=== PATIENT | male | born 1945 | race Caucasian/White ===

== ENCOUNTER → 2016-11-13 | Outpatient (REF) | payer MEDICARE ==
[2016-11-13 19:34] LABS: MEAN CORPUSCULAR HGB CONC 33.3 g/dl (32.0-36.5); MEAN CORPUSCULAR VOLUME 89.9 fl (80.0-96.0); RED CELL DISTRIBUTION WIDTH 12.7 % (11.5-14.5); WHITE BLOOD COUNT 5.5 K/mm3 (4.0-10.0)
[2016-11-13 20:13] LABS: ANION GAP 8 MEQ/L (8-16); BLOOD UREA NITROGEN 20 MG/DL (7-18); CARBON DIOXIDE LEVEL 27 MEQ/L (21-32); CHLORIDE LEVEL 108 MEQ/L (98-107); CREATININE FOR GFR 0.93 MG/DL (0.70-1.30); GLOMERULAR FILTRATION RATE > 60.0 (>49); GLUCOSE, FASTING 68 MG/DL (80-110); SODIUM LEVEL 143 MEQ/L (136-145)
== END ==
LOC: M LAB REF 16:09
PROVIDERS: ATTEND Surgery
DX: E11.621 Type 2 diabetes mellitus with foot ulcer (principal)
CPT/HCPCS: 11042; 36415; 80048; 83036; 85027; 85652; 86140; 87070; 87077; 87186; G0463

== ENCOUNTER → 2016-11-21 | Outpatient (CLI) | payer MEDICARE ==
--- NOTE | 2016-11-21 15:27 | REP ---
MRI RIGHT FOOT WITHOUT AND WITH CONTRAST: 11/21/2016. Comparison: Right foot x-ray 06/25/2014, MRI without and with contrast 02/02/2014. Clinical history: Ulceration about the plantar aspect of the distal 3rd metatarsal. Evaluate for metatarsal head osteomyelitis third digit. History of type 2 diabetes. Technique: Axial T1, fat suppressed T1 and T2 STIR, sagittal T2 STIR with coronal T1, fat suppressed T1 and STIR images. After infusion of 14 mL of ProHance, T1 fat suppressed sagittal, axial and coronal images obtained. Findings: There is some hyperintense T2 stir signal in the plantar aspect of the foot and between the proximal phalanges of the third and fourth toes. There is some fluid along the dorsal aspect of the proximal phalanges and MTP joints of the third and fourth digits. However, I see no marrow signal abnormality on STIR images. Some enhancement of these soft tissues is seen on the gadolinium images, but I do not see marrow enhancement of the phalanges or metatarsal heads. The metatarsal shafts, visible hindfoot and tarsal bones also show no evidence of abnormal enhancement. Flexor and extensor tendons grossly intact. No fluid collection to definitely suggest abscess. Intrinsic muscles of the foot show no signal abnormality. There are old eroded changes of the distal head of the fifth metatarsal. The posterior calcaneus is excluded on most views as this study was to evaluate the MTP joints. Impression: 1. Evidence of cellulitis and some enhancement of the soft tissues about the plantar aspect of the distal foot adjacent to the third and fourth metatarsal heads as well. Some signal in the soft tissues between the third and fourth digits proximal phalanges and dorsally at the MTP joints, but no definite joint effusion, marrow signal abnormalities to suggest osteomyelitis in the toes, metatarsals, tarsal bones or visualized portion of hindfoot. Signed by Greg Thornton MD 11/21/2016 08:21 P
== END ==
LOC: M RAD 10:58
PROVIDERS: ATTEND Surgery
DX: E11.621 Type 2 diabetes mellitus with foot ulcer (principal)
CPT/HCPCS: 73720; A9576

== ENCOUNTER → 2017-06-24 | Outpatient (REF) | payer MEDICARE ==
[2017-06-25 09:00] LABS: TOTAL PROTEIN 7.1 GM/DL (6.4-8.2)
[2017-06-25 12:45] LABS: ALBUMIN 4.05 GM/DL (3.29-5.55); GAMMA GLOBULIN % 15.7 % (11.1-18.8)
== END ==
LOC: M LAB REF 12:43
PROVIDERS: ATTEND Family Medicine
DX: E11.9 Type 2 diabetes mellitus without complications (principal); Z11.59 Encounter for screening for other viral diseases; Z79.4 Long term (current) use of insulin

== ENCOUNTER → 2017-07-16 | Outpatient (REF) | payer MEDICARE | LOC: M LAB REF 13:19 | PROVIDERS: ATTEND Surgery | DX: E11.621 Type 2 diabetes mellitus with foot ulcer (principal); D16.31 Benign neoplasm of short bones of right lower limb ==

== ENCOUNTER → 2017-07-16 | Outpatient (REF) | payer MEDICARE | LOC: M SFHCPLAZ 12:02 | PROVIDERS: ATTEND Surgery | DX: E11.621 Type 2 diabetes mellitus with foot ulcer (principal) ==

== ENCOUNTER → 2017-08-06 | Outpatient (REF) | payer MEDICARE ==
[2017-08-06 19:26] LABS: BASO # 0.1 10^3/uL (0.0-0.2); BASO % 0.9 % (0.0-1.0); EOS # 0.1 10^3/uL (0.0-0.50); EOS % 1.8 % (0.0-3.0); IMMATURE GRANULOCYTE % 0.2 % (0-0); LYMPH # 1.5 10^3/uL (1.5-4.5); LYMPH % 23.1 % (24.0-44.0); MEAN CORPUSCULAR HEMOGLOBIN 29.6 pg (27.0-33.0); MEAN CORPUSCULAR HGB CONC 33.4 g/dl (32.0-36.5); MEAN CORPUSCULAR VOLUME 88.6 fl (80.0-96.0); MONO # 0.5 10^3/uL (0.0-0.8); MONO % 7.3 % (0.0-5.0); NEUTROPHILS # 4.4 10^3/uL (1.8-7.7); NEUTROPHILS % 66.7 % (36.0-66.0); PLATELET COUNT, AUTOMATED 258 10^3/uL (150-450); RED CELL DISTRIBUTION WIDTH 12.1 % (11.5-14.5); WHITE BLOOD COUNT 6.6 10^3/uL (4.0-10.0)
[2017-08-06 19:30] LABS: ALBUMIN/GLOBULIN RATIO 1.14 (1.00-1.93); ALKALINE PHOSPHATASE 87 U/L (45-117); ALT/SGPT 31 U/L (12-78); ANION GAP 3 MEQ/L (8-16); AST/SGOT 20 U/L (7-37); BILIRUBIN,TOTAL 0.4 MG/DL (0.2-1.0); BLOOD UREA NITROGEN 21 MG/DL (7-18); CALCIUM LEVEL 9.8 MG/DL (8.8-10.2); CARBON DIOXIDE LEVEL 32 MEQ/L (21-32); CHLORIDE LEVEL 106 MEQ/L (98-107); CREATININE FOR GFR 0.83 MG/DL (0.70-1.30); GLOMERULAR FILTRATION RATE > 60.0 (>42); GLUCOSE, FASTING 88 MG/DL (83-110); SODIUM LEVEL 141 MEQ/L (136-145); TOTAL PROTEIN 7.5 GM/DL (6.4-8.2)
[2017-08-06 20:23] LABS: ERYTHROCYTE SEDIMENTATION RATE 47 mm/hr (0-20)
== END ==
LOC: M LAB REF 17:26
PROVIDERS: ATTEND Surgery
DX: E11.621 Type 2 diabetes mellitus with foot ulcer (principal); L97.514 Non-pressure chronic ulcer of other part of right foot with necrosis of bone

== ENCOUNTER → 2017-09-10 | Outpatient (REF) | payer MEDICARE | LOC: M LAB REF 16:38 | PROVIDERS: ATTEND Surgery | DX: E11.621 Type 2 diabetes mellitus with foot ulcer (principal); L97.514 Non-pressure chronic ulcer of other part of right foot with necrosis of bone ==

== ENCOUNTER → 2017-09-13 | Outpatient (CLI) | payer MEDICARE ==
[~2017-09-13] MED LIST: HEPARIN 1,000 UNITS/ML 10ML VIAL (FOR RADIOLOGY& DIALYSIS ONLY) As Ordered ONE; ISOVUE-300 61% 50ML VIAL (Q9967) As Ordered ONE; MIDAZOLAM INJ 2 MG/2 ML VIAL (J2250) As Ordered ONE; PROTAMINE SULF INJ 50 MG/5 ML VIAL (J2720) As Ordered ONE; fentaNYL 100 MCG/2 ML INJECTION (J3010) As Ordered ONE
--- NOTE | 2017-09-13 13:28 | REP ---
BILATERAL LOWER EXTREMITY DUPLEX DOPPLER VENOUS ULTRASOUND WITH VEIN MAPPING: Real-time compression and duplex Doppler interrogation of the bilateral lower extremity deep vein systems is performed. Bilaterally, common femoral, superficial femoral, and popliteal veins are fully compressible with transducer pressure and demonstrate normal spontaneous and phasic flow without evidence of deep venous thrombosis. Evaluation of venous size of the right lower extremity is performed, central aspect of right greater saphenous vein measures 5 mm in AP dimension, mid aspect and distal aspect 2 mm, and below the knee 1 mm. In the mid calf, the greater saphenous vein measures 2 mm. Anterior accessory greater saphenous vein is seen and measures 1 mm in diameter. Lesser saphenous vein measures 1 mm in diameter diffusely. On the left, central greater saphenous vein measures 3 mm, mid aspect 2 mm, and distally 1 mm, also 1 mm below the knee. The lesser saphenous vein centrally measures 4 mm in diameter with the mid to distal aspect measuring 1 mm. Signed by Michael Siddiqui MD 09/13/2017 05:00 P
--- NOTE | 2017-09-20 11:31 | REPIR ---
DATE OF PROCEDURE: 09/13/2017 PREOPERATIVE DIAGNOSES: Nonhealing right diabetic foot ulcer, diabetes mellitus, hypertension, femoral popliteal atherosclerotic arterial occlusive disease, tibioperoneal arthrosclerotic arterial occlusive disease. POSTOPERATIVE DIAGNOSES: Nonhealing right diabetic foot ulcer, diabetes mellitus, hypertension, femoral popliteal atherosclerotic arterial occlusive disease, tibioperoneal arthrosclerotic arterial occlusive disease. PROCEDURE: Aortogram, iliofemoral angiogram, selective right common femoral artery catheter placement with right lower extremity angiogram, selective right superficial femoral artery catheter placement with right lower extremity angiogram, Mynx closure of the left common femoral arteriotomy. ATTENDING SURGEON: Dr. Jignesh Cruz ASSISTANTS: Miguel Biggs and Nery Whelan. ANESTHESIA: Local with 10 mL of 2% lidocaine. FLUOROSCOPIC TIME: 1.1 minutes. CONTRAST: 17 mL. HEPARIN: None. COMPLICATIONS: None. DRAINS: None. SPECIMENS: None. IMPLANTS: Mynx closure device used to close the arteriotomy in the left common femoral artery. INDICATION: Patient is a 72-year-old male with known arterial atherosclerotic disease in the left lower extremity who also has a history of diabetes and hypertension who has worsening of his wound in his right foot, which has been slow to heal. Patient also has some minor pain in the right foot. Patient will undergo an angiogram with possible angioplasty, stent, and/or arthrectomy. Risks, benefits, and alternative treatment options were discussed with the patient. Alternative treatment options included, but were not limited to, no intervention. Risks included, but were not limited to, infection, bleeding, renal failure requiring hemodialysis, possible need for open surgical intervention, cerebrovascular accident, myocardial infarction, retroperitoneal hematoma, pulmonary embolus, deep venous thrombosis (DVT), loss of limb, loss of life, and poor outcome. Patient's questions were answered. Patient voices understanding of these risks, benefits, and alternative treatment options and accepts these risks of the associated procedure and agrees to proceed. Benefits included, but were not limited to, revascularization with improved blood flow to his right foot and healing of his right diabetic foot ulcer. DESCRIPTION OF PROCEDURE: Patient was taken to the angiography suite, placed supine on the angiography room table, and then prepped and draped in a standard surgical fashion. The left common femoral artery was cannulated with a micropuncture needle after anesthetizing the overlying skin with 2% lidocaine. The micropuncture wire was advanced through the micropuncture needle, which was upsized to a micropuncture sheath. A [place] wire was advanced through the micropuncture sheath, which was upsized to a #5-Cam[place] sheath. An Omni Flush catheter was placed in the aorta, and an aortogram was performed. Catheter was pulled down to the level of the bifurcation of the iliac arteries, and an iliofemoral angiogram was performed. Catheter was then directed over the bifurcation of the iliac arteries, placed in the right common femoral artery, and a right lower extremity angiogram was performed. Catheter was then advanced into the right superficial femoral artery as far distal as possible, and the remainder of the right lower extremity angiogram was performed. Catheters and wires were removed, and a Mynx closure device was used to close the arteriotomy in the left common femoral artery with an additional 10 minutes of adjunctive pressure applied for hemostasis. Dressings were then applied. Patient tolerated the procedure well. All instrument, sponge, and needle counts were correct at the end of the case. There were no complications. Dr. Cruz was present for and directed the entire case. Patient was transferred to the holding area and subsequently discharged in stable condition. RADIOLOGIC SUPERVISION INTERPRETATION: The initial aortogram showed the aorta from the diaphragm to the renal arteries to be widely patent. The celiac artery, superior mesenteric and renal arteries were widely patent with no stenosis noted. The infrarenal aorta was patent with good filling of lumbar vessels. The right common iliac, external and internal iliac arteries (cut off) common femoral artery. The catheter was placed in the right common femoral artery, and a right lower extremity angiogram was performed. The left common iliac, external and internal iliac arteries were patent with a high-grade stenosis at the origin of the left internal iliac artery, which was approximately 80%. The left common femoral and proximal superficial femoral and profunda femoris arteries were patent. There was no visualization of the left lower extremity below the puncture site. The right lower extremity angiogram showed the profunda femoris and superficial femoral artery to be patent with calcification noted along the marinelli of the superficial femoral artery. Catheter was advanced as far into the superficial femoral artery as possible, and an angiogram performed, which shows again calcification of the superficial femoral and popliteal artery distally with a stenosis at the junction of the superficial femoral and popliteal artery, which was approximately 30-40%. The popliteal artery in the below-knee region occluded with reconstitution distally of the posterior tibial and anterior tibial arteries in the mid calf via collaterals off of the popliteal artery. A Mynx closure device was used to close the arteriotomy in the left common femoral artery.
== END | disposition home or self-care (01) ==
LOC: M IRPRO 07:09
PROVIDERS: ATTEND Surgery Vascular Surgery
DX: I70.235 Atherosclerosis of native arteries of right leg with ulceration of other part of foot (principal); E11.621 Type 2 diabetes mellitus with foot ulcer; L97.519 Non-pressure chronic ulcer of other part of right foot with unspecified severity; I10 Essential (primary) hypertension
CPT/HCPCS: 36247; 75625; 75716; 75774; 93970; C1760; C1769; C1887; C1894; G0269; J2250; J3010; Q9967

== ENCOUNTER → 2017-09-25 | Outpatient (REF) | payer MEDICARE | LOC: M LAB REF 16:26 | PROVIDERS: ATTEND Physician Assistant Surgical | DX: E11.621 Type 2 diabetes mellitus with foot ulcer (principal); L97.514 Non-pressure chronic ulcer of other part of right foot with necrosis of bone ==

== ENCOUNTER 2017-11-14 09:13 | Inpatient (IN) | payer MEDICARE ==
[~2017-11-14 09:13] MED LIST changes: -HEPARIN 1,000 UNITS/ML 10ML VIAL (FOR RADIOLOGY& DIALYSIS ONLY) As Ordered ONE; -ISOVUE-300 61% 50ML VIAL (Q9967) As Ordered ONE; -MIDAZOLAM INJ 2 MG/2 ML VIAL (J2250) As Ordered ONE; -PROTAMINE SULF INJ 50 MG/5 ML VIAL (J2720) As Ordered ONE; -fentaNYL 100 MCG/2 ML INJECTION (J3010) As Ordered ONE; +fentaNYL 250 MCG/5 ML INJECTION (J3010) As Ordered
[2017-11-14 10:33] LABS: BEDSIDE GLUCOSE 190 MG/DL (83-110)
[2017-11-14] MEDS: LR 1,000 ML IV ×3 (10:42→20:30)
[2017-11-14] MEDS: BUPIVACAINE HCL 0.5% 30 ML VIAL As Ordered (11:36)
[2017-11-14] MEDS: LIDOCAINE 1% SDV INJ 30 ML VIAL As Ordered (11:36)
[2017-11-14] MEDS: ceFAZolin 1GM INJ (J0690 PER 500MG) As Ordered (12:42)
[2017-11-14] MEDS: HEPARIN SOD (PORCINE) 5000 UNITS/ML VIAL As Ordered ×2 (13:32→15:12)
[2017-11-14] MEDS ORDERED: HEPARIN SOD (PORCINE) 5000 UNITS/ML VIAL As Ordered ×3 (13:36→16:41)
[2017-11-14] MEDS ORDERED: HYDROmorphone HCL 2 MG/ML 1ML VIAL (J1170) As Ordered (15:12)
[2017-11-14] MEDS ORDERED: METOCLOPRAMIDE INJ 10MG/2ML VIAL (J2765) As Ordered (15:13)
[2017-11-14] MEDS ORDERED: LIDOCAINE 2% INJ 100 MG/5 ML SDV (FOR ANES.) As Ordered (15:13)
[2017-11-14] MEDS ORDERED: ROCURONIUM BROMIDE 50 MG/5 ML VIAL As Ordered (15:13)
[2017-11-14] MEDS ORDERED: ONDANSETRON 4MG/2ML VIAL (J2405) As Ordered (15:13)
[2017-11-14] MEDS: THROMBIN SOLN 20,000 UNITS KIT As Ordered ×2 (15:13→17:16)
[2017-11-14] MEDS ORDERED: PROPOFOL 200 MG/20 ML VIAL As Ordered (15:13)
[2017-11-14] MEDS: ceFAZolin 2 GM/D5W 50 ML IV BAG (J0690 PER 500MG) As Ordered (16:35)
[2017-11-14] MEDS: CONRAY-60 60% 50ML VIAL (Q9961) As Ordered (16:35)
[2017-11-14] MEDS: ALTEPLASE 2 MG/2 ML VIAL (J2997 PER 1MG) XX (17:15)
[2017-11-14] MEDS ORDERED: PHENYLephrine HCL 500 MCG/5 ML (100MCG/ML) SYRINGE (J2370) As Ordered (17:25)
[2017-11-14] MEDS ORDERED: GLYCOPYRROLATE INJ 0.2 MG/ML 2 ML VIAL As Ordered ×2 (18:48)
[2017-11-14] MEDS ORDERED: NEOSTIGMINE 10 MG/10 ML VIAL (J2710) As Ordered (18:48)
[2017-11-14] MEDS ORDERED: fentaNYL 100 MCG/2 ML INJECTION (J3010) As Ordered (19:20)
[2017-11-14] MEDS: fentaNYL 100 MCG/2 ML INJECTION (J3010) IV ×4 (19:30→19:50)
[2017-11-14] MEDS ORDERED: predniSONE 5 MG TAB PO (19:30)
[2017-11-14] MEDS ORDERED: BISACODYL 10 MG SUPP PR (19:30)
[2017-11-14] MEDS ORDERED: HumaLOG INSULIN (NovoLOG) PER UNIT SC (19:30)
[2017-11-14] MEDS ORDERED: PERCOCET 5MG/325MG TAB As Ordered (19:42)
[2017-11-14] MEDS: PERCOCET 5MG/325MG TAB PO ×2 (19:53→20:29)
[2017-11-14] MEDS: HYDROmorphone HCL 1 MG/ML SYRINGE (J1170) IV (20:30)
[2017-11-14] MEDS: ONDANSETRON 4MG/2ML VIAL (J2405) IV ×2 (20:30→20:34)
[2017-11-14] MEDS: NS 1,000 ML IV (20:35)
[2017-11-14] MEDS: SENOKOT S TAB PO (20:36)
[2017-11-14] MEDS: DOCUSATE SODIUM 100 MG CAP PO (20:36)
[2017-11-14] MEDS ORDERED: DEXTROSE 50% 50 ML SYRINGE IV (21:15)
[2017-11-14] MEDS ORDERED: GLUCAGON FOR INJ 1 MG VIAL (J1610) SC (21:15)
[2017-11-14] MEDS ORDERED: GLUCOSE 4 GM CHEW TABLET PO (21:15)
[2017-11-14] MEDS: MORPHINE 4 MG/ML 1ML VIAL (J2270) IV ×2 (21:33→23:59)
[2017-11-14] MEDS: LEVEMIR (INSULIN DETEMIR) 1 UNITS/0.01ML SC (22:06)
[2017-11-14 22:07] LABS: BEDSIDE GLUCOSE 272 MG/DL (83-110)
[2017-11-14] MEDS: HumaLOG INSULIN (NovoLOG) PER UNIT SC (22:07)
[2017-11-15] MEDS: NS 1,000 ML IV ×3 (03:42→19:23)
[2017-11-15] MEDS: MORPHINE 4 MG/ML 1ML VIAL (J2270) IV ×4 (03:47→12:20)
[2017-11-15 04:56] LABS: BASO % 0.4 % (0.0-1.0); HEMATOCRIT 25.1 % (42.0-52.0); HEMOGLOBIN 8.4 g/dl (14.0-18.0); IMMATURE GRANULOCYTE % 0.3 % (0-3.0); LYMPH # 0.9 10^3/uL (1.5-4.5); LYMPH % 9.1 % (24.0-44.0); MEAN CORPUSCULAR HEMOGLOBIN 29.3 pg (27.0-33.0); MEAN CORPUSCULAR HGB CONC 33.5 g/dl (32.0-36.5); MEAN CORPUSCULAR VOLUME 87.5 fl (80.0-96.0); MONO # 1.1 10^3/uL (0.0-0.8); MONO % 11.3 % (0.0-5.0); NEUTROPHILS # 7.9 10^3/uL (1.8-7.7); NEUTROPHILS % 78.9 % (36.0-66.0); PLATELET COUNT, AUTOMATED 213 10^3/uL (150-450); RED BLOOD COUNT 2.87 10^6/uL (4.30-6.10); RED CELL DISTRIBUTION WIDTH 12.8 % (11.5-14.5); WHITE BLOOD COUNT 9.9 10^3/uL (4.0-10.0)
[2017-11-15 05:20] LABS: ANION GAP 3 MEQ/L (8-16); BLOOD UREA NITROGEN 22 MG/DL (7-18); CALCIUM LEVEL 7.7 MG/DL (8.8-10.2); CARBON DIOXIDE LEVEL 29 MEQ/L (21-32); CHLORIDE LEVEL 111 MEQ/L (98-107); CREATININE FOR GFR 0.95 MG/DL (0.70-1.30); GLOMERULAR FILTRATION RATE > 60.0 (>42); GLUCOSE, FASTING 180 MG/DL (70-100); SODIUM LEVEL 143 MEQ/L (136-145)
[2017-11-15 05:22] LABS: POTASSIUM SERUM 5.4 MEQ/L (3.5-5.1)
[2017-11-15] MEDS: LEVOTHYROXINE 75MCG TABLET (0.075MG) PO (05:55)
[2017-11-15] MEDS: metFORMIN (GLUCOPHAGE) 1000 MG TABLET PO ×2 (07:27→18:05)
[2017-11-15] MEDS: HumaLOG INSULIN (NovoLOG) PER UNIT SC ×4 (07:28→21:00)
[2017-11-15] MEDS: SENOKOT S TAB PO ×2 (08:34→22:31)
[2017-11-15] MEDS: DOCUSATE SODIUM 100 MG CAP PO ×3 (08:34→22:30)
[2017-11-15] MEDS: SIMVASTATIN 40 MG TAB PO (08:35)
[2017-11-15] MEDS: LISINOPRIL 10 MG TAB PO (08:36)
[2017-11-15] MEDS: amLODIPine 5 MG TAB PO (08:36)
[2017-11-15] MEDS ORDERED: FOLIC ACID 1 MG TAB PO (09:00)
[2017-11-15] MEDS: NORCO, ANEXSIA 5/325MG TABLET (HYDROcodone/ACETAMINOPHEN) PO ×2 (11:02→22:31)
[2017-11-15 11:06] LABS: POTASSIUM SERUM 4.6 MEQ/L (3.5-5.1)
[2017-11-15 12:11] LABS: BEDSIDE GLUCOSE 94 MG/DL (83-110)
[2017-11-15 17:26] LABS: BEDSIDE GLUCOSE 98 MG/DL (83-110)
[2017-11-15] MEDS: LEVEMIR (INSULIN DETEMIR) 1 UNITS/0.01ML SC (21:00)
[2017-11-15 21:06] LABS: BEDSIDE GLUCOSE 117 MG/DL (83-110)
[2017-11-16] MEDS: NS 1,000 ML IV ×3 (03:23→19:57)
[2017-11-16] MEDS: LEVOTHYROXINE 75MCG TABLET (0.075MG) PO (06:32)
[2017-11-16] MEDS: NORCO, ANEXSIA 5/325MG TABLET (HYDROcodone/ACETAMINOPHEN) PO (06:32)
[2017-11-16 07:38] LABS: BEDSIDE GLUCOSE 125 MG/DL (83-110)
[2017-11-16] MEDS: HumaLOG INSULIN (NovoLOG) PER UNIT SC ×4 (07:57→21:00)
[2017-11-16] MEDS: metFORMIN (GLUCOPHAGE) 1000 MG TABLET PO ×2 (07:57→17:45)
[2017-11-16] MEDS: DOCUSATE SODIUM 100 MG CAP PO ×2 (07:58→19:56)
[2017-11-16] MEDS: amLODIPine 5 MG TAB PO (07:58)
[2017-11-16] MEDS: SENOKOT S TAB PO ×2 (07:59→19:57)
[2017-11-16] MEDS: SIMVASTATIN 40 MG TAB PO (07:59)
[2017-11-16] MEDS: LISINOPRIL 10 MG TAB PO (08:00)
[2017-11-16] MEDS: METHOTREXATE 2.5 MG TAB (J8610 PER 2.5MG) PO (08:01)
[2017-11-16 11:54] LABS: BEDSIDE GLUCOSE 145 MG/DL (83-110)
[2017-11-16 12:19] LABS: HEMATOCRIT 21.7 % (42.0-52.0); HEMOGLOBIN 7.3 g/dl (14.0-18.0); MEAN CORPUSCULAR HGB CONC 33.6 g/dl (32.0-36.5); MEAN CORPUSCULAR VOLUME 89.3 fl (80.0-96.0); PLATELET COUNT, AUTOMATED 154 10^3/uL (150-450); RED BLOOD COUNT 2.43 10^6/uL (4.30-6.10); RED CELL DISTRIBUTION WIDTH 12.7 % (11.5-14.5); WHITE BLOOD COUNT 7.7 10^3/uL (4.0-10.0)
[2017-11-16 12:55] LABS: ANION GAP 8 MEQ/L (8-16); BLOOD UREA NITROGEN 13 MG/DL (7-18); CALCIUM LEVEL 7.5 MG/DL (8.8-10.2); CARBON DIOXIDE LEVEL 28 MEQ/L (21-32); CHLORIDE LEVEL 107 MEQ/L (98-107); CREATININE FOR GFR 0.65 MG/DL (0.70-1.30); GLOMERULAR FILTRATION RATE > 60.0 (>42); GLUCOSE, FASTING 136 MG/DL (70-100); POTASSIUM SERUM 4.2 MEQ/L (3.5-5.1); SODIUM LEVEL 143 MEQ/L (136-145)
[2017-11-16] MEDS: ONDANSETRON 4MG/2ML VIAL (J2405) IV (14:16)
[2017-11-16 17:38] LABS: BEDSIDE GLUCOSE 158 MG/DL (83-110)
[2017-11-16 19:51] LABS: BEDSIDE GLUCOSE 175 MG/DL (83-110)
[2017-11-16] MEDS: LEVEMIR (INSULIN DETEMIR) 1 UNITS/0.01ML SC (21:12)
[2017-11-17] MEDS: NS 1,000 ML IV ×3 (03:23→20:10)
[2017-11-17 04:43] LABS: BASO % 0.2 % (0.0-1.0); EOS % 0.3 % (0.0-3.0); HEMATOCRIT 18.6 % (42.0-52.0); IMMATURE GRANULOCYTE % 0.3 % (0-3.0); LYMPH # 0.8 10^3/uL (1.5-4.5); LYMPH % 12.5 % (24.0-44.0); MEAN CORPUSCULAR HEMOGLOBIN 29.7 pg (27.0-33.0); MEAN CORPUSCULAR HGB CONC 33.9 g/dl (32.0-36.5); MEAN CORPUSCULAR VOLUME 87.7 fl (80.0-96.0); MONO # 0.4 10^3/uL (0.0-0.8); MONO % 6.8 % (0.0-5.0); NEUTROPHILS # 4.8 10^3/uL (1.8-7.7); NEUTROPHILS % 79.9 % (36.0-66.0); PLATELET COUNT, AUTOMATED 137 10^3/uL (150-450); RED BLOOD COUNT 2.12 10^6/uL (4.30-6.10); RED CELL DISTRIBUTION WIDTH 12.4 % (11.5-14.5)
[2017-11-17 04:51] LABS: HEMOGLOBIN 6.3 g/dl (14.0-18.0)
[2017-11-17 05:08] LABS: ANION GAP 6 MEQ/L (8-16); BLOOD UREA NITROGEN 13 MG/DL (7-18); CALCIUM LEVEL 7.1 MG/DL (8.8-10.2); CARBON DIOXIDE LEVEL 27 MEQ/L (21-32); CHLORIDE LEVEL 108 MEQ/L (98-107); CREATININE FOR GFR 0.67 MG/DL (0.70-1.30); GLOMERULAR FILTRATION RATE > 60.0 (>42); GLUCOSE, FASTING 127 MG/DL (70-100); POTASSIUM SERUM 3.6 MEQ/L (3.5-5.1); SODIUM LEVEL 141 MEQ/L (136-145)
[2017-11-17] MEDS: LEVOTHYROXINE 75MCG TABLET (0.075MG) PO (05:26)
[2017-11-17 06:38] LABS: IMMEDIATE SPIN CROSSMATCH 1 2
[2017-11-17] MEDS: metFORMIN (GLUCOPHAGE) 1000 MG TABLET PO ×2 (07:36→17:32)
[2017-11-17] MEDS: HumaLOG INSULIN (NovoLOG) PER UNIT SC ×4 (07:36→20:29)
[2017-11-17] MEDS: NORCO, ANEXSIA 5/325MG TABLET (HYDROcodone/ACETAMINOPHEN) PO ×3 (07:58→23:48)
[2017-11-17] MEDS: DOCUSATE SODIUM 100 MG CAP PO ×2 (07:58→20:09)
[2017-11-17] MEDS: amLODIPine 5 MG TAB PO (07:59)
[2017-11-17] MEDS: LISINOPRIL 10 MG TAB PO (07:59)
[2017-11-17] MEDS: SIMVASTATIN 40 MG TAB PO (07:59)
[2017-11-17] MEDS: SENOKOT S TAB PO ×2 (07:59→20:09)
[2017-11-17 11:57] LABS: BEDSIDE GLUCOSE 103 MG/DL (83-110)
[2017-11-17] MEDS: ONDANSETRON 4MG/2ML VIAL (J2405) IV (12:33)
[2017-11-17 14:41] LABS: HEMATOCRIT 23.9 % (42.0-52.0); HEMOGLOBIN 8.2 g/dl (14.0-18.0); MEAN CORPUSCULAR HEMOGLOBIN 29.9 pg (27.0-33.0); MEAN CORPUSCULAR HGB CONC 34.3 g/dl (32.0-36.5); MEAN CORPUSCULAR VOLUME 87.2 fl (80.0-96.0); PLATELET COUNT, AUTOMATED 135 10^3/uL (150-450); RED BLOOD COUNT 2.74 10^6/uL (4.30-6.10); RED CELL DISTRIBUTION WIDTH 12.9 % (11.5-14.5); WHITE BLOOD COUNT 6.6 10^3/uL (4.0-10.0)
[2017-11-17 17:06] LABS: BEDSIDE GLUCOSE 63 MG/DL (83-110)
[2017-11-17 19:30] LABS: BEDSIDE GLUCOSE 131 MG/DL (83-110)
[2017-11-17] MEDS: LEVEMIR (INSULIN DETEMIR) 1 UNITS/0.01ML SC (20:30)
[2017-11-18] MEDS: NS 1,000 ML IV (03:23)
[2017-11-18 05:09] LABS: BASO % 0.6 % (0.0-1.0); EOS # 0.1 10^3/uL (0.0-0.50); EOS % 2.2 % (0.0-3.0); HEMATOCRIT 24.3 % (42.0-52.0); HEMOGLOBIN 8.4 g/dl (14.0-18.0); IMMATURE GRANULOCYTE % 0.2 % (0-3.0); LYMPH # 0.8 10^3/uL (1.5-4.5); LYMPH % 15.6 % (24.0-44.0); MEAN CORPUSCULAR HEMOGLOBIN 29.9 pg (27.0-33.0); MEAN CORPUSCULAR HGB CONC 34.6 g/dl (32.0-36.5); MEAN CORPUSCULAR VOLUME 86.5 fl (80.0-96.0); MONO # 0.1 10^3/uL (0.0-0.8); MONO % 2.8 % (0.0-5.0); NEUTROPHILS % 78.6 % (36.0-66.0); PLATELET COUNT, AUTOMATED 144 10^3/uL (150-450); RED BLOOD COUNT 2.81 10^6/uL (4.30-6.10); RED CELL DISTRIBUTION WIDTH 13.1 % (11.5-14.5); WHITE BLOOD COUNT 5.1 10^3/uL (4.0-10.0)
[2017-11-18 05:14] LABS: ANION GAP 7 MEQ/L (8-16); BLOOD UREA NITROGEN 10 MG/DL (7-18); CALCIUM LEVEL 7.3 MG/DL (8.8-10.2); CARBON DIOXIDE LEVEL 26 MEQ/L (21-32); CHLORIDE LEVEL 110 MEQ/L (98-107); CREATININE FOR GFR 0.62 MG/DL (0.70-1.30); GLOMERULAR FILTRATION RATE > 60.0 (>42); GLUCOSE, FASTING 88 MG/DL (70-100); POTASSIUM SERUM 3.8 MEQ/L (3.5-5.1); SODIUM LEVEL 143 MEQ/L (136-145)
[2017-11-18] MEDS: LEVOTHYROXINE 75MCG TABLET (0.075MG) PO (06:02)
[2017-11-18] MEDS: HumaLOG INSULIN (NovoLOG) PER UNIT SC ×4 (07:30→20:34)
[2017-11-18] MEDS: metFORMIN (GLUCOPHAGE) 1000 MG TABLET PO ×2 (07:41→18:01)
[2017-11-18] MEDS: NORCO, ANEXSIA 5/325MG TABLET (HYDROcodone/ACETAMINOPHEN) PO ×2 (07:41→16:40)
[2017-11-18] MEDS: ONDANSETRON 4MG/2ML VIAL (J2405) IV ×2 (07:41→16:39)
[2017-11-18] MEDS: DOCUSATE SODIUM 100 MG CAP PO ×2 (08:24→20:35)
[2017-11-18] MEDS: SIMVASTATIN 40 MG TAB PO (08:24)
[2017-11-18] MEDS: SENOKOT S TAB PO ×2 (08:25→20:35)
[2017-11-18] MEDS: LISINOPRIL 10 MG TAB PO (08:25)
[2017-11-18] MEDS: amLODIPine 5 MG TAB PO (08:25)
[2017-11-18 12:07] LABS: BEDSIDE GLUCOSE 144 MG/DL (83-110)
[2017-11-19] MEDS: ONDANSETRON 4MG/2ML VIAL (J2405) IV (06:07)
[2017-11-19] MEDS: LEVOTHYROXINE 75MCG TABLET (0.075MG) PO (06:07)
[2017-11-19] MEDS: NORCO, ANEXSIA 5/325MG TABLET (HYDROcodone/ACETAMINOPHEN) PO ×2 (06:07→17:56)
[2017-11-19] MEDS: amLODIPine 5 MG TAB PO (08:29)
[2017-11-19] MEDS: SENOKOT S TAB PO ×2 (08:29→20:05)
[2017-11-19] MEDS: DOCUSATE SODIUM 100 MG CAP PO ×2 (08:29→20:05)
[2017-11-19] MEDS: SIMVASTATIN 40 MG TAB PO (08:29)
[2017-11-19] MEDS: HumaLOG INSULIN (NovoLOG) PER UNIT SC ×4 (08:29→20:46)
[2017-11-19] MEDS: metFORMIN (GLUCOPHAGE) 1000 MG TABLET PO ×2 (08:29→17:56)
[2017-11-19] MEDS: LISINOPRIL 10 MG TAB PO (08:30)
[2017-11-19 08:59] LABS: BEDSIDE GLUCOSE 129 MG/DL (83-110)
[2017-11-19 09:02] LABS: BEDSIDE GLUCOSE 170 MG/DL (83-110)
[2017-11-19 09:06] LABS: BEDSIDE GLUCOSE 166 MG/DL (83-110)
[2017-11-19 12:40] LABS: BEDSIDE GLUCOSE 154 MG/DL (83-110)
[2017-11-19 18:01] LABS: BEDSIDE GLUCOSE 128 MG/DL (83-110)
[2017-11-19 21:12] LABS: BEDSIDE GLUCOSE 112 MG/DL (83-110)
[2017-11-20] MEDS: LEVOTHYROXINE 75MCG TABLET (0.075MG) PO (05:35)
[2017-11-20 07:05] LABS: BEDSIDE GLUCOSE 100 MG/DL (83-110)
[2017-11-20] MEDS: HumaLOG INSULIN (NovoLOG) PER UNIT SC ×4 (07:30→20:39)
[2017-11-20] MEDS: SIMVASTATIN 40 MG TAB PO (09:02)
[2017-11-20] MEDS: metFORMIN (GLUCOPHAGE) 1000 MG TABLET PO ×2 (09:02→17:35)
[2017-11-20] MEDS: DOCUSATE SODIUM 100 MG CAP PO ×2 (09:02→20:42)
[2017-11-20] MEDS: amLODIPine 5 MG TAB PO (09:04)
[2017-11-20] MEDS: LISINOPRIL 10 MG TAB PO (09:04)
[2017-11-20] MEDS: MOM 30ML SUSPENSION UDC PO (09:04)
[2017-11-20] MEDS: SENOKOT S TAB PO ×2 (09:04→20:42)
[2017-11-20] MEDS: ONDANSETRON 4MG/2ML VIAL (J2405) IV (12:00)
[2017-11-20 12:21] LABS: BEDSIDE GLUCOSE 134 MG/DL (83-110)
[2017-11-20 17:04] LABS: BEDSIDE GLUCOSE 191 MG/DL (83-110)
[2017-11-20] MEDS: NORCO, ANEXSIA 5/325MG TABLET (HYDROcodone/ACETAMINOPHEN) PO (20:43)
[2017-11-21 00:28] LABS: BEDSIDE GLUCOSE 100 MG/DL (83-110)
[2017-11-21] MEDS: LEVOTHYROXINE 75MCG TABLET (0.075MG) PO (05:32)
[2017-11-21 06:57] LABS: BEDSIDE GLUCOSE 116 MG/DL (83-110)
[2017-11-21] MEDS: HumaLOG INSULIN (NovoLOG) PER UNIT SC ×4 (08:12→20:26)
[2017-11-21] MEDS: metFORMIN (GLUCOPHAGE) 1000 MG TABLET PO ×2 (08:12→17:28)
[2017-11-21] MEDS: SIMVASTATIN 40 MG TAB PO (08:12)
[2017-11-21] MEDS: SENOKOT S TAB PO ×2 (08:14→20:28)
[2017-11-21] MEDS: amLODIPine 5 MG TAB PO (08:14)
[2017-11-21] MEDS: LISINOPRIL 10 MG TAB PO (08:14)
[2017-11-21] MEDS: DOCUSATE SODIUM 100 MG CAP PO ×2 (08:14→20:28)
[2017-11-21 12:07] LABS: BEDSIDE GLUCOSE 149 MG/DL (83-110)
[2017-11-21] MEDS: NORCO, ANEXSIA 5/325MG TABLET (HYDROcodone/ACETAMINOPHEN) PO (13:25)
[2017-11-21 14:37] LABS: HEMATOCRIT 27.5 % (42.0-52.0); HEMOGLOBIN 9.4 g/dl (14.0-18.0); MEAN CORPUSCULAR HEMOGLOBIN 29.7 pg (27.0-33.0); MEAN CORPUSCULAR HGB CONC 34.2 g/dl (32.0-36.5); MEAN CORPUSCULAR VOLUME 86.8 fl (80.0-96.0); PLATELET COUNT, AUTOMATED 232 10^3/uL (150-450); RED BLOOD COUNT 3.17 10^6/uL (4.30-6.10)
[2017-11-21 17:16] LABS: BEDSIDE GLUCOSE 143 MG/DL (83-110)
[2017-11-21 21:24] LABS: BEDSIDE GLUCOSE 126 MG/DL (83-110)
[2017-11-22] MEDS: NORCO, ANEXSIA 5/325MG TABLET (HYDROcodone/ACETAMINOPHEN) PO (00:19)
[2017-11-22] MEDS: LEVOTHYROXINE 75MCG TABLET (0.075MG) PO (05:50)
[2017-11-22 06:23] LABS: BEDSIDE GLUCOSE 157 MG/DL (83-110)
[2017-11-22] MEDS: metFORMIN (GLUCOPHAGE) 1000 MG TABLET PO (08:42)
[2017-11-22] MEDS: HumaLOG INSULIN (NovoLOG) PER UNIT SC ×2 (08:42→11:54)
[2017-11-22] MEDS: SIMVASTATIN 40 MG TAB PO (08:42)
[2017-11-22] MEDS: amLODIPine 5 MG TAB PO (08:43)
[2017-11-22] MEDS: DOCUSATE SODIUM 100 MG CAP PO (08:43)
[2017-11-22] MEDS: SENOKOT S TAB PO (08:43)
[2017-11-22] MEDS: LISINOPRIL 10 MG TAB PO (08:43)
[2017-11-22 11:38] LABS: BEDSIDE GLUCOSE 120 MG/DL (83-110)
== END 2017-11-22 15:56 | disposition home health service (06) | DRG 253 ==
LOC: M OR 09:13 → M ICU 20:14 → M MSPAV 11-18 23:46
PROVIDERS: Surgery Vascular Surgery
PROC: 041 Lower Arteries, Bypass (ICD-10-PCS; principal; 2017-11-14 11:15)
PROC: 04CK0ZZ Extirpation of Matter from Right Femoral Artery, Open Approach (ICD-10-PCS; 2017-11-14 11:15)
PROC: 04CM0ZZ Extirpation of Matter from Right Popliteal Artery, Open Approach (ICD-10-PCS; 2017-11-14 11:15)
PROC: 047K0ZZ Dilation of Right Femoral Artery, Open Approach (ICD-10-PCS; 2017-11-14 11:15)
PROC: 047 Lower Arteries, Dilation (ICD-10-PCS; 2017-11-14 11:15)
PROC: 30233N1 Transfusion of Nonautologous Red Blood Cells into Peripheral Vein, Percutaneous Approach (ICD-10-PCS; 2017-11-14 11:51)
DX: I70.238 Atherosclerosis of native arteries of right leg with ulceration of other part of lower leg (principal); D62 Acute posthemorrhagic anemia; L97.819 Non-pressure chronic ulcer of other part of right lower leg with unspecified severity; E11.621 Type 2 diabetes mellitus with foot ulcer; E11.51 Type 2 diabetes mellitus with diabetic peripheral angiopathy without gangrene; I10 Essential (primary) hypertension; E78.5 Hyperlipidemia, unspecified; E03.9 Hypothyroidism, unspecified; Z79.4 Long term (current) use of insulin; Z79.899 Other long term (current) drug therapy

== ENCOUNTER 2018-01-16 02:24 | Day surgery (SDC) | payer MEDICARE ==
[2018-01-16 02:59] LABS: BASO % 0.3 % (0.0-1.0); HEMATOCRIT 33.8 % (42.0-52.0); HEMOGLOBIN 11.1 g/dl (13.5-17.5); IMMATURE GRANULOCYTE % 0.2 % (0-3.0); LYMPH # 0.7 10^3/uL (1.5-4.5); LYMPH % 5.2 % (24.0-44.0); MEAN CORPUSCULAR HEMOGLOBIN 28.5 pg (27.0-33.0); MEAN CORPUSCULAR HGB CONC 32.8 g/dl (32.0-36.5); MEAN CORPUSCULAR VOLUME 86.7 fl (80.0-96.0); MONO # 0.5 10^3/uL (0.0-0.8); MONO % 4.1 % (0.0-5.0); NEUTROPHILS # 11.3 10^3/uL (1.8-7.7); NEUTROPHILS % 90.2 % (36.0-66.0); PLATELET COUNT, AUTOMATED 270 10^3/uL (150-450); RED CELL DISTRIBUTION WIDTH 13.2 % (11.5-14.5); WHITE BLOOD COUNT 12.5 10^3/uL (4.0-10.0)
[2018-01-16] MEDS: MORPHINE 4 MG/ML 1ML VIAL/SYRINGE (J2270) IV ×2 (03:27)
[2018-01-16] MEDS: NS 500 ML IV ×4 (03:27→04:09)
[2018-01-16 03:35] LABS: ALBUMIN 4.1 GM/DL (3.2-5.2); ALBUMIN/GLOBULIN RATIO 1.08 (1.00-1.93); ALKALINE PHOSPHATASE 91 U/L (45-117); ALT/SGPT 39 U/L (12-78); ANION GAP 7 MEQ/L (8-16); AST/SGOT 21 U/L (7-37); BILIRUBIN,DIRECT 0.1 MG/DL (0.0-0.2); BILIRUBIN,TOTAL 0.4 MG/DL (0.2-1.0); BLOOD UREA NITROGEN 24 MG/DL (7-18); CALCIUM LEVEL 9.1 MG/DL (8.8-10.2); CARBON DIOXIDE LEVEL 27 MEQ/L (21-32); CHLORIDE LEVEL 108 MEQ/L (98-107); CREATININE FOR GFR 1.09 MG/DL (0.70-1.30); GLOMERULAR FILTRATION RATE > 60.0 (>42); GLUCOSE, FASTING 282 MG/DL (70-100); LIPASE 235 U/L (73-393); POTASSIUM SERUM 4.6 MEQ/L (3.5-5.1); SODIUM LEVEL 142 MEQ/L (136-145); TOTAL PROTEIN 7.9 GM/DL (6.4-8.2)
[2018-01-16 03:41] LABS: LACTIC ACID SEPSIS PROTOCOL 2.1 MMOL/L (0.4-2.0)
[2018-01-16] MEDS: GASTROGRAFIN SOLUTION 30ML PO ×4 (03:58→04:28)
[2018-01-16] MEDS ORDERED: ISOVUE-370 76% 100ML VIAL (Q9967) As Ordered ×2 (04:35)
[2018-01-16 05:33] LABS: APPEARANCE, URINE CLEAR (CLEAR); BACTERIA, URINE AUTO NEGATIVE (NEGATIVE); BILIRUBIN, URINE AUTO NEGATIVE (NEGATIVE); BLOOD, URINE BLOOD NEGATIVE (NEGATIVE); COLOR, URINE YELLOW (YELLOW); GLUCOSE, URINE (UA) AUTO 3+ mg/dL (NEGATIVE); KETONE, URINE AUTO NEGATIVE (NEGATIVE); LEUKOCYTE ESTERASE, URINE AUTO NEGATIVE (NEGATIVE); NITRITE, URINE AUTO NEGATIVE (NEGATIVE); PROTEIN, URINE AUTO NEGATIVE (NEGATIVE); RBC, URINE AUTO 0 /HPF (0-3); SPECIFIC GRAVITY URINE AUTO 1.021 (1.002-1.035); SQUAMOUS EPITHELIAL CELL UR AU 0 /HPF (0-6); UROBILINOGEN, URINE AUTO 0.2 mg/dL (0.0-2.0); WBC, URINE AUTO 0 /HPF (0-3)
[2018-01-16] MEDS: HumaLOG INSULIN (NovoLOG) PER UNIT SC ×8 (06:00→20:54)
[2018-01-16] MEDS: NS 1,000 ML IV ×2 (06:26)
[2018-01-16] MEDS ORDERED: GLUCOSE 4 GM CHEW TABLET PO ×4 (07:45→16:30)
[2018-01-16] MEDS ORDERED: DEXTROSE 50% 50 ML SYRINGE IV ×4 (07:45→16:30)
[2018-01-16] MEDS ORDERED: GLUCAGON FOR INJ 1 MG VIAL (J1610) SC ×4 (07:45→16:30)
[2018-01-16] MEDS: metFORMIN (GLUCOPHAGE) 1000 MG TABLET PO ×2 (08:00)
[2018-01-16] MEDS ORDERED: MORPHINE 4 MG/ML 1ML VIAL/SYRINGE (J2270) IV ×2 (08:15)
[2018-01-16] MEDS ORDERED: ONDANSETRON 4MG/2ML VIAL (J2405) IV ×4 (08:15→14:45)
[2018-01-16] MEDS ORDERED: ACETAMINOPHEN TAB 650MG DOSE (2X325MG) PO ×2 (08:15)
[2018-01-16] MEDS ORDERED: KETOROLAC 30 MG/ML VIAL (J1885) As Ordered ×2 (08:26)
[2018-01-16] MEDS: KETOROLAC 30 MG/ML VIAL (J1885) IV ×2 (08:30)
[2018-01-16] MEDS: LISINOPRIL 5 MG TAB PO ×2 (09:00)
[2018-01-16] MEDS: amLODIPine 5 MG TAB PO ×2 (09:00)
[2018-01-16 09:32] LABS: LACTIC ACID SEPSIS PROTOCOL 1.9 MMOL/L (0.4-2.0)
[2018-01-16 09:33] LABS: CHOLESTEROL LEVEL 112 MG/DL (<200); CHOLESTEROL RISK RATIO 2.074 (<5); HDL CHOLESTEROL 54 MG/DL (>40); LDL CHOLESTEROL 48.4 MG/DL (<100); NON-HDL-C 58 MG/DL; THYROID STIMULATING HORMONE 0.392 uIU/ML (0.358-3.740); TRIGLYCERIDES LEVEL 48 MG/DL (<150)
[2018-01-16 09:48] LABS: BEDSIDE GLUCOSE 154 MG/DL (83-110)
[2018-01-16 10:40] LABS: ESTIMATED AVERAGE GLUCOSE 163 MG/DL (60-110); HEMOGLOBIN A1c 7.3 %
[2018-01-16] MEDS: PIPERACILLIN/TAZOBACTAM SOD 3.375 GM in APPROPRIATE DILUENT 1 EA IV ×3 (10:50→20:03)
[2018-01-16] MEDS ORDERED: LIDOCAINE W/EPINEPHRINE 1% 20ML VIAL As Ordered ×2 (12:27)
[2018-01-16] MEDS ORDERED: BUPIVACAINE HCL 0.25% 10 ML VIAL As Ordered ×2 (12:27)
[2018-01-16] MEDS ORDERED: fentaNYL 100 MCG/2 ML INJECTION (J3010) As Ordered ×2 (12:38)
[2018-01-16] MEDS ORDERED: MIDAZOLAM INJ 2 MG/2 ML VIAL (J2250) As Ordered ×2 (12:38)
[2018-01-16] MEDS ORDERED: PROPOFOL 200 MG/20 ML VIAL As Ordered ×4 (12:40→13:42)
[2018-01-16] MEDS ORDERED: GLYCOPYRROLATE INJ 0.2 MG/ML 2 ML VIAL As Ordered ×2 (13:21)
[2018-01-16] MEDS ORDERED: NEOSTIGMINE 10 MG/10 ML VIAL (J2710) As Ordered ×2 (13:21)
[2018-01-16] MEDS ORDERED: KETOROLAC 60 MG/2 ML VIAL (J1885) As Ordered ×2 (13:27)
[2018-01-16] MEDS ORDERED: ONDANSETRON 4MG/2ML VIAL (J2405) As Ordered ×2 (13:43)
[2018-01-16] MEDS ORDERED: ROCURONIUM BROMIDE 50 MG/5 ML VIAL As Ordered ×2 (13:43)
[2018-01-16] MEDS ORDERED: fentaNYL 100 MCG/2 ML INJECTION (J3010) IV ×2 (14:45)
[2018-01-16] MEDS ORDERED: PERCOCET 5MG/325MG TAB PO ×2 (14:45)
[2018-01-16] MEDS ORDERED: METOCLOPRAMIDE INJ 10MG/2ML VIAL (J2765) IV ×2 (14:45)
[2018-01-16] MEDS ORDERED: MEPERIDINE INJ 25 MG/ML VIAL (J2175) IV ×2 (14:45)
[2018-01-16 15:31] LABS: BEDSIDE GLUCOSE 132 MG/DL (83-110)
[2018-01-16] MEDS: HEPARIN SOD (PORCINE) 5000 UNITS/ML VIAL SC ×4 (15:53→20:03)
[2018-01-16] MEDS: LEVOTHYROXINE 75MCG TABLET (0.075MG) PO ×2 (15:53)
[2018-01-16] MEDS: LR 1,000 ML IV ×2 (15:54)
[2018-01-16] MEDS: FOLIC ACID 1 MG TAB PO ×2 (16:38)
[2018-01-16] MEDS: D5W/0.9% SODIUM CHLORIDE 1,000 ML IV ×4 (16:38→20:03)
[2018-01-16] MEDS: SENOKOT S TAB PO ×4 (16:38→20:03)
[2018-01-16 17:30] LABS: BEDSIDE GLUCOSE 124 MG/DL (83-110)
[2018-01-16] MEDS: HYDROXYCHLOROQUINE 200 MG TAB PO ×2 (18:51)
[2018-01-16] MEDS: LEVEMIR (INSULIN DETEMIR) 1 UNITS/0.01ML SC ×2 (20:03)
[2018-01-16] MEDS: NORCO, ANEXSIA 5/325MG TABLET (HYDROcodone/ACETAMINOPHEN) PO ×2 (20:04)
[2018-01-16 20:16] LABS: BEDSIDE GLUCOSE 200 MG/DL (83-110)
[2018-01-16] MEDS ORDERED: SIMVASTATIN 40 MG TAB PO ×2 (21:00)
[2018-01-17] MEDS: NORCO, ANEXSIA 5/325MG TABLET (HYDROcodone/ACETAMINOPHEN) PO ×2 (01:52)
[2018-01-17] MEDS: PIPERACILLIN/TAZOBACTAM SOD 3.375 GM in APPROPRIATE DILUENT 1 EA IV ×2 (02:28→09:09)
[2018-01-17] MEDS: KETOROLAC 30 MG/ML VIAL (J1885) IV ×2 (05:47)
[2018-01-17] MEDS: LEVOTHYROXINE 75MCG TABLET (0.075MG) PO ×2 (05:47)
[2018-01-17] MEDS: HEPARIN SOD (PORCINE) 5000 UNITS/ML VIAL SC ×2 (05:47)
[2018-01-17 07:08] LABS: BEDSIDE GLUCOSE 55 MG/DL (83-110)
[2018-01-17 07:08] LABS: BEDSIDE GLUCOSE 42 MG/DL (83-110)
[2018-01-17 07:12] LABS: BASO # 0.1 10^3/uL (0.0-0.2); BASO % 0.7 % (0.0-1.0); EOS # 0.1 10^3/uL (0.0-0.50); EOS % 1.6 % (0.0-3.0); HEMATOCRIT 29.2 % (42.0-52.0); HEMOGLOBIN 9.4 g/dl (13.5-17.5); IMMATURE GRANULOCYTE % 0.2 % (0-3.0); LYMPH # 2.1 10^3/uL (1.5-4.5); LYMPH % 26.7 % (24.0-44.0); MEAN CORPUSCULAR HEMOGLOBIN 28.6 pg (27.0-33.0); MEAN CORPUSCULAR HGB CONC 32.2 g/dl (32.0-36.5); MEAN CORPUSCULAR VOLUME 88.8 fl (80.0-96.0); MONO # 0.7 10^3/uL (0.0-0.8); MONO % 8.1 % (0.0-5.0); NEUTROPHILS % 62.7 % (36.0-66.0); PLATELET COUNT, AUTOMATED 219 10^3/uL (150-450); RED BLOOD COUNT 3.29 10^6/uL (4.30-6.10); RED CELL DISTRIBUTION WIDTH 13.4 % (11.5-14.5)
[2018-01-17] MEDS: HumaLOG INSULIN (NovoLOG) PER UNIT SC ×2 (07:13)
[2018-01-17 07:37] LABS: ALBUMIN 3.2 GM/DL (3.2-5.2); ALBUMIN/GLOBULIN RATIO 0.91 (1.00-1.93); ALKALINE PHOSPHATASE 67 U/L (45-117); ALT/SGPT 44 U/L (12-78); ANION GAP 7 MEQ/L (8-16); AST/SGOT 38 U/L (7-37); BILIRUBIN,TOTAL 0.6 MG/DL (0.2-1.0); BLOOD UREA NITROGEN 16 MG/DL (7-18); CALCIUM LEVEL 8.8 MG/DL (8.8-10.2); CARBON DIOXIDE LEVEL 28 MEQ/L (21-32); CHLORIDE LEVEL 109 MEQ/L (98-107); CREATININE FOR GFR 1.04 MG/DL (0.70-1.30); GLOMERULAR FILTRATION RATE > 60.0 (>42); GLUCOSE, FASTING 47 MG/DL (70-100); SODIUM LEVEL 144 MEQ/L (136-145); TOTAL PROTEIN 6.7 GM/DL (6.4-8.2)
[2018-01-17] MEDS: FOLIC ACID 1 MG TAB PO ×2 (09:09)
[2018-01-17] MEDS: SENOKOT S TAB PO ×2 (09:10)
[2018-01-17] MEDS: amLODIPine 5 MG TAB PO ×2 (09:10)
[2018-01-17] MEDS: LISINOPRIL 5 MG TAB PO ×2 (09:10)
[2018-01-17 09:22] LABS: BEDSIDE GLUCOSE 94 MG/DL (83-110)
== END 2018-01-17 11:50 | disposition home or self-care (01) ==
LOC: M OPP 01-17 11:50 → M ED 02:24 → M OPP 08:17 → M MS5PR 15:09
DX: K80.18 Calculus of gallbladder with other cholecystitis without obstruction (principal); I10 Essential (primary) hypertension; I73.9 Peripheral vascular disease, unspecified; E78.4 Other hyperlipidemia; E03.9 Hypothyroidism, unspecified; E11.59 Type 2 diabetes mellitus with other circulatory complications; Z79.4 Long term (current) use of insulin; Z79.899 Other long term (current) drug therapy
CPT/HCPCS: 47562

== ENCOUNTER → 2018-03-11 | Outpatient (CLI) | payer MEDICARE | LOC: M RAD 08:25 | DX: I70.291 Other atherosclerosis of native arteries of extremities, right leg (principal); L89.613 Pressure ulcer of right heel, stage 3; L97.514 Non-pressure chronic ulcer of other part of right foot with necrosis of bone; E11.621 Type 2 diabetes mellitus with foot ulcer; Z95.828 Presence of other vascular implants and grafts | CPT/HCPCS: 93923 ==

== ENCOUNTER 2018-03-26 09:11 | Inpatient (IN) | payer MEDICARE ==
[2018-03-26] MEDS ORDERED: MIDAZOLAM INJ 2 MG/2 ML VIAL (J2250) As Ordered (09:47)
[2018-03-26] MEDS ORDERED: fentaNYL 100 MCG/2 ML INJECTION (J3010) As Ordered (09:47)
[2018-03-26] MEDS ORDERED: ISOVUE-300 61% 50ML VIAL (Q9967) As Ordered (09:48)
[2018-03-26] MEDS ORDERED: HEPARIN 1,000 UNITS/ML 10ML VIAL (FOR RADIOLOGY& DIALYSIS ONLY) As Ordered (09:49)
[2018-03-26] MEDS ORDERED: ALTEPLASE 2 MG/2 ML VIAL (J2997 PER 1MG) As Ordered ×2 (09:55→09:58)
[2018-03-26] MEDS: ALTEPLASE RECOMBINANT 25 MG in NS 225 ML IV (10:00)
[2018-03-26] MEDS: HEPARIN DRIP 25,000 UNITS in APPROPRIATE DILUENT 1 EA IV ×2 (10:00→12:30)
[2018-03-26 13:37] LABS: HEMATOCRIT 28.7 % (42.0-52.0); HEMOGLOBIN 9.5 g/dl (13.5-17.5)
[2018-03-26 13:51] LABS: INR 1.08; PROTHROMBIN TIME 14.1 SECONDS (12.1-14.4)
[2018-03-26 13:52] LABS: FIBRINOGEN 447 MG/DL (221-452)
[2018-03-26 14:07] LABS: PARTIAL THROMBOPLASTIN TIME 124.1 SECONDS (25.4-37.6)
[2018-03-26 16:49] LABS: BEDSIDE GLUCOSE 164 MG/DL (83-110)
[2018-03-26] MEDS ORDERED: GLUCOSE 4 GM CHEW TABLET PO (17:15)
[2018-03-26] MEDS ORDERED: GLUCAGON FOR INJ 1 MG VIAL (J1610) SC (17:15)
[2018-03-26] MEDS ORDERED: DEXTROSE 50% 50 ML SYRINGE IV (17:15)
[2018-03-26] MEDS: HumaLOG INSULIN (NovoLOG) PER UNIT SC ×2 (17:58→20:28)
[2018-03-26 18:27] LABS: HEMATOCRIT 26.7 % (42.0-52.0); HEMOGLOBIN 8.8 g/dl (13.5-17.5)
[2018-03-26 18:55] LABS: FIBRINOGEN 428 MG/DL (221-452)
[2018-03-26 18:57] LABS: PARTIAL THROMBOPLASTIN TIME 91.4 SECONDS (25.4-37.6)
[2018-03-26 20:26] LABS: BEDSIDE GLUCOSE 109 MG/DL (83-110)
[2018-03-26] MEDS: NORCO, ANEXSIA 5/325MG TABLET (HYDROcodone/ACETAMINOPHEN) PO (22:51)
[2018-03-27 00:31] LABS: HEMATOCRIT 26.2 % (42.0-52.0); HEMOGLOBIN 8.6 g/dl (13.5-17.5)
[2018-03-27 00:36] LABS: FIBRINOGEN 404 MG/DL (221-452)
[2018-03-27 00:37] LABS: PARTIAL THROMBOPLASTIN TIME 80.7 SECONDS (25.4-37.6)
[2018-03-27 06:16] LABS: HEMATOCRIT 27.1 % (42.0-52.0); MEAN CORPUSCULAR HEMOGLOBIN 27.5 pg (27.0-33.0); MEAN CORPUSCULAR HGB CONC 33.2 g/dl (32.0-36.5); MEAN CORPUSCULAR VOLUME 82.9 fl (80.0-96.0); PLATELET COUNT, AUTOMATED 244 10^3/uL (150-450); RED BLOOD COUNT 3.27 10^6/uL (4.30-6.10); RED CELL DISTRIBUTION WIDTH 13.5 % (11.5-14.5)
[2018-03-27 06:41] LABS: FIBRINOGEN 424 MG/DL (221-452)
[2018-03-27 06:42] LABS: PARTIAL THROMBOPLASTIN TIME 70.6 SECONDS (25.4-37.6)
[2018-03-27 06:49] LABS: ALBUMIN 2.9 GM/DL (3.2-5.2); ALBUMIN/GLOBULIN RATIO 0.91 (1.00-1.93); ALKALINE PHOSPHATASE 86 U/L (45-117); ALT/SGPT 82 U/L (12-78); ANION GAP 7 MEQ/L (8-16); AST/SGOT 63 U/L (7-37); BILIRUBIN,TOTAL 0.2 MG/DL (0.2-1.0); BLOOD UREA NITROGEN 20 MG/DL (7-18); CALCIUM LEVEL 8.2 MG/DL (8.8-10.2); CARBON DIOXIDE LEVEL 28 MEQ/L (21-32); CHLORIDE LEVEL 109 MEQ/L (98-107); CREATININE FOR GFR 0.73 MG/DL (0.70-1.30); GLOMERULAR FILTRATION RATE > 60.0 (>42); GLUCOSE, FASTING 101 MG/DL (70-100); POTASSIUM SERUM 4.5 MEQ/L (3.5-5.1); SODIUM LEVEL 144 MEQ/L (136-145); TOTAL PROTEIN 6.1 GM/DL (6.4-8.2)
[2018-03-27] MEDS: HumaLOG INSULIN (NovoLOG) PER UNIT SC ×4 (07:30→21:00)
[2018-03-27] MEDS: NORCO, ANEXSIA 5/325MG TABLET (HYDROcodone/ACETAMINOPHEN) PO ×2 (07:49→13:56)
[2018-03-27] MEDS: ALTEPLASE RECOMBINANT 25 MG in NS 225 ML IV (09:29)
[2018-03-27] MEDS: HEPARIN DRIP 25,000 UNITS in APPROPRIATE DILUENT 1 EA IV (10:11)
[2018-03-27] MEDS: SANTYL OINT 30GM TOP (10:11)
[2018-03-27 12:00] LABS: BEDSIDE GLUCOSE 187 MG/DL (83-110)
[2018-03-27 13:48] LABS: HEMATOCRIT 30.1 % (42.0-52.0); HEMOGLOBIN 9.9 g/dl (13.5-17.5)
[2018-03-27 13:58] LABS: FIBRINOGEN 468 MG/DL (221-452)
[2018-03-27 13:59] LABS: PARTIAL THROMBOPLASTIN TIME 72.5 SECONDS (25.4-37.6)
[2018-03-27] MEDS ORDERED: NALBUPHINE HCL 10 MG/ML AMP (J2300) IV (15:30)
[2018-03-27] MEDS ORDERED: diphenhydrAMINE INJ 50MG/ML VIAL (J1200) IV (15:30)
[2018-03-27] MEDS ORDERED: EPIDURAL/PCA KEYS XX (15:30)
[2018-03-27] MEDS ORDERED: NALOXONE INJ 0.4 MG/1 ML VIAL (J2310) IV (15:30)
[2018-03-27] MEDS: NS 1,000 ML IV (17:15)
[2018-03-27] MEDS: MORPHINE 1MG/ML IN 0.9% NACL 100ML IV BAG IV (17:15)
[2018-03-27 17:40] LABS: BEDSIDE GLUCOSE 161 MG/DL (83-110)
[2018-03-27] MEDS: ONDANSETRON 4MG/2ML VIAL (J2405) IV (17:46)
[2018-03-27] MEDS ORDERED: CALCIUM CARBONATE 500 MG CHEW U/D PO (18:30)
[2018-03-27 19:59] LABS: HEMOGLOBIN 9.3 g/dl (13.5-17.5)
[2018-03-27] MEDS: PANTOPRAZOLE 40MG TAB (PROTONIX) PO (20:08)
[2018-03-27 20:18] LABS: FIBRINOGEN 414 MG/DL (221-452)
[2018-03-27 20:18] LABS: PARTIAL THROMBOPLASTIN TIME 72.2 SECONDS (25.4-37.6)
[2018-03-27 20:23] LABS: BEDSIDE GLUCOSE 139 MG/DL (83-110)
[2018-03-28 01:36] LABS: HEMATOCRIT 27.5 % (42.0-52.0); HEMOGLOBIN 9.1 g/dl (13.5-17.5)
[2018-03-28 01:47] LABS: FIBRINOGEN 439 MG/DL (221-452)
[2018-03-28 01:48] LABS: PARTIAL THROMBOPLASTIN TIME 71.5 SECONDS (25.4-37.6)
[2018-03-28 07:37] LABS: HEMOGLOBIN 9.6 g/dl (13.5-17.5); MEAN CORPUSCULAR HEMOGLOBIN 27.4 pg (27.0-33.0); MEAN CORPUSCULAR HGB CONC 33.1 g/dl (32.0-36.5); MEAN CORPUSCULAR VOLUME 82.6 fl (80.0-96.0); PLATELET COUNT, AUTOMATED 244 10^3/uL (150-450); RED BLOOD COUNT 3.51 10^6/uL (4.30-6.10); RED CELL DISTRIBUTION WIDTH 13.7 % (11.5-14.5)
[2018-03-28 07:55] LABS: FIBRINOGEN 463 MG/DL (221-452)
[2018-03-28 07:56] LABS: PARTIAL THROMBOPLASTIN TIME 78.9 SECONDS (25.4-37.6)
[2018-03-28 07:59] LABS: ALBUMIN/GLOBULIN RATIO 0.88 (1.00-1.93); ALKALINE PHOSPHATASE 232 U/L (45-117); ALT/SGPT 249 U/L (12-78); ANION GAP 6 MEQ/L (8-16); AST/SGOT 292 U/L (7-37); BILIRUBIN,TOTAL 0.4 MG/DL (0.2-1.0); BLOOD UREA NITROGEN 16 MG/DL (7-18); CALCIUM LEVEL 8.7 MG/DL (8.8-10.2); CARBON DIOXIDE LEVEL 30 MEQ/L (21-32); CHLORIDE LEVEL 105 MEQ/L (98-107); CREATININE FOR GFR 0.75 MG/DL (0.70-1.30); GLOMERULAR FILTRATION RATE > 60.0 (>42); GLUCOSE, FASTING 139 MG/DL (70-100); POTASSIUM SERUM 4.5 MEQ/L (3.5-5.1); SODIUM LEVEL 141 MEQ/L (136-145); TOTAL PROTEIN 6.4 GM/DL (6.4-8.2)
[2018-03-28 08:04] LABS: BEDSIDE GLUCOSE 136 MG/DL (83-110)
[2018-03-28] MEDS: ALTEPLASE RECOMBINANT 25 MG in NS 225 ML IV (08:20)
[2018-03-28] MEDS: PANTOPRAZOLE 40MG TAB (PROTONIX) PO ×2 (08:34→20:08)
[2018-03-28] MEDS: HumaLOG INSULIN (NovoLOG) PER UNIT SC ×4 (08:35→20:08)
[2018-03-28] MEDS: HEPARIN DRIP 25,000 UNITS in APPROPRIATE DILUENT 1 EA IV (08:36)
[2018-03-28 11:50] LABS: BEDSIDE GLUCOSE 171 MG/DL (83-110)
[2018-03-28] MEDS ORDERED: fentaNYL 100 MCG/2 ML INJECTION (J3010) As Ordered (13:20)
[2018-03-28] MEDS ORDERED: MIDAZOLAM INJ 2 MG/2 ML VIAL (J2250) As Ordered (13:20)
[2018-03-28] MEDS ORDERED: ISOVUE-300 61% 50ML VIAL (Q9967) As Ordered (13:21)
[2018-03-28] MEDS ORDERED: HEPARIN 1,000 UNITS/ML 10ML VIAL (FOR RADIOLOGY& DIALYSIS ONLY) As Ordered (13:44)
[2018-03-28 15:49] LABS: HEMATOCRIT 29.1 % (42.0-52.0); HEMOGLOBIN 9.8 g/dl (13.5-17.5)
[2018-03-28 16:02] LABS: FIBRINOGEN 424 MG/DL (221-452)
[2018-03-28 17:08] LABS: BEDSIDE GLUCOSE 130 MG/DL (83-110)
[2018-03-28] MEDS: NS 1,000 ML IV (19:08)
[2018-03-28] MEDS: MORPHINE 1MG/ML IN 0.9% NACL 100ML IV BAG IV (19:08)
[2018-03-28 20:08] LABS: BEDSIDE GLUCOSE 165 MG/DL (83-110)
[2018-03-28 21:16] LABS: HEMATOCRIT 27.4 % (42.0-52.0); HEMOGLOBIN 9.2 g/dl (13.5-17.5)
[2018-03-28 21:36] LABS: FIBRINOGEN 410 MG/DL (221-452)
[2018-03-28 21:37] LABS: PARTIAL THROMBOPLASTIN TIME 67.2 SECONDS (25.4-37.6)
[2018-03-29 03:46] LABS: HEMATOCRIT 27.7 % (42.0-52.0); HEMOGLOBIN 9.1 g/dl (13.5-17.5); MEAN CORPUSCULAR HEMOGLOBIN 27.3 pg (27.0-33.0); MEAN CORPUSCULAR HGB CONC 32.9 g/dl (32.0-36.5); MEAN CORPUSCULAR VOLUME 83.2 fl (80.0-96.0); PLATELET COUNT, AUTOMATED 215 10^3/uL (150-450); RED BLOOD COUNT 3.33 10^6/uL (4.30-6.10); RED CELL DISTRIBUTION WIDTH 13.7 % (11.5-14.5); WHITE BLOOD COUNT 4.8 10^3/uL (4.0-10.0)
[2018-03-29 04:19] LABS: FIBRINOGEN 428 MG/DL (221-452)
[2018-03-29 04:21] LABS: PARTIAL THROMBOPLASTIN TIME 85.2 SECONDS (25.4-37.6)
[2018-03-29 04:31] LABS: ALBUMIN 2.8 GM/DL (3.2-5.2); ALBUMIN/GLOBULIN RATIO 0.82 (1.00-1.93); ALKALINE PHOSPHATASE 193 U/L (45-117); ALT/SGPT 158 U/L (12-78); ANION GAP 9 MEQ/L (8-16); AST/SGOT 90 U/L (7-37); BILIRUBIN,TOTAL 0.3 MG/DL (0.2-1.0); BLOOD UREA NITROGEN 14 MG/DL (7-18); CARBON DIOXIDE LEVEL 28 MEQ/L (21-32); CHLORIDE LEVEL 105 MEQ/L (98-107); CREATININE FOR GFR 0.71 MG/DL (0.70-1.30); GLOMERULAR FILTRATION RATE > 60.0 (>42); GLUCOSE, FASTING 146 MG/DL (70-100); POTASSIUM SERUM 4.2 MEQ/L (3.5-5.1); SODIUM LEVEL 142 MEQ/L (136-145); TOTAL PROTEIN 6.2 GM/DL (6.4-8.2)
[2018-03-29 07:59] LABS: BEDSIDE GLUCOSE 171 MG/DL (83-110)
[2018-03-29] MEDS: HumaLOG INSULIN (NovoLOG) PER UNIT SC ×4 (08:16→21:00)
[2018-03-29] MEDS: PANTOPRAZOLE 40MG TAB (PROTONIX) PO ×2 (08:25→21:24)
[2018-03-29] MEDS: SANTYL OINT 30GM TOP (08:26)
[2018-03-29 09:19] LABS: HEMATOCRIT 29.1 % (42.0-52.0); HEMOGLOBIN 9.6 g/dl (13.5-17.5)
[2018-03-29 09:35] LABS: PARTIAL THROMBOPLASTIN TIME 73.3 SECONDS (25.4-37.6)
[2018-03-29 09:36] LABS: FIBRINOGEN 414 MG/DL (221-452)
[2018-03-29] MEDS: ALTEPLASE RECOMBINANT 25 MG in NS 225 ML IV (10:11)
[2018-03-29 11:39] LABS: BEDSIDE GLUCOSE 224 MG/DL (83-110)
[2018-03-29] MEDS: HEPARIN DRIP 25,000 UNITS in APPROPRIATE DILUENT 1 EA IV (12:39)
[2018-03-29 15:17] LABS: HEMATOCRIT 27.3 % (42.0-52.0); HEMOGLOBIN 9.1 g/dl (13.5-17.5)
[2018-03-29 15:31] LABS: FIBRINOGEN 421 MG/DL (221-452)
[2018-03-29 15:32] LABS: PARTIAL THROMBOPLASTIN TIME 65.7 SECONDS (25.4-37.6)
[2018-03-29 16:47] LABS: BEDSIDE GLUCOSE 143 MG/DL (83-110)
[2018-03-29] MEDS: NORCO, ANEXSIA 5/325MG TABLET (HYDROcodone/ACETAMINOPHEN) PO (18:34)
[2018-03-29 21:00] LABS: HEMATOCRIT 26.9 % (42.0-52.0)
[2018-03-29 21:18] LABS: BEDSIDE GLUCOSE 236 MG/DL (83-110)
[2018-03-29 21:19] LABS: FIBRINOGEN 428 MG/DL (221-452)
[2018-03-29 21:20] LABS: PARTIAL THROMBOPLASTIN TIME 73.4 SECONDS (25.4-37.6)
[2018-03-30] MEDS: NORCO, ANEXSIA 5/325MG TABLET (HYDROcodone/ACETAMINOPHEN) PO ×5 (00:29→22:36)
[2018-03-30 03:19] LABS: HEMATOCRIT 26.1 % (42.0-52.0); HEMOGLOBIN 8.6 g/dl (13.5-17.5); MEAN CORPUSCULAR HEMOGLOBIN 27.2 pg (27.0-33.0); MEAN CORPUSCULAR VOLUME 82.6 fl (80.0-96.0); PLATELET COUNT, AUTOMATED 202 10^3/uL (150-450); RED BLOOD COUNT 3.16 10^6/uL (4.30-6.10); RED CELL DISTRIBUTION WIDTH 13.8 % (11.5-14.5); WHITE BLOOD COUNT 5.4 10^3/uL (4.0-10.0)
[2018-03-30 03:49] LABS: ANION GAP 6 MEQ/L (8-16); BLOOD UREA NITROGEN 15 MG/DL (7-18); CALCIUM LEVEL 8.1 MG/DL (8.8-10.2); CARBON DIOXIDE LEVEL 31 MEQ/L (21-32); CHLORIDE LEVEL 105 MEQ/L (98-107); CREATININE FOR GFR 0.73 MG/DL (0.70-1.30); GLOMERULAR FILTRATION RATE > 60.0 (>42); GLUCOSE, FASTING 157 MG/DL (70-100); POTASSIUM SERUM 3.9 MEQ/L (3.5-5.1); SODIUM LEVEL 142 MEQ/L (136-145)
[2018-03-30 04:04] LABS: FIBRINOGEN 443 MG/DL (221-452)
[2018-03-30 04:06] LABS: PARTIAL THROMBOPLASTIN TIME 87.6 SECONDS (25.4-37.6)
[2018-03-30 08:07] LABS: BEDSIDE GLUCOSE 147 MG/DL (83-110)
[2018-03-30] MEDS: PANTOPRAZOLE 40MG TAB (PROTONIX) PO ×2 (08:16→20:55)
[2018-03-30] MEDS: HumaLOG INSULIN (NovoLOG) PER UNIT SC ×4 (08:17→20:55)
[2018-03-30 09:05] LABS: HEMOGLOBIN 9.3 g/dl (13.5-17.5)
[2018-03-30 09:33] LABS: FIBRINOGEN 468 MG/DL (221-452)
[2018-03-30 09:34] LABS: PARTIAL THROMBOPLASTIN TIME 84.3 SECONDS (25.4-37.6)
[2018-03-30 12:01] LABS: BEDSIDE GLUCOSE 236 MG/DL (83-110)
[2018-03-30] MEDS: ALTEPLASE RECOMBINANT 25 MG in NS 225 ML IV (12:44)
[2018-03-30] MEDS: HEPARIN DRIP 25,000 UNITS in APPROPRIATE DILUENT 1 EA IV (15:11)
[2018-03-30 15:17] LABS: HEMATOCRIT 26.3 % (42.0-52.0); HEMOGLOBIN 8.8 g/dl (13.5-17.5)
[2018-03-30 15:30] LABS: FIBRINOGEN 472 MG/DL (221-452)
[2018-03-30 17:17] LABS: BEDSIDE GLUCOSE 101 MG/DL (83-110)
[2018-03-30 20:54] LABS: BEDSIDE GLUCOSE 227 MG/DL (83-110)
[2018-03-30 21:01] LABS: HEMATOCRIT 27.2 % (42.0-52.0)
[2018-03-30 21:15] LABS: FIBRINOGEN 435 MG/DL (221-452)
[2018-03-30 21:15] LABS: PARTIAL THROMBOPLASTIN TIME 63.2 SECONDS (25.4-37.6)
[2018-03-31] MEDS: NORCO, ANEXSIA 5/325MG TABLET (HYDROcodone/ACETAMINOPHEN) PO ×3 (02:21→09:52)
[2018-03-31 03:01] LABS: HEMATOCRIT 26.9 % (42.0-52.0); HEMOGLOBIN 9.1 g/dl (13.5-17.5); MEAN CORPUSCULAR HEMOGLOBIN 27.9 pg (27.0-33.0); MEAN CORPUSCULAR HGB CONC 33.8 g/dl (32.0-36.5); MEAN CORPUSCULAR VOLUME 82.5 fl (80.0-96.0); PLATELET COUNT, AUTOMATED 201 10^3/uL (150-450); RED BLOOD COUNT 3.26 10^6/uL (4.30-6.10); RED CELL DISTRIBUTION WIDTH 13.9 % (11.5-14.5); WHITE BLOOD COUNT 6.3 10^3/uL (4.0-10.0)
[2018-03-31 03:10] LABS: FIBRINOGEN 491 MG/DL (221-452)
[2018-03-31 03:11] LABS: PARTIAL THROMBOPLASTIN TIME 79.2 SECONDS (25.4-37.6)
[2018-03-31 03:34] LABS: ANION GAP 8 MEQ/L (8-16); BLOOD UREA NITROGEN 14 MG/DL (7-18); CALCIUM LEVEL 8.5 MG/DL (8.8-10.2); CARBON DIOXIDE LEVEL 27 MEQ/L (21-32); CHLORIDE LEVEL 104 MEQ/L (98-107); CREATININE FOR GFR 0.85 MG/DL (0.70-1.30); GLOMERULAR FILTRATION RATE > 60.0 (>42); GLUCOSE, FASTING 195 MG/DL (70-100); POTASSIUM SERUM 4.2 MEQ/L (3.5-5.1); SODIUM LEVEL 139 MEQ/L (136-145)
[2018-03-31] MEDS: HumaLOG INSULIN (NovoLOG) PER UNIT SC ×4 (07:30→21:00)
[2018-03-31] MEDS: PANTOPRAZOLE 40MG TAB (PROTONIX) PO ×2 (09:50→21:05)
[2018-03-31 09:51] LABS: HEMATOCRIT 26.9 % (42.0-52.0); HEMOGLOBIN 9.1 g/dl (13.5-17.5)
[2018-03-31] MEDS: LISINOPRIL 5 MG TAB PO (09:51)
[2018-03-31] MEDS: amLODIPine 5 MG TAB PO (09:53)
[2018-03-31] MEDS: SANTYL OINT 30GM TOP (09:53)
[2018-03-31 10:19] LABS: FIBRINOGEN 491 MG/DL (221-452)
[2018-03-31 10:19] LABS: PARTIAL THROMBOPLASTIN TIME 68.3 SECONDS (25.4-37.6)
[2018-03-31] MEDS: MORPHINE 4 MG/ML 1ML VIAL/SYRINGE (J2270) IV ×3 (11:12→19:06)
[2018-03-31 11:53] LABS: BEDSIDE GLUCOSE 185 MG/DL (83-110)
[2018-03-31] MEDS: ALTEPLASE RECOMBINANT 25 MG in NS 225 ML IV (12:53)
[2018-03-31] MEDS: HEPARIN DRIP 25,000 UNITS in APPROPRIATE DILUENT 1 EA IV (12:54)
[2018-03-31] MEDS: cloNIDine 0.1 MG TAB PO (13:52)
[2018-03-31 15:08] LABS: HEMATOCRIT 26.6 % (42.0-52.0); HEMOGLOBIN 9.1 g/dl (13.5-17.5)
[2018-03-31 15:19] LABS: FIBRINOGEN 491 MG/DL (221-452)
[2018-03-31 17:48] LABS: BEDSIDE GLUCOSE 157 MG/DL (83-110)
[2018-03-31] MEDS ORDERED: NALOXONE INJ 0.4 MG/1 ML VIAL (J2310) IV (19:15)
[2018-03-31] MEDS ORDERED: ONDANSETRON 4MG/2ML VIAL (J2405) IV (19:15)
[2018-03-31] MEDS ORDERED: NALBUPHINE HCL 10 MG/ML AMP (J2300) IV (19:15)
[2018-03-31] MEDS ORDERED: diphenhydrAMINE INJ 50MG/ML VIAL (J1200) IV (19:15)
[2018-03-31] MEDS ORDERED: EPIDURAL/PCA KEYS XX (19:15)
[2018-03-31] MEDS ORDERED: MORPHINE 1MG/ML IN 0.9% NACL 100ML IV BAG IV (19:15)
[2018-03-31] MEDS: NS 1,000 ML IV (20:10)
[2018-03-31] MEDS: MORPHINE 1MG/ML IN 0.9% NACL 100ML IV BAG IV (20:18)
[2018-03-31 21:14] LABS: BEDSIDE GLUCOSE 135 MG/DL (83-110)
[2018-03-31 21:19] LABS: HEMATOCRIT 25.7 % (42.0-52.0); HEMOGLOBIN 8.7 g/dl (13.5-17.5)
[2018-03-31 21:31] LABS: FIBRINOGEN 468 MG/DL (221-452)
[2018-04-01 03:38] LABS: HEMATOCRIT 26.7 % (42.0-52.0); MEAN CORPUSCULAR HEMOGLOBIN 27.9 pg (27.0-33.0); MEAN CORPUSCULAR HGB CONC 33.7 g/dl (32.0-36.5); MEAN CORPUSCULAR VOLUME 82.7 fl (80.0-96.0); PLATELET COUNT, AUTOMATED 220 10^3/uL (150-450); RED BLOOD COUNT 3.23 10^6/uL (4.30-6.10); RED CELL DISTRIBUTION WIDTH 14.1 % (11.5-14.5); WHITE BLOOD COUNT 8.2 10^3/uL (4.0-10.0)
[2018-04-01 03:50] LABS: FIBRINOGEN 506 MG/DL (221-452)
[2018-04-01 03:51] LABS: PARTIAL THROMBOPLASTIN TIME 71.4 SECONDS (25.4-37.6)
[2018-04-01 04:24] LABS: ANION GAP 10 MEQ/L (8-16); BLOOD UREA NITROGEN 13 MG/DL (7-18); CALCIUM LEVEL 8.4 MG/DL (8.8-10.2); CARBON DIOXIDE LEVEL 27 MEQ/L (21-32); CHLORIDE LEVEL 102 MEQ/L (98-107); CREATININE FOR GFR 0.71 MG/DL (0.70-1.30); GLOMERULAR FILTRATION RATE > 60.0 (>42); GLUCOSE, FASTING 151 MG/DL (70-100); POTASSIUM SERUM 4.2 MEQ/L (3.5-5.1); SODIUM LEVEL 139 MEQ/L (136-145)
[2018-04-01] MEDS: cloNIDine 0.1 MG TAB PO (07:25)
[2018-04-01] MEDS: HumaLOG INSULIN (NovoLOG) PER UNIT SC ×4 (08:30→21:00)
[2018-04-01] MEDS: amLODIPine 5 MG TAB PO (08:51)
[2018-04-01] MEDS: LISINOPRIL 5 MG TAB PO (08:51)
[2018-04-01] MEDS: PANTOPRAZOLE 40MG TAB (PROTONIX) PO ×2 (08:52→21:32)
[2018-04-01] MEDS: MORPHINE 10 MG/ML 1ML VIAL (J2270) IV (08:52)
[2018-04-01 09:12] LABS: HEMATOCRIT 27.1 % (42.0-52.0); HEMOGLOBIN 9.1 g/dl (13.5-17.5)
[2018-04-01 10:06] LABS: FIBRINOGEN 544 MG/DL (221-452)
[2018-04-01 10:07] LABS: PARTIAL THROMBOPLASTIN TIME 66.9 SECONDS (25.4-37.6)
[2018-04-01] MEDS ORDERED: HEPARIN 1,000 UNITS/ML 10ML VIAL (FOR RADIOLOGY& DIALYSIS ONLY) As Ordered (10:40)
[2018-04-01] MEDS ORDERED: ISOVUE-300 61% 50ML VIAL (Q9967) As Ordered (10:41)
[2018-04-01] MEDS ORDERED: MIDAZOLAM INJ 2 MG/2 ML VIAL (J2250) As Ordered (10:47)
[2018-04-01] MEDS ORDERED: fentaNYL 100 MCG/2 ML INJECTION (J3010) As Ordered (10:47)
[2018-04-01 13:33] LABS: BEDSIDE GLUCOSE 192 MG/DL (83-110)
[2018-04-01] MEDS: HEPARIN DRIP 25,000 UNITS in APPROPRIATE DILUENT 1 EA IV (14:24)
[2018-04-01 17:32] LABS: BEDSIDE GLUCOSE 235 MG/DL (83-110)
[2018-04-01] MEDS: NS 1,000 ML IV (19:12)
[2018-04-01 21:09] LABS: PARTIAL THROMBOPLASTIN TIME 71.6 SECONDS (25.4-37.6)
[2018-04-01 21:36] LABS: BEDSIDE GLUCOSE 160 MG/DL (83-110)
[2018-04-02 03:01] LABS: PARTIAL THROMBOPLASTIN TIME 82.5 SECONDS (25.4-37.6)
[2018-04-02 04:26] LABS: HEMATOCRIT 23.5 % (42.0-52.0); HEMOGLOBIN 7.7 g/dl (13.5-17.5); MEAN CORPUSCULAR HEMOGLOBIN 27.2 pg (27.0-33.0); MEAN CORPUSCULAR HGB CONC 32.8 g/dl (32.0-36.5); PLATELET COUNT, AUTOMATED 189 10^3/uL (150-450); RED BLOOD COUNT 2.83 10^6/uL (4.30-6.10); RED CELL DISTRIBUTION WIDTH 14.2 % (11.5-14.5); WHITE BLOOD COUNT 7.8 10^3/uL (4.0-10.0)
[2018-04-02 04:43] LABS: ANION GAP 7 MEQ/L (8-16); BLOOD UREA NITROGEN 21 MG/DL (7-18); CALCIUM LEVEL 8.1 MG/DL (8.8-10.2); CARBON DIOXIDE LEVEL 27 MEQ/L (21-32); CHLORIDE LEVEL 102 MEQ/L (98-107); CREATININE FOR GFR 0.85 MG/DL (0.70-1.30); GLOMERULAR FILTRATION RATE > 60.0 (>42); GLUCOSE, FASTING 158 MG/DL (70-100); POTASSIUM SERUM 4.3 MEQ/L (3.5-5.1); SODIUM LEVEL 136 MEQ/L (136-145)
[2018-04-02] MEDS: MORPHINE 1MG/ML IN 0.9% NACL 100ML IV BAG IV (06:06)
[2018-04-02] MEDS: HumaLOG INSULIN (NovoLOG) PER UNIT SC ×4 (08:08→21:00)
[2018-04-02] MEDS: PANTOPRAZOLE 40MG TAB (PROTONIX) PO ×2 (08:09→21:06)
[2018-04-02] MEDS: amLODIPine 5 MG TAB PO (08:09)
[2018-04-02] MEDS: LISINOPRIL 5 MG TAB PO (08:09)
[2018-04-02] MEDS: SANTYL OINT 30GM TOP (08:09)
[2018-04-02 08:58] LABS: PARTIAL THROMBOPLASTIN TIME 78.8 SECONDS (25.4-37.6)
[2018-04-02] MEDS: HEPARIN DRIP 25,000 UNITS in APPROPRIATE DILUENT 1 EA IV (10:18)
[2018-04-02] MEDS: NS 1,000 ML IV (10:19)
[2018-04-02 10:41] LABS: HEMATOCRIT 22.2 % (42.0-52.0); HEMOGLOBIN 7.3 g/dl (13.5-17.5)
[2018-04-02 11:50] LABS: BEDSIDE GLUCOSE 188 MG/DL (83-110)
[2018-04-02 16:10] LABS: PARTIAL THROMBOPLASTIN TIME 57.5 SECONDS (25.4-37.6)
[2018-04-02 16:12] LABS: BEDSIDE GLUCOSE 205 MG/DL (83-110)
[2018-04-02 20:40] LABS: IMMEDIATE SPIN CROSSMATCH 1 2
[2018-04-02 20:41] LABS: PARTIAL THROMBOPLASTIN TIME 57.5 SECONDS (25.4-37.6)
[2018-04-02 21:07] LABS: BEDSIDE GLUCOSE 228 MG/DL (83-110)
[2018-04-03 02:34] LABS: HEMATOCRIT 25.2 % (42.0-52.0); HEMOGLOBIN 8.6 g/dl (13.5-17.5); MEAN CORPUSCULAR HEMOGLOBIN 27.9 pg (27.0-33.0); MEAN CORPUSCULAR HGB CONC 34.1 g/dl (32.0-36.5); MEAN CORPUSCULAR VOLUME 81.8 fl (80.0-96.0); PLATELET COUNT, AUTOMATED 169 10^3/uL (150-450); RED BLOOD COUNT 3.08 10^6/uL (4.30-6.10); RED CELL DISTRIBUTION WIDTH 14.5 % (11.5-14.5)
[2018-04-03 02:52] LABS: PARTIAL THROMBOPLASTIN TIME 59.1 SECONDS (25.4-37.6)
[2018-04-03 02:54] LABS: ANION GAP 10 MEQ/L (8-16); BLOOD UREA NITROGEN 18 MG/DL (7-18); CALCIUM LEVEL 8.4 MG/DL (8.8-10.2); CARBON DIOXIDE LEVEL 25 MEQ/L (21-32); CHLORIDE LEVEL 104 MEQ/L (98-107); CREATININE FOR GFR 0.86 MG/DL (0.70-1.30); GLOMERULAR FILTRATION RATE > 60.0 (>42); GLUCOSE, FASTING 208 MG/DL (70-100); POTASSIUM SERUM 4.2 MEQ/L (3.5-5.1); SODIUM LEVEL 139 MEQ/L (136-145)
[2018-04-03] MEDS: NS 1,000 ML IV (05:58)
[2018-04-03] MEDS: MORPHINE 1MG/ML IN 0.9% NACL 100ML IV BAG IV (05:58)
[2018-04-03 08:01] LABS: BEDSIDE GLUCOSE 221 MG/DL (83-110)
[2018-04-03] MEDS: HumaLOG INSULIN (NovoLOG) PER UNIT SC ×4 (08:09→20:21)
[2018-04-03] MEDS: amLODIPine 5 MG TAB PO (08:59)
[2018-04-03] MEDS: LISINOPRIL 5 MG TAB PO (08:59)
[2018-04-03] MEDS: PANTOPRAZOLE 40MG TAB (PROTONIX) PO ×2 (09:00→20:20)
[2018-04-03] MEDS: HEPARIN DRIP 25,000 UNITS in APPROPRIATE DILUENT 1 EA IV (10:13)
[2018-04-03 12:21] LABS: BEDSIDE GLUCOSE 212 MG/DL (83-110)
[2018-04-03 14:52] LABS: PARTIAL THROMBOPLASTIN TIME 47.6 SECONDS (25.4-37.6)
[2018-04-03 17:33] LABS: BEDSIDE GLUCOSE 281 MG/DL (83-110)
[2018-04-03 20:18] LABS: BEDSIDE GLUCOSE 258 MG/DL (83-110)
[2018-04-04 02:38] LABS: HEMATOCRIT 24.1 % (42.0-52.0); HEMOGLOBIN 8.3 g/dl (13.5-17.5); MEAN CORPUSCULAR HEMOGLOBIN 28.4 pg (27.0-33.0); MEAN CORPUSCULAR HGB CONC 34.4 g/dl (32.0-36.5); MEAN CORPUSCULAR VOLUME 82.5 fl (80.0-96.0); PLATELET COUNT, AUTOMATED 192 10^3/uL (150-450); RED BLOOD COUNT 2.92 10^6/uL (4.30-6.10); RED CELL DISTRIBUTION WIDTH 14.4 % (11.5-14.5); WHITE BLOOD COUNT 5.4 10^3/uL (4.0-10.0)
[2018-04-04 02:49] LABS: PARTIAL THROMBOPLASTIN TIME 56.9 SECONDS (25.4-37.6)
[2018-04-04 02:53] LABS: ANION GAP 10 MEQ/L (8-16); BLOOD UREA NITROGEN 14 MG/DL (7-18); CALCIUM LEVEL 8.4 MG/DL (8.8-10.2); CARBON DIOXIDE LEVEL 25 MEQ/L (21-32); CHLORIDE LEVEL 105 MEQ/L (98-107); CREATININE FOR GFR 0.72 MG/DL (0.70-1.30); GLOMERULAR FILTRATION RATE > 60.0 (>42); GLUCOSE, FASTING 166 MG/DL (70-100); MAGNESIUM LEVEL 1.6 MG/DL (1.8-2.4); POTASSIUM SERUM 3.9 MEQ/L (3.5-5.1); SODIUM LEVEL 140 MEQ/L (136-145)
[2018-04-04 07:43] LABS: BEDSIDE GLUCOSE 178 MG/DL (83-110)
[2018-04-04] MEDS: HumaLOG INSULIN (NovoLOG) PER UNIT SC ×4 (08:12→20:53)
[2018-04-04 08:31] LABS: PARTIAL THROMBOPLASTIN TIME 49.4 SECONDS (25.4-37.6)
[2018-04-04] MEDS: LISINOPRIL 5 MG TAB PO (09:16)
[2018-04-04] MEDS: amLODIPine 5 MG TAB PO (09:16)
[2018-04-04] MEDS: PANTOPRAZOLE 40MG TAB (PROTONIX) PO ×2 (09:17→20:53)
[2018-04-04] MEDS: HEPARIN DRIP 25,000 UNITS in APPROPRIATE DILUENT 1 EA IV (11:25)
[2018-04-04 11:45] LABS: BEDSIDE GLUCOSE 255 MG/DL (83-110)
[2018-04-04] MEDS: SANTYL OINT 30GM TOP (12:12)
[2018-04-04] MEDS: NORCO, ANEXSIA 5/325MG TABLET (HYDROcodone/ACETAMINOPHEN) PO ×3 (12:28→20:12)
[2018-04-04 16:55] LABS: BEDSIDE GLUCOSE 246 MG/DL (83-110)
[2018-04-04 19:39] LABS: BEDSIDE GLUCOSE 265 MG/DL (83-110)
[2018-04-04 21:10] LABS: PARTIAL THROMBOPLASTIN TIME 61.6 SECONDS (25.4-37.6)
[2018-04-05] MEDS: NORCO, ANEXSIA 5/325MG TABLET (HYDROcodone/ACETAMINOPHEN) PO ×5 (02:09→22:47)
[2018-04-05 03:24] LABS: PARTIAL THROMBOPLASTIN TIME 74.3 SECONDS (25.4-37.6)
[2018-04-05 06:36] LABS: BEDSIDE GLUCOSE 210 MG/DL (83-110)
[2018-04-05] MEDS: HEPARIN DRIP 25,000 UNITS in APPROPRIATE DILUENT 1 EA IV (07:42)
[2018-04-05] MEDS: HumaLOG INSULIN (NovoLOG) PER UNIT SC ×4 (08:32→20:33)
[2018-04-05] MEDS: amLODIPine 5 MG TAB PO (08:34)
[2018-04-05] MEDS: LISINOPRIL 5 MG TAB PO (08:35)
[2018-04-05] MEDS: PANTOPRAZOLE 40MG TAB (PROTONIX) PO ×2 (08:37→20:33)
[2018-04-05 09:01] LABS: PARTIAL THROMBOPLASTIN TIME 64.2 SECONDS (25.4-37.6)
[2018-04-05 12:30] LABS: BEDSIDE GLUCOSE 237 MG/DL (83-110)
[2018-04-05 15:12] LABS: PARTIAL THROMBOPLASTIN TIME 53.1 SECONDS (25.4-37.6)
[2018-04-05 17:07] LABS: BEDSIDE GLUCOSE 240 MG/DL (83-110)
[2018-04-05 19:49] LABS: BEDSIDE GLUCOSE 280 MG/DL (83-110)
[2018-04-05 20:39] LABS: INR 1.07
[2018-04-05 20:41] LABS: PARTIAL THROMBOPLASTIN TIME 51.3 SECONDS (25.4-37.6)
[2018-04-06] MEDS: HEPARIN DRIP 25,000 UNITS in APPROPRIATE DILUENT 1 EA IV (06:03)
[2018-04-06] MEDS: NORCO, ANEXSIA 5/325MG TABLET (HYDROcodone/ACETAMINOPHEN) PO ×4 (06:04→21:42)
[2018-04-06 06:33] LABS: BEDSIDE GLUCOSE 211 MG/DL (83-110)
[2018-04-06] MEDS: HumaLOG INSULIN (NovoLOG) PER UNIT SC ×4 (07:48→21:40)
[2018-04-06 08:56] LABS: PARTIAL THROMBOPLASTIN TIME 56.9 SECONDS (25.4-37.6)
[2018-04-06] MEDS: SANTYL OINT 30GM TOP (09:00)
[2018-04-06] MEDS: PANTOPRAZOLE 40MG TAB (PROTONIX) PO ×2 (09:04→21:41)
[2018-04-06] MEDS: amLODIPine 5 MG TAB PO (09:04)
[2018-04-06] MEDS: LISINOPRIL 5 MG TAB PO (09:04)
[2018-04-06 16:48] LABS: BEDSIDE GLUCOSE 163 MG/DL (83-110)
[2018-04-06 19:53] LABS: INR 1.06
[2018-04-06 19:54] LABS: PARTIAL THROMBOPLASTIN TIME 52.5 SECONDS (25.4-37.6)
[2018-04-06 20:04] LABS: BEDSIDE GLUCOSE 186 MG/DL (83-110)
[2018-04-06 20:11] LABS: BEDSIDE GLUCOSE 274 MG/DL (83-110)
[2018-04-07] MEDS: HEPARIN DRIP 25,000 UNITS in APPROPRIATE DILUENT 1 EA IV (01:54)
[2018-04-07 06:40] LABS: BEDSIDE GLUCOSE 184 MG/DL (83-110)
[2018-04-07 07:06] LABS: INR 1.08; PROTHROMBIN TIME 14.1 SECONDS (12.1-14.4)
[2018-04-07 07:07] LABS: PARTIAL THROMBOPLASTIN TIME 42.2 SECONDS (25.4-37.6)
[2018-04-07] MEDS: HumaLOG INSULIN (NovoLOG) PER UNIT SC ×3 (07:52→16:59)
[2018-04-07] MEDS: PANTOPRAZOLE 40MG TAB (PROTONIX) PO (08:56)
[2018-04-07] MEDS: LISINOPRIL 5 MG TAB PO (08:56)
[2018-04-07] MEDS: amLODIPine 5 MG TAB PO (08:57)
[2018-04-07] MEDS: NORCO, ANEXSIA 5/325MG TABLET (HYDROcodone/ACETAMINOPHEN) PO ×3 (09:05→17:13)
[2018-04-07 12:07] LABS: BEDSIDE GLUCOSE 269 MG/DL (83-110)
[2018-04-07 16:52] LABS: BEDSIDE GLUCOSE 226 MG/DL (83-110)
[2018-04-07] MEDS: RIVAROXABAN 15 MG TAB (XARELTO) PO (17:00)
== END 2018-04-07 17:33 | disposition home health service (06) | DRG 253 ==
LOC: M IRPRO 09:11 → M ICU 12:17 → M MSPAV 04-04 16:02
PROC: 047K3ZZ Dilation of Right Femoral Artery, Percutaneous Approach (ICD-10-PCS; 2018-03-26)
PROC: 047R3ZZ Dilation of Right Posterior Tibial Artery, Percutaneous Approach (ICD-10-PCS; 2018-03-26)
PROC: 3E05317 Introduction of Other Thrombolytic into Peripheral Artery, Percutaneous Approach (ICD-10-PCS; 2018-03-26)
PROC: B41FYZZ Fluoroscopy of Right Lower Extremity Arteries using Other Contrast (ICD-10-PCS; 2018-03-26)
PROC: 047M3ZZ Dilation of Right Popliteal Artery, Percutaneous Approach (ICD-10-PCS; principal; 2018-03-28)
PROC: 047K3ZZ Dilation of Right Femoral Artery, Percutaneous Approach (ICD-10-PCS; 2018-04-01)
PROC: 047M3ZZ Dilation of Right Popliteal Artery, Percutaneous Approach (ICD-10-PCS; 2018-04-01)
PROC: 047R3ZZ Dilation of Right Posterior Tibial Artery, Percutaneous Approach (ICD-10-PCS; 2018-04-01)
PROC: B41FYZZ Fluoroscopy of Right Lower Extremity Arteries using Other Contrast (ICD-10-PCS; 2018-04-01)
PROC: 30233N1 Transfusion of Nonautologous Red Blood Cells into Peripheral Vein, Percutaneous Approach (ICD-10-PCS; 2018-04-02)
DX: T82.868A Thrombosis due to vascular prosthetic devices, implants and grafts, initial encounter (principal); I70.92 Chronic total occlusion of artery of the extremities; E11.51 Type 2 diabetes mellitus with diabetic peripheral angiopathy without gangrene; I10 Essential (primary) hypertension; M06.9 Rheumatoid arthritis, unspecified; E03.9 Hypothyroidism, unspecified; Y83.2 Surgical operation with anastomosis, bypass or graft as the cause of abnormal reaction of the patient, or of later complication, without mention of misadventure at the time of the procedure; Z79.899 Other long term (current) drug therapy; Z79.4 Long term (current) use of insulin

== ENCOUNTER 2018-05-08 12:47 | Day surgery (SDC) | payer MEDICARE ==
[2018-05-08 13:31] LABS: HEMATOCRIT 31.8 % (42.0-52.0); MEAN CORPUSCULAR HEMOGLOBIN 27.9 pg (27.0-33.0); MEAN CORPUSCULAR HGB CONC 31.4 g/dl (32.0-36.5); MEAN CORPUSCULAR VOLUME 88.8 fl (80.0-96.0); PLATELET COUNT, AUTOMATED 239 10^3/uL (150-450); RED BLOOD COUNT 3.58 10^6/uL (4.30-6.10); RED CELL DISTRIBUTION WIDTH 15.4 % (11.5-14.5); WHITE BLOOD COUNT 6.2 10^3/uL (4.0-10.0)
[2018-05-08 13:35] LABS: BEDSIDE GLUCOSE 101 MG/DL (83-110)
[2018-05-08 13:46] LABS: ANION GAP 5 MEQ/L (8-16); BLOOD UREA NITROGEN 22 MG/DL (7-18); CALCIUM LEVEL 9.2 MG/DL (8.8-10.2); CARBON DIOXIDE LEVEL 30 MEQ/L (21-32); CHLORIDE LEVEL 107 MEQ/L (98-107); CREATININE FOR GFR 0.99 MG/DL (0.70-1.30); GLOMERULAR FILTRATION RATE > 60.0 (>42); GLUCOSE, FASTING 106 MG/DL (70-100); SODIUM LEVEL 142 MEQ/L (136-145)
[2018-05-08 13:50] LABS: POTASSIUM SERUM 5.3 MEQ/L (3.5-5.1)
[2018-05-08] MEDS ORDERED: PROPOFOL 200 MG/20 ML VIAL As Ordered ×4 (15:49→18:25)
[2018-05-08] MEDS ORDERED: MIDAZOLAM INJ 2 MG/2 ML VIAL (J2250) As Ordered (15:49)
[2018-05-08] MEDS ORDERED: LIDOCAINE 2% INJ 100 MG/5 ML SDV (FOR ANES.) As Ordered (15:49)
[2018-05-08] MEDS ORDERED: fentaNYL 100 MCG/2 ML INJECTION (J3010) As Ordered ×2 (15:49→18:12)
[2018-05-08] MEDS ORDERED: ONDANSETRON 4MG/2ML VIAL (J2405) As Ordered ×2 (16:50→18:25)
[2018-05-08] MEDS: BUPIVACAINE HCL 0.5% 10 ML VIAL As Ordered (17:11)
[2018-05-08] MEDS: LIDOCAINE 1% MDV 20ML VIAL As Ordered (17:11)
[2018-05-08] MEDS ORDERED: MIDAZOLAM INJ 5 MG/ML VIAL (J2250) As Ordered (17:59)
[2018-05-08] MEDS ORDERED: KETOROLAC 60 MG/2 ML VIAL (J1885) As Ordered (18:25)
[2018-05-08] MEDS ORDERED: dexameTHASONE 4 MG/ML 1ML VIAL (J1100) As Ordered ×2 (18:25)
[2018-05-08] MEDS ORDERED: MORPHINE 10 MG/ML 1ML VIAL (J2270) IV (19:15)
[2018-05-08] MEDS ORDERED: fentaNYL 100 MCG/2 ML INJECTION (J3010) IV (19:15)
[2018-05-08] MEDS ORDERED: ONDANSETRON 4MG/2ML VIAL (J2405) IV (19:15)
[2018-05-08] MEDS ORDERED: PERCOCET 5MG/325MG TAB PO (19:15)
[2018-05-08] MEDS ORDERED: LR 1,000 ML IV (19:15)
== END 2018-05-08 19:30 | disposition home or self-care (01) ==
LOC: M SDC 12:47
DX: E11.52 Type 2 diabetes mellitus with diabetic peripheral angiopathy with gangrene (principal); I96 Gangrene, not elsewhere classified; Z79.4 Long term (current) use of insulin; Z79.84 Long term (current) use of oral hypoglycemic drugs; I10 Essential (primary) hypertension; E78.4 Other hyperlipidemia; Z79.52 Long term (current) use of systemic steroids; Z79.899 Other long term (current) drug therapy
CPT/HCPCS: 28805

== ENCOUNTER → 2018-06-04 | Outpatient (REF) | payer MEDICARE ==
[2018-06-04 19:52] LABS: ESTIMATED AVERAGE GLUCOSE 137 MG/DL (60-110); HEMOGLOBIN A1c 6.4 %
[2018-06-04 20:00] LABS: HEMATOCRIT 27.8 % (42.0-52.0); HEMOGLOBIN 8.6 g/dl (13.5-17.5); MEAN CORPUSCULAR HEMOGLOBIN 27.9 pg (27.0-33.0); MEAN CORPUSCULAR HGB CONC 30.9 g/dl (32.0-36.5); MEAN CORPUSCULAR VOLUME 90.3 fl (80.0-96.0); PLATELET COUNT, AUTOMATED 383 10^3/uL (150-450); RED BLOOD COUNT 3.08 10^6/uL (4.30-6.10); RED CELL DISTRIBUTION WIDTH 14.6 % (11.5-14.5)
[2018-06-04 20:02] LABS: ALBUMIN/GLOBULIN RATIO 0.73 (1.00-1.93); ALKALINE PHOSPHATASE 110 U/L (45-117); ALT/SGPT 29 U/L (12-78); ANION GAP 12 MEQ/L (8-16); AST/SGOT 18 U/L (7-37); BILIRUBIN,TOTAL 0.2 MG/DL (0.2-1.0); BLOOD UREA NITROGEN 21 MG/DL (7-18); CALCIUM LEVEL 9.1 MG/DL (8.8-10.2); CARBON DIOXIDE LEVEL 23 MEQ/L (21-32); CHLORIDE LEVEL 107 MEQ/L (98-107); GLOMERULAR FILTRATION RATE > 60.0 (>42); GLUCOSE, FASTING 136 MG/DL (70-100); POTASSIUM SERUM 4.7 MEQ/L (3.5-5.1); SODIUM LEVEL 142 MEQ/L (136-145); TOTAL PROTEIN 7.1 GM/DL (6.4-8.2)
[2018-06-04 21:23] LABS: ERYTHROCYTE SEDIMENTATION RATE 126 mm/hr (0-20)
== END ==
LOC: M LAB REF 18:25
DX: L97.514 Non-pressure chronic ulcer of other part of right foot with necrosis of bone (principal); E11.621 Type 2 diabetes mellitus with foot ulcer
CPT/HCPCS: 80053

== ENCOUNTER 2018-09-01 10:18 | Inpatient (IN) | payer MEDICARE ==
[2018-09-01] MEDS: NS 1,000 ML IV ×2 (10:45→15:46)
[2018-09-01 11:05] LABS: BASO # 0.1 10^3/uL (0.0-0.2); BASO % 0.6 % (0.0-1.0); EOS % 0.4 % (0.0-3.0); HEMATOCRIT 29.9 % (42.0-52.0); HEMOGLOBIN 9.4 g/dl (13.5-17.5); IMMATURE GRANULOCYTE % 0.6 % (0-3.0); LYMPH # 0.9 10^3/uL (1.5-4.5); LYMPH % 8.2 % (24.0-44.0); MEAN CORPUSCULAR HEMOGLOBIN 26.9 pg (27.0-33.0); MEAN CORPUSCULAR HGB CONC 31.4 g/dl (32.0-36.5); MEAN CORPUSCULAR VOLUME 85.7 fl (80.0-96.0); MONO # 0.7 10^3/uL (0.0-0.8); NEUTROPHILS # 9.1 10^3/uL (1.8-7.7); NEUTROPHILS % 84.2 % (36.0-66.0); PLATELET COUNT, AUTOMATED 512 10^3/uL (150-450); RED BLOOD COUNT 3.49 10^6/uL (4.30-6.10); RED CELL DISTRIBUTION WIDTH 12.9 % (11.5-14.5); WHITE BLOOD COUNT 10.8 10^3/uL (4.0-10.0)
[2018-09-01] MEDS: CEFEPIME HCL 2 GM in D5W MINI-BAG PLUS 50 ML IV (11:13)
[2018-09-01] MEDS: NS 1,880 ML in APPROPRIATE DILUENT 1 EA IV (11:13)
[2018-09-01 11:14] LABS: PROTHROMBIN TIME 22.1 SECONDS (12.1-14.4)
[2018-09-01 11:35] LABS: ALT/SGPT 21 U/L (12-78); ANION GAP 9 MEQ/L (8-16); AST/SGOT 19 U/L (7-37); BLOOD UREA NITROGEN 21 MG/DL (7-18); CALCIUM LEVEL 8.9 MG/DL (8.8-10.2); CARBON DIOXIDE LEVEL 27 MEQ/L (21-32); CHLORIDE LEVEL 100 MEQ/L (98-107); GLOMERULAR FILTRATION RATE 49.1 (>42); GLUCOSE, FASTING 169 MG/DL (70-100); POTASSIUM SERUM 4.6 MEQ/L (3.5-5.1); SODIUM LEVEL 136 MEQ/L (136-145)
[2018-09-01 11:36] LABS: ALBUMIN 2.6 GM/DL (3.2-5.2); ALKALINE PHOSPHATASE 99 U/L (45-117); BILIRUBIN,DIRECT 0.1 MG/DL (0.0-0.2); BILIRUBIN,TOTAL 0.3 MG/DL (0.2-1.0); CK-MB VALUE MASS < 1.0 NG/ML (<3.6); CPK CREATINE PHOSPHOKINASE 56 U/L (39-308); LIPASE 106 U/L (73-393); MB/CK RELATIVE INDEX 1.79 (< OR =4); TOTAL PROTEIN 6.9 GM/DL (6.4-8.2); TROPONIN I < 0.02 NG/ML (< 0.10)
[2018-09-01 11:43] LABS: LACTIC ACID SEPSIS PROTOCOL 3.5 MMOL/L (0.4-2.0)
[2018-09-01 14:27] LABS: KETONE, URINE AUTO RFX NEGATIVE (NEGATIVE); LEUKOCYTE ESTERASE UR AUTO RFX NEGATIVE (NEGATIVE); MUCUS, URINE RFX SMALL (NEGATIVE); NITRITE, URINE AUTO RFX NEGATIVE (NEGATIVE); RBC, URINE AUTO RFX 1 /HPF (0-3); SPECIFIC GRAVITY UR AUTO RFX 1.012 (1.002-1.035); SQUAM EPITHELIAL CELL UR AURFX 0 /HPF (0-6); WBC, URINE AUTO RFX 0 /HPF (0-3)
[2018-09-01] MEDS: amLODIPine 5 MG TAB PO (15:47)
[2018-09-01 16:05] LABS: BEDSIDE GLUCOSE 129 MG/DL (83-110)
[2018-09-01] MEDS: PIPERACILLIN/TAZOBACTAM SOD 3.375 GM in D5W MINI-BAG PLUS 50 ML IV ×2 (16:15→21:13)
[2018-09-01] MEDS: RIVAROXABAN 15 MG TAB (XARELTO) PO (17:57)
[2018-09-01] MEDS: metFORMIN (GLUCOPHAGE) 1000 MG TABLET PO (17:57)
[2018-09-01] MEDS: LISINOPRIL 5 MG TAB PO (17:59)
[2018-09-01 20:00] LABS: BEDSIDE GLUCOSE 234 MG/DL (83-110)
[2018-09-01] MEDS: FAMOTIDINE 20 MG TAB PO (20:13)
[2018-09-01] MEDS: ULTRACET TAB PO (20:13)
[2018-09-01] MEDS: HYDROXYCHLOROQUINE 200 MG TAB PO (20:13)
[2018-09-01] MEDS: SIMVASTATIN 40 MG TAB PO (20:13)
[2018-09-01] MEDS: LEVEMIR (INSULIN DETEMIR) 1 UNITS/0.01ML SC (20:46)
[2018-09-02] MEDS: NS 1,000 ML IV ×3 (00:45→10:45)
[2018-09-02] MEDS: PIPERACILLIN/TAZOBACTAM SOD 3.375 GM in D5W MINI-BAG PLUS 50 ML IV ×4 (03:16→21:43)
[2018-09-02] MEDS: LEVOTHYROXINE 75MCG TABLET (0.075MG) PO (05:30)
[2018-09-02 06:53] LABS: BASO # 0.1 10^3/uL (0.0-0.2); BASO % 0.8 % (0.0-1.0); EOS # 0.2 10^3/uL (0.0-0.50); EOS % 1.9 % (0.0-3.0); HEMATOCRIT 23.4 % (42.0-52.0); IMMATURE GRANULOCYTE % 0.4 % (0-3.0); LYMPH # 1.6 10^3/uL (1.5-4.5); LYMPH % 20.4 % (24.0-44.0); MEAN CORPUSCULAR HEMOGLOBIN 27.2 pg (27.0-33.0); MEAN CORPUSCULAR HGB CONC 31.6 g/dl (32.0-36.5); MONO # 0.7 10^3/uL (0.0-0.8); MONO % 9.4 % (0.0-5.0); NEUTROPHILS # 5.2 10^3/uL (1.8-7.7); NEUTROPHILS % 67.1 % (36.0-66.0); RED BLOOD COUNT 2.72 10^6/uL (4.30-6.10); WHITE BLOOD COUNT 7.8 10^3/uL (4.0-10.0)
[2018-09-02 07:00] LABS: HEMOGLOBIN 7.4 g/dl (13.5-17.5); PLATELET COUNT, AUTOMATED 396 10^3/uL (150-450)
[2018-09-02 07:15] LABS: ANION GAP 7 MEQ/L (8-16); BLOOD UREA NITROGEN 12 MG/DL (7-18); CALCIUM LEVEL 8.5 MG/DL (8.8-10.2); CARBON DIOXIDE LEVEL 27 MEQ/L (21-32); CHLORIDE LEVEL 106 MEQ/L (98-107); CREATININE FOR GFR 0.84 MG/DL (0.70-1.30); GLOMERULAR FILTRATION RATE > 60.0 (>42); GLUCOSE, FASTING 50 MG/DL (70-100); POTASSIUM SERUM 4.3 MEQ/L (3.5-5.1); SODIUM LEVEL 140 MEQ/L (136-145)
[2018-09-02] MEDS: FAMOTIDINE 20 MG TAB PO ×2 (08:26→21:06)
[2018-09-02] MEDS: metFORMIN (GLUCOPHAGE) 1000 MG TABLET PO (08:26)
[2018-09-02] MEDS: amLODIPine 5 MG TAB PO (08:26)
[2018-09-02] MEDS: LISINOPRIL 5 MG TAB PO (08:27)
[2018-09-02] MEDS: RIVAROXABAN 15 MG TAB (XARELTO) PO ×2 (11:22→18:16)
[2018-09-02] MEDS: HYDROXYCHLOROQUINE 200 MG TAB PO ×2 (11:22→21:06)
[2018-09-02 11:23] LABS: BEDSIDE GLUCOSE 123 MG/DL (83-110)
[2018-09-02] MEDS: ULTRACET TAB PO ×2 (11:23→21:12)
[2018-09-02 14:20] LABS: IMMEDIATE SPIN CROSSMATCH 1 1
[2018-09-02 14:44] LABS: FERRITIN 240 NG/ML (26-388); IRON (FE) 14 UG/DL (65-175); LDH LACTATE DEHYDROGENASE 156 U/L (87-241); TOTAL IRON BINDING CAPACITY 175 UG/DL (250-450)
[2018-09-02 16:56] LABS: BEDSIDE GLUCOSE 125 MG/DL (83-110)
[2018-09-02 18:56] LABS: HEMATOCRIT 28.8 % (42.0-52.0); HEMOGLOBIN 8.9 g/dl (13.5-17.5)
[2018-09-02 19:11] LABS: VITAMIN B12 LEVEL 1061 PG/ML (247-911)
[2018-09-02 19:11] LABS: FOLATE > 24.0 NG/ML (>5.4)
[2018-09-02] MEDS: LEVEMIR (INSULIN DETEMIR) 1 UNITS/0.01ML SC (21:00)
[2018-09-02] MEDS: SIMVASTATIN 40 MG TAB PO (21:06)
[2018-09-02 22:28] LABS: BEDSIDE GLUCOSE 77 MG/DL (83-110)
[2018-09-03 00:29] LABS: HEMATOCRIT 24.4 % (42.0-52.0)
[2018-09-03] MEDS: PIPERACILLIN/TAZOBACTAM SOD 3.375 GM in D5W MINI-BAG PLUS 50 ML IV ×4 (04:14→21:02)
[2018-09-03] MEDS: LEVOTHYROXINE 75MCG TABLET (0.075MG) PO (05:48)
[2018-09-03 06:06] LABS: BEDSIDE GLUCOSE 71 MG/DL (83-110)
[2018-09-03] MEDS: HumaLOG INSULIN (NovoLOG) PER UNIT SC ×4 (07:30→20:54)
[2018-09-03] MEDS ORDERED: GLUCOSE 4 GM CHEW TABLET PO (08:30)
[2018-09-03] MEDS ORDERED: DEXTROSE 50% 50 ML SYRINGE IV (08:30)
[2018-09-03] MEDS ORDERED: GLUCAGON FOR INJ 1 MG VIAL (J1610) SC (08:30)
[2018-09-03 08:49] LABS: BASO # 0.1 10^3/uL (0.0-0.2); BASO % 0.8 % (0.0-1.0); EOS # 0.1 10^3/uL (0.0-0.50); EOS % 1.5 % (0.0-3.0); HEMATOCRIT 28.2 % (42.0-52.0); HEMOGLOBIN 9.1 g/dl (13.5-17.5); IMMATURE GRANULOCYTE % 0.3 % (0-3.0); LYMPH # 0.9 10^3/uL (1.5-4.5); LYMPH % 12.7 % (24.0-44.0); MEAN CORPUSCULAR HGB CONC 32.3 g/dl (32.0-36.5); MEAN CORPUSCULAR VOLUME 83.7 fl (80.0-96.0); MONO # 0.5 10^3/uL (0.0-0.8); MONO % 7.3 % (0.0-5.0); NEUTROPHILS # 5.6 10^3/uL (1.8-7.7); NEUTROPHILS % 77.4 % (36.0-66.0); PLATELET COUNT, AUTOMATED 404 10^3/uL (150-450); RED BLOOD COUNT 3.37 10^6/uL (4.30-6.10); RED CELL DISTRIBUTION WIDTH 12.9 % (11.5-14.5); WHITE BLOOD COUNT 7.3 10^3/uL (4.0-10.0)
[2018-09-03 09:05] LABS: ESTIMATED AVERAGE GLUCOSE 163 MG/DL (60-110); HEMOGLOBIN A1c 7.3 %
[2018-09-03 09:12] LABS: ANION GAP 6 MEQ/L (8-16); BLOOD UREA NITROGEN 8 MG/DL (7-18); CARBON DIOXIDE LEVEL 28 MEQ/L (21-32); CHLORIDE LEVEL 104 MEQ/L (98-107); CREATININE FOR GFR 0.84 MG/DL (0.70-1.30); ERYTHROCYTE SEDIMENTATION RATE 128 mm/hr (0-20); GLOMERULAR FILTRATION RATE > 60.0 (>42); GLUCOSE, FASTING 116 MG/DL (70-100); POTASSIUM SERUM 4.6 MEQ/L (3.5-5.1); SODIUM LEVEL 138 MEQ/L (136-145)
[2018-09-03] MEDS: ULTRACET TAB PO ×2 (10:14→21:03)
[2018-09-03] MEDS: amLODIPine 5 MG TAB PO (10:17)
[2018-09-03] MEDS: FAMOTIDINE 20 MG TAB PO ×2 (10:17→21:01)
[2018-09-03] MEDS: RIVAROXABAN 15 MG TAB (XARELTO) PO ×2 (10:18→17:58)
[2018-09-03] MEDS: HYDROXYCHLOROQUINE 200 MG TAB PO ×2 (10:18→21:01)
[2018-09-03] MEDS: LISINOPRIL 5 MG TAB PO (10:19)
[2018-09-03 17:22] LABS: BEDSIDE GLUCOSE 164 MG/DL (83-110)
[2018-09-03] MEDS: SIMVASTATIN 40 MG TAB PO (21:01)
[2018-09-04 03:15] LABS: BEDSIDE GLUCOSE 160 MG/DL (83-110)
[2018-09-04 03:15] LABS: BEDSIDE GLUCOSE 120 MG/DL (83-110)
[2018-09-04] MEDS: PIPERACILLIN/TAZOBACTAM SOD 3.375 GM in D5W MINI-BAG PLUS 50 ML IV ×4 (03:59→21:28)
[2018-09-04] MEDS: LEVOTHYROXINE 75MCG TABLET (0.075MG) PO (05:29)
[2018-09-04 06:55] LABS: HEMATOCRIT 29.3 % (42.0-52.0); HEMOGLOBIN 9.4 g/dl (13.5-17.5); MEAN CORPUSCULAR HEMOGLOBIN 27.2 pg (27.0-33.0); MEAN CORPUSCULAR HGB CONC 32.1 g/dl (32.0-36.5); MEAN CORPUSCULAR VOLUME 84.9 fl (80.0-96.0); PLATELET COUNT, AUTOMATED 419 10^3/uL (150-450); RED BLOOD COUNT 3.45 10^6/uL (4.30-6.10)
[2018-09-04 07:19] LABS: ANION GAP 6 MEQ/L (8-16); BLOOD UREA NITROGEN 9 MG/DL (7-18); CALCIUM LEVEL 8.9 MG/DL (8.8-10.2); CARBON DIOXIDE LEVEL 30 MEQ/L (21-32); CHLORIDE LEVEL 104 MEQ/L (98-107); CREATININE FOR GFR 0.92 MG/DL (0.70-1.30); GLOMERULAR FILTRATION RATE > 60.0 (>42); GLUCOSE, FASTING 126 MG/DL (70-100); MAGNESIUM LEVEL 1.7 MG/DL (1.8-2.4); POTASSIUM SERUM 4.6 MEQ/L (3.5-5.1); SODIUM LEVEL 140 MEQ/L (136-145)
[2018-09-04] MEDS: RIVAROXABAN 15 MG TAB (XARELTO) PO ×2 (09:21→18:37)
[2018-09-04] MEDS: LISINOPRIL 5 MG TAB PO (09:23)
[2018-09-04] MEDS: FAMOTIDINE 20 MG TAB PO ×2 (09:24→21:27)
[2018-09-04] MEDS: HYDROXYCHLOROQUINE 200 MG TAB PO ×2 (09:24→21:27)
[2018-09-04] MEDS: MAGNESIUM OXIDE 400 MG TAB (MAG-OX) PO (09:24)
[2018-09-04] MEDS: amLODIPine 5 MG TAB PO (09:24)
[2018-09-04] MEDS: ULTRACET TAB PO ×2 (09:24→16:51)
[2018-09-04] MEDS: HumaLOG INSULIN (NovoLOG) PER UNIT SC ×4 (09:25→21:00)
[2018-09-04] MEDS: SANTYL OINT 30GM TOP (12:38)
[2018-09-04] MEDS: SIMVASTATIN 40 MG TAB PO (21:27)
[2018-09-05] MEDS: PIPERACILLIN/TAZOBACTAM SOD 3.375 GM in D5W MINI-BAG PLUS 50 ML IV ×2 (04:00→09:07)
[2018-09-05] MEDS: LEVOTHYROXINE 75MCG TABLET (0.075MG) PO (05:22)
[2018-09-05 06:48] LABS: HEMATOCRIT 29.3 % (42.0-52.0); HEMOGLOBIN 9.3 g/dl (13.5-17.5); MEAN CORPUSCULAR HEMOGLOBIN 26.8 pg (27.0-33.0); MEAN CORPUSCULAR HGB CONC 31.7 g/dl (32.0-36.5); MEAN CORPUSCULAR VOLUME 84.4 fl (80.0-96.0); PLATELET COUNT, AUTOMATED 459 10^3/uL (150-450); RED BLOOD COUNT 3.47 10^6/uL (4.30-6.10); RED CELL DISTRIBUTION WIDTH 12.8 % (11.5-14.5); WHITE BLOOD COUNT 7.3 10^3/uL (4.0-10.0)
[2018-09-05 07:13] LABS: ANION GAP 7 MEQ/L (8-16); BLOOD UREA NITROGEN 8 MG/DL (7-18); CARBON DIOXIDE LEVEL 29 MEQ/L (21-32); CHLORIDE LEVEL 100 MEQ/L (98-107); CREATININE FOR GFR 0.82 MG/DL (0.70-1.30); GLOMERULAR FILTRATION RATE > 60.0 (>42); GLUCOSE, FASTING 123 MG/DL (70-100); MAGNESIUM LEVEL 1.6 MG/DL (1.8-2.4); POTASSIUM SERUM 4.7 MEQ/L (3.5-5.1); SODIUM LEVEL 136 MEQ/L (136-145)
[2018-09-05] MEDS: HumaLOG INSULIN (NovoLOG) PER UNIT SC ×2 (09:00→12:18)
[2018-09-05] MEDS: RIVAROXABAN 15 MG TAB (XARELTO) PO (09:01)
[2018-09-05] MEDS: MAGNESIUM OXIDE 400 MG TAB (MAG-OX) PO (09:02)
[2018-09-05] MEDS: ULTRACET TAB PO (09:03)
[2018-09-05] MEDS: LISINOPRIL 5 MG TAB PO (09:05)
[2018-09-05] MEDS: FOLIC ACID 1 MG TAB PO (09:06)
[2018-09-05] MEDS: FAMOTIDINE 20 MG TAB PO (09:06)
[2018-09-05] MEDS: HYDROXYCHLOROQUINE 200 MG TAB PO (09:06)
[2018-09-05] MEDS: amLODIPine 5 MG TAB PO (09:07)
[2018-09-05] MEDS: SANTYL OINT 30GM TOP (09:07)
[2018-09-05] MEDS: predniSONE 5 MG TAB PO (09:08)
[2018-09-05] MEDS: FLUBLOK(EGG FREE)(QUAD)INFLUENZA VACC 0.5ML SYRINGE (90682)18YRS&OLDER IM (14:29)
[2018-09-06 23:28] LABS: BEDSIDE GLUCOSE 155 MG/DL (83-110)
[2018-09-06 23:28] LABS: BEDSIDE GLUCOSE 175 MG/DL (83-110)
[2018-09-06 23:28] LABS: BEDSIDE GLUCOSE 200 MG/DL (83-110)
[2018-09-06 23:28] LABS: BEDSIDE GLUCOSE 95 MG/DL (83-110)
== END 2018-09-05 15:00 | disposition home or self-care (01) | DRG 863 ==
LOC: M ED 10:18 → M ED INP 14:13 → M MSPAV 16:48
PROC: 30233N1 Transfusion of Nonautologous Red Blood Cells into Peripheral Vein, Percutaneous Approach (ICD-10-PCS; principal; 2018-09-02)
DX: T81.41XA Infection following a procedure, superficial incisional surgical site, initial encounter (principal); N17.9 Acute kidney failure, unspecified; I95.9 Hypotension, unspecified; E03.9 Hypothyroidism, unspecified; E11.9 Type 2 diabetes mellitus without complications; I10 Essential (primary) hypertension; M06.9 Rheumatoid arthritis, unspecified; D64.9 Anemia, unspecified; Z79.899 Other long term (current) drug therapy; Z79.4 Long term (current) use of insulin; E78.5 Hyperlipidemia, unspecified; I99.8 Other disorder of circulatory system; Y83.8 Other surgical procedures as the cause of abnormal reaction of the patient, or of later complication, without mention of misadventure at the time of the procedure

== ENCOUNTER 2018-10-10 14:54 | Inpatient (IN) | payer MEDICARE ==
[2018-10-09 20:26] VITALS: BP 105/55
[~2018-10-10] VITALS: Ht 172.7 cm; Wt 48.8 kg
[~2018-10-10 14:54] MED LIST changes: +AMLO5TAB6 PO; +AZEL0.055; +DOXY-350 PO; +FERR325T3 PO; +FOLI1TAB11 PO; +HYDR200T3 PO; +INSUH10VL SC; +INSULANT SC; +LEVO75TA4 PO; +LISI10TA4 PO; +MAGN400C PO; +METF10004 PO; +METH2.5T48 PO; +NORC1TAB4 PO; +NORCOTAB PO; +OSEL75CA2 PO; +PRED5TA PO; +RANI1TAB38 PO; +SENN1TAB2 PO; +SIMV40TA2 PO; +TRAMADOL; +ULTR37.54 PO; +XARE15TA PO; -fentaNYL 250 MCG/5 ML INJECTION (J3010) As Ordered
[2018-10-10] MEDS ORDERED: NS 500 ML IV ONE (15:30)
[2018-10-10] MEDS ORDERED: ACETAMINOPHEN TAB 650MG DOSE (2X325MG) PO ONE (15:30)
[2018-10-10] MEDS ORDERED: ONDANSETRON 4MG/2ML VIAL (J2405) IV ONE (15:45)
[2018-10-10 15:47] LABS: BASO # 0.1 10^3/uL (0.0-0.2); BASO % 0.3 % (0.0-1.0); HEMATOCRIT 29.1 % (42.0-52.0); HEMOGLOBIN 9.1 g/dl (13.5-17.5); LYMPH # 0.3 10^3/uL (1.5-4.5); LYMPH % 1.8 % (24.0-44.0); MEAN CORPUSCULAR HEMOGLOBIN 26.6 pg (27.0-33.0); MEAN CORPUSCULAR HGB CONC 31.3 g/dl (32.0-36.5); MEAN CORPUSCULAR VOLUME 85.1 fl (80.0-96.0); MONO # 0.5 10^3/uL (0.0-0.8); NEUTROPHILS # 15.5 10^3/uL (1.8-7.7); NEUTROPHILS % 94.5 % (36.0-66.0); PLATELET COUNT, AUTOMATED 393 10^3/uL (150-450); RED BLOOD COUNT 3.42 10^6/uL (4.30-6.10); WHITE BLOOD COUNT 16.4 10^3/uL (4.0-10.0)
[2018-10-10 16:11] LABS: ERYTHROCYTE SEDIMENTATION RATE 126 mm/hr (0-20)
[2018-10-10] MEDS ORDERED: METF10004 PO (16:20)
[2018-10-10] MEDS ORDERED: TRAM50TA2 PO (16:20)
[2018-10-10] MEDS ORDERED: SENN8.6T7 PO (16:20)
[2018-10-10] MEDS ORDERED: LANTINJ4 SC (16:20)
[2018-10-10 16:34] LABS: ALBUMIN 2.5 GM/DL (3.2-5.2); ALT/SGPT 54 U/L (12-78); BILIRUBIN,DIRECT 0.2 MG/DL (0.0-0.2); BILIRUBIN,TOTAL 0.3 MG/DL (0.2-1.0); BLOOD UREA NITROGEN 28 MG/DL (7-18); CALCIUM LEVEL 8.6 MG/DL (8.8-10.2); CARBON DIOXIDE LEVEL 27 MEQ/L (21-32); CHLORIDE LEVEL 100 MEQ/L (98-107); CPK CREATINE PHOSPHOKINASE 1047 U/L (39-308); CREATININE FOR GFR 0.97 MG/DL (0.70-1.30); GLOMERULAR FILTRATION RATE > 60.0 (>42); GLUCOSE, FASTING 58 MG/DL (70-100); MB/CK RELATIVE INDEX 0.22 (< OR =4); NT-PRO BNP 1867 PG/ML (<125); POTASSIUM SERUM 4.4 MEQ/L (3.5-5.1); SODIUM LEVEL 135 MEQ/L (136-145); TOTAL PROTEIN 6.7 GM/DL (6.4-8.2); TROPONIN I < 0.02 NG/ML (< 0.10)
[2018-10-10] MEDS ORDERED: VANCOMYCIN HCL 1,000 MG, VIAL MATE ADAPTER 1 EACH in D5W 250 ML IV ONE (17:00)
[2018-10-10] MEDS ORDERED: IBUPROFEN 600 MG TAB PO ONE (17:00)
[2018-10-10] MEDS ORDERED: cefTRIAXone SOD 2 GM in D5W MINI-BAG PLUS 50 ML IV ONE (17:00)
[2018-10-10] MEDS ORDERED: FERR325T3 PO (17:53)
[2018-10-10] MEDS ORDERED: ACET-683 PO (17:53)
[2018-10-10] MEDS: NS 1,000 ML IV SCH (19:30)
[2018-10-10] MEDS ORDERED: traMADol 50 MG TAB PO PRN (19:30)
[2018-10-10] MEDS ORDERED: FOLIC ACID 1 MG TAB PO PRN (19:30)
--- NOTE | 2018-10-10 19:45 | REP ---
Right foot: Four views. History: Fever, wound. Comparison: Right foot radiographs are from June 25, 2014. Findings: Transmetatarsal osteotomies have been performed in the interval since the 2014 prior studies of all five digits. There is no discernible soft tissue coverage of the distal stumps of the remaining first metatarsal and the limited soft tissue is seen over the remainder of the amputated metatarsals. Soft tissue deficit and irregularity is seen. Vascular calcifications noted. There is irregular erosive change in the remaining distal first through fourth metatarsals. There is focal radiolucency in the proximal end of the first metatarsal. Findings are consistent with osteomyelitis. No definite soft tissue gas is seen. Impression: Vascular calcification. Transmetatarsal osteotomies. Erosive changes and absence of uncovering soft tissue consistent with osteomyelitis at least involving first through fourth metatarsals. Electronically Signed by Link Pineda MD 10/10/2018 07:49 P
--- NOTE | 2018-10-10 19:46 | REP ---
AP LATERAL CHEST: 10/10/2018. Comparison: 01/16/2018. Clinical history: Fever and dyspnea. Findings: Some eventration and slight elevation of the right diaphragm compared to the previous study. Some minor basilar atelectatic change adjacent to it in the right mid lower lung zone. No dense consolidation or definite effusion. No visible parenchymal mass. Heart is not enlarged. Aorta is mildly tortuous. Airway is intact. Degenerative changes in the spine from its mid through lower most levels with anterior osteophytes. No visible fracture or gross compression deformities. No free air. Impression: 1. Slight volume loss in the right hemithorax and elevation of the right diaphragm compared to previous study and some adjacent subsegmental atelectasis. No dense consolidation or effusion. 2. No gross cardiomegaly, effusion, lavinia edema or other acute finding. The aorta is mildly tortuous but normal for age. Degenerative changes throughout the spine. Electronically Signed by Greg Thornton MD 10/12/2018 11:46 A
[2018-10-10 20:18] LABS: BLOOD UREA NITROGEN 29 MG/DL (7-18); CALCIUM LEVEL 7.7 MG/DL (8.8-10.2); CARBON DIOXIDE LEVEL 27 MEQ/L (21-32); CHLORIDE LEVEL 101 MEQ/L (98-107); CPK CREATINE PHOSPHOKINASE 733 U/L (39-308); CREATININE FOR GFR 0.88 MG/DL (0.70-1.30); GLOMERULAR FILTRATION RATE > 60.0 (>42); GLUCOSE, FASTING 97 MG/DL (70-100); POTASSIUM SERUM 4.7 MEQ/L (3.5-5.1); SODIUM LEVEL 135 MEQ/L (136-145)
[2018-10-10] MEDS ORDERED: DEXTROSE 50% 50 ML SYRINGE IV PRN (20:45)
[2018-10-10] MEDS ORDERED: GLUCAGON FOR INJ 1 MG VIAL (J1610) SC PRN (20:45)
[2018-10-10] MEDS ORDERED: GLUCOSE 4 GM CHEW TABLET PO PRN (20:45)
[2018-10-10] MEDS: DOCUSATE SODIUM 100 MG CAP PO SCH (21:38)
[2018-10-10] MEDS: HYDROXYCHLOROQUINE 200 MG TAB PO SCH (21:38)
[2018-10-10] MEDS: LEVEMIR (INSULIN DETEMIR) 1 UNITS/0.01ML SC SCH (21:38)
[2018-10-10] MEDS: SIMVASTATIN 40 MG TAB PO SCH (21:38)
[2018-10-10] MEDS: FERROUS SULFATE 325MG TAB PO SCH (21:38)
[2018-10-10 22:00] VITALS: BP 104/53
[2018-10-11] VITALS (8 sets, daily range): BP systolic 130–147; BP diastolic 65–72
[2018-10-11] MEDS: NS 1,000 ML IV SCH ×3 (03:46→15:30)
[2018-10-11] MEDS: VANCOMYCIN HCL 750 MG, VIAL MATE ADAPTER 1 EACH in D5W 250 ML IV SCH ×2 (04:10→17:33)
[2018-10-11] MEDS: LEVOTHYROXINE 75MCG TABLET (0.075MG) PO SCH (05:27)
[2018-10-11 06:06] LABS: BASO % 0.2 % (0.0-1.0); EOS % 0.1 % (0.0-3.0); HEMATOCRIT 23.6 % (42.0-52.0); HEMOGLOBIN 7.4 g/dl (13.5-17.5); LYMPH # 0.7 10^3/uL (1.5-4.5); LYMPH % 5.5 % (24.0-44.0); MEAN CORPUSCULAR HEMOGLOBIN 26.2 pg (27.0-33.0); MEAN CORPUSCULAR HGB CONC 31.4 g/dl (32.0-36.5); MEAN CORPUSCULAR VOLUME 83.7 fl (80.0-96.0); MONO # 0.8 10^3/uL (0.0-0.8); MONO % 6.5 % (0.0-5.0); NEUTROPHILS # 10.8 10^3/uL (1.8-7.7); NEUTROPHILS % 87.2 % (36.0-66.0); PLATELET COUNT, AUTOMATED 300 10^3/uL (150-450); RED BLOOD COUNT 2.82 10^6/uL (4.30-6.10); WHITE BLOOD COUNT 12.3 10^3/uL (4.0-10.0)
[2018-10-11 06:43] LABS: ALBUMIN 1.9 GM/DL (3.2-5.2); ALT/SGPT 51 U/L (12-78); BILIRUBIN,TOTAL 0.3 MG/DL (0.2-1.0); BLOOD UREA NITROGEN 25 MG/DL (7-18); CALCIUM LEVEL 7.9 MG/DL (8.8-10.2); CARBON DIOXIDE LEVEL 24 MEQ/L (21-32); CHLORIDE LEVEL 104 MEQ/L (98-107); CPK CREATINE PHOSPHOKINASE 506 U/L (39-308); GLOMERULAR FILTRATION RATE > 60.0 (>42); GLUCOSE, FASTING 136 MG/DL (70-100); POTASSIUM SERUM 4.7 MEQ/L (3.5-5.1); SODIUM LEVEL 139 MEQ/L (136-145); TOTAL PROTEIN 5.6 GM/DL (6.4-8.2)
[2018-10-11 06:46] LABS: ERYTHROCYTE SEDIMENTATION RATE 125 mm/hr (0-20)
--- NOTE | 2018-10-11 07:57 | ECGEPIP ---
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
[2018-10-11] MEDS ORDERED: RIVAROXABAN 15 MG TAB (XARELTO) PO SCH (08:00)
[2018-10-11] MEDS: DOCUSATE SODIUM 100 MG CAP PO SCH ×2 (08:39→20:15)
[2018-10-11] MEDS: PANTOPRAZOLE 40MG TAB (PROTONIX) PO SCH (08:39)
[2018-10-11] MEDS: LISINOPRIL 5 MG TAB PO SCH (08:39)
[2018-10-11] MEDS: LACTOBACILLUS ACIDOPHILUS CAP (BACID) PO SCH ×2 (08:39→17:33)
[2018-10-11] MEDS: FERROUS SULFATE 325MG TAB PO SCH ×2 (08:39→20:15)
[2018-10-11] MEDS: amLODIPine 5 MG TAB PO SCH (08:39)
[2018-10-11] MEDS: HumaLOG INSULIN (NovoLOG) PER UNIT SC SCH ×3 (08:40→17:30)
[2018-10-11] MEDS: HYDROXYCHLOROQUINE 200 MG TAB PO SCH (09:52)
[2018-10-11] MEDS ORDERED: PERCOCET 5MG/325MG TAB PO PRN (13:00)
--- NOTE | 2018-10-11 13:00 | IPNPDOC ---
Subjective Date Seen The patient was seen on 10/11/18. Subjective Chief Complaint/HPI Patient seen and examined at the bedside. The patient was noted to have gram- positive cocci in chains and clusters in his blood cultures 2 bottles. Vascular surgery was consulted for further evaluation of right lower extremity wound, and to assess for the need for further debridement versus amputation. Patient states that his pain is relatively well controlled at this time. Objective Physical Examination General Exam: Positive: Alert, Cooperative, No Acute Distress ENT Exam: Positive: Atraumatic, Mucous membr. moist/pink Neck Exam: Negative: JVD Chest Exam: Positive: Clear to auscultation, Normal air movement Heart Exam: Positive: Rate Normal, Normal S1, Normal S2 Abdomen Exam: Positive: Soft; Negative: Tenderness Extremity Exam: Positive: Other (right foot noted to be wrapped in surgical dressing. 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 Kasper in the outpatient setting. XR of the Right Foot notable erosive changes and absence of uncovering soft tissue consistent with osteomyelitis involving first through fourth metatarsals Blood culture 2 notable for gram-positive cocci in clusters and chains Wound culture pending Continue IV Vancomycin Case discussed with Dr. Cruz, he will see the patient in consultation Gram-positive Bacteremia/Septicemia 2/2 Above Continue management as delineated above Lactic acidosis 2/2 Above, resolved s/p IVF Hydration Normocytic Anemia Patient with no overt bleeding at this time Likely dilutional component also contributing to anemia Continue iron supplementation We will transfuse the patient 1 unit of packed red blood cells Hypertension Cont on Lisinopril, Norvasc GERD Protonix Hypothyroidism Continue levothyroxine Rheumatoid arthritis Follow up as outpatient Dyslipidemia Continue statin Deep vein thrombosis (DVT) prophylaxis On Xarelto. VS, I&O, 24H, Fishbone Vital Signs/I&O Vital Signs Date Time Temp Pulse Resp B/P (MAP) Pulse Ox O2 Delivery O2 Flow Rate FiO2 10/11/18 10:00 98.6 83 17 139/66 (90) 98 Room Air I&O- Last 24 Hours up to 6 AM 10/11/18 06:00 Intake Total 1775 ml Output Total 650 ml Balance 1125 ml Laboratory Data 24H LABS Laboratory Tests 2 10/10/18 15:40: Immature Granulocyte % (Auto) 0.4, White Blood Count 16.4H, Red Blood Count 3.42L, Hemoglobin 9.1L, Hematocrit 29.1L, Mean Corpuscular Volume 85.1, Mean Corpuscular Hemoglobin 26.6L, Mean Corpuscular Hemoglobin Concent 31.3L, Red Cell Distribution Width 14.2, Platelet Count 393, Neutrophils (%) (Auto) 94.5H, Lymphocytes (%) (Auto) 1.8L, Monocytes (%) (Auto) 3.0, Eosinophils (%) (Auto) 0.0, Basophils (%) (Auto) 0.3, Neutrophils # (Auto) 15.5H, Lymphocytes # (Auto) 0.3L, Monocytes # (Auto) 0.5, Eosinophils # (Auto) 0.0, Basophils # (Auto) 0.1, Nucleated Red Blood Cells % (auto) 0.0, Erythrocyte Sedimentation Rate 126H, Anion Gap 8, Glomerular Filtration Rate > 60.0, Lactic Acid Level 2.6*H, Calcium Level 8.6L, Aspartate Amino Transf (AST/SGOT) 83H, Alanine Aminotransferase (ALT/SGPT) 54, Alkaline Phosphatase 146H, Total Bilirubin 0.3, Direct Bilirubin 0.2, Total Creatine Kinase 1047H, Creatine Kinase MB 2.0, Creatine Kinase MB Relative Index 0.22, Troponin I < 0.02, C-Reactive Protein, Quantitative 37.00H, [id number]-Type Natriuretic Peptide 1867H, Total Protein 6.7, Albumin 2.5L, Albumin/Globulin Ratio 0.60L, Thyroid Stimulating Hormone (TSH) 1.740 10/10/18 17:09: Urine Color YELLOW, Urine Appearance HAZY, Urine pH 5.0, Urine Specific [place] 1.021, Urine Protein 1+H, Urine Glucose (UA) NEGATIVE, Urine Ketones NEGATIVE, Urine Blood NEGATIVE, Urine Nitrite NEGATIVE, Urine Bilirubin NEGATIVE, Urine Urobilinogen 0.2, Urine Leukocyte Esterase NEGATIVE, Urine WBC (Auto) 1, Urine RBC (Auto) 7H, Urine Hyaline Casts (Auto) 0, Urine Bacteria (Auto) NEGATIVE, Urine Squamous Epithelial Cells 0, Urine Mucus (Auto) SMALL, Urine Sperm (Auto) 10/10/18 19:32: Bedside Glucose (Misc Panel) 102 10/10/18 19:45: Anion Gap 7L, Glomerular Filtration Rate > 60.0, Lactic Acid Level 1.0, Calcium Level 7.7L, Total Creatine Kinase 733H, Blood Urea Nitrogen 29H, Creatinine 0.88, Sodium Level 135L, Potassium Level 4.7, Chloride Level 101, Carbon Dioxide Level 27 10/10/18 20:55: Bedside Glucose (Misc Panel) 103 10/11/18 05:50: Immature Granulocyte % (Auto) 0.5, White Blood Count 12.3H, Red Blood Count 2.82L, Hemoglobin 7.4L, Hematocrit 23.6L, Mean Corpuscular Volume 83.7, Mean Corpuscular Hemoglobin 26.2L, Mean Corpuscular Hemoglobin Concent 31.4L, Red Cell Distribution Width 14.4, Platelet Count 300, Neutrophils (%) (Auto) 87.2H, Lymphocytes (%) (Auto) 5.5L, Monocytes (%) (Auto) 6.5H, Eosinophils (%) (Auto) 0.1, Basophils (%) (Auto) 0.2, Neutrophils # (Auto) 10.8H, Lymphocytes # (Auto) 0.7L, Monocytes # (Auto) 0.8, Eosinophils # (Auto) 0.0, Basophils # (Auto) 0.0, Nucleated Red Blood Cells % (auto) 0.0, Erythrocyte Sedimentation Rate 125H, Anion Gap 11, Glomerular Filtration Rate > 60.0, Blood Urea Nitrogen 25H, Creatinine 0.70, Sodium Level 139, Potassium Level 4.7, Chloride Level 104, Carbon Dioxide Level 24, Calcium Level 7.9L, Aspartate Amino Transf (AST/SGOT) 77H, Alanine Aminotransferase (ALT/SGPT) 51, Total Creatine Kinase 506H, Alkaline Phosphatase 125H, Total Bilirubin 0.3, Total Protein 5.6L, Albumin 1.9#L, C-Reactive Protein, Quantitative 33.60H, Albumin/Globulin Ratio 0.51L 10/11/18 11:29: Bedside Glucose (Misc Panel) 138H CBC/BMP Laboratory Tests 10/10/18 15:40 Red Blood Count 3.42 L, Mean Corpuscular Volume 85.1, Mean Corpuscular Hemo globin 26.6 L, Mean Corpuscular Hemoglobin Concent 31.3 L, Red Cell Distribution Width 14.2, Neutrophils (%) (Auto) 94.5 H, Lymphocytes (%) (Auto) 1.8 L, Monocytes (%) (Auto) 3.0, Eosinophils (%) (Auto) 0.0, Basophils (%) (Auto) 0.3, Neutrophils # (Auto) 15.5 H, Lymphocytes # (Auto) 0.3 L, Monocytes # (Auto) 0.5, Eosinophils # (Auto) 0.0, Basophils # (Auto) 0.1 10/10/18 19:45 Calcium Level 7.7 L 10/11/18 05:50 Red Blood Count 2.82 L, Mean Corpuscular Volume 83.7, Mean Corpuscular Hemoglobin 26.2 L, Mean Corpuscular Hemoglobin Concent 31.4 L, Red Cell Distribution Width 14.4, Neutrophils (%) (Auto) 87.2 H, Lymphocytes (%) (Auto) 5.5 L, Monocytes (%) (Auto) 6.5 H, Eosinophils (%) (Auto) 0.1, Basophils (%) (Auto) 0.2, Neutrophils # (Auto) 10.8 H, Lymphocytes # (Auto) 0.7 L, Monocytes # (Auto) 0.8, Eosinophils # (Auto) 0.0, Basophils # (Auto) 0.0, Calcium Level 7.9 L, Aspartate Amino Transf (AST/SGOT) 77 H, Alanine Aminotransferase (ALT/SGPT) 5 1, Total Creatine Kinase 506 H, Alkaline Phosphatase 125 H, Total Bilirubin 0.3, Total Protein 5.6 L, Albumin 1.9 #L Microbiology Microbiology 10/10/18 Blood Culture - Preliminary, Resulted 10/10/18 Blood Culture - Preliminary, Resulted 10/10/18 Urine Culture, Received Pending 10/10/18 Wound Culture, Received Pending MAGGIE REILLY MD Oct 11, 2018 13:00
[2018-10-11] MEDS: PERCOCET 5MG/325MG TAB PO PRN ×2 (13:24→19:40)
[2018-10-11] MEDS: RIVAROXABAN 15 MG TAB (XARELTO) PO SCH (17:33)
[2018-10-11] MEDS ORDERED: cefTRIAXone SOD 1 GM in D5W MINI-BAG PLUS 50 ML IV SCH (18:00)
[2018-10-11] MEDS: SIMVASTATIN 40 MG TAB PO SCH (20:15)
[2018-10-11] MEDS: LEVEMIR (INSULIN DETEMIR) 1 UNITS/0.01ML SC SCH (20:15)
[2018-10-12] VITALS (11 sets, daily range): BP systolic 148–174; BP diastolic 71–170
[2018-10-12] MEDS: PERCOCET 5MG/325MG TAB PO PRN ×4 (01:30→21:30)
[2018-10-12 04:53] LABS: BASO % 0.2 % (0.0-1.0); EOS % 0.3 % (0.0-3.0); HEMATOCRIT 24.7 % (42.0-52.0); HEMOGLOBIN 7.8 g/dl (13.5-17.5); LYMPH # 0.7 10^3/uL (1.5-4.5); LYMPH % 8.2 % (24.0-44.0); MEAN CORPUSCULAR HGB CONC 31.6 g/dl (32.0-36.5); MEAN CORPUSCULAR VOLUME 85.5 fl (80.0-96.0); MONO # 0.6 10^3/uL (0.0-0.8); NEUTROPHILS # 7.3 10^3/uL (1.8-7.7); NEUTROPHILS % 83.8 % (36.0-66.0); PLATELET COUNT, AUTOMATED 289 10^3/uL (150-450); RED BLOOD COUNT 2.89 10^6/uL (4.30-6.10); WHITE BLOOD COUNT 8.7 10^3/uL (4.0-10.0)
[2018-10-12 05:02] LABS: ALBUMIN 1.8 GM/DL (3.2-5.2); ALT/SGPT 55 U/L (12-78); BILIRUBIN,TOTAL 0.5 MG/DL (0.2-1.0); BLOOD UREA NITROGEN 15 MG/DL (7-18); CALCIUM LEVEL 7.8 MG/DL (8.8-10.2); CARBON DIOXIDE LEVEL 25 MEQ/L (21-32); CHLORIDE LEVEL 103 MEQ/L (98-107); CPK CREATINE PHOSPHOKINASE 176 U/L (39-308); CREATININE FOR GFR 0.54 MG/DL (0.70-1.30); GLOMERULAR FILTRATION RATE > 60.0 (>42); GLUCOSE, FASTING 110 MG/DL (70-100); POTASSIUM SERUM 4.2 MEQ/L (3.5-5.1); SODIUM LEVEL 137 MEQ/L (136-145); TOTAL PROTEIN 5.1 GM/DL (6.4-8.2)
[2018-10-12] MEDS: LEVOTHYROXINE 75MCG TABLET (0.075MG) PO SCH (05:05)
[2018-10-12] MEDS: VANCOMYCIN HCL 750 MG, VIAL MATE ADAPTER 1 EACH in D5W 250 ML IV SCH (05:05)
--- NOTE | 2018-10-12 05:41 | PHACANCOPD ---
PHARMACY VANCOMYCIN DOSING Pt Demographics Demographics Patient Age:73 , Weight:54.000 , Gender: male Adjusted Body Weight Date: 10/12/18, Adjusted Body Weight: [56] Kg-ACTUAL WT Vancomycin Vancomycin indication: OSTEO Vancomycin Target Ranges: 15-20 mcg/ml Vancomycin Load Y/N: No Load Dose Date Time Vancomycin Load Dose: Date: Time: Vancomycin Dose Date: 10/12/18. Current Vancomycin Dose: [1 GM Q12H] Intermittent Dosing?: No Labs Micro Microbiology 10/12/18 Blood Culture, Received Pending 10/12/18 Blood Culture, Received Pending 10/10/18 Blood Culture - Preliminary, Resulted 10/10/18 Blood Culture - Preliminary, Resulted 10/10/18 Urine Culture - Final, Complete 10/10/18 Wound Culture, Received Pending Creatinine Clearance Date:10/12/18. Creatinine Clearance: [99].CALCULATED Assessment and Plan Maintaining Current Dose?: No Reason for dose change: Trough too low Pharmacist Note Pharmacist Note Date: 10/12/18. Pharmacist note:Vancomycin trough drawn 10/12 @03:58 REPORTED 10.8 (GOAL=15-20)wILL ADJUST REGIMEN TO VANCOMYCIN 1 GRAM IV Q12H TO BEGIN 10/12@1700-WILL CONTINUE TO FOLLOW LABS AND MAKE ADJUSTMENTS NEEDED [facility] Oct 12, 2018 05:40
[2018-10-12] MEDS: HumaLOG INSULIN (NovoLOG) PER UNIT SC SCH ×3 (07:30→17:09)
[2018-10-12] MEDS: DOCUSATE SODIUM 100 MG CAP PO SCH ×2 (08:10→21:00)
[2018-10-12] MEDS: FERROUS SULFATE 325MG TAB PO SCH ×2 (08:10→21:00)
[2018-10-12] MEDS: LACTOBACILLUS ACIDOPHILUS CAP (BACID) PO SCH ×2 (08:11→17:09)
[2018-10-12] MEDS: RIVAROXABAN 15 MG TAB (XARELTO) PO SCH ×2 (08:11→17:09)
[2018-10-12] MEDS: PANTOPRAZOLE 40MG TAB (PROTONIX) PO SCH (08:11)
[2018-10-12] MEDS: LISINOPRIL 5 MG TAB PO SCH (08:11)
[2018-10-12] MEDS: amLODIPine 5 MG TAB PO SCH (08:11)
--- NOTE | 2018-10-12 10:12 | ECHO ---
DATE OF PROCEDURE: 10/11/2018 REFERRING PHYSICIAN: Dr. Casper Briseno INDICATION: Fever. HEIGHT: 173 cm WEIGHT: 54 kg. DIMENSIONS: IVS: 0.9 LV: 4.9 LVPW: 1.0 LA: 3.4 Aorta: 3.21 IVC: 2.2 Mitral E wave velocity: 75, A-wave: 86 E prime septal: 9.3, E prime lateral: 12.5 FINDINGS: The study is of acceptable technical quality. Left ventricle is normal size and systolic function with estimated left ventricular ejection fraction (LVEF) 60-65%. Right ventricle is also normal size and systolic function. Left atrium is severely enlarged (left atrial volume index was 42 mL/m2). Right atrium appears normal. Intra-atrial septum is intact. There is atrial septal aneurysm with alternative bulging of the septum to right and left atrium depending on the respiratory cycle. Aortic valve is mildly sclerotic but it is a trileaflet valve. No vegetations are seen. Mitral valve appears normal. Tricuspid valve also appears normal. Visualization of pulmonic valve was very limited. Doppler interrogation reveals no aortic stenosis or insufficiency. There is trace mitral insufficiency and trace tricuspid insufficiency. Calculated pulmonary artery pressure is at minimum in high 40s which would correspond to moderate pulmonary hypertension. Mitral inflow pattern and tissue Doppler imaging of mitral annulus revealed grade 1 diastolic dysfunction. CONCLUSIONS: 1. Study is of acceptable technical quality. 2. Normal left ventricle (LV) size and systolic function, grade 1 diastolic dysfunction. 3. No significant valvular disease. 4. Likely elevated central venous pressure and at least moderate pulmonary hypertension. 5. Atrial septal aneurysm of no clinical significance. 6. No vegetations were seen. COMMENT: Subacute bacterial endocarditis (SBE) prophylaxis is not recommended.
[2018-10-12] MEDS ORDERED: MORPHINE 4 MG/ML 1ML VIAL/SYRINGE (J2270) IV ONE (11:15)
--- NOTE | 2018-10-12 12:29 | IPNPDOC ---
Subjective Date Seen The patient was seen on 10/12/18. Subjective Chief Complaint/HPI Patient seen and examined at the bedside. Reports that his right foot pain is relatively controlled at this time. Denies any acute overnight complaints. Objective Physical Examination General Exam: Positive: Alert, Cooperative, No Acute Distress ENT Exam: Positive: Atraumatic, Mucous membr. moist/pink Neck Exam: Negative: JVD Chest Exam: Positive: Clear to auscultation, Normal air movement Heart Exam: Positive: Rate Normal, Normal S1, Normal S2 Abdomen Exam: Positive: Soft; Negative: Tenderness Extremity Exam: Positive: Other (right foot noted to be wrapped in surgical dressing. 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 Kasper in the outpatient setting. XR of the Right Foot notable erosive changes and absence of uncovering soft tissue consistent with osteomyelitis involving first through fourth metatarsals Blood culture 2 notable for gram-positive cocci in clusters and chains Wound culture notable for Klebsiella Continue IV Vancomycin Case discussed with Dr. Cruz, he will see the patient in consultation Gram-positive Bacteremia/Septicemia 2/2 Above Continue management as delineated above Lactic acidosis 2/2 Above, resolved s/p IVF Hydration Normocytic Anemia Patient with no overt bleeding at this time Likely dilutional component also contributing to anemia Continue iron supplementation Discussed the case with the patient's PCP provider this morning, and the patient is scheduled to f/u as an outpatient with Hematology for chronic anemia of unclear significance. 2 Units of PRBC's to be transfused total here Hypertension Cont on Lisinopril, Norvasc GERD Protonix Hypothyroidism Continue levothyroxine Rheumatoid arthritis Follow up as outpatient Dyslipidemia Continue statin Deep vein thrombosis (DVT) prophylaxis On Xarelto. VS, I&O, 24H, Fishbone Vital Signs/I&O Vital Signs Date Time Temp Pulse Resp B/P (MAP) Pulse Ox O2 Delivery O2 Flow Rate FiO2 10/12/18 11:26 100.9 91 16 166/82 95 Room Air I&O- Last 24 Hours up to 6 AM 10/12/18 06:00 Intake Total 2074 ml Output Total 1550 ml Balance 524 ml Laboratory Data 24H LABS Laboratory Tests 2 10/11/18 16:43: Bedside Glucose (Misc Panel) 118H 10/11/18 20:11: Bedside Glucose (Misc Panel) 128H 10/12/18 03:58: Immature Granulocyte % (Auto) 0.5, White Blood Count 8.7, Red Blood Count 2.89L, Hemoglobin 7.8L, Hematocrit 24.7L, Mean Corpuscular Volume 85.5, Mean Corpuscular Hemoglobin 27.0, Mean Corpuscular Hemoglobin Concent 31.6L, Red Cell Distribution Width 14.4, Platelet Count 289, Neutrophils (%) (Auto) 83.8H, Lymphocytes (%) (Auto) 8.2L, Monocytes (%) (Auto) 7.0H, Eosinophils (%) (Auto) 0.3, Basophils (%) (Auto) 0.2, Neutrophils # (Auto) 7.3, Lymphocytes # (Auto) 0.7L, Monocytes # (Auto) 0.6, Eosinophils # (Auto) 0.0, Basophils # (Auto) 0.0, Nucleated Red Blood Cells % (auto) 0.0, Anion Gap 9, Glomerular Filtration Rate > 60.0, Blood Urea Nitrogen 15, Creatinine 0.54L, Sodium Level 137, Potassium Level 4.2, Chloride Level 103, Carbon Dioxide Level 25, Calcium Level 7.8L, Aspartate Amino Transf (AST/SGOT) 76H, Alanine Aminotransferase (ALT/SGPT) 55, Total Creatine Kinase 176, Alkaline Phosphatase 193H, Total Bilirubin 0.5#, T otal Protein 5.1L, Albumin 1.8L, C-Reactive Protein, Quantitative 23.60H, Albumin/Globulin Ratio 0.55L, Vancomycin Level Trough 10.8 10/12/18 11:48: Bedside Glucose (Misc Panel) 185H CBC/BMP Laboratory Tests 10/12/18 03:58 Red Blood Count 2.89 L, Mean Corpuscular Volume 85.5, Mean Corpuscular Hemoglobin 27.0, Mean Corpuscular Hemoglobin Concent 31.6 L, Red Cell Distribution Width 14.4, Neutrophils (%) (Auto) 83.8 H, Lymphocytes (%) (Auto) 8.2 L, Monocytes (%) (Auto) 7.0 H, Eosinophils (%) (Auto) 0.3, Basophils (%) (Auto) 0.2, Neutrophils # (Auto) 7.3, Lymphocytes # (Auto) 0.7 L, Monocytes # (Auto) 0.6, Eosinophils # (Auto) 0.0, Basophils # (Auto) 0.0, Calcium Level 7.8 L, Aspartate Amino Transf (AST/SGOT) 76 H, Alanine Aminotransferase (ALT/SGPT) 5 5, Total Creatine Kinase 176, Alkaline Phosphatase 193 H, Total Bilirubin 0.5 #, Total Protein 5.1 L, Albumin 1.8 L Microbiology Microbiology 10/12/18 Blood Culture, Received Pending 10/12/18 Blood Culture, Received Pending 10/10/18 Blood Culture - Preliminary, Resulted 10/10/18 Blood Culture - Preliminary, Resulted 10/10/18 Urine Culture - Final, Complete 10/10/18 Wound Culture - Preliminary, Resulted Klebsiella Pneumoniae MAGGIE REILLY MD Oct 12, 2018 12:29
[2018-10-12] MEDS ORDERED: IBUPROFEN 400 MG TAB PO ONE (13:00)
[2018-10-12] MEDS: VANCOMYCIN HCL 1,000 MG, VIAL MATE ADAPTER 1 EACH in D5W 250 ML IV SCH (17:09)
[2018-10-12] MEDS: SIMVASTATIN 40 MG TAB PO SCH (21:00)
[2018-10-12] MEDS: LEVEMIR (INSULIN DETEMIR) 1 UNITS/0.01ML SC SCH (21:01)
[2018-10-13] VITALS (7 sets, daily range): BP systolic 140–182; BP diastolic 66–84
[2018-10-13] MEDS: PERCOCET 5MG/325MG TAB PO PRN ×4 (02:19→18:02)
[2018-10-13] MEDS: LEVOTHYROXINE 75MCG TABLET (0.075MG) PO SCH (04:58)
[2018-10-13] MEDS: VANCOMYCIN HCL 1,000 MG, VIAL MATE ADAPTER 1 EACH in D5W 250 ML IV SCH (04:59)
[2018-10-13 06:17] LABS: BASO % 0.3 % (0.0-1.0); EOS % 0.4 % (0.0-3.0); HEMATOCRIT 31.2 % (42.0-52.0); LYMPH # 0.6 10^3/uL (1.5-4.5); LYMPH % 6.3 % (24.0-44.0); MEAN CORPUSCULAR HEMOGLOBIN 26.4 pg (27.0-33.0); MEAN CORPUSCULAR HGB CONC 31.4 g/dl (32.0-36.5); MEAN CORPUSCULAR VOLUME 84.1 fl (80.0-96.0); MONO # 0.6 10^3/uL (0.0-0.8); MONO % 6.4 % (0.0-5.0); NEUTROPHILS # 7.9 10^3/uL (1.8-7.7); NEUTROPHILS % 86.1 % (36.0-66.0); PLATELET COUNT, AUTOMATED 303 10^3/uL (150-450); RED BLOOD COUNT 3.71 10^6/uL (4.30-6.10); WHITE BLOOD COUNT 9.2 10^3/uL (4.0-10.0)
[2018-10-13 06:26] LABS: HEMOGLOBIN 9.8 g/dl (13.5-17.5)
[2018-10-13 06:52] LABS: ALBUMIN 1.7 GM/DL (3.2-5.2); ALT/SGPT 83 U/L (12-78); BILIRUBIN,TOTAL 0.5 MG/DL (0.2-1.0); BLOOD UREA NITROGEN 14 MG/DL (7-18); CALCIUM LEVEL 8.4 MG/DL (8.8-10.2); CARBON DIOXIDE LEVEL 27 MEQ/L (21-32); CHLORIDE LEVEL 102 MEQ/L (98-107); CPK CREATINE PHOSPHOKINASE 63 U/L (39-308); CREATININE FOR GFR 0.64 MG/DL (0.70-1.30); GLOMERULAR FILTRATION RATE > 60.0 (>42); GLUCOSE, FASTING 150 MG/DL (70-100); POTASSIUM SERUM 4.4 MEQ/L (3.5-5.1); SODIUM LEVEL 137 MEQ/L (136-145)
--- NOTE | 2018-10-13 07:49 | HPE ---
DATE OF ADMISSION: 10/10/2018 CHIEF COMPLAINT: Shortness of breath, fever as high as 103, vomiting. This is a 73-year-old male with a history of insulin dependent diabetes type 2, vascular disease, who has had right leg Fem-Pop bypass in October of 2017, he had a right toe amputation May 08, 2018, he has had diabetic ulcer and wound care with Dr. Kasper at the wound center. He was at home, not feeling well, he became very feverish, and he was brought to the emergency room. Upon arrival blood pressure was 136/63, pulse 120, respirations 19, temperature 100.9. Laboratory studies were done. WBC was elevated at 16.4, hemoglobin and hematocrit were 9.1/29.1, platelets were 393, sed rate was elevated at 126, sodium was slightly low at 136, potassium 4.7, chloride 100, CO2 27, BUN was elevated at 28, creatinine 0.97, blood sugar was low at 58, calcium was 8.6, total CPK was 1047, alkaline phosphatase was 146, C-reactive protein was 47, BNP 1867, TSH was therapeutic at 1.74. Blood cultures were drawn. Chest x-ray was done which showed right volume loss of the right hemithorax and elevation of the right diaphragm. No dense consolidation or effusion. No gross cardiomegaly, effusion, lavinia edema or other acute findings. Foot x-ray showed vascular calcification. Transmetatarsal osteotomies. Erosive changes and absence of uncovering soft tissue consistent with osteomyelitis, at least involving first through fourth metatarsals. The patient was given Tylenol, normal saline IV was started. He was given Zofran for nausea. He was given vancomycin and Rocephin. Assessment was done. The patient will be admitted for osteomyelitis first through fourth metatarsals of the right foot to the hospitalist who will see him in the morning, Dr. Briseno. ALLERGIES: No known drug allergies. SOCIAL HISTORY: He is . He has not drank for 2-3 years. He does not smoke cigarettes. He does not use recreational drugs. Primary care provider is Dr. Dilip Arce. He sees Dr. Kasper for wound care. He has seen Dr. Cruz for vascular care. PAST MEDICAL HISTORY: Insulin dependent diabetes type 2. Hypercholesterolemia. Hypothyroidism. Hypertension. Rheumatoid arthritis. Stage III pressure ulcer right foot. PAST SURGICAL HISTORY: Tonsillectomy 1952. Right leg Fem-Pop bypass 11/14/2017. Cholecystectomy 01/16/2018. Right toe amputation 05/08/2018. FAMILY HISTORY: Father , prostate cancer. Mother , had diabetes and cerebrovascular accident (CVA). HOME MEDICATIONS: - Senna two tablets by mouth every evening - NovoLog insulin aspart subcu before meals sliding scale - Lantus 20 units every evening - metformin 1000 mg by mouth twice a day - prednisone 5 mg by mouth daily as needed - Norvasc 5 mg by mouth daily - ferrous sulfate 325 mg by mouth twice a day - folic acid 1 mg by mouth daily as needed for mouth sores - hydroxychloroquine sulfate 200 mg by mouth twice a day - levothyroxine 75 mcg by mouth daily - lisinopril 15 mg by mouth daily - Xarelto 15 mg by mouth twice a day - simvastatin 40 mg by mouth at bedtime - tramadol 100 mg by mouth every 8 hours as needed for pain REVIEW OF SYSTEMS: Review of systems was done. The patient has been having nausea, lack of appetite, queasy stomach, occasional vomiting. Denies any diarrhea, hematochezia or melena. No abdominal pain. Off and on shortness of breath. No chest pain. He has had right foot discomfort. Otherwise unremarkable. PHYSICAL EXAMINATION: 73-year-old cooperative male in no acute distress. Height 68 inches, weight 55.9 kg, body mass index (BMI) 18.7, blood pressure 124/68, pulse 78, respirations 18, temperature 98.7. The patient is alert and oriented times three. Pupils equal and react to light. Cornea and sclerae are clear. Conjunctivae are normal. No facial asymmetry. Pharynx, tongue and gums are pink and moist. Tongue is midline. Neck is supple without lymphadenopathy. No thyromegaly. No goiter. Carotids . Chest clear to auscultation without wheeze or retraction. Heart is regular. Abdomen is benign. Bowel sounds are positive. /rectal not done. Extremities no cyanosis, clubbing or edema. Left foot open area on the top, drainage noted. Culture sent. Dry sterile dressing applied. Both feet warm to touch. IMPRESSION/PLAN: Admit to the hospitalist service. Will consult for wound care. Will consult Dr. Cruz. status for osteomyelitis first through fourth metatarsal right foot. He has had a right lower extremity thrombolysis and angioplasty March 2018, he had a . Continues to follow as an outpatient with Dr. Kasper. Will follow-up on blood cultures. Will continue vancomycin and Rocephin. Consult Dr. Cruz, wound consult. Lactic acidosis. Lactate was 2.6. Will give IV . Recheck CBC. Continue iron. Hypertension. Continue lisinopril and Norvasc. Hypothyroidism. Continue levothyroxine. Gastroesophageal reflux disease (GERD). Protonix. Deep vein thrombosis (DVT) prophylaxis. Patient was on Xarelto and will continue that. Elevated CPK. Recheck in the morning. Expect improvement with hydration. EKG sinus tach. Patient will be admitted to inpatient status.
--- NOTE | 2018-10-13 08:46 | PHACANCOPD ---
PHARMACY VANCOMYCIN DOSING Pt Demographics Demographics Patient Age:73 , Weight:56.100 , Gender: male Adjusted Body Weight Date: 10/12/18, Adjusted Body Weight: [56] Kg-ACTUAL WT Vancomycin Vancomycin indication: OSTEO Vancomycin Target Ranges: 15-20 mcg/ml Vancomycin Load Y/N: No Load Dose Date Time Vancomycin Load Dose: Date: Time: Vancomycin Dose Date: 10/12/18. Current Vancomycin Dose: [1 GM Q12H] Intermittent Dosing?: No Labs Micro Microbiology 10/12/18 Blood Culture - Preliminary, Resulted No growth after 24 hours . All specim... 10/12/18 Blood Culture - Preliminary, Resulted No growth after 24 hours . All specim... 10/10/18 Blood Culture - Preliminary, Resulted 10/10/18 Blood Culture - Preliminary, Resulted 10/10/18 Urine Culture - Final, Complete 10/10/18 Wound Culture - Preliminary, Resulted Klebsiella Pneumoniae Creatinine Clearance Date:10/12/18. Creatinine Clearance: [99].CALCULATED Assessment and Plan Maintaining Current Dose?: Yes Reason for dose change: No Dose Change Pharmacist Note Pharmacist Note 10/13/18: Day #4 IV vancomycin therapy for the treatment of RLE osteomyelitis. Scr remains stable at 0.64 today from 0.54 yesterday. BUN and output also remain stable. Preliminary blood culture results are still pending. A follow-up vancomycin trough level has been scheduled to be drawn tomorrow, 10/14/18, at 1600. We will continue to monitor and make further dose adjustments if needed. Date: 10/12/18. Pharmacist note:Vancomycin trough drawn 10/12 @03:58 REPORTED 10.8 (GOAL=15-20)wILL ADJUST REGIMEN TO VANCOMYCIN 1 GRAM IV Q12H TO BEGIN 10/12@1700-WILL CONTINUE TO FOLLOW LABS AND MAKE ADJUSTMENTS NEEDED CHARLIE PINTO [facility] Oct 13, 2018 08:46
[2018-10-13] MEDS: LACTOBACILLUS ACIDOPHILUS CAP (BACID) PO SCH ×2 (08:58→18:01)
[2018-10-13] MEDS: HumaLOG INSULIN (NovoLOG) PER UNIT SC SCH ×3 (08:58→17:30)
[2018-10-13] MEDS: amLODIPine 5 MG TAB PO SCH (08:59)
[2018-10-13] MEDS: FERROUS SULFATE 325MG TAB PO SCH ×2 (08:59→20:58)
[2018-10-13] MEDS: DOCUSATE SODIUM 100 MG CAP PO SCH ×2 (08:59→20:58)
[2018-10-13] MEDS: RIVAROXABAN 15 MG TAB (XARELTO) PO SCH ×2 (08:59→18:01)
[2018-10-13] MEDS: PANTOPRAZOLE 40MG TAB (PROTONIX) PO SCH (09:01)
[2018-10-13] MEDS: LISINOPRIL 5 MG TAB PO SCH (09:01)
--- NOTE | 2018-10-13 10:53 | IPNPDOC ---
Subjective Date Seen The patient was seen on 10/13/18. Subjective Chief Complaint/HPI Patient seen and examined at the bedside. The patient's blood cultures from 10/10 came back positive for Streptococcus Anginosus. Repeat cultures from 08/12 negative. Awaiting vascular surgery input Objective Physical Examination General Exam: Positive: Alert, Cooperative, No Acute Distress ENT Exam: Positive: Atraumatic, Mucous membr. moist/pink Neck Exam: Negative: JVD Chest Exam: Positive: Clear to auscultation, Normal air movement Heart Exam: Positive: Rate Normal, Normal S1, Normal S2 Abdomen Exam: Positive: Soft; Negative: Tenderness Extremity Exam: Positive: Other (right foot noted to be wrapped in surgical dressing. 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 Kasper in the outpatient setting. XR of the Right Foot notable erosive changes and absence of uncovering soft tissue consistent with osteomyelitis involving first through fourth metatarsals Blood culture 2 notable for Streptococcus Anginosus from 10/10 Repeat Bllood culture x 2 negative from 10/12 2D ECHO with no vegetations noted Wound culture notable for Streptococcus Anginosus, Klebsiella Changed IV Vanco to Rocephin based on susceptibilities Case discussed with Dr. Cruz, he will see the patient in consultation Streptococcus Anginosus Bacteremia/Septicemia 2/2 Above Continue management as delineated above Lactic acidosis 2/2 Above, resolved s/p IVF Hydration Normocytic Anemia Patient with no overt bleeding at this time Likely dilutional component also contributing to anemia Continue iron supplementation Hgb stable following 2 Units of PRBC Transfusion Hypertension Cont on Lisinopril, Norvasc GERD Protonix Hypothyroidism Continue levothyroxine Rheumatoid arthritis Follow up as outpatient Dyslipidemia Continue statin Deep vein thrombosis (DVT) prophylaxis On Xarelto. VS, I&O, 24H, Fishbone Vital Signs/I&O Vital Signs Date Time Temp Pulse Resp B/P (MAP) Pulse Ox O2 Delivery O2 Flow Rate FiO2 10/13/18 09:01 140/66 10/13/18 08:59 80 10/13/18 08:20 98.0 18 Room Air 10/13/18 08:20 98 10/12/18 14:00 2.5 I&O- Last 24 Hours up to 6 AM 10/13/18 06:00 Intake Total 2046 ml Output Total 1500 ml Balance 546 ml Laboratory Data 24H LABS Laboratory Tests 2 10/12/18 11:48: Bedside Glucose (Misc Panel) 185H 10/12/18 17:04: Bedside Glucose (Misc Panel) 160H 10/12/18 20:25: Bedside Glucose (Misc Panel) 176H 10/13/18 05:45: Immature Granulocyte % (Auto) 0.5, White Blood Count 9.2, Red Blood Count 3.71L, Hemoglobin 9.8#L, Hematocrit 31.2L, Mean Corpuscular Volume 84.1, Mean Corpuscular Hemoglobin 26.4L, Mean Corpuscular Hemoglobin Concent 31.4L, Red Cell Distribution Width 14.6H, Platelet Count 303, Neutrophils (%) (Auto) 86.1H, Lymphocytes (%) (Auto) 6.3L, Monocytes (%) (Auto) 6.4H, Eosinophils (%) (Auto) 0.4, Basophils (%) (Auto) 0.3, Neutrophils # (Auto) 7.9H, Lymphocytes # (Auto) 0.6L, Monocytes # (Auto) 0.6, Eosinophils # (Auto) 0.0, Basophils # (Auto) 0.0, Nucleated Red Blood Cells % (auto) 0.0, Anion Gap 8, Glomerular Filtration Rate > 60.0, Blood Urea Nitrogen 14, Creatinine 0.64L, Sodium Level 137, Potassium Level 4.4, Chloride Level 102, Carbon Dioxide Level 27, Calcium Level 8.4L, Aspartate Amino Transf (AST/SGOT) 77H, Alanine Aminotransferase (ALT/SGPT) 83H, Total Creatine Kinase 63, Alkaline Phosphatase 302H, Total Bilirubin 0.5, Total Protein 6.0L, Albumin 1.7L, C-Reactive Protein, Quantitative 26.80H, Albumin/Globulin Ratio 0.40L CBC/BMP Laboratory Tests 10/13/18 05:45 Red Blood Count 3.71 L, Mean Corpuscular Volume 84.1, Mean Corpuscular Hemoglobin 26.4 L, Mean Corpuscular Hemoglobin Concent 31.4 L, Red Cell Distribution Width 14.6 H, Neutrophils (%) (Auto) 86.1 H, Lymphocytes (%) (Auto) 6.3 L, Monocytes (%) (Auto) 6.4 H, Eosinophils (%) (Auto) 0.4, Basophils (%) (Auto) 0.3, Neutrophils # (Auto) 7.9 H, Lymphocytes # (Auto) 0.6 L, Monocytes # (Auto) 0.6, Eosinophils # (Auto) 0.0, Basophils # (Auto) 0.0, Calcium Level 8.4 L, Aspartate Amino Transf (AST/SGOT) 77 H, Alanine Aminotransferase (ALT/SGPT) 83 H, Total Creatine Kinase 63, Alkaline Phosphatase 302 H, Total Bilirubin 0.5, Total Protein 6.0 L, Albumin 1.7 L Microbiology Microbiology 10/12/18 Blood Culture - Preliminary, Resulted No growth after 24 hours . All specim... 10/12/18 Blood Culture - Preliminary, Resulted No growth after 24 hours . All specim... 10/10/18 Blood Culture - Final, Complete Streptococcus Anginosus Grp 10/10/18 Blood Culture - Final, Complete Streptococcus Anginosus Grp 10/10/18 Urine Culture - Final, Complete 10/10/18 Wound Culture - Final, Complete Klebsiella Pneumoniae Streptococcus Anginosus Grp MAGGIE REILLY MD Oct 13, 2018 10:53
[2018-10-13] MEDS: cefTRIAXone SOD 1 GM in D5W MINI-BAG PLUS 50 ML IV SCH (11:40)
[2018-10-13] MEDS: LEVEMIR (INSULIN DETEMIR) 1 UNITS/0.01ML SC SCH (20:54)
[2018-10-13] MEDS: SIMVASTATIN 40 MG TAB PO SCH (20:58)
[2018-10-13] MEDS: ACETAMINOPHEN TAB 650MG DOSE (2X325MG) PO PRN (20:58)
[2018-10-14] VITALS (9 sets, daily range): BP systolic 133–162; BP diastolic 60–84
[2018-10-14] MEDS: PERCOCET 5MG/325MG TAB PO PRN ×5 (03:52→22:43)
[2018-10-14] MEDS: LEVOTHYROXINE 75MCG TABLET (0.075MG) PO SCH (05:32)
[2018-10-14 06:06] LABS: BASO % 0.3 % (0.0-1.0); EOS % 0.1 % (0.0-3.0); HEMATOCRIT 31.4 % (42.0-52.0); LYMPH # 1.1 10^3/uL (1.5-4.5); LYMPH % 8.2 % (24.0-44.0); MEAN CORPUSCULAR HEMOGLOBIN 26.6 pg (27.0-33.0); MEAN CORPUSCULAR HGB CONC 31.8 g/dl (32.0-36.5); MEAN CORPUSCULAR VOLUME 83.5 fl (80.0-96.0); MONO # 0.9 10^3/uL (0.0-0.8); MONO % 6.8 % (0.0-5.0); NEUTROPHILS # 11.3 10^3/uL (1.8-7.7); PLATELET COUNT, AUTOMATED 367 10^3/uL (150-450); RED BLOOD COUNT 3.76 10^6/uL (4.30-6.10); WHITE BLOOD COUNT 13.5 10^3/uL (4.0-10.0)
[2018-10-14 06:48] LABS: ALBUMIN 1.8 GM/DL (3.2-5.2); ALT/SGPT 67 U/L (12-78); BILIRUBIN,TOTAL 0.4 MG/DL (0.2-1.0); BLOOD UREA NITROGEN 12 MG/DL (7-18); CALCIUM LEVEL 8.6 MG/DL (8.8-10.2); CARBON DIOXIDE LEVEL 28 MEQ/L (21-32); CHLORIDE LEVEL 100 MEQ/L (98-107); CPK CREATINE PHOSPHOKINASE 39 U/L (39-308); CREATININE FOR GFR 0.67 MG/DL (0.70-1.30); GLOMERULAR FILTRATION RATE > 60.0 (>42); GLUCOSE, FASTING 139 MG/DL (70-100); POTASSIUM SERUM 4.2 MEQ/L (3.5-5.1); SODIUM LEVEL 136 MEQ/L (136-145); TOTAL PROTEIN 6.4 GM/DL (6.4-8.2)
[2018-10-14] MEDS: HumaLOG INSULIN (NovoLOG) PER UNIT SC SCH ×3 (07:30→17:49)
[2018-10-14] MEDS: RIVAROXABAN 15 MG TAB (XARELTO) PO SCH ×2 (08:15→17:48)
[2018-10-14] MEDS: DOCUSATE SODIUM 100 MG CAP PO SCH ×2 (08:15→20:15)
[2018-10-14] MEDS: LACTOBACILLUS ACIDOPHILUS CAP (BACID) PO SCH ×2 (08:15→17:48)
[2018-10-14] MEDS: PANTOPRAZOLE 40MG TAB (PROTONIX) PO SCH (08:15)
[2018-10-14] MEDS: FERROUS SULFATE 325MG TAB PO SCH ×2 (08:15→20:14)
[2018-10-14] MEDS: amLODIPine 5 MG TAB PO SCH (08:16)
[2018-10-14] MEDS: LISINOPRIL 5 MG TAB PO SCH (08:16)
[2018-10-14] MEDS: cefTRIAXone SOD 1 GM in D5W MINI-BAG PLUS 50 ML IV SCH (11:17)
[2018-10-14] MEDS ORDERED: ONDANSETRON 4MG/2ML VIAL (J2405) As Ordered ONE ×2 (15:28→15:59)
[2018-10-14] MEDS ORDERED: ONDANSETRON 4MG/2ML VIAL (J2405) IV ONE (15:45)
[2018-10-14] MEDS ORDERED: PROPOFOL 200 MG/20 ML VIAL As Ordered ONE (15:59)
[2018-10-14] MEDS ORDERED: METOCLOPRAMIDE INJ 10MG/2ML VIAL (J2765) As Ordered ONE (15:59)
[2018-10-14] MEDS ORDERED: LIDOCAINE 2% INJ 100 MG/5 ML SDV (FOR ANES.) As Ordered ONE (15:59)
[2018-10-14] MEDS ORDERED: MIDAZOLAM INJ 2 MG/2 ML VIAL (J2250) As Ordered ONE (15:59)
[2018-10-14] MEDS ORDERED: fentaNYL 250 MCG/5 ML INJECTION (J3010) As Ordered ONE (15:59)
[2018-10-14] MEDS ORDERED: PHENYLephrine HCL 500 MCG/5 ML (100MCG/ML) SYRINGE (J2370) As Ordered ONE (15:59)
--- NOTE | 2018-10-14 16:11 | IPN ---
DATE: 10/14/2018 SUBJECTIVE: Patient is seen and examined in the room. Patient denies any acute complaints. No recurrent fevers since yesterday at 10 p.m. GENERAL: No sign of acute distress, patient is alert and awake. HEENT: Normocephalic, atraumatic. Extraocular motors grossly intact. CARDIOVASCULAR: Positive S1, S2, regular rate. LUNGS: Clear to auscultation bilaterally. ABDOMEN: Soft, nontender. Right lower extremity is wrapped with dressing. LAB: WBC 13.5, Hgb 10, Hct 31.4, PLT 367, Na 136, Cl 100,K 4.2, BUN 12, Cr 0.67, CRP 27.6 ASSESSMENT AND PLAN: 1. Osteomyelitis. Patient had multiple procedures in the past. Wound culture is positive for Klebsiella and Streptococcus. Vascular surgery, Dr. Cruz, consulted. Patient may have an amputation. Patient does have underlying right lower extremity ischemia and peripheral vascular disease. 2. Bacteremia from Streptococcus anginosus and Klebsiella pneumoniae. Patient is currently on antibiotics. 3. Normocytic anemia. Patient had a blood transfusion on 10/11/2018 and 10/12/2018. Continue to monitor hemoglobin and hematocrit. Patient is asymptomatic. 4. Hypertension. Patient is on Norvasc, lisinopril. 5. Hypothyroidism. On Synthroid. 6. Diabetes. On insulin. 7. Deep venous thrombosis (DVT) prophylaxis. On Xarelto. MTDD
[2018-10-14] MEDS ORDERED: MEPERIDINE INJ 25 MG/ML VIAL (J2175) IV PRN (16:30)
[2018-10-14] MEDS ORDERED: METOCLOPRAMIDE INJ 10MG/2ML VIAL (J2765) IV PRN (16:30)
[2018-10-14] MEDS ORDERED: PERCOCET 5MG/325MG TAB PO PRN (16:30)
[2018-10-14] MEDS ORDERED: ONDANSETRON 4MG/2ML VIAL (J2405) IV PRN (16:30)
[2018-10-14] MEDS ORDERED: fentaNYL 100 MCG/2 ML INJECTION (J3010) IV PRN (16:30)
[2018-10-14] MEDS: SIMVASTATIN 40 MG TAB PO SCH (20:14)
[2018-10-14] MEDS: LEVEMIR (INSULIN DETEMIR) 1 UNITS/0.01ML SC SCH (20:15)
[2018-10-15 02:00] VITALS: BP 130/58
[2018-10-15] MEDS: PERCOCET 5MG/325MG TAB PO PRN ×5 (03:54→21:53)
[2018-10-15] MEDS: LEVOTHYROXINE 75MCG TABLET (0.075MG) PO SCH (05:54)
[2018-10-15 06:00] VITALS: BP 148/66
[2018-10-15 06:17] LABS: BASO % 0.5 % (0.0-1.0); EOS # 0.1 10^3/uL (0.0-0.50); EOS % 0.7 % (0.0-3.0); HEMATOCRIT 32.9 % (42.0-52.0); HEMOGLOBIN 10.4 g/dl (13.5-17.5); LYMPH # 1.2 10^3/uL (1.5-4.5); LYMPH % 15.5 % (24.0-44.0); MEAN CORPUSCULAR HEMOGLOBIN 26.3 pg (27.0-33.0); MEAN CORPUSCULAR HGB CONC 31.6 g/dl (32.0-36.5); MEAN CORPUSCULAR VOLUME 83.1 fl (80.0-96.0); MONO # 0.5 10^3/uL (0.0-0.8); MONO % 6.4 % (0.0-5.0); NEUTROPHILS # 5.8 10^3/uL (1.8-7.7); NEUTROPHILS % 76.5 % (36.0-66.0); PLATELET COUNT, AUTOMATED 451 10^3/uL (150-450); RED BLOOD COUNT 3.96 10^6/uL (4.30-6.10); WHITE BLOOD COUNT 7.6 10^3/uL (4.0-10.0)
[2018-10-15 07:03] LABS: ALBUMIN 1.9 GM/DL (3.2-5.2); ALT/SGPT 61 U/L (12-78); BILIRUBIN,TOTAL 0.3 MG/DL (0.2-1.0); BLOOD UREA NITROGEN 13 MG/DL (7-18); CARBON DIOXIDE LEVEL 28 MEQ/L (21-32); CHLORIDE LEVEL 104 MEQ/L (98-107); CPK CREATINE PHOSPHOKINASE 28 U/L (39-308); CREATININE FOR GFR 0.66 MG/DL (0.70-1.30); GLOMERULAR FILTRATION RATE > 60.0 (>42); GLUCOSE, FASTING 56 MG/DL (70-100); POTASSIUM SERUM 4.3 MEQ/L (3.5-5.1); SODIUM LEVEL 142 MEQ/L (136-145); TOTAL PROTEIN 6.9 GM/DL (6.4-8.2)
[2018-10-15] MEDS: HumaLOG INSULIN (NovoLOG) PER UNIT SC SCH ×3 (07:30→17:03)
[2018-10-15] MEDS: amLODIPine 10 MG TAB PO SCH (08:28)
[2018-10-15] MEDS: PANTOPRAZOLE 40MG TAB (PROTONIX) PO SCH (08:28)
[2018-10-15] MEDS: LACTOBACILLUS ACIDOPHILUS CAP (BACID) PO SCH ×2 (08:28→16:58)
[2018-10-15] MEDS: FERROUS SULFATE 325MG TAB PO SCH ×2 (08:28→21:43)
[2018-10-15] MEDS: DOCUSATE SODIUM 100 MG CAP PO SCH ×2 (08:28→21:44)
[2018-10-15] MEDS: RIVAROXABAN 15 MG TAB (XARELTO) PO SCH ×2 (08:29→17:02)
[2018-10-15] MEDS: LISINOPRIL 5 MG TAB PO SCH (08:29)
[2018-10-15] MEDS: cefTRIAXone SOD 1 GM in D5W MINI-BAG PLUS 50 ML IV SCH (11:03)
--- NOTE | 2018-10-15 11:27 | IPNPDOC ---
Subjective Date Seen The patient was seen on 10/15/18. Subjective Chief Complaint/HPI C/o pain in RLE significantly improved after above-ankle amputation, sweat but slept well last night, no fever. Overall feeling much better. Objective Physical Examination General Exam: Positive: Alert, Cooperative, No Acute Distress ENT Exam: Positive: Atraumatic, Mucous membr. moist/pink Neck Exam: Negative: JVD Chest Exam: Positive: Clear to auscultation, Normal air movement Heart Exam: Positive: Rate Normal, Normal S1, Normal S2 Abdomen Exam: Positive: Normal bowel sounds, Soft; Negative: Tenderness Extremity Exam: Positive: Other (RLE above-ankle amputated, WILFREDO band with min to mod sanguinous drainage dry.); Negative: Clubbing, Cyanosis, Edema, Tenderness, Swelling Psych Exam: Positive: Oriented x 3 Assessment /Plan Assessment 1. POD #1, S/p RLE above-ankle amputation Pt has significant improvement clinically. RLE stump with min to mod drainage. 2. Bacteremia from Streptococcus anginosus and Klebsiella pneumoniae, on Abx 3. IDDM II 4. Chronic anemia. 5. Hypertension. 6. Hypothyroidism. Plan/VTE VTE Prophylaxis Ordered?: Yes Plan 1. Continue current management per medicine 2. Pt has good distal circulation. Plan to proceed with LLE BKA during this admission. Will d/c with Dr Cruz VS, I&O, 24H, Eleonora Vital Signs/I&O Vital Signs Date Time Temp Pulse Resp B/P (MAP) Pulse Ox O2 Delivery O2 Flow Rate FiO2 10/15/18 09:09 16 Room Air 10/15/18 08:29 158/56 10/15/18 08:28 71 10/15/18 06:00 97.7 100 2.0 I&O- Last 24 Hours up to 6 AM 10/15/18 06:00 Intake Total 1500 ml Output Total 2190 ml Balance -690 ml Laboratory Data 24H LABS Laboratory Tests 2 10/14/18 11:57: Bedside Glucose (Misc Panel) 127H 10/14/18 17:21: Bedside Glucose (Misc Panel) 143H 10/14/18 19:55: Bedside Glucose (Misc Panel) 210H 10/15/18 05:40: Immature Granulocyte % (Auto) 0.4, White Blood Count 7.6, Red Blood Count 3.96L, Hemoglobin 10.4L, Hematocrit 32.9L, Mean Corpuscular Volume 83.1, Mean Corpuscular Hemoglobin 26.3L, Mean Corpuscular Hemoglobin Concent 31.6L, Red Cell Distribution Width 14.2, Platelet Count 451H, Neutrophils (%) (Auto) 76.5H, Lymphocytes (%) (Auto) 15.5L, Monocytes (%) (Auto) 6.4H, Eosinophils (%) (Auto) 0.7, Basophils (%) (Auto) 0.5, Neutrophils # (Auto) 5.8, Lymphocytes # (Auto) 1.2L, Monocytes # (Auto) 0.5, Eosinophils # (Auto) 0.1, Basophils # (Auto) 0.0, Nucleated Red Blood Cells % (auto) 0.0 10/15/18 05:41: Anion Gap 10, Glomerular Filtration Rate > 60.0, Blood Urea Nitrogen 13, Creatinine 0.66L, Sodium Level 142, Potassium Level 4.3, Chloride Level 104, Carbon Dioxide Level 28, Calcium Level 9.0, Aspartate Amino Transf (AST/SGOT) 41H, Alanine Aminotransferase (ALT/SGPT) 61, Total Creatine Kinase 28L, Alkaline Phosphatase 319H, Total Bilirubin 0.3, Total Protein 6.9, Albumin 1.9L, C- Reactive Protein, Quantitative 29.50H, Albumin/Globulin Ratio 0.38L 10/15/18 05:43: Bedside Glucose (Misc Panel) 53L 10/15/18 06:24: Bedside Glucose (Misc Panel) 97 CBC/BMP Laboratory Tests 10/15/18 05:40 Red Blood Count 3.96 L, Mean Corpuscular Volume 83.1, Mean Corpuscular Hem oglobin 26.3 L, Mean Corpuscular Hemoglobin Concent 31.6 L, Red Cell Distribution Width 14.2, Neutrophils (%) (Auto) 76.5 H, Lymphocytes (%) (Auto) 15.5 L, Monocytes (%) (Auto) 6.4 H, Eosinophils (%) (Auto) 0.7, Basophils (%) (Auto) 0.5, Neutrophils # (Auto) 5.8, Lymphocytes # (Auto) 1.2 L, Monocytes # (Auto) 0.5, Eosinophils # (Auto) 0.1, Basophils # (Auto) 0.0 10/15/18 05:41 Calcium Level 9.0, Aspartate Amino Transf (AST/SGOT) 41 H, Alanine Aminotransferase (ALT/SGPT) 61, Total Creatine Kinase 28 L, Alkaline Phosphatase 319 H, Total Bilirubin 0.3, Total Protein 6.9, Albumin 1.9 L Microbiology Microbiology 10/12/18 Blood Culture - Preliminary, Resulted No Growth after 72 hours. All specime... 10/12/18 Blood Culture - Preliminary, Resulted No Growth after 72 hours. All specime... 10/10/18 Blood Culture - Final, Complete Streptococcus Anginosus Grp 10/10/18 Blood Culture - Final, Complete Streptococcus Anginosus Grp 10/10/18 Urine Culture - Final, Complete 10/10/18 Wound Culture - Final, Complete Klebsiella Pneumoniae Streptococcus Anginosus Grp CALLIE SHAW PA-C Oct 15, 2018 11:27
[2018-10-15 18:00] VITALS: BP 142/68
--- NOTE | 2018-10-15 18:58 | IPNPDOC ---
Text Note Date of Service The patient was seen on 10/15/18. NOTE SUBJECTIVE: Patient is seen and examined in the room. Patient complains about discomfort at amputation site. No event is reported. GENERAL: No sign of acute distress, patient is alert and awake. HEENT: Normocephalic, atraumatic. Extraocular motors grossly intact. CARDIOVASCULAR: Positive S1, S2, regular rate. LUNGS: Clear to auscultation bilaterally. ABDOMEN: Soft, nontender. EXTREMITY: Right lower extremity is wrapped with bandage. No peripheral edema. LABORATORY DATA: LISTED BELOW ASSESSMENT AND PLAN: #. Osteomyelitis. - Patient had multiple procedures in the past. Wound culture is positive for Klebsiella and Streptococcus. - Vascular surgery, Dr. Cruz, consulted. Patient had right above ankle amputation on 10/14/18. #. Bacteremia from Streptococcus anginosus and Klebsiella pneumoniae. Patient is currently on antibiotics. #. Normocytic anemia. Patient had a blood transfusion on 10/11/2018 and 10/12/2018. Continue to monitor hemoglobin and hematocrit. Patient is asymptomatic. #. Hypertension. Patient is on Norvasc, lisinopril. #. Hypothyroidism. On Synthroid. #. Diabetes. On insulin. #. Deep venous thrombosis (DVT) prophylaxis. On Xarelto. VS,Fishbone, I+O VS, Fishbone, I+O Laboratory Tests 10/15/18 05:40 Red Blood Count 3.96 L, Mean Corpuscular Volume 83.1, Mean Corpuscular Hemoglobin 26.3 L, Mean Corpuscular Hemoglobin Concent 31.6 L, Red Cell Distribution Width 14.2, Neutrophils (%) (Auto) 76.5 H, Lymphocytes (%) (Auto) 15.5 L, Monocytes (%) (Auto) 6.4 H, Eosinophils (%) (Auto) 0.7, Basophils (%) (Auto) 0.5, Neutrophils # (Auto) 5.8, Lymphocytes # (Auto) 1.2 L, Monocytes # (Auto) 0.5, Eosinophils # (Auto) 0.1, Basophils # (Auto) 0.0 10/15/18 05:41 Calcium Level 9.0, Aspartate Amino Transf (AST/SGOT) 41 H, Alanine Aminotransferase (ALT/SGPT) 61, Total Creatine Kinase 28 L, Alkaline Phosphatase 319 H, Total Bilirubin 0.3, Total Protein 6.9, Albumin 1.9 L Vital Signs Date Time Temp Pulse Resp B/P (MAP) Pulse Ox O2 Delivery O2 Flow Rate FiO2 10/15/18 18:00 97.5 69 16 142/68 (92) 98 Room Air 10/15/18 06:00 2.0 I&O- Last 24 Hours up to 6 AM 10/15/18 06:00 Intake Total 1500 ml Output Total 2190 ml Balance -690 ml HAIR HIDALGO DO Oct 15, 2018 18:58
[2018-10-15] MEDS: SIMVASTATIN 40 MG TAB PO SCH (21:43)
[2018-10-15] MEDS: LEVEMIR (INSULIN DETEMIR) 1 UNITS/0.01ML SC SCH (21:44)
[2018-10-15 22:00] VITALS: BP 143/73
[2018-10-16 02:00] VITALS: BP 149/79
[2018-10-16] MEDS: PERCOCET 5MG/325MG TAB PO PRN ×3 (04:48→16:05)
[2018-10-16 06:00] VITALS: BP_SYST 135; BP_SYST 158; BP_DIAS 86; BP_DIAS 87
[2018-10-16] MEDS: SENOKOT S TAB PO PRN (06:03)
[2018-10-16] MEDS: LEVOTHYROXINE 75MCG TABLET (0.075MG) PO SCH (06:03)
[2018-10-16] MEDS: HumaLOG INSULIN (NovoLOG) PER UNIT SC SCH ×3 (08:14→17:06)
[2018-10-16] MEDS: RIVAROXABAN 15 MG TAB (XARELTO) PO SCH ×2 (08:15→17:05)
[2018-10-16] MEDS: LACTOBACILLUS ACIDOPHILUS CAP (BACID) PO SCH ×2 (08:15→17:05)
[2018-10-16] MEDS: LISINOPRIL 5 MG TAB PO SCH (08:17)
[2018-10-16] MEDS: amLODIPine 10 MG TAB PO SCH (08:18)
[2018-10-16] MEDS: PANTOPRAZOLE 40MG TAB (PROTONIX) PO SCH (08:18)
[2018-10-16] MEDS: DOCUSATE SODIUM 100 MG CAP PO SCH ×2 (08:18→20:21)
[2018-10-16] MEDS: FERROUS SULFATE 325MG TAB PO SCH ×2 (08:18→20:21)
[2018-10-16 10:00] VITALS: BP 148/80
[2018-10-16] MEDS: cefTRIAXone SOD 1 GM in D5W MINI-BAG PLUS 50 ML IV SCH (10:58)
[2018-10-16 14:00] VITALS: BP 112/58
--- NOTE | 2018-10-16 17:07 | IPNPDOC ---
Text Note Date of Service The patient was seen on 10/16/18. NOTE SUBJECTIVE: Patient is seen and examined in the room. Patient still has discomfort at amputation site but pain is manageable with pain medication. Denies fever or chill. No event is reported. GENERAL: No sign of acute distress, patient is alert and awake. HEENT: Normocephalic, atraumatic. Extraocular motors grossly intact. CARDIOVASCULAR: Positive S1, S2, regular rate. LUNGS: Clear to auscultation bilaterally. ABDOMEN: Soft, nontender. EXTREMITY: Right lower extremity is wrapped with bandage. No peripheral edema. LABORATORY DATA: LISTED BELOW ASSESSMENT AND PLAN: #. Osteomyelitis. - Patient had multiple procedures in the past. Wound culture is positive for Klebsiella and Streptococcus. - Vascular surgery, Dr. Cruz, consulted. Patient had right above ankle amputation on 10/14/18. Patient may have right below knee amputation per vascular surgery. #. Bacteremia from Streptococcus anginosus and Klebsiella pneumoniae. Patient is currently on antibiotics. #. Normocytic anemia. Patient had a blood transfusion on 10/11/2018 and 10/12/2018. Continue to monitor hemoglobin and hematocrit. Patient is asymptomatic. #. Hypertension. Patient is on Norvasc, lisinopril. #. Hypothyroidism. On Synthroid. #. Diabetes. On insulin. On consistent carbohydrate diet. #. Deep venous thrombosis (DVT) prophylaxis. On Xarelto. VS,Fishbone, I+O VS, Fishbone, I+O Vital Signs Date Time Temp Pulse Resp B/P (MAP) Pulse Ox O2 Delivery O2 Flow Rate FiO2 10/16/18 16:35 16 Room Air 10/16/18 14:00 97.5 114 112/58 (76) 97 10/15/18 06:00 2.0 I&O- Last 24 Hours up to 6 AM 10/16/18 06:00 Intake Total 1610 ml Output Total 1250 ml Balance 360 ml HAIR HIDALGO DO Oct 16, 2018 17:07
[2018-10-16 18:00] VITALS: BP 151/81
[2018-10-16 18:46] LABS: HEMATOCRIT 35.8 % (42.0-52.0); HEMOGLOBIN 11.4 g/dl (13.5-17.5); MEAN CORPUSCULAR HEMOGLOBIN 26.9 pg (27.0-33.0); MEAN CORPUSCULAR HGB CONC 31.8 g/dl (32.0-36.5); MEAN CORPUSCULAR VOLUME 84.4 fl (80.0-96.0); PLATELET COUNT, AUTOMATED 510 10^3/uL (150-450); RED BLOOD COUNT 4.24 10^6/uL (4.30-6.10); WHITE BLOOD COUNT 8.5 10^3/uL (4.0-10.0)
[2018-10-16] MEDS: MORPHINE 4 MG/ML 1ML VIAL/SYRINGE (J2270) IV PRN (19:09)
[2018-10-16 19:11] LABS: BLOOD UREA NITROGEN 12 MG/DL (7-18); CALCIUM LEVEL 9.1 MG/DL (8.8-10.2); CARBON DIOXIDE LEVEL 31 MEQ/L (21-32); CHLORIDE LEVEL 98 MEQ/L (98-107); CREATININE FOR GFR 0.84 MG/DL (0.70-1.30); GLOMERULAR FILTRATION RATE > 60.0 (>42); GLUCOSE, FASTING 186 MG/DL (70-100); POTASSIUM SERUM 4.9 MEQ/L (3.5-5.1); SODIUM LEVEL 134 MEQ/L (136-145)
[2018-10-16] MEDS: LEVEMIR (INSULIN DETEMIR) 1 UNITS/0.01ML SC SCH (20:20)
[2018-10-16] MEDS: SIMVASTATIN 40 MG TAB PO SCH (20:21)
[2018-10-16 22:00] VITALS: BP 145/73
[2018-10-17 02:00] VITALS: BP 152/81
[2018-10-17] MEDS: ACETAMINOPHEN TAB 650MG DOSE (2X325MG) PO PRN (05:31)
[2018-10-17] MEDS: LEVOTHYROXINE 75MCG TABLET (0.075MG) PO SCH (05:31)
[2018-10-17 06:00] VITALS: BP 142/87
[2018-10-17 06:58] LABS: HEMATOCRIT 34.5 % (42.0-52.0); HEMOGLOBIN 11.1 g/dl (13.5-17.5); MEAN CORPUSCULAR HEMOGLOBIN 26.9 pg (27.0-33.0); MEAN CORPUSCULAR HGB CONC 32.2 g/dl (32.0-36.5); MEAN CORPUSCULAR VOLUME 83.7 fl (80.0-96.0); PLATELET COUNT, AUTOMATED 514 10^3/uL (150-450); RED BLOOD COUNT 4.12 10^6/uL (4.30-6.10); WHITE BLOOD COUNT 7.3 10^3/uL (4.0-10.0)
[2018-10-17 07:24] LABS: BLOOD UREA NITROGEN 8 MG/DL (7-18); CALCIUM LEVEL 8.5 MG/DL (8.8-10.2); CARBON DIOXIDE LEVEL 28 MEQ/L (21-32); CHLORIDE LEVEL 100 MEQ/L (98-107); CREATININE FOR GFR 0.58 MG/DL (0.70-1.30); GLOMERULAR FILTRATION RATE > 60.0 (>42); GLUCOSE, FASTING 170 MG/DL (70-100); MAGNESIUM LEVEL 1.7 MG/DL (1.8-2.4); POTASSIUM SERUM 4.3 MEQ/L (3.5-5.1); SODIUM LEVEL 133 MEQ/L (136-145)
[2018-10-17] MEDS: ONDANSETRON 4MG/2ML VIAL (J2405) IV PRN (08:15)
[2018-10-17] MEDS: HumaLOG INSULIN (NovoLOG) PER UNIT SC SCH ×3 (08:16→17:08)
[2018-10-17] MEDS: LACTOBACILLUS ACIDOPHILUS CAP (BACID) PO SCH ×2 (08:16→17:07)
[2018-10-17] MEDS: RIVAROXABAN 15 MG TAB (XARELTO) PO SCH ×2 (08:16→17:08)
[2018-10-17] MEDS: PANTOPRAZOLE 40MG TAB (PROTONIX) PO SCH (08:17)
[2018-10-17] MEDS: SENOKOT S TAB PO PRN (08:17)
[2018-10-17] MEDS: FERROUS SULFATE 325MG TAB PO SCH ×2 (08:17→21:06)
[2018-10-17] MEDS: DOCUSATE SODIUM 100 MG CAP PO SCH ×2 (08:17→21:00)
[2018-10-17] MEDS: amLODIPine 10 MG TAB PO SCH (08:21)
[2018-10-17] MEDS: LISINOPRIL 5 MG TAB PO SCH (08:21)
[2018-10-17 10:00] VITALS: BP 135/82
[2018-10-17] MEDS: cefTRIAXone SOD 1 GM in D5W MINI-BAG PLUS 50 ML IV SCH (10:59)
[2018-10-17] MEDS: PERCOCET 5MG/325MG TAB PO PRN ×3 (11:00→21:19)
[2018-10-17 14:00] VITALS: BP 135/80
--- NOTE | 2018-10-17 15:15 | IPNPDOC ---
Text Note Date of Service The patient was seen on 10/17/18. NOTE SUBJECTIVE: Patient is seen and examined in the room. Patient had significant discomfort at amputation site. Pain has been better controlled with IV pain medication. No event is reported. GENERAL: No sign of acute distress, patient is alert and awake. HEENT: Normocephalic, atraumatic. Extraocular motors grossly intact. CARDIOVASCULAR: Positive S1, S2, regular rate. LUNGS: Clear to auscultation bilaterally. ABDOMEN: Soft, nontender. EXTREMITY: Right lower extremity is wrapped with bandage. No peripheral edema. LABORATORY DATA: LISTED BELOW ASSESSMENT AND PLAN: #. Osteomyelitis. - Patient had multiple procedures in the past. Wound culture is positive for Klebsiella and Streptococcus. - Vascular surgery, Dr. Cruz, consulted. Patient had right above ankle amputation on 10/14/18. Patient may have right below knee amputation per vascular surgery on 10/19/18. Adjust pain medication as needed. - Patient is currently working with physical therapy. #. Bacteremia from Streptococcus anginosus and Klebsiella pneumoniae. Repeated blood cultures from 10/12/18 are negative. Patient is currently on antibiotics. #. Normocytic anemia. Patient had a blood transfusion on 10/11/2018 and 10/12/2018. Continue to monitor hemoglobin and hematocrit. Patient is asymptomatic. #. Hypertension. Patient is on Norvasc, lisinopril. #. Hypothyroidism. On Synthroid. #. Diabetes. On insulin. On consistent carbohydrate diet. #. Deep venous thrombosis (DVT) prophylaxis. On Xarelto. VS,Fishbone, I+O VS, Fishbone, I+O Laboratory Tests 10/16/18 18:16 Red Blood Count 4.24 L, Mean Corpuscular Volume 84.4, Mean Corpuscular Hemoglobin 26.9 L, Mean Corpuscular Hemoglobin Concent 31.8 L, Red Cell Distribution Width 14.1, Calcium Level 9.1 10/17/18 06:04 Red Blood Count 4.12 L, Mean Corpuscular Volume 83.7, Mean Corpuscular Hemoglobin 26.9 L, Mean Corpuscular Hemoglobin Concent 32.2, Red Cell Distribution Width 14.0, Calcium Level 8.5 L Vital Signs Date Time Temp Pulse Resp B/P (MAP) Pulse Ox O2 Delivery O2 Flow Rate FiO2 10/17/18 14:00 97.6 89 17 135/80 (98) 97 Room Air 10/15/18 06:00 2.0 I&O- Last 24 Hours up to 6 AM 10/17/18 06:00 Intake Total 1380 ml Output Total 1425 ml Balance -45 ml HAIR HIDALGO DO Oct 17, 2018 15:14
[2018-10-17 18:00] VITALS: BP 141/70
[2018-10-17] MEDS: SIMVASTATIN 40 MG TAB PO SCH (21:06)
[2018-10-17] MEDS: LEVEMIR (INSULIN DETEMIR) 1 UNITS/0.01ML SC SCH (21:07)
[2018-10-17 22:00] VITALS: BP 154/74
[2018-10-18 02:00] VITALS: BP 122/76
[2018-10-18] MEDS: LEVOTHYROXINE 75MCG TABLET (0.075MG) PO SCH (05:41)
[2018-10-18] MEDS: PERCOCET 5MG/325MG TAB PO PRN ×3 (05:42→21:06)
[2018-10-18 06:00] VITALS: BP 150/70
[2018-10-18 06:12] LABS: HEMATOCRIT 36.7 % (42.0-52.0); HEMOGLOBIN 11.4 g/dl (13.5-17.5); MEAN CORPUSCULAR HEMOGLOBIN 26.2 pg (27.0-33.0); MEAN CORPUSCULAR HGB CONC 31.1 g/dl (32.0-36.5); MEAN CORPUSCULAR VOLUME 84.4 fl (80.0-96.0); PLATELET COUNT, AUTOMATED 516 10^3/uL (150-450); RED BLOOD COUNT 4.35 10^6/uL (4.30-6.10); WHITE BLOOD COUNT 5.9 10^3/uL (4.0-10.0)
[2018-10-18 06:34] LABS: BLOOD UREA NITROGEN 11 MG/DL (7-18); C REACTIVE PROTEIN QUANTITATIV 9.67 MG/DL (0.00-0.30); CALCIUM LEVEL 8.4 MG/DL (8.8-10.2); CARBON DIOXIDE LEVEL 30 MEQ/L (21-32); CHLORIDE LEVEL 102 MEQ/L (98-107); CREATININE FOR GFR 0.73 MG/DL (0.70-1.30); GLOMERULAR FILTRATION RATE > 60.0 (>42); GLUCOSE, FASTING 130 MG/DL (70-100); MAGNESIUM LEVEL 2.1 MG/DL (1.8-2.4); POTASSIUM SERUM 4.2 MEQ/L (3.5-5.1); SODIUM LEVEL 138 MEQ/L (136-145)
[2018-10-18] MEDS: HumaLOG INSULIN (NovoLOG) PER UNIT SC SCH ×3 (07:30→17:44)
[2018-10-18] MEDS: RIVAROXABAN 15 MG TAB (XARELTO) PO SCH ×2 (08:55→17:44)
[2018-10-18] MEDS: PANTOPRAZOLE 40MG TAB (PROTONIX) PO SCH (08:56)
[2018-10-18] MEDS: FERROUS SULFATE 325MG TAB PO SCH ×2 (08:56→21:06)
[2018-10-18] MEDS: LISINOPRIL 5 MG TAB PO SCH (08:56)
[2018-10-18] MEDS: LACTOBACILLUS ACIDOPHILUS CAP (BACID) PO SCH ×2 (08:57→17:44)
[2018-10-18] MEDS: amLODIPine 10 MG TAB PO SCH (08:58)
[2018-10-18] MEDS: DOCUSATE SODIUM 100 MG CAP PO SCH ×2 (08:59→21:00)
[2018-10-18 10:00] VITALS: BP 154/75
[2018-10-18] MEDS: cefTRIAXone SOD 1 GM in D5W MINI-BAG PLUS 50 ML IV SCH (11:40)
[2018-10-18 14:00] VITALS: BP 140/69
--- NOTE | 2018-10-18 17:56 | IPNPDOC ---
Text Note Date of Service The patient was seen on 10/18/18. NOTE SUBJECTIVE: Patient is seen and examined in the room. Patient states current pain medication regimen is sufficient. No event is reported. GENERAL: No sign of acute distress, patient is alert and awake. HEENT: Normocephalic, atraumatic. Extraocular motors grossly intact. CARDIOVASCULAR: Positive S1, S2, regular rate. LUNGS: Clear to auscultation bilaterally. ABDOMEN: Soft, nontender. EXTREMITY: Right lower extremity is wrapped with bandage. No peripheral edema. LABORATORY DATA: LISTED BELOW ASSESSMENT AND PLAN: #. Osteomyelitis. - Patient had multiple procedures in the past. Wound culture is positive for Klebsiella and Streptococcus. - Vascular surgery, Dr. Cruz, consulted. Patient had right above ankle amputation on 10/14/18. Patient has right below knee amputation per vascular surgery on 10/19/18. Adjust pain medication as needed. - Patient is currently working with physical therapy. #. Bacteremia from Streptococcus anginosus and Klebsiella pneumoniae. Repeated blood cultures from 10/12/18 are negative. Patient is currently on antibiotics. #. Normocytic anemia. - Patient had a blood transfusion on 10/11/2018 and 10/12/2018. Continue to monitor hemoglobin and hematocrit. Patient is asymptomatic. #. Hypertension. Patient is on Norvasc, lisinopril. #. Hypothyroidism. On Synthroid. #. Diabetes. On insulin. On consistent carbohydrate diet. #. Deep venous thrombosis (DVT) prophylaxis. On Xarelto. VS,Fishbone, I+O VS, Fishbone, I+O Laboratory Tests 10/18/18 05:59 Red Blood Count 4.35, Mean Corpuscular Volume 84.4, Mean Corpuscular Hemoglobin 26.2 L, Mean Corpuscular Hemoglobin Concent 31.1 L, Red Cell Distribution Width 14.0, Calcium Level 8.4 L Vital Signs Date Time Temp Pulse Resp B/P (MAP) Pulse Ox O2 Delivery O2 Flow Rate FiO2 10/18/18 16:24 18 Room Air 10/18/18 14:00 97.6 81 140/69 (92) 98 10/15/18 06:00 2.0 I&O- Last 24 Hours up to 6 AM 10/18/18 06:00 Intake Total 830 ml Output Total 1600 ml Balance -770 ml HAIR HIDALGO DO Oct 18, 2018 17:56
[2018-10-18 18:00] VITALS: BP 128/75
[2018-10-18] MEDS: LEVEMIR (INSULIN DETEMIR) 1 UNITS/0.01ML SC SCH (21:00)
[2018-10-18] MEDS: SIMVASTATIN 40 MG TAB PO SCH (21:06)
[2018-10-18 22:00] VITALS: BP 136/74
[2018-10-19] VITALS (10 sets, daily range): BP systolic 100–145; BP diastolic 58–78
[2018-10-19] MEDS: LEVOTHYROXINE 75MCG TABLET (0.075MG) PO SCH (05:40)
[2018-10-19] MEDS: PERCOCET 5MG/325MG TAB PO PRN ×3 (05:41→20:44)
[2018-10-19 06:48] LABS: HEMATOCRIT 34.8 % (42.0-52.0); HEMOGLOBIN 10.9 g/dl (13.5-17.5); MEAN CORPUSCULAR HEMOGLOBIN 26.5 pg (27.0-33.0); MEAN CORPUSCULAR HGB CONC 31.3 g/dl (32.0-36.5); MEAN CORPUSCULAR VOLUME 84.5 fl (80.0-96.0); PLATELET COUNT, AUTOMATED 503 10^3/uL (150-450); RED BLOOD COUNT 4.12 10^6/uL (4.30-6.10); WHITE BLOOD COUNT 6.7 10^3/uL (4.0-10.0)
[2018-10-19 07:05] LABS: BLOOD UREA NITROGEN 12 MG/DL (7-18); C REACTIVE PROTEIN QUANTITATIV 7.29 MG/DL (0.00-0.30); CALCIUM LEVEL 8.4 MG/DL (8.8-10.2); CARBON DIOXIDE LEVEL 22 MEQ/L (21-32); CHLORIDE LEVEL 105 MEQ/L (98-107); CREATININE FOR GFR 0.71 MG/DL (0.70-1.30); GLOMERULAR FILTRATION RATE > 60.0 (>42); GLUCOSE, FASTING 150 MG/DL (70-100); MAGNESIUM LEVEL 2.1 MG/DL (1.8-2.4); POTASSIUM SERUM 4.5 MEQ/L (3.5-5.1); SODIUM LEVEL 136 MEQ/L (136-145)
[2018-10-19] MEDS: HumaLOG INSULIN (NovoLOG) PER UNIT SC SCH ×3 (07:28→18:19)
[2018-10-19] MEDS: DOCUSATE SODIUM 100 MG CAP PO SCH ×2 (07:29→20:44)
[2018-10-19] MEDS: RIVAROXABAN 15 MG TAB (XARELTO) PO SCH ×2 (08:27→20:44)
[2018-10-19] MEDS: amLODIPine 10 MG TAB PO SCH (08:27)
[2018-10-19] MEDS: PANTOPRAZOLE 40MG TAB (PROTONIX) PO SCH (08:27)
[2018-10-19] MEDS: LACTOBACILLUS ACIDOPHILUS CAP (BACID) PO SCH ×2 (08:27→18:00)
[2018-10-19] MEDS: FERROUS SULFATE 325MG TAB PO SCH ×2 (08:27→20:44)
[2018-10-19] MEDS: LISINOPRIL 5 MG TAB PO SCH (08:28)
[2018-10-19] MEDS: cefTRIAXone SOD 1 GM in D5W MINI-BAG PLUS 50 ML IV SCH (11:20)
[2018-10-19] MEDS ORDERED: fentaNYL 100 MCG/2 ML INJECTION (J3010) As Ordered ONE ×3 (14:43→17:25)
[2018-10-19] MEDS ORDERED: LIDOCAINE 2% INJ 100 MG/5 ML SDV (FOR ANES.) As Ordered ONE (14:43)
[2018-10-19] MEDS ORDERED: PROPOFOL 200 MG/20 ML VIAL As Ordered ONE ×2 (14:43→16:40)
[2018-10-19] MEDS ORDERED: MIDAZOLAM INJ 2 MG/2 ML VIAL (J2250) As Ordered ONE (14:43)
[2018-10-19] MEDS ORDERED: ONDANSETRON 4MG/2ML VIAL (J2405) As Ordered ONE (14:44)
[2018-10-19] MEDS ORDERED: KETAMINE HCL 200 MG/20 ML VIAL As Ordered ONE (16:12)
--- NOTE | 2018-10-19 16:39 | IPNPDOC ---
Text Note Date of Service The patient was seen on 10/19/18. NOTE SUBJECTIVE: Patient is seen and examined in the room. Patient has been NPO overnight. Patient has scheduled right below knee amputation today. During encounter patient has no acute complaint. GENERAL: No sign of acute distress, patient is alert and awake. HEENT: Normocephalic, atraumatic. Extraocular motors grossly intact. CARDIOVASCULAR: Positive S1, S2, regular rate. LUNGS: Clear to auscultation bilaterally. ABDOMEN: Soft, nontender. EXTREMITY: Right lower extremity is wrapped with bandage. No peripheral edema. LABORATORY DATA: LISTED BELOW ASSESSMENT AND PLAN: #. Osteomyelitis. - Patient had multiple procedures in the past. Wound culture is positive for Klebsiella and Streptococcus. - Vascular surgery, Dr. Cruz, consulted. Patient had right above ankle amputation on 10/14/18. Patient has scheduled right below knee amputation per vascular surgery on 10/19/18. Adjust pain medication as needed. - Continue physical therapy after surgery. #. Bacteremia from Streptococcus anginosus and Klebsiella pneumoniae. Repeated blood cultures from 10/12/18 are negative. Patient is currently on antibiotics. #. Normocytic anemia. - Patient had a blood transfusion on 10/11/2018 and 10/12/2018. Continue to monitor hemoglobin and hematocrit. Patient is asymptomatic. #. Hypertension. Patient is on Norvasc, lisinopril. #. Hypothyroidism. On Synthroid. #. Diabetes. On insulin. On consistent carbohydrate diet. #. Deep venous thrombosis (DVT) prophylaxis. On Xarelto. VS,Fishbone, I+O VS, Fishbone, I+O Laboratory Tests 10/19/18 06:02 Red Blood Count 4.12 L, Mean Corpuscular Volume 84.5, Mean Corpuscular Hemoglobin 26.5 L, Mean Corpuscular Hemoglobin Concent 31.3 L, Red Cell Distribution Width 14.0, Calcium Level 8.4 L Vital Signs Date Time Temp Pulse Resp B/P (MAP) Pulse Ox O2 Delivery O2 Flow Rate FiO2 10/19/18 11:50 18 Room Air 10/19/18 10:00 97.4 83 145/75 (98) 97 10/15/18 06:00 2.0 I&O- Last 24 Hours up to 6 AM 10/19/18 06:00 Intake Total 950 ml Output Total 700 ml Balance 250 ml SUNG,ARNDT DO Oct 19, 2018 16:39
[2018-10-19] MEDS ORDERED: HYDROmorphone HCL 2 MG/ML 1ML VIAL (J1170) As Ordered ONE (16:45)
[2018-10-19] MEDS: fentaNYL 100 MCG/2 ML INJECTION (J3010) IV PRN ×4 (17:26→17:44)
[2018-10-19] MEDS ORDERED: LR 1,000 ML IV SCH (17:30)
[2018-10-19] MEDS ORDERED: ONDANSETRON 4MG/2ML VIAL (J2405) IV PRN (17:30)
[2018-10-19] MEDS ORDERED: NORCO, ANEXSIA 5/325MG TABLET (HYDROcodone/ACETAMINOPHEN) PO PRN (17:30)
[2018-10-19] MEDS ORDERED: ACETAMINOPHEN 500 MG TAB PO PRN (18:00)
[2018-10-19] MEDS: SENOKOT S TAB PO SCH (18:00)
[2018-10-19] MEDS ORDERED: metFORMIN (GLUCOPHAGE) 1000 MG TABLET PO SCH (18:00)
[2018-10-19] MEDS ORDERED: predniSONE 5 MG TAB PO PRN (18:00)
[2018-10-19] MEDS: ONDANSETRON 4MG/2ML VIAL (J2405) IV PRN (18:23)
[2018-10-19] MEDS: MORPHINE 4 MG/ML 1ML VIAL/SYRINGE (J2270) IV PRN (18:30)
[2018-10-19] MEDS: SIMVASTATIN 40 MG TAB PO SCH (20:44)
[2018-10-19] MEDS: LEVEMIR (INSULIN DETEMIR) 1 UNITS/0.01ML SC SCH (21:49)
[2018-10-20] MEDS: PERCOCET 5MG/325MG TAB PO PRN ×5 (00:48→20:33)
[2018-10-20 04:00] VITALS: BP 126/64
[2018-10-20] MEDS: LEVOTHYROXINE 75MCG TABLET (0.075MG) PO SCH (05:27)
[2018-10-20 05:52] LABS: HEMATOCRIT 28.1 % (42.0-52.0); MEAN CORPUSCULAR HEMOGLOBIN 26.5 pg (27.0-33.0); MEAN CORPUSCULAR HGB CONC 31.3 g/dl (32.0-36.5); MEAN CORPUSCULAR VOLUME 84.6 fl (80.0-96.0); PLATELET COUNT, AUTOMATED 552 10^3/uL (150-450); RED BLOOD COUNT 3.32 10^6/uL (4.30-6.10); WHITE BLOOD COUNT 8.5 10^3/uL (4.0-10.0)
[2018-10-20 05:57] LABS: HEMOGLOBIN 8.8 g/dl (13.5-17.5)
[2018-10-20 06:21] LABS: BLOOD UREA NITROGEN 24 MG/DL (7-18); C REACTIVE PROTEIN QUANTITATIV 6.02 MG/DL (0.00-0.30); CALCIUM LEVEL 8.1 MG/DL (8.8-10.2); CARBON DIOXIDE LEVEL 27 MEQ/L (21-32); CHLORIDE LEVEL 103 MEQ/L (98-107); CREATININE FOR GFR 0.93 MG/DL (0.70-1.30); GLOMERULAR FILTRATION RATE > 60.0 (>42); GLUCOSE, FASTING 247 MG/DL (70-100); POTASSIUM SERUM 5.2 MEQ/L (3.5-5.1); SODIUM LEVEL 134 MEQ/L (136-145)
[2018-10-20] MEDS: amLODIPine 10 MG TAB PO SCH (07:59)
[2018-10-20] MEDS: LISINOPRIL 5 MG TAB PO SCH (07:59)
[2018-10-20 08:00] VITALS: BP 136/79
[2018-10-20] MEDS: FERROUS SULFATE 325MG TAB PO SCH ×2 (08:03→20:33)
[2018-10-20] MEDS: RIVAROXABAN 15 MG TAB (XARELTO) PO SCH ×2 (08:03→17:21)
[2018-10-20] MEDS: DOCUSATE SODIUM 100 MG CAP PO SCH ×2 (08:03→20:33)
[2018-10-20] MEDS: LACTOBACILLUS ACIDOPHILUS CAP (BACID) PO SCH ×2 (08:04→17:21)
[2018-10-20] MEDS: PANTOPRAZOLE 40MG TAB (PROTONIX) PO SCH (08:04)
[2018-10-20] MEDS: HumaLOG INSULIN (NovoLOG) PER UNIT SC SCH ×3 (08:04→17:21)
[2018-10-20] MEDS: cefTRIAXone SOD 1 GM in D5W MINI-BAG PLUS 50 ML IV SCH (11:04)
[2018-10-20 12:00] VITALS: BP 122/59
--- NOTE | 2018-10-20 15:08 | IPNPDOC ---
Text Note Date of Service The patient was seen on 10/20/18. NOTE SUBJECTIVE: Patient is seen and examined in the room. Patient had right below knee amputation yesterday. Denies fever or chill. GENERAL: No sign of acute distress, patient is alert and awake. HEENT: Normocephalic, atraumatic. Extraocular motors grossly intact. CARDIOVASCULAR: Positive S1, S2, regular rate. LUNGS: Clear to auscultation bilaterally. ABDOMEN: Soft, nontender. EXTREMITY: Right BKA. Right lower extremity is wrapped with bandage. No peripheral edema. LABORATORY DATA: LISTED BELOW ASSESSMENT AND PLAN: #. Osteomyelitis. - Patient had multiple procedures in the past. Wound culture is positive for Klebsiella and Streptococcus. - Vascular surgery, Dr. Cruz, consulted. Right above ankle amputation on 10/14/18. Right below knee amputation on 10/19/18. Patient may need right above knee amputation. Adjust pain medication as needed. - Continue physical therapy after surgery. #. Bacteremia from Streptococcus anginosus and Klebsiella pneumoniae. Repeated blood cultures from 10/12/18 are negative. Patient is currently on antibiotics. #. Normocytic anemia. - Patient had a blood transfusion on 10/11/2018 and 10/12/2018. - Patient just surgeries. Will monitor HH. #. Hypertension. Patient is on Norvasc, lisinopril. #. Hypothyroidism. On Synthroid. #. Diabetes. On insulin. On consistent carbohydrate diet. #. Deep venous thrombosis (DVT) prophylaxis. On Xarelto. VS,Fishbone, I+O VS, Fishbone, I+O Laboratory Tests 10/20/18 05:40 Red Blood Count 3.32 L, Mean Corpuscular Volume 84.6, Mean Corpuscular Hemoglobin 26.5 L, Mean Corpuscular Hemoglobin Concent 31.3 L, Red Cell Distribution Width 13.8, Calcium Level 8.1 L Vital Signs Date Time Temp Pulse Resp B/P (MAP) Pulse Ox O2 Delivery O2 Flow Rate FiO2 10/20/18 12:00 97.6 75 16 122/59 (80) 98 Room Air 10/19/18 17:01 10 I&O- Last 24 Hours up to 6 AM 10/20/18 06:00 Intake Total 1280 ml Output Total 300 ml Balance 980 ml HAIR HIDALGO DO Oct 20, 2018 15:08
[2018-10-20 16:10] VITALS: BP 130/65
[2018-10-20 18:28] LABS: HEMATOCRIT 25.5 % (42.0-52.0)
[2018-10-20] MEDS: LEVEMIR (INSULIN DETEMIR) 1 UNITS/0.01ML SC SCH (20:26)
[2018-10-20] MEDS: SIMVASTATIN 40 MG TAB PO SCH (20:33)
[2018-10-20] MEDS: SENOKOT S TAB PO SCH (20:33)
[2018-10-20 22:00] VITALS: BP 116/68
[2018-10-21 02:00] VITALS: BP 131/66
[2018-10-21] MEDS: PERCOCET 5MG/325MG TAB PO PRN ×5 (02:01→22:59)
[2018-10-21] MEDS: LEVOTHYROXINE 75MCG TABLET (0.075MG) PO SCH (05:36)
[2018-10-21 06:00] VITALS: BP 139/76
[2018-10-21 06:25] LABS: HEMATOCRIT 26.6 % (42.0-52.0); HEMOGLOBIN 8.3 g/dl (13.5-17.5); MEAN CORPUSCULAR HEMOGLOBIN 26.3 pg (27.0-33.0); MEAN CORPUSCULAR HGB CONC 31.2 g/dl (32.0-36.5); MEAN CORPUSCULAR VOLUME 84.4 fl (80.0-96.0); PLATELET COUNT, AUTOMATED 564 10^3/uL (150-450); RED BLOOD COUNT 3.15 10^6/uL (4.30-6.10); WHITE BLOOD COUNT 8.8 10^3/uL (4.0-10.0)
[2018-10-21 06:48] LABS: BLOOD UREA NITROGEN 19 MG/DL (7-18); CALCIUM LEVEL 8.5 MG/DL (8.8-10.2); CARBON DIOXIDE LEVEL 28 MEQ/L (21-32); CHLORIDE LEVEL 104 MEQ/L (98-107); CREATININE FOR GFR 0.92 MG/DL (0.70-1.30); GLOMERULAR FILTRATION RATE > 60.0 (>42); GLUCOSE, FASTING 190 MG/DL (70-100); MAGNESIUM LEVEL 2.1 MG/DL (1.8-2.4); POTASSIUM SERUM 5.6 MEQ/L (3.5-5.1); SODIUM LEVEL 136 MEQ/L (136-145)
[2018-10-21] MEDS: HumaLOG INSULIN (NovoLOG) PER UNIT SC SCH ×3 (07:41→17:38)
[2018-10-21] MEDS: amLODIPine 10 MG TAB PO SCH (07:42)
[2018-10-21] MEDS: RIVAROXABAN 15 MG TAB (XARELTO) PO SCH ×2 (07:42→17:39)
[2018-10-21] MEDS: LACTOBACILLUS ACIDOPHILUS CAP (BACID) PO SCH ×2 (07:42→17:38)
[2018-10-21] MEDS: PANTOPRAZOLE 40MG TAB (PROTONIX) PO SCH (07:43)
[2018-10-21] MEDS: FERROUS SULFATE 325MG TAB PO SCH ×2 (07:43→20:34)
[2018-10-21] MEDS: DOCUSATE SODIUM 100 MG CAP PO SCH ×2 (07:43→20:34)
[2018-10-21] MEDS: LISINOPRIL 5 MG TAB PO SCH (07:43)
[2018-10-21 10:00] VITALS: BP 143/72
[2018-10-21] MEDS: cefTRIAXone SOD 1 GM in D5W MINI-BAG PLUS 50 ML IV SCH (11:17)
--- NOTE | 2018-10-21 13:45 | IPNPDOC ---
Subjective Date Seen The patient was seen on 10/21/18. Subjective Chief Complaint/HPI Patient seen and examined at the bedside. No acute overnight events noted. Objective Physical Examination General Exam: Positive: Alert, Cooperative, No Acute Distress ENT Exam: Positive: Atraumatic, Mucous membr. moist/pink Neck Exam: Negative: JVD Chest Exam: Positive: Clear to auscultation, Normal air movement Heart Exam: Positive: Rate Normal, Normal S1, Normal S2 Abdomen Exam: Positive: Normal bowel sounds, Soft; Negative: Tenderness Extremity Exam: Positive: Other (RLE BKA, wrapped in surgical dressing with no superficial purulent drainage.); Negative: Tenderness, Swelling Psych Exam: Positive: Oriented x 3 Assessment /Plan Plan/VTE VTE Prophylaxis Ordered?: Yes Plan Osteomyelitis involving First through Fourth Metatarsals on Right 2/2 Underlying RLE Ischemia, PVD s/p RLE Thrombolysis and Angioplasty in March 2018 s/p Right transmetatarsal amputation in May 2018 s/p Right BKA on 10/19 Dr. Cruz of Vascular surgery on board--patient may need further amputation with AKA. Will cont to follow up with recommendations from Vascular Sx Streptococcus Anginosus Bacteremia/Septicemia 2/2 Above Blood culture 2 notable for Streptococcus Anginosus from 10/10 Repeat Blood culture x 2 negative from 10/12 2D ECHO with no vegetations noted Wound culture notable for Streptococcus Anginosus, Klebsiella Changed IV Rocephin based on susceptibilities Lactic acidosis 2/2 Above, resolved s/p IVF Hydration Normocytic Anemia Patient with no overt bleeding at this time Continue iron supplementation We will transfuse PRBC's as indicated Hypertension Cont on Norvasc GERD Protonix Hypothyroidism Continue levothyroxine Rheumatoid arthritis Follow up as outpatient Dyslipidemia Continue statin Deep vein thrombosis (DVT) prophylaxis On Xarelto. VS, I&O, 24H, Fishbone Vital Signs/I&O Vital Signs Date Time Temp Pulse Resp B/P (MAP) Pulse Ox O2 Delivery O2 Flow Rate FiO2 10/21/18 11:56 20 Room Air 10/21/18 10:00 98.7 94 143/72 (95) 98 10/19/18 17:01 10 I&O- Last 24 Hours up to 6 AM 10/21/18 06:00 Intake Total 1640 ml Output Total 1200 ml Balance 440 ml Laboratory Data 24H LABS Laboratory Tests 2 10/20/18 16:25: Bedside Glucose (Misc Panel) 167H 10/20/18 20:20: Bedside Glucose (Misc Panel) 128H 10/21/18 05:40: Nucleated Red Blood Cells % (auto) 0.0, Anion Gap 4L, Glomerular Filtration Rate > 60.0, Blood Urea Nitrogen 19H, Creatinine 0.92, Sodium Level 136, Potassium Level 5.6H, Chloride Level 104, Carbon Dioxide Level 28, Calcium Level 8.5L, Magnesium Level 2.1 10/21/18 11:38: Bedside Glucose (Misc Panel) 246H CBC/BMP Laboratory Tests 10/20/18 18:12 10/21/18 05:40 Red Blood Count 3.15 L, Mean Corpuscular Volume 84.4, Mean Corpuscular Hemoglobin 26.3 L, Mean Corpuscular Hemoglobin Concent 31.2 L, Red Cell Distribution Width 14.5, Calcium Level 8.5 L 10/21/18 09:56 Microbiology Microbiology 10/12/18 Blood Culture - Final, Complete NO GROWTH AFTER 5 DAYS 10/12/18 Blood Culture - Final, Complete NO GROWTH AFTER 5 DAYS 10/17/18 Stool Occult Blood (MOE) - Final, Complete MAGGIE REILLY MD Oct 21, 2018 13:45
[2018-10-21 14:00] VITALS: BP 123/70
[2018-10-21 17:44] VITALS: BP 143/72
[2018-10-21] MEDS: SENOKOT S TAB PO SCH (20:34)
[2018-10-21] MEDS: SIMVASTATIN 40 MG TAB PO SCH (20:34)
[2018-10-21] MEDS: LEVEMIR (INSULIN DETEMIR) 1 UNITS/0.01ML SC SCH (20:35)
[2018-10-21 22:00] VITALS: BP 135/68
[2018-10-22] VITALS (10 sets, daily range): BP systolic 86–144; BP diastolic 56–77
[2018-10-22] MEDS: PERCOCET 5MG/325MG TAB PO PRN ×3 (05:35→15:40)
[2018-10-22] MEDS: LEVOTHYROXINE 75MCG TABLET (0.075MG) PO SCH (05:35)
[2018-10-22 06:00] LABS: HEMATOCRIT 25.9 % (42.0-52.0); MEAN CORPUSCULAR HEMOGLOBIN 26.2 pg (27.0-33.0); MEAN CORPUSCULAR HGB CONC 30.9 g/dl (32.0-36.5); MEAN CORPUSCULAR VOLUME 84.9 fl (80.0-96.0); PLATELET COUNT, AUTOMATED 607 10^3/uL (150-450); RED BLOOD COUNT 3.05 10^6/uL (4.30-6.10); WHITE BLOOD COUNT 8.9 10^3/uL (4.0-10.0)
[2018-10-22 06:25] LABS: BLOOD UREA NITROGEN 14 MG/DL (7-18); CALCIUM LEVEL 8.6 MG/DL (8.8-10.2); CARBON DIOXIDE LEVEL 26 MEQ/L (21-32); CHLORIDE LEVEL 101 MEQ/L (98-107); CREATININE FOR GFR 0.71 MG/DL (0.70-1.30); GLOMERULAR FILTRATION RATE > 60.0 (>42); GLUCOSE, FASTING 202 MG/DL (70-100); MAGNESIUM LEVEL 1.7 MG/DL (1.8-2.4); POTASSIUM SERUM 4.8 MEQ/L (3.5-5.1); SODIUM LEVEL 135 MEQ/L (136-145)
[2018-10-22] MEDS ORDERED: MAGNESIUM OXIDE 400 MG TAB (MAG-OX) PO ONE (07:45)
[2018-10-22] MEDS: DOCUSATE SODIUM 100 MG CAP PO SCH ×2 (09:19→20:20)
[2018-10-22] MEDS: LACTOBACILLUS ACIDOPHILUS CAP (BACID) PO SCH ×2 (09:19→19:19)
[2018-10-22] MEDS: RIVAROXABAN 15 MG TAB (XARELTO) PO SCH ×2 (09:19→19:19)
[2018-10-22] MEDS: PANTOPRAZOLE 40MG TAB (PROTONIX) PO SCH (09:19)
[2018-10-22] MEDS: FERROUS SULFATE 325MG TAB PO SCH ×2 (09:19→20:20)
[2018-10-22] MEDS: amLODIPine 10 MG TAB PO SCH (09:22)
[2018-10-22] MEDS: HumaLOG INSULIN (NovoLOG) PER UNIT SC SCH ×3 (09:23→17:30)
--- NOTE | 2018-10-22 10:16 | IPNPDOC ---
Subjective Date Seen The patient was seen on 10/22/18. Subjective Chief Complaint/HPI Patient seen and examined at bedside. No acute overnight events noted. However, this morning the patient's hemoglobin has trended downward. 1 unit of packed red blood cells ordered. No overt sources of bleeding noted. The patient is scheduled for above the knee amputation today with vascular surgery. Objective Physical Examination General Exam: Positive: Alert, Cooperative, No Acute Distress ENT Exam: Positive: Atraumatic, Mucous membr. moist/pink Neck Exam: Negative: JVD Chest Exam: Positive: Clear to auscultation, Normal air movement Heart Exam: Positive: Rate Normal, Normal S1, Normal S2 Abdomen Exam: Positive: Normal bowel sounds, Soft; Negative: Tenderness Extremity Exam: Positive: Other (RLE below the knee amputated, WILFREDO band with min to mod sanguinous drainage dry.); Negative: Clubbing, Cyanosis, Edema, Tenderness, Swelling Psych Exam: Positive: Oriented x 3 Assessment /Plan Plan/VTE VTE Prophylaxis Ordered?: Yes Plan Osteomyelitis involving First through Fourth Metatarsals on Right 2/2 Underlying RLE Ischemia, PVD s/p RLE Thrombolysis and Angioplasty in February/March 2018 s/p Right transmetatarsal amputation in May 2018 s/p Right BKA on 10/19 Dr. Cruz of Vascular surgery on board--patient tentatively scheduled for AKA today. Will cont to follow up with recommendations from Vascular Sx Streptococcus Anginosus Bacteremia/Septicemia 2/2 Above Blood culture 2 notable for Streptococcus Anginosus from 10/10 Repeat Blood culture x 2 negative from 10/12 2D ECHO with no vegetations noted Wound culture notable for Streptococcus Anginosus, Klebsiella Cont IV Rocephin based on susceptibilities Lactic acidosis 2/2 Above, resolved s/p IVF Hydration Normocytic Anemia Patient with no overt bleeding at this time Continue iron supplementation We will transfuse PRBC's as indicated Hypertension Cont on Norvasc GERD Protonix Hypothyroidism Continue levothyroxine Rheumatoid arthritis Follow up as outpatient Dyslipidemia Continue statin Deep vein thrombosis (DVT) prophylaxis On Xarelto. VS, I&O, 24H, Fishbone Vital Signs/I&O Vital Signs Date Time Temp Pulse Resp B/P (MAP) Pulse Ox O2 Delivery O2 Flow Rate FiO2 10/22/18 09:32 16 10/22/18 09:22 93 140/60 10/22/18 06:00 98.2 98 Room Air 10/19/18 17:01 10 I&O- Last 24 Hours up to 6 AM 10/22/18 06:00 Intake Total 760 ml Output Total 1365 ml Balance -605 ml Laboratory Data 24H LABS Laboratory Tests 2 10/21/18 11:38: Bedside Glucose (Misc Panel) 246H 10/21/18 16:33: Bedside Glucose (Misc Panel) 169H 10/21/18 20:23: Bedside Glucose (Misc Panel) 174H 10/22/18 05:48: Nucleated Red Blood Cells % (auto) 0.0, Anion Gap 8, Glomerular Filtration Rate > 60.0, Blood Urea Nitrogen 14, Creatinine 0.71, Sodium Level 135L, Potassium Level 4.8, Chloride Level 101, Carbon Dioxide Level 26, Calcium Level 8.6L, Magnesium Level 1.7L CBC/BMP Laboratory Tests 10/22/18 05:48 Red Blood Count 3.05 L, Mean Corpuscular Volume 84.9, Mean Corpuscular Hemoglobin 26.2 L, Mean Corpuscular Hemoglobin Concent 30.9 L, Red Cell Distribution Width 14.6 H, Calcium Level 8.6 L Microbiology Microbiology 10/12/18 Blood Culture - Final, Complete NO GROWTH AFTER 5 DAYS 10/12/18 Blood Culture - Final, Complete NO GROWTH AFTER 5 DAYS 10/17/18 Stool Occult Blood (MOE) - Final, Complete MAGGIE REILLY MD Oct 22, 2018 10:16
[2018-10-22] MEDS: cefTRIAXone SOD 1 GM in D5W MINI-BAG PLUS 50 ML IV SCH (11:15)
[2018-10-22] MEDS ORDERED: ROCURONIUM BROMIDE 50 MG/5 ML VIAL As Ordered ONE (17:30)
[2018-10-22] MEDS ORDERED: PROPOFOL 200 MG/20 ML VIAL As Ordered ONE (17:30)
[2018-10-22] MEDS ORDERED: LIDOCAINE 2% INJ 100 MG/5 ML SDV (FOR ANES.) As Ordered ONE (17:30)
[2018-10-22] MEDS ORDERED: fentaNYL 250 MCG/5 ML INJECTION (J3010) As Ordered ONE (17:31)
[2018-10-22] MEDS ORDERED: MIDAZOLAM INJ 2 MG/2 ML VIAL (J2250) As Ordered ONE (17:31)
[2018-10-22] MEDS ORDERED: NS 1,000 ML IV SCH (17:42)
[2018-10-22] MEDS ORDERED: ONDANSETRON 4MG/2ML VIAL (J2405) IV PRN ×2 (17:45→18:15)
[2018-10-22] MEDS ORDERED: diphenhydrAMINE INJ 50MG/ML VIAL (J1200) IV PRN (17:45)
[2018-10-22] MEDS ORDERED: NALBUPHINE HCL 10 MG/ML AMP (J2300) IV PRN (17:45)
[2018-10-22] MEDS ORDERED: EPIDURAL/PCA KEYS XX PRN (17:45)
[2018-10-22] MEDS ORDERED: NALOXONE INJ 0.4 MG/1 ML VIAL (J2310) IV PRN (17:45)
[2018-10-22] MEDS ORDERED: MORPHINE 1MG/ML IN 0.9% NACL 100ML IV BAG IV PRN (17:45)
[2018-10-22] MEDS ORDERED: fentaNYL 100 MCG/2 ML INJECTION (J3010) As Ordered ONE (18:00)
[2018-10-22] MEDS ORDERED: PERCOCET 5MG/325MG TAB As Ordered ONE (18:00)
[2018-10-22] MEDS ORDERED: PERCOCET 5MG/325MG TAB PO PRN (18:15)
[2018-10-22] MEDS ORDERED: HYDROMORPHONE HCL 0.5 MG/ 0.5 ML SYRINGE (J1170 PER 1) IV PRN (18:15)
[2018-10-22] MEDS ORDERED: fentaNYL 100 MCG/2 ML INJECTION (J3010) IV PRN (18:15)
[2018-10-22] MEDS ORDERED: NORCO, ANEXSIA 5/325MG TABLET (HYDROcodone/ACETAMINOPHEN) PO PRN (19:15)
[2018-10-22] MEDS: SENOKOT S TAB PO SCH (20:20)
[2018-10-22] MEDS: SIMVASTATIN 40 MG TAB PO SCH (20:20)
[2018-10-22] MEDS: LEVEMIR (INSULIN DETEMIR) 1 UNITS/0.01ML SC SCH (20:22)
[2018-10-22] MEDS: NORCO, ANEXSIA 5/325MG TABLET (HYDROcodone/ACETAMINOPHEN) PO ONE (22:41)
[2018-10-22] MEDS: ONDANSETRON 4MG/2ML VIAL (J2405) IV PRN (22:41)
[2018-10-22] MEDS ORDERED: NS 500 ML IV ONE (23:00)
[2018-10-23] VITALS (8 sets, daily range): BP systolic 107–165; BP diastolic 56–76
[2018-10-23] MEDS: NORCO, ANEXSIA 5/325MG TABLET (HYDROcodone/ACETAMINOPHEN) PO ONE (00:23)
[2018-10-23] MEDS: NS 1,000 ML IV SCH ×2 (00:24→09:48)
[2018-10-23] MEDS: ONDANSETRON 4MG/2ML VIAL (J2405) IV PRN (00:24)
[2018-10-23 00:52] LABS: HEMATOCRIT 17.1 % (42.0-52.0); MEAN CORPUSCULAR HEMOGLOBIN 27.8 pg (27.0-33.0); MEAN CORPUSCULAR HGB CONC 31.6 g/dl (32.0-36.5); MEAN CORPUSCULAR VOLUME 88.1 fl (80.0-96.0); RED BLOOD COUNT 1.94 10^6/uL (4.30-6.10); WHITE BLOOD COUNT 10.7 10^3/uL (4.0-10.0)
[2018-10-23 00:56] LABS: HEMOGLOBIN 5.4 g/dl (13.5-17.5); PLATELET COUNT, AUTOMATED 357 10^3/uL (150-450)
[2018-10-23 01:03] LABS: BLOOD UREA NITROGEN 18 MG/DL (7-18); CALCIUM LEVEL 7.2 MG/DL (8.8-10.2); CARBON DIOXIDE LEVEL 24 MEQ/L (21-32); CHLORIDE LEVEL 106 MEQ/L (98-107); CREATININE FOR GFR 0.75 MG/DL (0.70-1.30); GLOMERULAR FILTRATION RATE > 60.0 (>42); GLUCOSE, FASTING 166 MG/DL (70-100); POTASSIUM SERUM 4.7 MEQ/L (3.5-5.1); SODIUM LEVEL 137 MEQ/L (136-145)
[2018-10-23] MEDS ORDERED: NORCO, ANEXSIA 5/325MG TABLET (HYDROcodone/ACETAMINOPHEN) PO ONE (03:30)
[2018-10-23] MEDS: LEVOTHYROXINE 75MCG TABLET (0.075MG) PO SCH (05:40)
[2018-10-23] MEDS: NORCO, ANEXSIA 5/325MG TABLET (HYDROcodone/ACETAMINOPHEN) PO PRN ×4 (06:37→23:20)
[2018-10-23] MEDS: HumaLOG INSULIN (NovoLOG) PER UNIT SC SCH ×3 (07:30→16:51)
[2018-10-23] MEDS: PANTOPRAZOLE 40MG TAB (PROTONIX) PO SCH (08:35)
[2018-10-23] MEDS: amLODIPine 10 MG TAB PO SCH (08:35)
[2018-10-23] MEDS: DOCUSATE SODIUM 100 MG CAP PO SCH ×2 (08:35→21:27)
[2018-10-23] MEDS: FERROUS SULFATE 325MG TAB PO SCH ×2 (08:35→21:26)
[2018-10-23] MEDS: RIVAROXABAN 15 MG TAB (XARELTO) PO SCH ×2 (08:35→18:02)
[2018-10-23] MEDS: LACTOBACILLUS ACIDOPHILUS CAP (BACID) PO SCH ×2 (08:35→18:02)
[2018-10-23 10:48] LABS: HEMATOCRIT 28.9 % (42.0-52.0); HEMOGLOBIN 9.7 g/dl (13.5-17.5); MEAN CORPUSCULAR HGB CONC 33.6 g/dl (32.0-36.5); MEAN CORPUSCULAR VOLUME 86.3 fl (80.0-96.0); PLATELET COUNT, AUTOMATED 422 10^3/uL (150-450); RED BLOOD COUNT 3.35 10^6/uL (4.30-6.10); WHITE BLOOD COUNT 9.9 10^3/uL (4.0-10.0)
[2018-10-23] MEDS: cefTRIAXone SOD 1 GM in D5W MINI-BAG PLUS 50 ML IV SCH (11:13)
[2018-10-23] MEDS: NYSTATIN 100,000 UNITS/GM TOPICAL PWD 15 GM TOP SCH ×2 (11:13→21:26)
[2018-10-23 11:14] LABS: BLOOD UREA NITROGEN 19 MG/DL (7-18); CALCIUM LEVEL 7.8 MG/DL (8.8-10.2); CARBON DIOXIDE LEVEL 25 MEQ/L (21-32); CHLORIDE LEVEL 103 MEQ/L (98-107); CREATININE FOR GFR 0.66 MG/DL (0.70-1.30); GLOMERULAR FILTRATION RATE > 60.0 (>42); GLUCOSE, FASTING 138 MG/DL (70-100); MAGNESIUM LEVEL 1.8 MG/DL (1.8-2.4); POTASSIUM SERUM 4.7 MEQ/L (3.5-5.1); SODIUM LEVEL 136 MEQ/L (136-145)
--- NOTE | 2018-10-23 11:50 | IPNPDOC ---
Subjective Date Seen The patient was seen on 10/23/18. Subjective Chief Complaint/HPI Patient seen and examined at the bedside. He was noted to be anemic and hypotensive following above the knee amputation yesterday evening. He was transfused 2 units of packed red blood cells. His hemoglobin count was noted to be stable this morning following transfusion. Otherwise, the patient states that he has not had any overt bleeding. He notes that his right lower extremity pain is well controlled at this time. Objective Physical Examination General Exam: Positive: Alert, Cooperative, No Acute Distress ENT Exam: Positive: Atraumatic, Mucous membr. moist/pink Neck Exam: Negative: JVD Chest Exam: Positive: Clear to auscultation, Normal air movement Heart Exam: Positive: Rate Normal, Normal S1, Normal S2 Abdomen Exam: Positive: Normal bowel sounds, Soft; Negative: Tenderness Extremity Exam: Positive: Other (RLE above the knee amputated, WILFREDO band noted to be wrapped around extremity.); Negative: Clubbing, Cyanosis, Edema, Tenderness, Swelling Psych Exam: Positive: Oriented x 3 Assessment /Plan Plan/VTE VTE Prophylaxis Ordered?: Yes Plan Osteomyelitis involving First through Fourth Metatarsals on Right 2/2 Underlying RLE Ischemia, PVD s/p RLE Thrombolysis and Angioplasty in February/March 2018 s/p Right transmetatarsal amputation in May 2018 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 Cruz of Vascular surgery on board Will cont to follow up with recommendations from Vascular Sx Streptococcus Anginosus Bacteremia/Septicemia 2/2 Above Blood culture 2 notable for Streptococcus Anginosus from 10/10 Repeat Blood culture x 2 negative from 10/12 2D ECHO with no vegetations noted Wound culture notable for Streptococcus Anginosus, Klebsiella Cont IV Rocephin based on susceptibilities Lactic acidosis 2/2 Above, resolved s/p IVF Hydration Normocytic Anemia Patient noted to be anemic following procedure on 10/22-->Transfused 2 Units of PRBC's Hgb stable this AM Continue iron supplementation We will transfuse PRBC's as indicated Hypertension Cont on Norvasc GERD Protonix Hypothyroidism Continue levothyroxine Rheumatoid arthritis Follow up as outpatient Dyslipidemia Continue statin Deep vein thrombosis (DVT) prophylaxis On Xarelto. VS, I&O, 24H, Fishbone Vital Signs/I&O Vital Signs Date Time Temp Pulse Resp B/P (MAP) Pulse Ox O2 Delivery O2 Flow Rate FiO2 10/23/18 08:35 75 122/60 10/23/18 08:30 97.4 16 95 Room Air 10/19/18 17:01 10 I&O- Last 24 Hours up to 6 AM 10/23/18 06:00 Intake Total 2990 ml Output Total 250 ml Balance 2740 ml Laboratory Data 24H LABS Laboratory Tests 2 10/22/18 17:53: Bedside Glucose (Misc Panel) 111H 10/22/18 20:04: Bedside Glucose (Misc Panel) 153H 10/23/18 00:39: Nucleated Red Blood Cells % (auto) 0.0, Anion Gap 7L, Glomerular Filtration Rate > 60.0, Blood Urea Nitrogen 18, Creatinine 0.75, Sodium Level 137, Potassium Level 4.7, Chloride Level 106, Carbon Dioxide Level 24, Calcium Level 7.2#L 10/23/18 08:21: Bedside Glucose (Misc Panel) 51L 10/23/18 09:19: Bedside Glucose (Misc Panel) 114H 10/23/18 10:18: Nucleated Red Blood Cells % (auto) 0.0, Anion Gap 8, Glomerular Filtration Rate > 60.0, Blood Urea Nitrogen 19H, Creatinine 0.66L, Sodium Level 136, Potassium Level 4.7, Chloride Level 103, Carbon Dioxide Level 25, Calcium Level 7.8L, Magnesium Level 1.8 CBC/BMP Laboratory Tests 10/23/18 00:39 Red Blood Count 1.94 L, Mean Corpuscular Volume 88.1, Mean Corpuscular Hemoglobin 27.8, Mean Corpuscular Hemoglobin Concent 31.6 L, Red Cell Distribution Width 14.6 H, Calcium Level 7.2 #L 10/23/18 10:18 Red Blood Count 3.35 L, Mean Corpuscular Volume 86.3, Mean Corpuscular Hemoglobin 29.0, Mean Corpuscular Hemoglobin Concent 33.6, Red Cell Distribution Width 14.3, Calcium Level 7.8 L Microbiology Microbiology 10/17/18 Stool Occult Blood (MOE) - Final, Complete MAGGIE REILLY MD Oct 23, 2018 11:50
--- NOTE | 2018-10-23 12:12 | IPNPDOC ---
Subjective Date Seen The patient was seen on 10/23/18. Subjective Chief Complaint/HPI C/o some phantom pain. No much bleed from the stump. Objective Physical Examination General Exam: Positive: Alert, Cooperative, No Acute Distress ENT Exam: Positive: Atraumatic, Mucous membr. moist/pink Neck Exam: Negative: JVD Chest Exam: Positive: Clear to auscultation, Normal air movement Heart Exam: Positive: Rate Normal, Normal S1, Normal S2 Abdomen Exam: Positive: Normal bowel sounds, Soft; Negative: Tenderness Extremity Exam: Positive: Other (RLE above the knee amputated, WILFREDO band noted to be wrapped around extremity.); Negative: Clubbing, Cyanosis, Edema, Tenderness, Swelling Psych Exam: Positive: Oriented x 3 Assessment /Plan Assessment 1. POD #1, S/p RT AKA. Pt doing well with PT. pain tolerated with narcotics 2.Acute blood loss on chronic anemia S/p PRBCs x3, H&H 9.7/28.9 vs 5.4/17.1 3. Bacteremia for Streptococcus anginosus and Klebsiella pneumoniae. Repeated BCx 10/12/18 negative. On antibiotics. 4. Osteomyelitis. Wound Cx positive for Klebsiella and Streptococcus. 5. HTN 6. Hypothyroidism. 7. IDDM II Plan/VTE VTE Prophylaxis Ordered?: Yes Plan 1. Continue current management 2. Continue on IV Rocephin as directed 3. PMR screening VS, I&O, 24H, Fishbone Vital Signs/I&O Vital Signs Date Time Temp Pulse Resp B/P (MAP) Pulse Ox O2 Delivery O2 Flow Rate FiO2 10/23/18 08:35 75 122/60 10/23/18 08:30 97.4 16 95 Room Air 10/19/18 17:01 10 I&O- Last 24 Hours up to 6 AM 10/23/18 06:00 Intake Total 2990 ml Output Total 250 ml Balance 2740 ml Laboratory Data 24H LABS Laboratory Tests 2 10/22/18 17:53: Bedside Glucose (Misc Panel) 111H 10/22/18 20:04: Bedside Glucose (Misc Panel) 153H 10/23/18 00:39: Nucleated Red Blood Cells % (auto) 0.0, Anion Gap 7L, Glomerular Filtration Rate > 60.0, Blood Urea Nitrogen 18, Creatinine 0.75, Sodium Level 137, Potassium Level 4.7, Chloride Level 106, Carbon Dioxide Level 24, Calcium Level 7.2#L 10/23/18 08:21: Bedside Glucose (Misc Panel) 51L 10/23/18 09:19: Bedside Glucose (Misc Panel) 114H 10/23/18 10:18: Nucleated Red Blood Cells % (auto) 0.0, Anion Gap 8, Glomerular Filtration Rate > 60.0, Blood Urea Nitrogen 19H, Creatinine 0.66L, Sodium Level 136, Potassium Level 4.7, Chloride Level 103, Carbon Dioxide Level 25, Calcium Level 7.8L, Magnesium Level 1.8 10/23/18 11:42: Bedside Glucose (Misc Panel) 156H CBC/BMP Laboratory Tests 10/23/18 00:39 Red Blood Count 1.94 L, Mean Corpuscular Volume 88.1, Mean Corpuscular Hem oglobin 27.8, Mean Corpuscular Hemoglobin Concent 31.6 L, Red Cell Distribution Width 14.6 H, Calcium Level 7.2 #L 10/23/18 10:18 Red Blood Count 3.35 L, Mean Corpuscular Volume 86.3, Mean Corpuscular Hemoglobin 29.0, Mean Corpuscular Hemoglobin Concent 33.6, Red Cell Distribution Width 14.3, Calcium Level 7.8 L Microbiology Microbiology 10/17/18 Stool Occult Blood (MOE) - Final, Complete CALLIE SHAW PA-C Oct 23, 2018 12:12
[2018-10-23] MEDS ORDERED: ONDANSETRON 4MG/2ML VIAL (J2405) IV PRN (17:30)
[2018-10-23] MEDS ORDERED: HYDROMORPHONE HCL 0.5 MG/ 0.5 ML SYRINGE (J1170 PER 1) IV PRN (17:30)
[2018-10-23] MEDS ORDERED: fentaNYL 100 MCG/2 ML INJECTION (J3010) IV PRN (17:30)
[2018-10-23] MEDS ORDERED: PERCOCET 5MG/325MG TAB PO PRN (17:30)
[2018-10-23] MEDS: SIMVASTATIN 40 MG TAB PO SCH (21:26)
[2018-10-23] MEDS: LEVEMIR (INSULIN DETEMIR) 1 UNITS/0.01ML SC SCH (21:26)
[2018-10-23] MEDS: SENOKOT S TAB PO SCH (21:26)
[2018-10-24 02:00] VITALS: BP 134/68
[2018-10-24] MEDS: NORCO, ANEXSIA 5/325MG TABLET (HYDROcodone/ACETAMINOPHEN) PO PRN ×4 (04:16→20:52)
[2018-10-24] MEDS: LEVOTHYROXINE 75MCG TABLET (0.075MG) PO SCH (05:32)
[2018-10-24 06:00] VITALS: BP 137/64
[2018-10-24] MEDS: HumaLOG INSULIN (NovoLOG) PER UNIT SC SCH ×3 (07:30→16:46)
[2018-10-24 08:42] LABS: HEMATOCRIT 29.7 % (42.0-52.0); HEMOGLOBIN 9.6 g/dl (13.5-17.5); MEAN CORPUSCULAR HEMOGLOBIN 28.7 pg (27.0-33.0); MEAN CORPUSCULAR HGB CONC 32.3 g/dl (32.0-36.5); MEAN CORPUSCULAR VOLUME 88.7 fl (80.0-96.0); PLATELET COUNT, AUTOMATED 467 10^3/uL (150-450); RED BLOOD COUNT 3.35 10^6/uL (4.30-6.10); WHITE BLOOD COUNT 8.7 10^3/uL (4.0-10.0)
[2018-10-24 08:50] LABS: BLOOD UREA NITROGEN 9 MG/DL (7-18); CALCIUM LEVEL 8.2 MG/DL (8.8-10.2); CARBON DIOXIDE LEVEL 27 MEQ/L (21-32); CHLORIDE LEVEL 103 MEQ/L (98-107); CREATININE FOR GFR 0.59 MG/DL (0.70-1.30); GLOMERULAR FILTRATION RATE > 60.0 (>42); GLUCOSE, FASTING 157 MG/DL (70-100); POTASSIUM SERUM 4.3 MEQ/L (3.5-5.1); SODIUM LEVEL 139 MEQ/L (136-145)
[2018-10-24] MEDS: DOCUSATE SODIUM 100 MG CAP PO SCH ×3 (09:00→20:54)
[2018-10-24] MEDS: FERROUS SULFATE 325MG TAB PO SCH ×2 (09:21→20:52)
[2018-10-24] MEDS: LACTOBACILLUS ACIDOPHILUS CAP (BACID) PO SCH ×2 (09:21→18:27)
[2018-10-24] MEDS: RIVAROXABAN 15 MG TAB (XARELTO) PO SCH ×2 (09:21→18:27)
[2018-10-24] MEDS: PANTOPRAZOLE 40MG TAB (PROTONIX) PO SCH (09:21)
[2018-10-24] MEDS: amLODIPine 10 MG TAB PO SCH (09:24)
[2018-10-24] MEDS: NYSTATIN 100,000 UNITS/GM TOPICAL PWD 15 GM TOP SCH ×2 (09:25→20:53)
--- NOTE | 2018-10-24 11:43 | IPNPDOC ---
Subjective Date Seen The patient was seen on 10/24/18. Subjective Chief Complaint/HPI Patient seen and examined at the bedside. No acute overnight events noted. Objective Physical Examination General Exam: Positive: Alert, Cooperative, No Acute Distress ENT Exam: Positive: Atraumatic, Mucous membr. moist/pink Neck Exam: Negative: JVD Chest Exam: Positive: Clear to auscultation, Normal air movement Heart Exam: Positive: Rate Normal, Normal S1, Normal S2 Abdomen Exam: Positive: Normal bowel sounds, Soft; Negative: Tenderness Extremity Exam: Positive: Other (RLE above the knee amputated, WILFREDO band noted to be wrapped around extremity.); Negative: Clubbing, Cyanosis, Edema, Tenderness, Swelling Psych Exam: Positive: Oriented x 3 Assessment /Plan Plan/VTE VTE Prophylaxis Ordered?: Yes Plan Osteomyelitis involving First through Fourth Metatarsals on Right 2/2 Underlying RLE Ischemia, PVD s/p RLE Thrombolysis and Angioplasty in March 2018 s/p Right transmetatarsal amputation in May 2018 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 Cruz of Vascular surgery on board Will cont to follow up with recommendations from Vascular Sx Streptococcus Anginosus Bacteremia/Septicemia 2/2 Above Blood culture 2 notable for Streptococcus Anginosus from 10/10 Repeat Blood culture x 2 negative from 10/12 2D ECHO with no vegetations noted Wound culture notable for Streptococcus Anginosus, Klebsiella On IV Rocephin based on susceptibilities Lactic acidosis 2/2 Above, resolved s/p IVF Hydration Normocytic Anemia Patient noted to be anemic following procedure on 10/22-->Transfused 2 Units of PRBC's Hgb stable this AM Continue iron supplementation We will transfuse PRBC's as indicated Hypertension Cont on Norvasc GERD Protonix Hypothyroidism Continue levothyroxine Rheumatoid arthritis Follow up as outpatient Dyslipidemia Continue statin Deep vein thrombosis (DVT) prophylaxis On Xarelto. Dispo--pending clinical improvement, PT clearance. VS, I&O, 24H, Fishbone Vital Signs/I&O Vital Signs Date Time Temp Pulse Resp B/P (MAP) Pulse Ox O2 Delivery O2 Flow Rate FiO2 10/24/18 09:24 60 146/52 10/24/18 09:22 16 10/24/18 06:00 97.2 98 Room Air 10/19/18 17:01 10 I&O- Last 24 Hours up to 6 AM 10/24/18 05:59 Intake Total 2190 ml Output Total 1550 ml Balance 640 ml Laboratory Data 24H LABS Laboratory Tests 2 10/23/18 11:42: Bedside Glucose (Misc Panel) 156H 10/23/18 16:29: Bedside Glucose (Misc Panel) 53L 10/23/18 18:21: Bedside Glucose (Misc Panel) 114H 10/23/18 20:08: Bedside Glucose (Misc Panel) 201H 10/24/18 06:49: Bedside Glucose (Misc Panel) 55L 10/24/18 07:12: Bedside Glucose (Misc Panel) 56L 10/24/18 07:44: Bedside Glucose (Misc Panel) 153H 10/24/18 08:02: Nucleated Red Blood Cells % (auto) 0.0, Anion Gap 9, Glomerular Filtration Rate > 60.0, Blood Urea Nitrogen 9#, Creatinine 0.59L, Sodium Level 139, Potassium Level 4.3, Chloride Level 103, Carbon Dioxide Level 27, Calcium Level 8.2L CBC/BMP Laboratory Tests 10/24/18 08:02 Red Blood Count 3.35 L, Mean Corpuscular Volume 88.7, Mean Corpuscular Hemoglobin 28.7, Mean Corpuscular Hemoglobin Concent 32.3, Red Cell Distribution Width 15.3 H, Calcium Level 8.2 L Microbiology Microbiology 10/17/18 Stool Occult Blood (MOE) - Final, Complete MAGGIE REILLY MD Oct 24, 2018 11:43
[2018-10-24] MEDS: cefTRIAXone SOD 1 GM in D5W MINI-BAG PLUS 50 ML IV SCH (12:37)
[2018-10-24 14:00] VITALS: BP 126/63
--- NOTE | 2018-10-24 15:35 | IPNPDOC ---
Text Note Date of Service The patient was seen on 10/24/18. NOTE Pt started with PT and OT yesterday and is still adapting to the change s/p AKA. Pain well tolerated. Afebrile, RLE: WILFREDO band clean dry. WBC wnl, H&H 9.6/29.7 stable. Will continue PT/OT, PMR will reevaluate for ARU on Saturday. VS,Fishbone, I+O VS, Fishbone, I+O Laboratory Tests 10/24/18 08:02 Red Blood Count 3.35 L, Mean Corpuscular Volume 88.7, Mean Corpuscular Hemoglobin 28.7, Mean Corpuscular Hemoglobin Concent 32.3, Red Cell Distribution Width 15.3 H, Calcium Level 8.2 L Vital Signs Date Time Temp Pulse Resp B/P (MAP) Pulse Ox O2 Delivery O2 Flow Rate FiO2 10/24/18 14:31 16 10/24/18 14:00 97.8 85 126/63 (84) 97 Room Air 10/19/18 17:01 10 I&O- Last 24 Hours up to 6 AM 10/24/18 06:00 Intake Total 2210 ml Output Total 1550 ml Balance 660 ml CALLIE SHAW PA-C Oct 24, 2018 15:35
[2018-10-24 18:00] VITALS: BP 130/62
[2018-10-24 20:00] VITALS: BP 142/73
[2018-10-24] MEDS: LEVEMIR (INSULIN DETEMIR) 1 UNITS/0.01ML SC SCH (20:47)
[2018-10-24] MEDS: SIMVASTATIN 40 MG TAB PO SCH (20:52)
[2018-10-24] MEDS: SENOKOT S TAB PO SCH (20:54)
[2018-10-25] MEDS: NORCO, ANEXSIA 5/325MG TABLET (HYDROcodone/ACETAMINOPHEN) PO PRN ×5 (01:50→23:20)
[2018-10-25 02:00] VITALS: BP 140/69
[2018-10-25] MEDS: LEVOTHYROXINE 75MCG TABLET (0.075MG) PO SCH (05:50)
[2018-10-25 06:00] VITALS: BP 134/70
[2018-10-25 06:24] LABS: HEMATOCRIT 27.8 % (42.0-52.0); MEAN CORPUSCULAR HEMOGLOBIN 28.8 pg (27.0-33.0); MEAN CORPUSCULAR HGB CONC 32.4 g/dl (32.0-36.5); MEAN CORPUSCULAR VOLUME 89.1 fl (80.0-96.0); PLATELET COUNT, AUTOMATED 475 10^3/uL (150-450); RED BLOOD COUNT 3.12 10^6/uL (4.30-6.10); WHITE BLOOD COUNT 6.3 10^3/uL (4.0-10.0)
[2018-10-25 06:38] LABS: BLOOD UREA NITROGEN 8 MG/DL (7-18); CALCIUM LEVEL 8.6 MG/DL (8.8-10.2); CARBON DIOXIDE LEVEL 27 MEQ/L (21-32); CHLORIDE LEVEL 103 MEQ/L (98-107); CREATININE FOR GFR 0.61 MG/DL (0.70-1.30); GLOMERULAR FILTRATION RATE > 60.0 (>42); GLUCOSE, FASTING 192 MG/DL (70-100); POTASSIUM SERUM 4.6 MEQ/L (3.5-5.1); SODIUM LEVEL 137 MEQ/L (136-145)
[2018-10-25] MEDS: PANTOPRAZOLE 40MG TAB (PROTONIX) PO SCH (08:26)
[2018-10-25] MEDS: LACTOBACILLUS ACIDOPHILUS CAP (BACID) PO SCH ×2 (08:26→17:58)
[2018-10-25] MEDS: RIVAROXABAN 15 MG TAB (XARELTO) PO SCH ×2 (08:26→18:04)
[2018-10-25] MEDS: amLODIPine 10 MG TAB PO SCH (08:27)
[2018-10-25] MEDS: FERROUS SULFATE 325MG TAB PO SCH ×2 (08:27→22:02)
[2018-10-25] MEDS: HumaLOG INSULIN (NovoLOG) PER UNIT SC SCH ×3 (08:27→17:59)
[2018-10-25] MEDS: DOCUSATE SODIUM 100 MG CAP PO SCH ×2 (08:29→22:03)
[2018-10-25] MEDS: NYSTATIN 100,000 UNITS/GM TOPICAL PWD 15 GM TOP SCH ×2 (08:30→22:02)
[2018-10-25 10:00] VITALS: BP 122/62
[2018-10-25 14:00] VITALS: BP 135/68
--- NOTE | 2018-10-25 14:35 | IPNPDOC ---
Subjective Date Seen The patient was seen on 10/25/18. Subjective Chief Complaint/HPI Patient seen and examined at the bedside. No acute overnight events noted. Objective Physical Examination General Exam: Positive: Alert, Cooperative, No Acute Distress ENT Exam: Positive: Atraumatic, Mucous membr. moist/pink Neck Exam: Negative: JVD Chest Exam: Positive: Clear to auscultation, Normal air movement Heart Exam: Positive: Rate Normal, Normal S1, Normal S2 Abdomen Exam: Positive: Normal bowel sounds, Soft; Negative: Tenderness Extremity Exam: Positive: Other (RLE above the knee amputated, WILFREDO band noted to be wrapped around extremity.); Negative: Clubbing, Cyanosis, Edema, Tenderness, Swelling Psych Exam: Positive: Oriented x 3 Assessment /Plan Plan/VTE VTE Prophylaxis Ordered?: Yes Plan Osteomyelitis involving First through Fourth Metatarsals on Right 2/2 Underlying RLE Ischemia, PVD s/p RLE Thrombolysis and Angioplasty in February/March 2018 s/p Right transmetatarsal amputation in May 2018 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 Cruz of Vascular surgery on board Will cont to follow up with recommendations from Vascular Sx Streptococcus Anginosus Bacteremia/Septicemia 2/2 Above Blood culture 2 notable for Streptococcus Anginosus from 10/10 Repeat Blood culture x 2 negative from 10/12 2D ECHO with no vegetations noted Wound culture notable for Streptococcus Anginosus, Klebsiella On IV Rocephin based on susceptibilities Lactic acidosis 2/2 Above, resolved s/p IVF Hydration Normocytic Anemia Patient noted to be anemic following procedure on 10/22-->Transfused 2 Units of PRBC's Hgb stable this AM Continue iron supplementation We will transfuse PRBC's as indicated Hypertension Cont on Norvasc GERD Protonix Hypothyroidism Continue levothyroxine Rheumatoid arthritis Follow up as outpatient Dyslipidemia Continue statin Deep vein thrombosis (DVT) prophylaxis On Xarelto. Dispo--pending clinical improvement, PT clearance. VS, I&O, 24H, Fishbone Vital Signs/I&O Vital Signs Date Time Temp Pulse Resp B/P (MAP) Pulse Ox O2 Delivery O2 Flow Rate FiO2 10/25/18 14:03 18 10/25/18 10:00 97.6 72 122/62 (82) 96 Room Air 10/19/18 17:01 10 I&O- Last 24 Hours up to 6 AM 10/25/18 06:00 Intake Total 1010 ml Output Total 1250 ml Balance -240 ml Laboratory Data 24H LABS Laboratory Tests 2 10/24/18 16:39: Bedside Glucose (Misc Panel) 80L 10/24/18 20:35: Bedside Glucose (Misc Panel) 187H 10/25/18 04:33: Bedside Glucose (Misc Panel) 194H 10/25/18 05:39: Nucleated Red Blood Cells % (auto) 0.0, Anion Gap 7L, Glomerular Filtration Rate > 60.0, Blood Urea Nitrogen 8, Creatinine 0.61L, Sodium Level 137, Potassium Level 4.6, Chloride Level 103, Carbon Dioxide Level 27, Calcium Level 8.6L 10/25/18 11:28: Bedside Glucose (Misc Panel) 178H CBC/BMP Laboratory Tests 10/25/18 05:39 Red Blood Count 3.12 L, Mean Corpuscular Volume 89.1, Mean Corpuscular Hem oglobin 28.8, Mean Corpuscular Hemoglobin Concent 32.4, Red Cell Distribution Width 15.4 H, Calcium Level 8.6 L Microbiology Microbiology 10/17/18 Stool Occult Blood (MOE) - Final, Complete MAGGIE REILLY MD Oct 25, 2018 14:35
[2018-10-25 18:00] VITALS: BP 138/73
[2018-10-25 20:00] VITALS: BP 150/60
[2018-10-25] MEDS: SIMVASTATIN 40 MG TAB PO SCH (22:02)
[2018-10-25] MEDS: SENOKOT S TAB PO SCH (22:03)
[2018-10-25] MEDS: LEVEMIR (INSULIN DETEMIR) 1 UNITS/0.01ML SC SCH (22:03)
[2018-10-26 02:00] VITALS: BP 135/78
[2018-10-26] MEDS: NORCO, ANEXSIA 5/325MG TABLET (HYDROcodone/ACETAMINOPHEN) PO PRN ×5 (04:43→23:15)
[2018-10-26] MEDS: LEVOTHYROXINE 75MCG TABLET (0.075MG) PO SCH (05:28)
[2018-10-26 06:00] VITALS: BP 123/69
[2018-10-26 06:23] LABS: HEMATOCRIT 29.6 % (42.0-52.0); HEMOGLOBIN 9.7 g/dl (13.5-17.5); MEAN CORPUSCULAR HEMOGLOBIN 28.7 pg (27.0-33.0); MEAN CORPUSCULAR HGB CONC 32.8 g/dl (32.0-36.5); MEAN CORPUSCULAR VOLUME 87.6 fl (80.0-96.0); RED BLOOD COUNT 3.38 10^6/uL (4.30-6.10); WHITE BLOOD COUNT 6.7 10^3/uL (4.0-10.0)
[2018-10-26 06:36] LABS: PLATELET COUNT, AUTOMATED 594 10^3/uL (150-450)
[2018-10-26 06:39] LABS: BLOOD UREA NITROGEN 9 MG/DL (7-18); CALCIUM LEVEL 8.8 MG/DL (8.8-10.2); CARBON DIOXIDE LEVEL 27 MEQ/L (21-32); CHLORIDE LEVEL 103 MEQ/L (98-107); CREATININE FOR GFR 0.59 MG/DL (0.70-1.30); GLOMERULAR FILTRATION RATE > 60.0 (>42); GLUCOSE, FASTING 78 MG/DL (70-100); POTASSIUM SERUM 4.1 MEQ/L (3.5-5.1); SODIUM LEVEL 137 MEQ/L (136-145)
[2018-10-26] MEDS: HumaLOG INSULIN (NovoLOG) PER UNIT SC SCH ×3 (07:30→18:20)
[2018-10-26] MEDS: FERROUS SULFATE 325MG TAB PO SCH ×2 (08:11→21:03)
[2018-10-26] MEDS: amLODIPine 10 MG TAB PO SCH (08:12)
[2018-10-26] MEDS: PANTOPRAZOLE 40MG TAB (PROTONIX) PO SCH (08:12)
[2018-10-26] MEDS: LACTOBACILLUS ACIDOPHILUS CAP (BACID) PO SCH ×2 (08:12→18:20)
[2018-10-26] MEDS: RIVAROXABAN 15 MG TAB (XARELTO) PO SCH ×2 (08:12→18:20)
[2018-10-26] MEDS: NYSTATIN 100,000 UNITS/GM TOPICAL PWD 15 GM TOP SCH ×2 (08:13→21:06)
[2018-10-26] MEDS: DOCUSATE SODIUM 100 MG CAP PO SCH ×2 (08:13→20:58)
[2018-10-26 10:00] VITALS: BP 108/69
--- NOTE | 2018-10-26 11:50 | IPNPDOC ---
Subjective Date Seen The patient was seen on 10/26/18. Subjective Chief Complaint/HPI Patient seen and examined at the bedside. No acute overnight events noted. Objective Physical Examination General Exam: Positive: Alert, Cooperative, No Acute Distress ENT Exam: Positive: Atraumatic, Mucous membr. moist/pink Neck Exam: Negative: JVD Chest Exam: Positive: Clear to auscultation, Normal air movement Heart Exam: Positive: Rate Normal, Normal S1, Normal S2 Abdomen Exam: Positive: Normal bowel sounds, Soft; Negative: Tenderness Extremity Exam: Positive: Other (RLE above the knee amputated. 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 Cruz of Vascular surgery on board Will cont to follow up with recommendations from Vascular Sx Streptococcus Anginosus Bacteremia/Septicemia 2/2 Above Blood culture 2 notable for Streptococcus Anginosus from 10/10 Repeat Blood culture x 2 negative from 10/12 2D ECHO with no vegetations noted Wound culture notable for Streptococcus Anginosus, Klebsiella s/p completion of IV Rocephin course Lactic acidosis 2/2 Above, resolved s/p IVF Hydration Normocytic Anemia Patient noted to be anemic following procedure on 10/22-->Transfused 2 Units of PRBC's Hgb stable this AM Continue iron supplementation We will transfuse PRBC's as indicated Hypertension Cont on Norvasc GERD Protonix Hypothyroidism Continue levothyroxine Rheumatoid arthritis Follow up as outpatient Dyslipidemia Continue statin Deep vein thrombosis (DVT) prophylaxis On Xarelto. Dispo--pending clinical improvement, PT clearance. May possibly need Rehab. PFS on board. VS, I&O, 24H, Fishbone Vital Signs/I&O Vital Signs Date Time Temp Pulse Resp B/P (MAP) Pulse Ox O2 Delivery O2 Flow Rate FiO2 10/26/18 09:40 18 10/26/18 08:12 74 126/69 10/26/18 06:00 97.2 93 Room Air I&O- Last 24 Hours up to 6 AM 10/26/18 06:00 Intake Total 1605 ml Output Total 1580 ml Balance 25 ml Laboratory Data 24H LABS Laboratory Tests 2 10/25/18 16:32: Bedside Glucose (Misc Panel) 172H 10/25/18 21:19: Bedside Glucose (Misc Panel) 136H 10/26/18 05:27: Nucleated Red Blood Cells % (auto) 0.0, Anion Gap 7L, Glomerular Filtration Rate > 60.0, Blood Urea Nitrogen 9, Creatinine 0.59L, Sodium Level 137, Potassium Level 4.1, Chloride Level 103, Carbon Dioxide Level 27, Calcium Level 8.8 CBC/BMP Laboratory Tests 10/26/18 05:27 Red Blood Count 3.38 L, Mean Corpuscular Volume 87.6, Mean Corpuscular Hemoglobin 28.7, Mean Corpuscular Hemoglobin Concent 32.8, Red Cell Distribution Width 15.5 H, Calcium Level 8.8 Microbiology Microbiology 10/17/18 Stool Occult Blood (MOE) - Final, Complete MAGGIE REILLY MD Oct 26, 2018 11:50
[2018-10-26 14:00] VITALS: BP 113/65
[2018-10-26 18:00] VITALS: BP 109/69
[2018-10-26] MEDS: LEVEMIR (INSULIN DETEMIR) 1 UNITS/0.01ML SC SCH (20:44)
[2018-10-26] MEDS: SENOKOT S TAB PO SCH (20:58)
[2018-10-26] MEDS: SIMVASTATIN 40 MG TAB PO SCH (21:03)
[2018-10-26] MEDS: ACETAMINOPHEN TAB 650MG DOSE (2X325MG) PO PRN (21:04)
[2018-10-26 22:00] VITALS: BP 145/75
[2018-10-27 02:00] VITALS: BP 133/70
[2018-10-27] MEDS: LEVOTHYROXINE 75MCG TABLET (0.075MG) PO SCH (05:28)
[2018-10-27] MEDS: NORCO, ANEXSIA 5/325MG TABLET (HYDROcodone/ACETAMINOPHEN) PO PRN ×3 (05:28→14:20)
[2018-10-27 06:00] VITALS: BP 108/68
[2018-10-27 06:09] LABS: HEMATOCRIT 27.9 % (42.0-52.0); HEMOGLOBIN 8.8 g/dl (13.5-17.5); MEAN CORPUSCULAR HEMOGLOBIN 28.7 pg (27.0-33.0); MEAN CORPUSCULAR HGB CONC 31.5 g/dl (32.0-36.5); MEAN CORPUSCULAR VOLUME 90.9 fl (80.0-96.0); PLATELET COUNT, AUTOMATED 547 10^3/uL (150-450); RED BLOOD COUNT 3.07 10^6/uL (4.30-6.10)
[2018-10-27 06:36] LABS: BLOOD UREA NITROGEN 15 MG/DL (7-18); CALCIUM LEVEL 8.4 MG/DL (8.8-10.2); CARBON DIOXIDE LEVEL 26 MEQ/L (21-32); CHLORIDE LEVEL 100 MEQ/L (98-107); CREATININE FOR GFR 0.73 MG/DL (0.70-1.30); GLOMERULAR FILTRATION RATE > 60.0 (>42); GLUCOSE, FASTING 195 MG/DL (70-100); POTASSIUM SERUM 5.1 MEQ/L (3.5-5.1); SODIUM LEVEL 134 MEQ/L (136-145)
[2018-10-27 08:20] VITALS: BP 108/68
[2018-10-27] MEDS: amLODIPine 10 MG TAB PO SCH (08:20)
[2018-10-27] MEDS: HumaLOG INSULIN (NovoLOG) PER UNIT SC SCH ×2 (08:20→13:29)
[2018-10-27] MEDS: RIVAROXABAN 15 MG TAB (XARELTO) PO SCH (08:20)
[2018-10-27] MEDS: FERROUS SULFATE 325MG TAB PO SCH (08:20)
[2018-10-27] MEDS: PANTOPRAZOLE 40MG TAB (PROTONIX) PO SCH (08:21)
[2018-10-27] MEDS: LACTOBACILLUS ACIDOPHILUS CAP (BACID) PO SCH (08:21)
[2018-10-27] MEDS: DOCUSATE SODIUM 100 MG CAP PO SCH (08:23)
[2018-10-27] MEDS: NYSTATIN 100,000 UNITS/GM TOPICAL PWD 15 GM TOP SCH (08:24)
[2018-10-27 10:00] VITALS: BP 116/69
--- NOTE | 2018-10-27 10:07 | IPNPDOC ---
Subjective Date Seen The patient was seen on 10/27/18. Subjective Chief Complaint/HPI Patient seen and examined at the bedside. He is noted to have some serosanguineous drainage from the right AKA, but denies any acute complaints at this time. Reports that his pain is relatively controlled at this time. No acute overnight events noted otherwise. The patient is awaiting possible acute rehabilitation placement. Objective Physical Examination General Exam: Positive: Alert, Cooperative, No Acute Distress ENT Exam: Positive: Atraumatic, Mucous membr. moist/pink Neck Exam: Negative: JVD Chest Exam: Positive: Clear to auscultation, Normal air movement Heart Exam: Positive: Rate Normal, Normal S1, Normal S2 Abdomen Exam: Positive: Soft; Negative: Tenderness Extremity Exam: Positive: Other (RLE above the knee amputated. 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 Cruz of Vascular surgery on board Will cont to follow up with recommendations from Vascular Sx Streptococcus Anginosus Bacteremia/Septicemia 2/2 Above Blood culture 2 notable for Streptococcus Anginosus from 10/10 Repeat Blood culture x 2 negative from 10/12 2D ECHO with no vegetations noted Wound culture notable for Streptococcus Anginosus, Klebsiella s/p completion of IV Rocephin course Lactic acidosis 2/2 Above, resolved s/p IVF Hydration Normocytic Anemia Patient noted to be anemic following procedure on 10/22-->Transfused 2 Units of PRBC's Hgb stable this AM Continue iron supplementation We will transfuse PRBC's as indicated Hypertension Cont on Norvasc GERD Protonix Hypothyroidism Continue levothyroxine Rheumatoid arthritis Follow up as outpatient Dyslipidemia Continue statin Deep vein thrombosis (DVT) prophylaxis On Xarelto. Dispo--pending clinical improvement, PT clearance. May possibly need Acute Rehab. PFS on board. VS, I&O, 24H, Fishbone Vital Signs/I&O Vital Signs Date Time Temp Pulse Resp B/P (MAP) Pulse Ox O2 Delivery O2 Flow Rate FiO2 10/27/18 08:20 89 108/68 10/27/18 06:00 97.8 17 100 Room Air I&O- Last 24 Hours up to 6 AM 10/27/18 06:00 Intake Total 1140 ml Output Total 525 ml Balance 615 ml Laboratory Data 24H LABS Laboratory Tests 2 10/26/18 12:15: Bedside Glucose (Misc Panel) 176H 10/26/18 16:44: Bedside Glucose (Misc Panel) 161H 10/26/18 20:34: Bedside Glucose (Misc Panel) 122H 10/27/18 05:23: Nucleated Red Blood Cells % (auto) 0.0, Anion Gap 8, Glomerular Filtration Rate > 60.0, Blood Urea Nitrogen 15#, Creatinine 0.73, Sodium Level 134L, Potassium Level 5.1#, Chloride Level 100, Carbon Dioxide Level 26, Calcium Level 8.4L CBC/BMP Laboratory Tests 10/27/18 05:23 Red Blood Count 3.07 L, Mean Corpuscular Volume 90.9, Mean Corpuscular Hemoglobin 28.7, Mean Corpuscular Hemoglobin Concent 31.5 L, Red Cell Distribution Width 15.6 H, Calcium Level 8.4 L Microbiology Microbiology 10/17/18 Stool Occult Blood (MOE) - Final, Complete MAGGIE REILLY MD Oct 27, 2018 10:07
[2018-10-27] MEDS: ONDANSETRON 4MG/2ML VIAL (J2405) IV PRN (11:09)
--- NOTE | 2018-10-27 11:48 | DS.PDOC ---
Discharge Summary General Date of Admission Oct 10, 2018 at 18:00 Date of Discharge 10/27/18 Discharge Summary PROCEDURES PERFORMED DURING STAY: s/p Right BKA on 10/19, s/p Right AKA on 10/[address] Cruz of Vascular Surgery ADMITTING/DISCHARGE DIAGNOSES: Osteomyelitis involving First through Fourth Metatarsals on Right 2/2 Underlying RLE Ischemia, PVD s/p Right BKA on 10/19 s/p Right AKA on 10/22 Streptococcus Anginosus Bacteremia/Septicemia 2/2 Above Lactic acidosis 2/2 Above Normocytic anemia Hypertension GERD Hypothyroidism Rheumatoid arthritis Dyslipidemia COMPLICATIONS/CHIEF COMPLAINT: Osteomyelitis Of Foot. HISTORY OF PRESENT ILLNESS: . 73-year-old male with past medical history of hypertension, GERD, hypothyroidism, rheumatoid arthritis, diabetes, peripheral vascular disease status post right leg from/pop bypass in October 2017, right lower extremity thrombolysis and angioplasty February 2018, and right transmetatarsal amputation in May 2018 presented to the ER with a chief complaint of fever, chills, vomiting, and generalized weakness. In the ER, the patient was noted to be tac hycardic, febrile, with an elevated white blood cell count. Blood cultures were drawn, and the patient was started on empiric IV antibiotic therapy. Imaging revealed erosive changes in the absence of uncovering soft tissue consistent with osteomyelitis involving first through fourth metatarsals. The patient was admitted to the hospitalist service, and a consult was placed to vascular surgery for further evaluation. During hospitalization, the patient's blood cultures were noted to be positive f or streptococcus anginosus and he completed a 14 day trial of Rocephin. Vascular surgery was also on consult and took the patient for a right gmccs-lcm-bdxj amputation on 10/19, and a subsequent nkbzt-npm-[id number] amputation on the right on 10/22. At this time, the patient has remained hemodynamically stable and has not had any acute complications following surgery. Physical therapy has evaluated the patient and has recommended acute rehabilitation. The patient will be discharged to the acute rehabilitation unit. He has been advised to follow-up with primary care physician and vascular surgery within 7 days. Lastly, the patient is to return to the ER for any acute emergencies. DISCHARGE MEDICATIONS: Please see below. ALLERGIES: Please see below. PHYSICAL EXAMINATION ON DISCHARGE: VITAL SIGNS: Please see below. General Exam: Positive: Alert, Cooperative, No Acute Distress ENT Exam: Positive: Atraumatic, Mucous membr. moist/pink Neck Exam: Negative: JVD Chest Exam: Positive: Clear to auscultation, Normal air movement Heart Exam: Positive: Rate Normal, Normal S1, Normal S2 Abdomen Exam: Positive: Soft; Negative: Tenderness Extremity Exam: Positive: Other (RLE above the knee amputated. Wound with renato intact appears clean and dry.); Negative: Swelling Psych Exam: Positive: Oriented x 3 LABORATORY DATA: Please see below. IMAGING: Right foot: Four views. History: Fever, wound. Comparison: Right foot radiographs are from June 25, 2014. Findings: Transmetatarsal osteotomies have been performed in the interval since the 2014 prior studies of all five digits. There is no discernible soft tissue coverage of the distal stumps of the remaining first metatarsal and the limited soft tissue is seen over the remainder of the amputated metatarsals. Soft ti ssue deficit and irregularity is seen. Vascular calcifications noted. There is irregular erosive change in the remaining distal first through fourth metatarsals. There is focal radiolucency in the proximal end of the first metatarsal. Findings are consistent with osteomyelitis. No definite soft tissue gas is seen. Impression: Vascular calcification. Transmetatarsal osteotomies. Erosive changes and absence of uncovering soft tissue consistent with osteomyelitis at least involving first through fourth metatarsals. AP LATERAL CHEST: 10/10/2018. Comparison: 01/16/2018. Clinical history: Fever and dyspnea. Findings: Some eventration and slight elevation of the right diaphragm compared to the previous study. Some minor basilar atelectatic change adjacent to it in the right mid lower lung zone. No dense consolidation or definite effusion. No visible parenchymal mass. Heart is not enlarged. Aorta is mildly tortuous. Airway is intact. Degenerative changes in the spine from its mid through lower most levels with anterior osteophytes. No visible fracture or gross compression deformities. No free air. Impression: 1. Slight volume loss in the right hemithorax and elevation of the right diaphragm compared to previous study and some adjacent subsegmental atelectasis. No dense consolidation or effusion. 2. No gross cardiomegaly, effusion, lavinia edema or other acute finding. The aorta is mildly tortuous but normal for age. Degenerative changes throughout the spine. PROGNOSIS: Fair ACTIVITY: As tolerated. DIET: Carb consistent diet DISCHARGE PLAN: DISPOSITION: . Acute rehabilitation unit DISCHARGE INSTRUCTIONS: The patient will be discharged to the acute rehabilitation unit. He has been advised to follow-up with primary care physician and vascular surgery within 7 days. Lastly, the patient is to return to the ER for any acute emergencies. DISCHARGE CONDITION: Stable. TIME SPENT ON DISCHARGE: Greater than 30 minutes. Vital Signs/I&Os Vital Signs Date Time Temp Pulse Resp B/P (MAP) Pulse Ox O2 Delivery O2 Flow Rate FiO2 10/27/18 11:19 20 10/27/18 10:00 97.7 93 116/69 (85) 98 Room Air I&O- Last 24 Hours up to 6 AM 10/27/18 06:00 Intake Total 1140 ml Output Total 525 ml Balance 615 ml Laboratory Data Labs 24H Laboratory Tests 2 10/26/18 12:15: Bedside Glucose (Misc Panel) 176H 10/26/18 16:44: Bedside Glucose (Misc Panel) 161H 10/26/18 20:34: Bedside Glucose (Misc Panel) 122H 10/27/18 05:23: Nucleated Red Blood Cells % (auto) 0.0, Anion Gap 8, Glomerular Filtration Rate > 60.0, Blood Urea Nitrogen 15#, Creatinine 0.73, Sodium Level 134L, Potassium Level 5.1#, Chloride Level 100, Carbon Dioxide Level 26, Calcium Level 8.4L CBC/BMP Laboratory Tests 10/27/18 05:23 Red Blood Count 3.07 L, Mean Corpuscular Volume 90.9, Mean Corpuscular Hemoglobin 28.7, Mean Corpuscular Hemoglobin Concent 31.5 L, Red Cell Distribution Width 15.6 H, Calcium Level 8.4 L FSBS Laboratory Tests Test 10/26/18 12:15 10/26/18 16:44 10/26/18 20:34 Range/Units Bedside Glucose (Misc Panel) 176 161 122 83-110 MG/DL Microbiology Microbiology 10/17/18 Stool Occult Blood (MOE) - Final, Complete Discharge Medications Scheduled Amlodipine Besylate (Amlodipine Besylate) 5 Mg Tab, 5 MG PO DAILY, (Reported) Docusate Sod/Senna (Senna S 8.6-50 mg) 1 Tab Tab, 2 TAB PO QPM, (Reported) Ferrous Sulfate (Ferrous Sulfate) 325 Mg Tab, 325 MG PO BID, (Reported) Hydroxychloroquine Sulfate (Hydroxychloroquine Sulfat) 200 Mg Tab, 200 MG PO BID, (Reported) Insulin Aspart (Novolog) 100 U/Ml Inj, 1 DOSE SC AC, (Reported) PER SLIDING SCALE BS <200 NO INSULIN Insulin Glargine (Lantus Solostar) 100 Unit/Ml Inj, 1 DOSE SC QPM, (Reported) TAKES 20-25 UNITS DEPENDING ON BLOOD SUGAR. Levothyroxine Sodium (Synthroid) 75 Mcg Tab, 75 MCG PO DAILY, (Reported) Lisinopril (Lisinopril) 10 Mg Tab, 15 MG PO DAILY, (Reported) Metformin Hydrochloride (Metformin HCl) 1,000 Mg Tab, 1,000 MG PO BID, (Reported) Rivaroxaban (Xarelto) 15 Mg Tab, 15 MG PO BID, (Reported) Simvastatin - High Dose (Simvastatin) 40 Mg Tab, 40 MG PO QHS, (Reported) Scheduled PRN Acetaminophen (Acetaminophen Extra Stren) 500 Mg Tab, 1,000 MG PO ASDIRECTED PRN for PAIN, (Reported) Folic Acid (Folic Acid) 1 Mg Tab, 1 MG PO DAILY PRN for MOUTH SORES, (Reported) Prednisone (Prednisone) 5 Mg Tab, 5 MG PO DAILY PRN for RHEUMATOID ARTHRITIS, (Reported) Tramadol HCl (Tramadol HCl) 50 Mg Tab, 100 MG PO Q8H PRN for PAIN, (Reported) Allergies Coded Allergies: No Known Allergies (Unverified , 11/14/17) MAGGIE REILYL MD Oct 27, 2018 11:48
[2018-10-27 14:00] VITALS: BP 120/66
== END 2018-10-27 14:40 | DRG 854 ==
LOC: M ED 14:54 → M ED INP 18:00 → M MSPAV 20:26
PROVIDERS: ADMIT Hospitalist; ATTEND Internal Medicine
PROC: 3E033VJ Introduction of Other Hormone into Peripheral Vein, Percutaneous Approach (ICD-10-PCS; 2018-10-11)
PROC: 0Y6H0Z3 Detachment at Right Lower Leg, Low, Open Approach (ICD-10-PCS; principal; 2018-10-14 14:45)
PROC: 0Y6H0Z2 Detachment at Right Lower Leg, Mid, Open Approach (ICD-10-PCS; 2018-10-22)
DX: A40.9 Streptococcal sepsis, unspecified (principal); E87.2 Acidosis; M86.171 Other acute osteomyelitis, right ankle and foot; E11.51 Type 2 diabetes mellitus with diabetic peripheral angiopathy without gangrene; E11.69 Type 2 diabetes mellitus with other specified complication; K21.9 Gastro-esophageal reflux disease without esophagitis; E78.5 Hyperlipidemia, unspecified; M06.9 Rheumatoid arthritis, unspecified; E03.9 Hypothyroidism, unspecified; D64.9 Anemia, unspecified; Z79.899 Other long term (current) drug therapy; Z79.4 Long term (current) use of insulin

== ENCOUNTER 2018-10-27 13:53 | Inpatient (IN) | payer MEDICARE ==
[~2018-10-27] VITALS: Ht 172.7 cm; Wt 48.8 kg
[~2018-10-27 13:53] MED LIST changes: +ACET-683 PO; +LANTINJ4 SC; +SENN8.6T7 PO; +TRAM50TA2 PO
[2018-10-27 15:45] VITALS: BP 107/71
[2018-10-27] MEDS ORDERED: MOM 30ML SUSPENSION UDC PO PRN (16:15)
[2018-10-27] MEDS ORDERED: GLUCOSE 4 GM CHEW TABLET PO PRN (16:15)
[2018-10-27] MEDS ORDERED: ACETAMINOPHEN 500 MG TAB PO PRN (16:15)
[2018-10-27] MEDS ORDERED: ONDANSETRON 4 MG TAB (S0181) PO PRN (16:15)
[2018-10-27] MEDS ORDERED: GLUCAGON FOR INJ 1 MG VIAL (J1610) SC PRN (16:15)
[2018-10-27] MEDS ORDERED: DEXTROSE 50% 50 ML SYRINGE IV PRN (16:15)
[2018-10-27] MEDS ORDERED: BISACODYL 10 MG SUPP PR PRN (16:15)
[2018-10-27] MEDS: HumaLOG INSULIN (NovoLOG) PER UNIT SC SCH (17:30)
[2018-10-27] MEDS: RIVAROXABAN 15 MG TAB (XARELTO) PO SCH (17:57)
[2018-10-27] MEDS: NORCO, ANEXSIA 5/325MG TABLET (HYDROcodone/ACETAMINOPHEN) PO PRN ×2 (17:58→22:06)
[2018-10-27 20:00] VITALS: BP 130/62
[2018-10-27] MEDS: NYSTATIN 100,000 UNITS/GM TOPICAL PWD 15 GM TOP SCH (21:00)
[2018-10-27] MEDS: SENOKOT S TAB PO SCH (21:00)
[2018-10-27] MEDS ORDERED: LEVEMIR (INSULIN DETEMIR) 1 UNITS/0.01ML SC SCH (21:00)
[2018-10-27] MEDS: FERROUS GLUCONATE 324 MG TAB PO SCH (22:04)
[2018-10-27] MEDS: LACTOBACILLUS ACIDOPHILUS CAP (BACID) PO SCH (22:04)
[2018-10-27] MEDS: SIMVASTATIN 40 MG TAB PO SCH (22:05)
[2018-10-28] MEDS: NORCO, ANEXSIA 5/325MG TABLET (HYDROcodone/ACETAMINOPHEN) PO PRN ×2 (02:28→09:32)
[2018-10-28] MEDS ORDERED: NORCO, ANEXSIA 5/325MG TABLET (HYDROcodone/ACETAMINOPHEN) PO ONE (03:15)
[2018-10-28 06:00] VITALS: BP 125/66
[2018-10-28] MEDS: LEVOTHYROXINE 75MCG TABLET (0.075MG) PO SCH (06:16)
[2018-10-28 06:25] LABS: BASO # 0.1 10^3/uL (0.0-0.2); BASO % 1.4 % (0.0-1.0); EOS # 0.1 10^3/uL (0.0-0.50); HEMATOCRIT 24.2 % (42.0-52.0); LYMPH # 1.4 10^3/uL (1.5-4.5); LYMPH % 20.5 % (24.0-44.0); MEAN CORPUSCULAR HEMOGLOBIN 28.8 pg (27.0-33.0); MEAN CORPUSCULAR HGB CONC 33.1 g/dl (32.0-36.5); MEAN CORPUSCULAR VOLUME 87.1 fl (80.0-96.0); MONO # 0.7 10^3/uL (0.0-0.8); MONO % 9.5 % (0.0-5.0); NEUTROPHILS # 4.6 10^3/uL (1.8-7.7); NEUTROPHILS % 66.2 % (36.0-66.0); PLATELET COUNT, AUTOMATED 511 10^3/uL (150-450); RED BLOOD COUNT 2.78 10^6/uL (4.30-6.10); WHITE BLOOD COUNT 6.9 10^3/uL (4.0-10.0)
[2018-10-28 06:48] LABS: ALBUMIN 2.1 GM/DL (3.2-5.2); ALT/SGPT 27 U/L (12-78); BILIRUBIN,TOTAL 0.4 MG/DL (0.2-1.0); BLOOD UREA NITROGEN 22 MG/DL (7-18); CALCIUM LEVEL 8.6 MG/DL (8.8-10.2); CARBON DIOXIDE LEVEL 26 MEQ/L (21-32); CHLORIDE LEVEL 102 MEQ/L (98-107); CREATININE FOR GFR 0.78 MG/DL (0.70-1.30); GLOMERULAR FILTRATION RATE > 60.0 (>42); GLUCOSE, FASTING 53 MG/DL (70-100); SODIUM LEVEL 135 MEQ/L (136-145); TOTAL PROTEIN 6.3 GM/DL (6.4-8.2)
[2018-10-28] MEDS: HumaLOG INSULIN (NovoLOG) PER UNIT SC SCH ×3 (07:30→18:08)
[2018-10-28] MEDS: NYSTATIN 100,000 UNITS/GM TOPICAL PWD 15 GM TOP SCH ×2 (09:00→21:37)
[2018-10-28] MEDS: SENOKOT S TAB PO SCH ×2 (09:00→21:37)
[2018-10-28] MEDS: LACTOBACILLUS ACIDOPHILUS CAP (BACID) PO SCH ×2 (09:32→21:35)
[2018-10-28] MEDS: PANTOPRAZOLE 40MG TAB (PROTONIX) PO SCH (09:33)
[2018-10-28] MEDS: FERROUS GLUCONATE 324 MG TAB PO SCH ×2 (09:33→21:35)
[2018-10-28] MEDS: predniSONE 5 MG TAB PO SCH (09:33)
[2018-10-28] MEDS: amLODIPine 10 MG TAB PO SCH (09:33)
[2018-10-28] MEDS: FOLIC ACID 1 MG TAB PO SCH (09:33)
[2018-10-28] MEDS: RIVAROXABAN 15 MG TAB (XARELTO) PO SCH ×2 (09:33→18:06)
--- NOTE | 2018-10-28 10:17 | HPEPDOC ---
Offal Baler Note DATE OF ADMISSION: Oct 27, 2018 at 15:23 SOURCE OF ADMISSION INFORMATION: patient and [facility] records CHIEF COMPLAINT: right AKA HISTORY OF PRESENT ILLNESS: 73M pmh DM2 with neuropathy, RA, hypothyroidism, HTN, peripheral vascular disease, s/p right leg Femoral-Popliteal Artery bypass in October 2017 with a right toe amputation and non-healing foot wound followed by Dr. Kasper and was admitted to [facility] on 10/10/18 for fevers and chills. He was found to have leukocytosis and anemia with Foot X-rays showed, Vascular calcification. Transmetatarsal osteotomies. Erosive changes and absence of uncovering soft tissue consistent with osteomyelitis at least involving first through fourth metatarsals. Blood cultures from 10/10/18 grew Strep Anginosus x2 and his wound culture grew Strep Anginosus and Klebsiella for which he was placed on IV Rocephin. Repeat blood cultures on 10/12/18 were negative and ECHO on 10/12/18 showed , Normal left ventricle (LV) size and systolic function, grade 1 diastolic dysfunctionat least moderate pulmonary hypertensionAtrial septal aneurysm of no clinical significanceNo vegetations were seen. He was evaluated by vascular surgery and cleared by cardiology for a BKA performed on 10/19/18 and later an AKA on 10/22/18. after which he received 2 units of prbcs for his anemia. He was evaluated by therapy, noted to have significant impairments in ADLs and gait and deemed medically appropriate for discharge to on 10/27/18. REVIEW OF SYSTEMS: The following is a completed review of systems and has been reviewed. Review of systems otherwise unremarkable. PAIN: Patient self reports right limb and sacral pain EYES: [Negative for recent vision changes EARS, NOSE, & THROAT: negative for dysphagia, throat pain or rhinorrhea CARDIOVASCULAR: denies chest pain or palpitations PULMONARY: Negative. Denies shortness of breath. GASTROINTESTINAL: +nausea, no constipation or diarrhea GENITOURINARY: no dysuria or incontinence MUSCULOSKELETAL: right AKA. NEUROLOGICAL:no tremor or focal weakness HEMATOLOGICAL: +anemia SKIN: sacral ulcer and right AKA renato PSYCHIATRIC: Unremarkable All other review of systems found to be negative. PAST MEDICAL HISTORY: DM2 with neuropathy, RA, hypothyroidism, HTN, peripheral vascular disease PAST SURGICAL HISTORY: Tonsillectomy, right toe amputation ALLERGIES: Please see below. MEDICATIONS: Please see below. FAMILY HISTORY: Father with prostate cancer, mother with diabetes and CVA SOCIAL HISTORY: former ETOH drinker, no smoking, illicit drugs, retired DIET: Regular PHYSICAL EXAMINATION: VITAL SIGNS: Please see below. GENERAL: Pleasant and cooperative. No acute distress. HEENT: PERRL. Extraocular movements intact. Clear conjunctiva CARDIOVASCULAR: Regular rate and rhythm. No murmurs, rubs, or gallops LUNGS: Clear to auscultation bilaterally. No wheezes. No rhonchi ABDOMEN: Soft, nontender, nondistended. Positive bowel sounds. Normal active bowel sounds NEUROLOGICAL: Alert and oriented times three. Cranial nerves II through XII grossly intact. Sensation grossly intact in bilat UE, diminished LLE EXTREMITIES: 5/5 strength bilateral upper extremities. 5\5 strength right hip flexion and abduction. 5-/5 strength in left lower extremity. SKIN: right AKA renato with mild erythema at the medial aspect, +sacral ulcer IMAGING: Imaging documentation personally reviewed by record FUNCTIONAL STATUS: Premorbid: Independent with all activities of daily life as well as mobility. On Admission: Min assist for bed mobility, Mod-Max assist for functional transfers, Max assist for ambulation. GOALS: Mod-I ambulation with RW, Mod-I for functional transfers, bathing, toileting, dressing, educate on limb care, desensitization therapy, pain control, medical optimization, assess for DME needs, family training. ASSESSMENT:73-year-old M with past medical history of PVD and DM who presents status post right AKA. PLAN: 1. rehab: PT/OT, assess for DME, NWB RLE 2. 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 Kasper and Dr. Cruz- will need outpatient f/u -pmh diastolic CHF, continue diuretics and beta blockers -pmh HTN continue meds, adjust as needed- will consult medicine 3. Resp: encourage incentive spirometry and monitor for signs of respiratory infection 4. ID: s/p IV Rocephin for Strep Anginosus septicemia 5. Endo: pmh Hypothyroidism- continue Synthroid 6. Rheum: pmg RA continue prednisone 7. Heme: anemia of chronic disease with recent post-op blood loss anemia s/p rbcs, will monitor and continue Iron supplements. 8. DVT ppx: on Xarelto 9. Pain: Tylenol and oxycodone prn, will add gabapentin 10. Skin: sacral ulcer on admision, continue to offload and apply optifoam, daily residual limb dressings 11. Dispo: TBD POST ADMISSION PHYSICIAN EVALUATION: Medical and functional status: Description of medical status, medical assessment: As above. Rehabilitation diagnosis and current and prior cold morbid medical conditions as above. Risk of complications and plans to mitigate them as above. Description of functional status current status is as above. Prior status as above. Status compared to preadmission: There are no clinically significant differences between the patient's current status and the information described on the preadmission screening document. Treatment plan anticipated: Treatment plan is as described above. Required disciplines including physical therapy, occupational therapy, others as noted above. Intensity of services: 3 hours a day, 6 days a week. Special considerations: There are no specific special or safety considerations that would likely preclude immediate implementation of an intensive rehabilitation program or subsequently influence the plan of care. ATTESTATION: Considering all the information above, it is my best judgment that this patient requires intensive rehabilitation therapy as described above and an inpatient hospital environment due to the complexity of nursing, medical, and rehabilitation needs required by the patient. Furthermore, this patient can reasonably be expected to participate in an benefit from an inpatient rehabilitation stay with an interdisciplinary team approach to the delivery of rehabilitation care under the direction and supervision of rehabilitation physician PROGNOSIS: Excellent ESTIMATED LENGTH OF STAY:12-16 days. PROJECTED DISCHARGE DESTINATION: Home with family support and any durable medical equipment required to increase functional safety and mobility. TIME SPENT COUNSELING AND COORDINATING INITIAL CARE: Greater than 70 minutes. Vital Signs Vital Sign - Last 24 Hours 10/27/18 10/27/18 10/27/18 15:45 16:12 17:58 Temp 97.2 Pulse 104 Resp 20 18 16 B/P (MAP) 107/71 (83) Pulse Ox 98 O2 Delivery Room Air Room Air Home Medications Scheduled Amlodipine Besylate (Amlodipine Besylate) 5 Mg Tab, 5 MG PO DAILY, (Reported) Docusate Sod/Senna (Senna S 8.6-50 mg) 1 Tab Tab, 2 TAB PO QPM, (Reported) Ferrous Sulfate (Ferrous Sulfate) 325 Mg Tab, 325 MG PO BID, (Reported) Hydroxychloroquine Sulfate (Hydroxychloroquine Sulfat) 200 Mg Tab, 200 MG PO BID, (Reported) Insulin Aspart (Novolog) 100 U/Ml Inj, 1 DOSE SC AC, (Reported) PER SLIDING SCALE BS <200 NO INSULIN Insulin Glargine (Lantus Solostar) 100 Unit/Ml Inj, 1 DOSE SC QPM, (Reported) TAKES 20-25 UNITS DEPENDING ON BLOOD SUGAR. Levothyroxine Sodium (Synthroid) 75 Mcg Tab, 75 MCG PO DAILY, (Reported) Lisinopril (Lisinopril) 10 Mg Tab, 15 MG PO DAILY, (Reported) Metformin Hydrochloride (Metformin HCl) 1,000 Mg Tab, 1,000 MG PO BID, (Reported) Rivaroxaban (Xarelto) 15 Mg Tab, 15 MG PO BID, (Reported) Simvastatin - High Dose (Simvastatin) 40 Mg Tab, 40 MG PO QHS, (Reported) Scheduled PRN Acetaminophen (Acetaminophen Extra Stren) 500 Mg Tab, 1,000 MG PO ASDIRECTED PRN for PAIN, (Reported) Folic Acid (Folic Acid) 1 Mg Tab, 1 MG PO DAILY PRN for MOUTH SORES, (Reported) Prednisone (Prednisone) 5 Mg Tab, 5 MG PO DAILY PRN for RHEUMATOID ARTHRITIS, (Reported) Tramadol HCl (Tramadol HCl) 50 Mg Tab, 100 MG PO Q8H PRN for PAIN, (Reported) Allergies Coded Allergies: No Known Allergies (Unverified , 11/14/17) MAGDI ADAMS MD Oct 27, 2018 20:04
[2018-10-28] MEDS: oxyCODONE 5MG TAB PO PRN (13:14)
[2018-10-28 14:00] VITALS: BP 129/59
--- NOTE | 2018-10-28 14:28 | IPNPDOC ---
Date Seen The patient was seen on 10/28/18. Progress Note HPI: 73-year-old male with past medical history of hypertension, GERD, hypothyroidism, rheumatoid arthritis, diabetes, peripheral vascular disease status post right leg from/pop bypass in October 2017, right lower extremity thrombolysis and angioplasty February 2018, and right transmetatarsal amputation in May 2018 presented to the ER with a chief complaint of fever, chills, vomiting, and generalized weakness. In the ER, the patient was noted to be tachycardic, febrile, with an elevated white blood cell count. Blood cultures were drawn, and the patient was started on empiric IV antibiotic therapy. Imaging revealed erosive changes in the absence of uncovering soft tissue consistent with osteomyelitis involving first through fourth metatarsals. The patient was admitted to the hospitalist service, and a consult was placed to vascular surgery for further evaluation. During hospitalization, the patient's blood cultures were noted to be positive for streptococcus anginosus and he c ompleted a 14 day course of Rocephin. Vascular surgery was also on consult and took the patient for a right [id number]-ndb-lqrz amputation on 10/19, and a subsequent ktjzd-gug-atjr amputation on the right on 10/22. The patient was transferred to the acute rehabilitation unit 10/27/18 to the care of Dr Vale. PE: GEN: 73yoM, appears stated age. Alert and oriented x 3. HEENT: Normocephalic, atraumatic. Sclera are nonicteric. Conjunctiva without injection. Moist mucous membranes. CHEST: Regular rate and rhythm, +S1, +S2 LUNGS: Clear to auscultation bilaterally. No wheezes, rales, or rhonchi. ABD: Round, soft, non-tender, non-distended. +Bowel sounds throughout. No c ostovertebral angle tenderness. EXT: No Left lower extremity edema appreciated. Rt AKA. SKIN: [place], dry, warm. NEURO: Alert and oriented x 3. No focal deficits appreciated. A&P: 73-year-old male with past medical history of hypertension, GERD, hypothyroidism, rheumatoid arthritis, diabetes, peripheral vascular disease status post right leg from/pop bypass in October 2017, right lower extremity thrombolysis and angioplasty February 2018, and right transmetatarsal amputation in May 2018 presented to the ER with a chief complaint of fever, chills, vomiting, and generalized weakness. In the ER, the patient was noted to be tachycardic, febrile, with an elevated white blood cell count. Blood cultures were drawn, and the patient was started on empiric IV antibiotic therapy. Imaging revealed erosive changes in the absence of uncovering soft tissue consistent with osteomyelitis involving first through fourth metatarsals. The patient was admitted to the hospitalist service, and a consult was placed to vascular surgery for further evaluation. During hospitalization, the patient's blood cultures were noted to be positive for streptococcus anginosus and he completed a 14 day course of Rocephin. Vascular surgery was also on consult and took the patient for a right jtdor-agy-fqcn amputation on 10/19, and a subsequent erbzh-ash-ympu amputation on the right on 10/22. The patient was transferred to the acute rehabilitation unit 10/27/18 to the care of Dr Vale. 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 Cruz of Vascular surgery. PT/OT as per Dr Kavin VERNON. Pain control as per Dr Kavin VERNON. Bowel care as per Dr Kavin VERNON. DVT prophylaxis, on Xarelto Streptococcus Anginosus Bacteremia/Septicemia 2/2 Above Blood culture 2 notable for Streptococcus Anginosus from 10/10 Repeat Blood culture x 2 negative from 10/12 2D ECHO with no vegetations noted Wound culture notable for Streptococcus Anginosus, Klebsiella s/p completion of IV Rocephin course Normocytic Anemia Patient noted to be anemic following procedure on 10/22. S/P 1 u PRBC 10/22 and 2 U 10/23/18. Hgb 8.0 Continue iron supplementation Monitor need for transfusion. Hypertension Cont on Norvasc GERD Protonix Hypothyroidism Continue levothyroxine Rheumatoid arthritis Follow up as outpatient Dyslipidemia Continue statin IDDM. BS 40 this AM. CC diet. SSI Reduce Levemir to 5 u HS. Monitor. VS, I&O, 24H, Fishbone Vital Signs/I&O Vital Signs Date Time Temp Pulse Resp B/P (MAP) Pulse Ox O2 Delivery O2 Flow Rate FiO2 10/28/18 13:14 16 10/28/18 10:02 Room Air 10/28/18 09:33 76 125/66 10/28/18 06:00 98.1 97 I&O- Last 24 Hours up to 6 AM 10/28/18 06:00 Intake Total 600 ml Output Total 200 ml Balance 400 ml Laboratory Data 24H LABS Laboratory Tests 2 10/27/18 20:08: Bedside Glucose (Misc Panel) 142H 10/28/18 06:05: Immature Granulocyte % (Auto) 0.4, White Blood Count 6.9, Red Blood Count 2.78L, Hemoglobin 8.0L, Hematocrit 24.2L, Mean Corpuscular Volume 87.1, Mean Corpuscular Hemoglobin 28.8, Mean Corpuscular Hemoglobin Concent 33.1, Red Cell Distribution Width 15.1H, Platelet Count 511H, Neutrophils (%) (Auto) 66.2H, Lymphocytes (%) (Auto) 20.5L, Monocytes (%) (Auto) 9.5H, Eosinophils (%) (Auto) 2.0, Basophils (%) (Auto) 1.4H, Neutrophils # (Auto) 4.6, Lymphocytes # (Auto) 1.4L, Monocytes # (Auto) 0.7, Eosinophils # (Auto) 0.1, Basophils # (Auto) 0.1, Nucleated Red Blood Cells % (auto) 0.0, Anion Gap 7L, Glomerular Filtration Rate > 60.0, Blood Urea Nitrogen 22H, Creatinine 0.78, Sodium Level 135L, Potassium Level 5.0, Chloride Level 102, Carbon Dioxide Level 26, Calcium Level 8.6L, Aspartate Amino Transf (AST/SGOT) 30, Alanine Aminotransferase (ALT/SGPT) 27, Alkaline Phosphatase 140H, Total Bilirubin 0.4, Total Protein 6.3L, Albumin 2.1L, Albumin/Globulin Ratio 0.50L 10/28/18 06:38: Bedside Glucose (Misc Panel) 40L 10/28/18 07:15: Bedside Glucose (Misc Panel) 89 10/28/18 09:34: Bedside Glucose (Misc Panel) 177H 10/28/18 11:42: Bedside Glucose (Misc Panel) 179H CBC/BMP Laboratory Tests 10/28/18 06:05 Red Blood Count 2.78 L, Mean Corpuscular Volume 87.1, Mean Corpuscular Hemoglobin 28.8, Mean Corpuscular Hemoglobin Concent 33.1, Red Cell Distribution Width 15.1 H, Neutrophils (%) (Auto) 66.2 H, Lymphocytes (%) (Auto) 20.5 L, Monocytes (%) (Auto) 9.5 H, Eosinophils (%) (Auto) 2.0, Basophils (%) (Auto) 1.4 H, Neutrophils # (Auto) 4.6, Lymphocytes # (Auto) 1.4 L, Monocytes # (Auto) 0.7, Eosinophils # (Auto) 0.1, Basophils # (Auto) 0.1, Calcium Level 8.6 L, Aspartate Amino Transf (AST/SGOT) 30, Alanine Aminotransferase (ALT/SGPT) 27, Alkaline Phosphatase 140 H, Total Bilirubin 0.4, Total Protein 6.3 L, Albumin 2.1 L Lucy Del Toro Oct 28, 2018 14:28
[2018-10-28] MEDS: GABAPENTIN 100 MG CAP PO SCH ×2 (16:42→21:35)
[2018-10-28] MEDS: ACETAMINOPHEN 500 MG TAB PO SCH ×2 (16:42→21:35)
[2018-10-28] MEDS: oxyCODONE 5MG TAB PO SCH ×2 (16:43→21:35)
[2018-10-28] MEDS: BOUDREAUX'S BUTT PASTE 4OZ TOP SCH ×2 (16:43→21:36)
[2018-10-28 20:00] VITALS: BP 104/56
[2018-10-28] MEDS ORDERED: LEVEMIR (INSULIN DETEMIR) 1 UNITS/0.01ML SC SCH (21:00)
[2018-10-28] MEDS: SIMVASTATIN 40 MG TAB PO SCH (21:35)
[2018-10-29] MEDS: oxyCODONE 5MG TAB PO PRN ×2 (04:03→11:04)
[2018-10-29] MEDS: LEVOTHYROXINE 75MCG TABLET (0.075MG) PO SCH (05:42)
[2018-10-29 06:00] VITALS: BP 139/65
[2018-10-29] MEDS: RIVAROXABAN 15 MG TAB (XARELTO) PO SCH ×2 (07:36→17:28)
[2018-10-29] MEDS: HumaLOG INSULIN (NovoLOG) PER UNIT SC SCH ×3 (07:37→17:29)
[2018-10-29] MEDS: PANTOPRAZOLE 40MG TAB (PROTONIX) PO SCH (08:52)
[2018-10-29] MEDS: LACTOBACILLUS ACIDOPHILUS CAP (BACID) PO SCH ×2 (08:52→20:02)
[2018-10-29] MEDS: FERROUS GLUCONATE 324 MG TAB PO SCH ×2 (08:52→20:02)
[2018-10-29] MEDS: FOLIC ACID 1 MG TAB PO SCH (08:52)
[2018-10-29] MEDS: GABAPENTIN 100 MG CAP PO SCH ×3 (08:52→20:02)
[2018-10-29] MEDS: predniSONE 5 MG TAB PO SCH (08:53)
[2018-10-29] MEDS: amLODIPine 10 MG TAB PO SCH (08:53)
[2018-10-29] MEDS: oxyCODONE 5MG TAB PO SCH ×3 (08:53→20:02)
[2018-10-29] MEDS: ACETAMINOPHEN 500 MG TAB PO SCH ×3 (08:54→20:03)
[2018-10-29] MEDS: SENOKOT S TAB PO SCH ×2 (08:54→20:02)
[2018-10-29] MEDS: BOUDREAUX'S BUTT PASTE 4OZ TOP SCH ×3 (08:54→20:03)
[2018-10-29] MEDS: NYSTATIN 100,000 UNITS/GM TOPICAL PWD 15 GM TOP SCH ×2 (08:55→20:03)
[2018-10-29 14:00] VITALS: BP 125/60
--- NOTE | 2018-10-29 14:11 | IPNPDOC ---
Date Seen The patient was seen on 10/29/18. Progress Note HPI: 73-year-old male with past medical history of hypertension, GERD, hypothyroidism, rheumatoid arthritis, diabetes, peripheral vascular disease stat us post right leg from/pop bypass in October 2017, right lower extremity thrombolysis and angioplasty February 2018, and right transmetatarsal amputation in May 2018 presented to the ER with a chief complaint of fever, chills, vomiting, and generalized weakness. In the ER, the patient was noted to be tachycardic, febrile, with an elevated white blood cell count. Blood cultures w ere drawn, and the patient was started on empiric IV antibiotic therapy. Imaging revealed erosive changes in the absence of uncovering soft tissue consistent with osteomyelitis involving first through fourth metatarsals. The patient was admitted to the hospitalist service, and a consult was placed to vascular surgery for further evaluation. During hospitalization, the patient's blood cultures were noted to be positive for streptococcus anginosus and he completed a 14 day course of Rocephin. Vascular surgery was also on consult and took the patient for a right dapgq-dsi-dszc amputation on 10/19, and a subsequent yfvze-dls-wfbw amputation on the right on 10/22. The patient was transferred to the acute rehabilitation unit 10/27/18 to the care of Dr Vale. Pt denies any new concerns today. States pain has been reasonably controlled. PE: GEN: 73yoM, appears stated age. Alert and oriented x 3. HEENT: Normocephalic, atraumatic. Sclera are nonicteric. Conjunctiva without injection. Moist mucous membranes. CHEST: Regular rate and rhythm, +S1, +S2 LUNGS: Clear to auscultation bilaterally. No wheezes, rales, or rhonchi. ABD: Round, soft, non-tender, non-distended. +Bowel sounds throughout. No costovertebral angle tenderness. EXT: No Left lower extremity edema appreciated. Rt AKA. SKIN: [place], dry, warm. NEURO: Alert and oriented x 3. No focal deficits appreciated. A&P: 73-year-old male with past medical history of hypertension, GERD, hypothyroidism, rheumatoid arthritis, diabetes, peripheral vascular disease status post right leg from/pop bypass in October 2017, right lower extremity thrombolysis and angioplasty February 2018, and right transmetatarsal amputation in May 2018 presented to the ER with a chief complaint of fever, chills, vomiting, and generalized weakness. In the ER, the patient was noted to be tachycardic, febrile, with an elevated white blood cell count. Blood cultures were drawn, and the patient was started on empiric IV antibiotic therapy. Imaging revealed erosive changes in the absence of uncovering soft tissue consistent with osteomyelitis involving first through fourth metatarsals. The patient was admitted to the hospitalist service, and a consult was placed to vascular surgery for further evaluation. During hospitalization, the patient's blood cultures were noted to be positive for streptococcus anginosus and he completed a 14 day course of Rocephin. Vascular surgery was also on consult and took the patient for a right seikc-aex-gbks amputation on 10/19, and a subsequent iasoc-uyt-uvks amputation on the right on 10/22. The patient was transferred to the acute rehabilitation unit 10/27/18 to the care of Dr Vale. 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 Cruz of Vascular surgery. PT/OT as per Dr Kavin VERNON. Pain control as per Dr Kavin VERNON. Bowel care as per Dr Kavin VERNON. DVT prophylaxis, on Xarelto Streptococcus Anginosus Bacteremia/Septicemia 2/2 Above Blood culture 2 notable for Streptococcus Anginosus from 10/10 Repeat Blood culture x 2 negative from 10/12 2D ECHO with no vegetations noted Wound culture notable for Streptococcus Anginosus, Klebsiella s/p completion of IV Rocephin course Normocytic Anemia Patient noted to be anemic following procedure on 10/22, likely acute blood loss. . S/P 1 u PRBC 10/22 and 2 U 10/23/18. Hgb 8.0 10/28/18. Check Fe studies, B12, folate. FOB. Continue iron supplementation Monitor need for transfusion. CBC in Am. Hypertension Cont on Norvasc GERD Protonix Hypothyroidism Continue levothyroxine Rheumatoid arthritis Follow up as outpatient Dyslipidemia Continue statin IDDM. CC diet. SSI Levemir decreased to 5 u HS 10/28/18 with no further hypoglycemia noted. . Monitor. VS, I&O, 24H, Fishbone Vital Signs/I&O Vital Signs Date Time Temp Pulse Resp B/P (MAP) Pulse Ox O2 Delivery O2 Flow Rate FiO2 10/29/18 11:55 18 10/29/18 08:53 83 117/58 10/29/18 06:00 97.1 99 Room Air I&O- Last 24 Hours up to 6 AM 10/29/18 06:00 Intake Total 900 ml Output Total 325 ml Balance 575 ml Laboratory Data 24H LABS Laboratory Tests 2 10/28/18 16:40: Bedside Glucose (Misc Panel) 146H 10/28/18 19:37: Bedside Glucose (Misc Panel) 253H 10/29/18 00:14: Urine Color YELLOW, Urine Appearance CLEAR, Urine pH 5.0, Urine Specific [place] 1.014, Urine Protein NEGATIVE, Urine Glucose (UA) NEGATIVE, Urine Ketones NEGATIVE, Urine Blood NEGATIVE, Urine Nitrite NEGATIVE, Urine Bilirubin NEGATIVE, Urine Urobilinogen 0.2, Urine Leukocyte Esterase TRACEH, Urine WBC (Auto) 1, Urine RBC (Auto) 3, Urine Hyaline Casts (Auto) 0, Urine Bacteria (Auto) NEGATIVE, Urine Squamous Epithelial Cells 0, Urine Sperm (Auto) 10/29/18 06:30: Bedside Glucose (Misc Panel) 181H 10/29/18 12:10: Bedside Glucose (Misc Panel) 148H Microbiology Microbiology 10/29/18 Urine Culture, Received Pending Lucy Del Toro Oct 29, 2018 14:11
[2018-10-29 15:32] LABS: PERCENT SATURATION 10.7 % (19.7-50.0)
[2018-10-29 15:50] LABS: FOLATE 16.1 NG/ML
[2018-10-29 20:00] VITALS: BP 114/62
[2018-10-29] MEDS: SIMVASTATIN 40 MG TAB PO SCH (20:01)
[2018-10-29] MEDS: LEVEMIR (INSULIN DETEMIR) 1 UNITS/0.01ML SC SCH (20:01)
[2018-10-30] MEDS: oxyCODONE 5MG TAB PO PRN ×3 (01:36→17:46)
[2018-10-30] MEDS: LEVOTHYROXINE 75MCG TABLET (0.075MG) PO SCH (05:34)
[2018-10-30 06:01] VITALS: BP 127/62
[2018-10-30 07:23] LABS: BASO # 0.1 10^3/uL (0.0-0.2); BASO % 1.1 % (0.0-1.0); EOS # 0.1 10^3/uL (0.0-0.50); EOS % 1.7 % (0.0-3.0); HEMOGLOBIN 7.7 g/dl (13.5-17.5); LYMPH # 1.2 10^3/uL (1.5-4.5); LYMPH % 21.4 % (24.0-44.0); MEAN CORPUSCULAR HEMOGLOBIN 28.5 pg (27.0-33.0); MEAN CORPUSCULAR HGB CONC 32.1 g/dl (32.0-36.5); MEAN CORPUSCULAR VOLUME 88.9 fl (80.0-96.0); MONO # 0.7 10^3/uL (0.0-0.8); MONO % 12.8 % (0.0-5.0); NEUTROPHILS # 3.4 10^3/uL (1.8-7.7); NEUTROPHILS % 62.4 % (36.0-66.0); PLATELET COUNT, AUTOMATED 509 10^3/uL (150-450); WHITE BLOOD COUNT 5.4 10^3/uL (4.0-10.0)
[2018-10-30 07:38] LABS: BLOOD UREA NITROGEN 15 MG/DL (7-18); CALCIUM LEVEL 8.8 MG/DL (8.8-10.2); CARBON DIOXIDE LEVEL 29 MEQ/L (21-32); CHLORIDE LEVEL 103 MEQ/L (98-107); CREATININE FOR GFR 0.66 MG/DL (0.70-1.30); GLOMERULAR FILTRATION RATE > 60.0 (>42); GLUCOSE, FASTING 168 MG/DL (70-100); POTASSIUM SERUM 4.5 MEQ/L (3.5-5.1); SODIUM LEVEL 138 MEQ/L (136-145)
[2018-10-30] MEDS: SENOKOT S TAB PO SCH ×2 (09:00→21:35)
[2018-10-30] MEDS: FOLIC ACID 1 MG TAB PO SCH (09:00)
[2018-10-30] MEDS: amLODIPine 10 MG TAB PO SCH (09:00)
[2018-10-30] MEDS: BOUDREAUX'S BUTT PASTE 4OZ TOP SCH ×3 (09:00→21:36)
[2018-10-30] MEDS: HumaLOG INSULIN (NovoLOG) PER UNIT SC SCH ×6 (09:42→17:44)
[2018-10-30] MEDS: LACTOBACILLUS ACIDOPHILUS CAP (BACID) PO SCH ×2 (09:42→21:34)
[2018-10-30] MEDS: FERROUS GLUCONATE 324 MG TAB PO SCH ×2 (09:42→21:35)
[2018-10-30] MEDS: PANTOPRAZOLE 40MG TAB (PROTONIX) PO SCH (09:43)
[2018-10-30] MEDS: predniSONE 5 MG TAB PO SCH (09:43)
[2018-10-30] MEDS: RIVAROXABAN 15 MG TAB (XARELTO) PO SCH ×2 (09:43→17:43)
[2018-10-30] MEDS: GABAPENTIN 100 MG CAP PO SCH ×3 (09:43→21:35)
[2018-10-30] MEDS: oxyCODONE 5MG TAB PO SCH ×3 (09:43→21:35)
[2018-10-30] MEDS: ACETAMINOPHEN 500 MG TAB PO SCH ×3 (09:44→21:35)
[2018-10-30] MEDS: NYSTATIN 100,000 UNITS/GM TOPICAL PWD 15 GM TOP SCH ×2 (09:44→21:36)
--- NOTE | 2018-10-30 12:53 | IPNPDOC ---
Date Seen The patient was seen on 10/30/18. Progress Note HPI: 73-year-old male with past medical history of hypertension, GERD, hypothyroidism, rheumatoid arthritis, diabetes, peripheral vascular disease status post right leg from/pop bypass in October 2017, right lower extremity thrombolysis and angioplasty February 2018, and right transmetatarsal amputation in May 2018 presented to the ER with a chief complaint of fever, chills, vomiting, and generalized weakness. In the ER, the patient was noted to be tachycardic, febrile, with an elevated white blood cell count. Blood cultures were drawn, and the patient was started on empiric IV antibiotic therapy. Imaging revealed erosive changes in the absence of uncovering soft tissue consistent with osteomyelitis involving first through fourth metatarsals. The patient was admitted to the hospitalist service, and a consult was placed to vascular surgery for further evaluation. During hospitalization, the patient's blood cultures were noted to be positive for streptococcus anginosus and he com pleted a 14 day course of Rocephin. Vascular surgery was also on consult and took the patient for a right thrui-jsi-sohl amputation on 10/19, and a subsequent qpyeh-cql-zspw amputation on the right on 10/22. The patient was transferred to the acute rehabilitation unit 10/27/18 to the care of Dr Vale. Pt states he feels tired today. Having pain after therapy this AM. Now back to bed and wrap removed from stump with improvement in his discomfort noted. PE: GEN: 73yoM, appears stated age. Alert and oriented x 3. HEENT: Normocephalic, atraumatic. Sclera are nonicteric. Conjunctiva without injection. Moist mucous membranes. CHEST: Regular rate and rhythm, +S1, +S2 LUNGS: Clear to auscultation bilaterally. No wheezes, rales, or rhonchi. ABD: Round, soft, non-tender, non-distended. +Bowel sounds throughout. No costovertebral angle tenderness. EXT: No Left lower extremity edema appreciated. Rt AKA. SKIN: [place], dry, warm. NEURO: Alert and oriented x 3. No focal deficits appreciated. A&P: 73-year-old male with past medical history of hypertension, GERD, hypothyroidism, rheumatoid arthritis, diabetes, peripheral vascular disease status post right leg from/pop bypass in October 2017, right lower extremity thrombolysis and angioplasty February 2018, and right transmetatarsal amputation in May 2018 presented to the ER with a chief complaint of fever, chills, vomiting, and generalized weakness. In the ER, the patient was noted to be tachycardic, febrile, with an elevated white blood cell count. Blood cultures were drawn, and the patient was started on empiric IV antibiotic therapy. Imaging revealed erosive changes in the absence of uncovering soft tissue consistent with osteomyelitis involving first through fourth metatarsals. The patient was admitted to the hospitalist service, and a consult was placed to vascular surgery for further evaluation. During hospitalization, the patient's blood cultures were noted to be positive for streptococcus anginosus and he completed a 14 day course of Rocephin. Vascular surgery was also on consult and took the patient for a right bkxtc-rax-hgtc amputation on 10/19, and a subsequent mylce-rky-eovb amputation on the right on 10/22. The patient was transferred to the acute rehabilitation unit 10/27/18 to the care of Dr Vale. 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 Cruz of Vascular surgery. PT/OT as per Dr Kavin VERNON. Pain control as per Dr Kavin VERNON. Bowel care as per Dr Kavin VERNON. DVT prophylaxis, on Xarelto Streptococcus Anginosus Bacteremia/Septicemia 2/2 Above Blood culture 2 notable for Streptococcus Anginosus from 10/10 Repeat Blood culture x 2 negative from 10/12 2D ECHO with no vegetations noted Wound culture notable for Streptococcus Anginosus, Klebsiella s/p completion of IV Rocephin course Normocytic Anemia Patient noted to be anemic following procedure on 10/22, likely acute blood loss. . S/P 1 u PRBC 10/11, 10/12, 10/22 and 2 U 10/23/18. Hgb 7.7 this AM and is feeling tired. Consent is placed on chart for blood products. Fe studies, B12, folate. FOB pending. Continue iron supplementation BID 2 U PRBC today. CBC in Am. Hypertension Cont on Norvasc GERD Protonix Hypothyroidism Continue levothyroxine Rheumatoid arthritis Follow up as outpatient Dyslipidemia Continue statin IDDM. CC diet. SSI and Levemir adjusted as per Dr Vale. BS 132-230. Monitor. VS, I&O, 24H, Fishbone Vital Signs/I&O Vital Signs Date Time Temp Pulse Resp B/P (MAP) Pulse Ox O2 Delivery O2 Flow Rate FiO2 10/30/18 11:44 20 10/30/18 09:00 62 108/58 10/30/18 06:01 98.2 96 10/29/18 06:00 Room Air I&O- Last 24 Hours up to 6 AM 10/30/18 06:00 Intake Total 855 ml Output Total 800 ml Balance 55 ml Laboratory Data 24H LABS Laboratory Tests 2 10/29/18 14:53: Iron Level 23L, Total Iron Binding Capacity 215L, Transferrin % Saturation 10.7L, Ferritin 831H, Folate 16.1 10/29/18 17:13: Bedside Glucose (Misc Panel) 238H 10/29/18 19:34: Bedside Glucose (Misc Panel) 230H 10/30/18 07:07: Immature Granulocyte % (Auto) 0.6, White Blood Count 5.4, Red Blood Count 2.70L, Hemoglobin 7.7L, Hematocrit 24.0L, Mean Corpuscular Volume 88.9, Mean Corpuscular Hemoglobin 28.5, Mean Corpuscular Hemoglobin Concent 32.1, Red Cell Distribution Width 15.3H, Platelet Count 509H, Neutrophils (%) (Auto) 62.4, Lymphocytes (%) (Auto) 21.4L, Monocytes (%) (Auto) 12.8H, Eosinophils (%) (Auto) 1.7, Basophils (%) (Auto) 1.1H, Neutrophils # (Auto) 3.4, Lymphocytes # (Auto) 1.2L, Monocytes # (Auto) 0.7, Eosinophils # (Auto) 0.1, Basophils # (Auto) 0.1, Nucleated Red Blood Cells % (auto) 0.0, Anion Gap 6L, Glomerular Filtration Rate > 60.0, Blood Urea Nitrogen 15, Creatinine 0.66L, Sodium Level 138, Potassium Level 4.5, Chloride Level 103, Carbon Dioxide Level 29, Calcium Level 8.8 10/30/18 07:14: Bedside Glucose (Misc Panel) 146H 10/30/18 12:16: Bedside Glucose (Misc Panel) 132H CBC/BMP Laboratory Tests 10/30/18 07:07 Red Blood Count 2.70 L, Mean Corpuscular Volume 88.9, Mean Corpuscular Hemoglobin 28.5, Mean Corpuscular Hemoglobin Concent 32.1, Red Cell Distribution Width 15.3 H, Neutrophils (%) (Auto) 62.4, Lymphocytes (%) (Auto) 21.4 L, Monocytes (%) (Auto) 12.8 H, Eosinophils (%) (Auto) 1.7, Basophils (%) (Auto) 1. 1 H, Neutrophils # (Auto) 3.4, Lymphocytes # (Auto) 1.2 L, Monocytes # (Auto) 0.7, Eosinophils # (Auto) 0.1, Basophils # (Auto) 0.1, Calcium Level 8.8 Microbiology Microbiology 10/29/18 Urine Culture - Final, Complete Lucy Del Toro Oct 30, 2018 12:53
[2018-10-30] MEDS: SIMVASTATIN 40 MG TAB PO SCH (21:34)
[2018-10-30] MEDS: LEVEMIR (INSULIN DETEMIR) 1 UNITS/0.01ML SC SCH (21:36)
[2018-10-30 22:09] VITALS: BP 131/63
[2018-10-31] MEDS: LEVOTHYROXINE 75MCG TABLET (0.075MG) PO SCH (05:50)
[2018-10-31] MEDS: oxyCODONE 5MG TAB PO PRN (05:51)
[2018-10-31 06:12] VITALS: BP 157/72
[2018-10-31 06:35] LABS: HEMATOCRIT 31.3 % (42.0-52.0); MEAN CORPUSCULAR HEMOGLOBIN 29.2 pg (27.0-33.0); MEAN CORPUSCULAR HGB CONC 32.3 g/dl (32.0-36.5); MEAN CORPUSCULAR VOLUME 90.5 fl (80.0-96.0); PLATELET COUNT, AUTOMATED 470 10^3/uL (150-450); RED BLOOD COUNT 3.46 10^6/uL (4.30-6.10)
[2018-10-31 06:54] LABS: HEMOGLOBIN 10.1 g/dl (13.5-17.5)
[2018-10-31 07:04] LABS: ALBUMIN 2.4 GM/DL (3.2-5.2); ALT/SGPT 84 U/L (12-78); BILIRUBIN,TOTAL 0.5 MG/DL (0.2-1.0); BLOOD UREA NITROGEN 15 MG/DL (7-18); CALCIUM LEVEL 8.5 MG/DL (8.8-10.2); CARBON DIOXIDE LEVEL 29 MEQ/L (21-32); CHLORIDE LEVEL 104 MEQ/L (98-107); CREATININE FOR GFR 0.65 MG/DL (0.70-1.30); GLOMERULAR FILTRATION RATE > 60.0 (>42); GLUCOSE, FASTING 90 MG/DL (70-100); POTASSIUM SERUM 4.7 MEQ/L (3.5-5.1); SODIUM LEVEL 139 MEQ/L (136-145)
[2018-10-31] MEDS: HumaLOG INSULIN (NovoLOG) PER UNIT SC SCH ×6 (07:30→17:49)
[2018-10-31] MEDS: NYSTATIN 100,000 UNITS/GM TOPICAL PWD 15 GM TOP SCH ×2 (08:15→20:31)
[2018-10-31] MEDS: FERROUS GLUCONATE 324 MG TAB PO SCH ×2 (09:29→20:28)
[2018-10-31] MEDS: SENOKOT S TAB PO SCH ×2 (09:29→20:28)
[2018-10-31] MEDS: oxyCODONE 5MG TAB PO SCH ×3 (09:30→20:28)
[2018-10-31] MEDS: ACETAMINOPHEN 500 MG TAB PO SCH ×3 (09:31→20:28)
[2018-10-31] MEDS: amLODIPine 10 MG TAB PO SCH (09:31)
[2018-10-31] MEDS: FOLIC ACID 1 MG TAB PO SCH (09:31)
[2018-10-31] MEDS: GABAPENTIN 100 MG CAP PO SCH ×3 (09:31→20:27)
[2018-10-31] MEDS: PANTOPRAZOLE 40MG TAB (PROTONIX) PO SCH (09:32)
[2018-10-31] MEDS: LACTOBACILLUS ACIDOPHILUS CAP (BACID) PO SCH ×2 (09:32→20:29)
[2018-10-31] MEDS: predniSONE 5 MG TAB PO SCH (09:37)
[2018-10-31] MEDS: RIVAROXABAN 15 MG TAB (XARELTO) PO SCH ×2 (09:37→17:51)
[2018-10-31] MEDS: BOUDREAUX'S BUTT PASTE 4OZ TOP SCH ×3 (09:50→20:30)
--- NOTE | 2018-10-31 13:11 | IPNPDOC ---
Date Seen The patient was seen on 10/31/18. Progress Note HPI: 73-year-old male with past medical history of hypertension, GERD, hypothyroidism, rheumatoid arthritis, diabetes, peripheral vascular disease status post right leg from/pop bypass in October 2017, right lower extremity thrombolysis and angioplasty February 2018, and right transmetatarsal amputation in May 2018 presented to the ER with a chief complaint of fever, chills, vomiting, and generalized weakness. In the ER, the patient was noted to be tachycardic, febrile, with an elevated white blood cell count. Blood cultures were drawn, and the patient was started on empiric IV antibiotic therapy. Imaging revealed erosive changes in the absence of uncovering soft tissue consistent with osteomyelitis involving first through fourth metatarsals. The patient was admitted to the hospitalist service, and a consult was placed to vascular surgery for further evaluation. During hospitalization, the patient's blood cultures were noted to be positive for streptococcus anginosus and he comp leted a 14 day course of Rocephin. Vascular surgery was also on consult and took the patient for a right plihp-iep-refx amputation on 10/19, and a subsequent hcsng-jte-uhkn amputation on the right on 10/22. The patient was transferred to the acute rehabilitation unit 10/27/18 to the care of Dr Vale. Pt states pain is controlled today. feeling better overall. OOB with PT. PE: GEN: 73yoM, appears stated age. Alert and oriented x 3. HEENT: Normocephalic, atraumatic. Sclera are nonicteric. Conjunctiva without injection. Moist mucous membranes. CHEST: Regular rate and rhythm, +S1, +S2 LUNGS: Clear to auscultation bilaterally. No wheezes, rales, or rhonchi. ABD: Round, soft, non-tender, non-distended. +Bowel sounds throughout. No costovertebral angle tenderness. EXT: No Left lower extremity edema appreciated. Rt AKA. SKIN: [place], dry, warm. NEURO: Alert and oriented x 3. No focal deficits appreciated. A&P: 73-year-old male with past medical history of hypertension, GERD, hypothyroidism, rheumatoid arthritis, diabetes, peripheral vascular disease s tatus post right leg from/pop bypass in October 2017, right lower extremity thrombolysis and angioplasty February 2018, and right transmetatarsal amputation in May 2018 presented to the ER with a chief complaint of fever, chills, vomiting, and generalized weakness. In the ER, the patient was noted to be tachycardic, febrile, with an elevated white blood cell count. Blood cultures were drawn, and the patient was started on empiric IV antibiotic therapy. Imaging revealed erosive changes in the absence of uncovering soft tissue consistent with osteomyelitis involving first through fourth metatarsals. The patient was admitted to the hospitalist service, and a consult was placed to vascular surgery for further evaluation. During hospitalization, the patient's blood cultures were noted to be positive for streptococcus anginosus and he completed a 14 day course of Rocephin. Vascular surgery was also on consult and took the patient for a right gwwkk-krw-mmjp amputation on 10/19, and a subsequent hjkqf-pde-ztbh amputation on the right on 10/22. The patient was transferred to the acute rehabilitation unit 10/27/18 to the care of Dr Vale. 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 Cruz of Vascular surgery. PT/OT as per Dr Kavin VERNON. Pain control as per Dr Kavin VERNON. Bowel care as per Dr Kavin VERNON. DVT prophylaxis, on Xarelto Streptococcus Anginosus Bacteremia/Septicemia 2/2 Above Blood culture 2 notable for Streptococcus Anginosus from 10/10 Repeat Blood culture x 2 negative from 10/12 2D ECHO with no vegetations noted Wound culture notable for Streptococcus Anginosus, Klebsiella s/p completion of IV Rocephin course Normocytic Anemia Patient noted to be anemic following procedure on 10/22, likely acute blood loss. Consent is placed on chart for blood products. S/P 6U PRBC, additional 2 u PRBC 10/30/18 Hgb 10.1 this AM and is feeling better. Fe studies, B12, folate noted. FOB neg. Continue iron supplementation BID Monitor CBC. Hypertension Cont on Norvasc GERD Protonix Hypothyroidism Continue levothyroxine Rheumatoid arthritis Follow up as outpatient Dyslipidemia Continue statin IDDM. CC diet. SSI and Levemir adjusted as per Dr Vale. Monitor. Transaminitis. Recheck CMP in Am. Add hepatitis profile to labs. Monitor. VS, I&O, 24H, Fishbone Vital Signs/I&O Vital Signs Date Time Temp Pulse Resp B/P (MAP) Pulse Ox O2 Delivery O2 Flow Rate FiO2 10/31/18 10:05 18 10/31/18 09:31 68 157/72 10/31/18 06:12 97.9 100 10/29/18 06:00 Room Air I&O- Last 24 Hours up to 6 AM 10/31/18 06:00 Intake Total 1270 ml Output Total 300 ml Balance 970 ml Laboratory Data 24H LABS Laboratory Tests 2 10/30/18 16:57: Bedside Glucose (Misc Panel) 179H 10/30/18 19:49: Bedside Glucose (Misc Panel) 154H 10/31/18 05:53: Bedside Glucose (Misc Panel) 69L 10/31/18 06:14: Nucleated Red Blood Cells % (auto) 0.0, Anion Gap 6L, Glomerular Filtration Rate > 60.0, Blood Urea Nitrogen 15, Creatinine 0.65L, Sodium Level 139, Potassium Level 4.7, Chloride Level 104, Carbon Dioxide Level 29, Calcium Level 8.5L, Aspartate Amino Transf (AST/SGOT) 85H, Alanine Aminotransferase (ALT/SGPT) 84H, Alkaline Phosphatase 416H, Total Bilirubin 0.5, Total Protein 6.0L, Albumin 2.4L, Albumin/Globulin Ratio 0.67L 10/31/18 11:25: Bedside Glucose (Misc Panel) 259H CBC/BMP Laboratory Tests 10/31/18 06:14 Red Blood Count 3.46 L, Mean Corpuscular Volume 90.5, Mean Corpuscular Hemoglobin 29.2, Mean Corpuscular Hemoglobin Concent 32.3, Red Cell Distribution Width 15.7 H, Calcium Level 8.5 L, Aspartate Amino Transf (AST/SGOT) 85 H, Alanine Aminotransferase (ALT/SGPT) 84 H, Alkaline Phosphatase 416 H, Total Bilirubin 0.5, Total Protein 6.0 L, Albumin 2.4 L Microbiology Microbiology 10/31/18 Stool Occult Blood (MOE) - Final, Complete 10/29/18 Urine Culture - Final, Complete Lucy Del Toro Oct 31, 2018 13:11
[2018-10-31 14:00] VITALS: BP 131/63
--- NOTE | 2018-10-31 14:09 | IPNPDOC ---
PM&R Progress Note DATE OF SERVICE: Oct 31, 2018 [place] Progress Note Subjective: Patient reports he is doing well in therapy, feels more energized after receiving blood transfusion, and was educated on importance of lying prone which he has been declining to do because it puts stress on his shoulders and low back. REVIEW OF SYSTEMS: The following is a completed review of systems and has been reviewed. Review of systems otherwise unremarkable. PAIN: Patient self reports right limb and sacral pain EYES: Negative for recent vision changes EARS, NOSE, & THROAT: negative for dysphagia, throat pain or rhinorrhea CARDIOVASCULAR: denies chest pain or palpitations PULMONARY: Negative. Denies shortness of breath. GASTROINTESTINAL: +nausea, no constipation or diarrhea GENITOURINARY: no dysuria or incontinence MUSCULOSKELETAL: right AKA. NEUROLOGICAL:no tremor or focal weakness HEMATOLOGICAL: +anemia SKIN: sacral ulcer and right AKA renato PSYCHIATRIC: Unremarkable All other review of systems found to be negative. PHYSICAL EXAMINATION: VITAL SIGNS: Please see below. GENERAL: Pleasant and cooperative. No acute distress. HEENT: PERRL. Extraocular movements intact. Clear conjunctiva CARDIOVASCULAR: Regular rate and rhythm. No murmurs, rubs, or gallops LUNGS: Clear to auscultation bilaterally. No wheezes. No rhonchi ABDOMEN: Soft, nontender, nondistended. Positive bowel sounds. Normal active bowel sounds NEUROLOGICAL: Alert and oriented times three. Cranial nerves II through XII grossly intact. Sensation grossly intact in bilat UE, diminished LLE EXTREMITIES: 5/5 strength bilateral upper extremities. 5\5 strength right hip flexion and abduction. 5-/5 strength in left lower extremity. SKIN: right AKA renato with mild erythema at the medial aspect, +sacral ulcer TTP lateral aspect ASSESSMENT:73-year-old M with past medical history of PVD and DM who presents status post right AKA. PLAN: 1. rehab: PT/OT, assess for DME, NWB RLE- encouraging lying prone in therapy and with nursing, ordered MF therapy to hip flexors to be done by each discipline 2. 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 Kasper and Dr. Cruz- will need outpatient f/u- -pmh diastolic CHF, continue diuretics and beta blockers -pmh HTN continue meds, adjust as needed- will consult medicine 3. Resp: encourage incentive spirometry and monitor for signs of respiratory infection 4. ID: s/p IV Rocephin for Strep Anginosus septicemia 5. Endo: pmh Hypothyroidism- continue Synthroid 6. Rheum: pmg RA continue prednisone 7. Heme: anemia of chronic disease with recent post-op blood loss anemia s/p rbcs, 2 units given yseterday per medicine, recs appreciated, will continue to monitor and continue Iron supplements. 8. DVT ppx: on Xarelto 9. Pain: Tylenol and oxycodone prn, will add gabapentin 10. Skin: sacral ulcer on admission, continue to offload and apply optifoam, BID residual limb dressings, consulted Dr. Cruz today to evalaute limb and dadvise on staple removal and possibility of provider scribe 11. Dispo: 11/11/18 to home, progressing towars goals Allergies Coded Allergies: No Known Allergies (Unverified , 11/14/17) Vital Signs Vital Signs Date Time Temp Pulse Resp B/P (MAP) Pulse Ox O2 Delivery O2 Flow Rate FiO2 10/31/18 10:05 18 10/31/18 09:31 68 157/72 10/31/18 06:12 97.9 100 10/29/18 06:00 Room Air Laboratory Data CBC/BMP Laboratory Tests 10/31/18 06:14 Red Blood Count 3.46 L, Mean Corpuscular Volume 90.5, Mean Corpuscular Hemoglobin 29.2, Mean Corpuscular Hemoglobin Concent 32.3, Red Cell Distribution Width 15.7 H, Calcium Level 8.5 L, Aspartate Amino Transf (AST/SGOT) 85 H, Alanine Aminotransferase (ALT/SGPT) 84 H, Alkaline Phosphatase 416 H, Total Bilirubin 0.5, Total Protein 6.0 L, Albumin 2.4 L Labs 24H Laboratory Tests 2 10/30/18 16:57: Bedside Glucose (Misc Panel) 179H 10/30/18 19:49: Bedside Glucose (Misc Panel) 154H 10/31/18 05:53: Bedside Glucose (Misc Panel) 69L 10/31/18 06:14: Nucleated Red Blood Cells % (auto) 0.0, Anion Gap 6L, Glomerular Filtration Rate > 60.0, Blood Urea Nitrogen 15, Creatinine 0.65L, Sodium Level 139, Potassium Level 4.7, Chloride Level 104, Carbon Dioxide Level 29, Calcium Level 8.5L, Aspartate Amino Transf (AST/SGOT) 85H, Alanine Aminotransferase (ALT/SGPT) 84H, Alkaline Phosphatase 416H, Total Bilirubin 0.5, Total Protein 6.0L, Albumin 2.4L, Albumin/Globulin Ratio 0.67L 10/31/18 11:25: Bedside Glucose (Misc Panel) 259H Microbiology Microbiology 10/31/18 Stool Occult Blood (MOE) - Final, Complete 10/29/18 Urine Culture - Final, Complete Current Medications Current Medications Current Medications Acetaminophen (Tylenol Tab) 1,000 mg Q6HP PRN PO MILD PAIN (PS 1-4); Start 10/27/18 at 16:15; Stop 10/28/18 at 10:47; Status DC Acetaminophen (Tylenol Tab) 1,000 mg TID PO Last administered on 10/31/18 09:31; Start 10/28/18 at 16:00 Acetaminophen/ Hydrocodone Bitart (Kerrick, Anexsia 5/325) 1 tab Q4HP PRN PO MODERATE PAIN (PS 5-7) Last administered on 10/28/18at 09:32; Start 10/27/18 at 16:15; Stop 10/28/18 at 10:47; Status DC Amlodipine Besylate (Norvasc) 10 mg DAILY PO Last administered on 10/31/18at 09:31; Start 10/28/18 at 09:00 Bisacodyl (Dulcolax Suppository) 10 mg DAILYPRN PRN MA CONSTIPATION; Start 10/27/18 at 16:15 Dextrose (Dextrose 50%) 25 ml ASDIRECTED PRN IV SEE LABEL COMMENTS; Start 10/27/18 at 16:15 Ferrous Gluconate (Fergon) 324 mg BID PO Last administered on 10/31/18 09:29; Start 10/27/18 at 21:00 Folic Acid (Folic Acid) 1 mg DAILY PO Last administered on 10/31/18 09:31; Start 10/28/18 at 09:00 Gabapentin (Neurontin) 100 mg TID PO Last administered on 10/31/18 09:31; Start 10/28/18 at 16:00 Glucagon (Glucagon) 1 mg ASDIRECTED PRN SC SEE LABEL COMMENTS; Start 10/27/18 at 16:15 Glucose (Glucose) 16 GM ASDIRECTED PRN PO SEE LABEL COMMENTS; Start 10/27/18 at 16:15 Home Med (Med Rec Complete!) ASDIRECTED XX ; Start 10/27/18 at 16:30; Stop 10/27/18 at 16:30; Status DC Insulin Detemir (Levemir Insulin) 5 units QHS SC Last administered on 10/28/18at 21:36; Start 10/28/18 at 21:00; Stop 10/29/18 at 11:40; Status DC Insulin Detemir (Levemir Insulin) 5 units QHS SC ; Start 10/31/18 at 21:00 Insulin Detemir (Levemir Insulin) 8 units QHS SC Last administered on 10/30/18at 21:36; Start 10/29/18 at 21:00; Stop 10/31/18 at 11:54; Status DC Insulin Detemir (Levemir Insulin) 15 units QHS SC Last administered on 10/27/18at 22:07; Start 10/27/18 at 21:00; Stop 10/28/18 at 14:04; Status DC Insulin Human Lispro (HumaLOG INSULIN) 2 units AC SC Last administered on 10/31/18at 12:06; Start 10/30/18 at 07:30 Insulin Human Lispro (HumaLOG INSULIN) SEE PROTOCOL TABLE AC SC Last administered on 10/31/18at 12:06; Start 10/27/18 at 17:30 Lactobacillus Acidophilus (Bacid) 2 ea BID PO Last administered on 10/31/18at 09:32; Start 10/27/18 at 21:00 Levothyroxine Sodium (Synthroid) 75 mcg DAILY@06 PO Last administered on 10/31/18at 05:50; Start 10/28/18 at 06:00 Magnesium Hydroxide (Milk Of Magnesia) 30 ml DAILYPRN PRN PO CONSTIPATION; Start 10/27/18 at 16:15 Nystatin (Mycostatin Powder, Nystop) groin BID TOP Last administered on 10/31/18at 08:15; Start 10/27/18 at 21:00 Ondansetron HCl (Zofran) 4 mg Q6HP PRN PO NAUSEA; Start 10/27/18 at 16:15 Oxycodone HCl (Roxicodone, Oxyir) 5 mg TID PO Last administered on 10/31/18 09:30; Start 10/28/18 at 16:00 Oxycodone HCl (Roxicodone, Oxyir) 10 mg Q6HP PRN PO SEVERE PAIN (PS 8-10) Last administered on 10/31/18 05:51; Start 10/28/18 at 10:45 Pantoprazole Sodium (Protonix) 40 mg DAILY PO Last administered on 10/31/18 09:32; Start 10/28/18 at 09:00 Prednisone (Deltasone) 5 mg DAILY PO Last administered on 10/31/18 09:37; Start 10/28/18 at 09:00 Rivaroxaban (Xarelto) 15 mg BID@08,18 PO Last administered on 10/31/18 09:37; Start 10/27/18 at 18:00 Senna/Docusate Sodium (Senokot S) 1 tab BID PO Last administered on 10/31/18 09:29; Start 10/27/18 at 21:00 Simvastatin (Zocor) 40 mg QHS PO Last administered on 10/30/18 21:34; Start 10/27/18 at 21:00 Zinc Oxide (Boudreauxs Butt Paste) APPLY TO sacrum TID TOP Last administered on 10/29/18 20:03; Start 10/28/18 at 16:00 MAGDI ADAMS MD Oct 31, 2018 14:09
[2018-10-31 14:20] LABS: HEPATITIS B SURFACE ANTIGEN NEGATIVE (NEGATIVE)
[2018-10-31 14:47] LABS: HEPATITIS B CORE ANTIBODY IGM NEGATIVE (NEGATIVE); HEPATITIS C VIRUS ABY INDEX 0.1 INDEX (<0.8)
[2018-10-31 14:50] LABS: HEPATITIS A ANTIBODY IGM NEGATIVE (NEGATIVE)
[2018-10-31 20:00] VITALS: BP 118/58
[2018-10-31] MEDS: SIMVASTATIN 40 MG TAB PO SCH (20:27)
[2018-10-31] MEDS: LEVEMIR (INSULIN DETEMIR) 1 UNITS/0.01ML SC SCH (20:30)
[2018-11-01] MEDS: oxyCODONE 5MG TAB PO PRN ×2 (02:59→12:37)
[2018-11-01 06:15] VITALS: BP 156/74
[2018-11-01] MEDS: LEVOTHYROXINE 75MCG TABLET (0.075MG) PO SCH (06:16)
[2018-11-01 07:07] LABS: HEMATOCRIT 32.9 % (42.0-52.0); HEMOGLOBIN 10.7 g/dl (13.5-17.5); MEAN CORPUSCULAR HEMOGLOBIN 28.5 pg (27.0-33.0); MEAN CORPUSCULAR HGB CONC 32.5 g/dl (32.0-36.5); MEAN CORPUSCULAR VOLUME 87.7 fl (80.0-96.0); PLATELET COUNT, AUTOMATED 525 10^3/uL (150-450); RED BLOOD COUNT 3.75 10^6/uL (4.30-6.10); WHITE BLOOD COUNT 5.3 10^3/uL (4.0-10.0)
[2018-11-01 07:39] LABS: ALBUMIN 2.5 GM/DL (3.2-5.2); ALT/SGPT 68 U/L (12-78); BILIRUBIN,TOTAL 0.5 MG/DL (0.2-1.0); BLOOD UREA NITROGEN 12 MG/DL (7-18); CALCIUM LEVEL 8.9 MG/DL (8.8-10.2); CARBON DIOXIDE LEVEL 30 MEQ/L (21-32); CHLORIDE LEVEL 102 MEQ/L (98-107); CREATININE FOR GFR 0.57 MG/DL (0.70-1.30); GLOMERULAR FILTRATION RATE > 60.0 (>42); GLUCOSE, FASTING 133 MG/DL (70-100); POTASSIUM SERUM 4.2 MEQ/L (3.5-5.1); SODIUM LEVEL 140 MEQ/L (136-145); TOTAL PROTEIN 7.2 GM/DL (6.4-8.2)
[2018-11-01] MEDS: SENOKOT S TAB PO SCH ×2 (09:00→21:00)
[2018-11-01] MEDS: amLODIPine 10 MG TAB PO SCH (09:08)
[2018-11-01] MEDS: ACETAMINOPHEN 500 MG TAB PO SCH ×3 (09:09→21:07)
[2018-11-01] MEDS: GABAPENTIN 100 MG CAP PO SCH ×3 (09:09→21:07)
[2018-11-01] MEDS: RIVAROXABAN 15 MG TAB (XARELTO) PO SCH ×2 (09:09→17:55)
[2018-11-01] MEDS: LACTOBACILLUS ACIDOPHILUS CAP (BACID) PO SCH ×2 (09:09→21:07)
[2018-11-01] MEDS: predniSONE 5 MG TAB PO SCH (09:10)
[2018-11-01] MEDS: FERROUS GLUCONATE 324 MG TAB PO SCH ×2 (09:10→21:07)
[2018-11-01] MEDS: oxyCODONE 5MG TAB PO SCH ×3 (09:10→21:06)
[2018-11-01] MEDS: FOLIC ACID 1 MG TAB PO SCH (09:10)
[2018-11-01] MEDS: PANTOPRAZOLE 40MG TAB (PROTONIX) PO SCH (09:10)
[2018-11-01] MEDS: HumaLOG INSULIN (NovoLOG) PER UNIT SC SCH ×6 (09:11→17:55)
[2018-11-01] MEDS: NYSTATIN 100,000 UNITS/GM TOPICAL PWD 15 GM TOP SCH ×2 (09:12→21:08)
[2018-11-01] MEDS: BOUDREAUX'S BUTT PASTE 4OZ TOP SCH ×3 (09:12→21:08)
[2018-11-01 14:00] VITALS: BP 124/74
--- NOTE | 2018-11-01 20:09 | IPN ---
DATE: 11/01/2018 SUBJECTIVE: Patient is seen and examined in the room today. Patient denies any acute complaints. Patient stated his right lower extremity pain around the amputation site is manageable. No acute complaints. OBJECTIVE: VITAL SIGNS: Temperature is 98.1, pulse 70, respirations 18, blood pressure 124/74, pulse oximetry 98% in room air. GENERAL: Patient is alert, comfortable. HEENT: Normocephalic, atraumatic. Extraocular motor grossly intact. CARDIOVASCULAR: Positive S1, S2, regular rate. LUNGS: Clear to auscultation bilaterally. No wheezes or rhonchi. ABDOMEN: Soft, nontender, nondistended. Bowel sounds present. EXTREMITIES: Right above-knee amputation. No left lower extremity edema. LABORATORY DATA: WBC 5.3, hemoglobin 10.7, hematocrit 32.9, platelet count is 525. Sodium is 140, potassium 4.2, chloride 102, carbon dioxide 30, BUN 12, creatinine 0.57, GFR greater than 60, fasting glucose is 133, calcium 8.9. Total bilirubin 0.5, AST 57, ALT is 68, alkaline phosphatase is 401, total protein 7.2, albumin 2.5. ASSESSMENT AND PLAN: 1. Right above-knee amputation. Currently patient is in acute rehabilitation. Patient will follow rehabilitation instructions. 2. Osteomyelitis, secondary to right lower extremity ischemia, status post above-knee amputation. Patient did have severe peripheral vascular disease. Patient is being treated for chronic osteomyelitis. Patient also has had multiple surgeries, including right lower extremity angioplasty and thrombolysis, and later patient had a right transmetatarsal amputation in May 2018. In September 2018 patient had a right above-knee amputation. Management per vascular surgery, Dr. Cruz. Currently pain is controlled. 3. Staphylococcus anginosus bacteremia secondary to osteomyelitis, status post antibiotic treatment. Patient had a repeat culture on 10/12/2018, which has remained negative. 4. Normocytic anemia. Will continue to follow the patient for any symptoms. Most recently, patient had two packed red blood cells transfusion on 10/30/2018. 5. Hypertension. Blood pressure in the satisfactory range, on Norvasc. 6. Hypothyroidism, on Synthroid. 7. Diabetes, on insulin. Continue consistent-carbohydrate diet. 8. History of rheumatoid arthritis. Continue outpatient followup. 9. Dyslipidemia. Continue statin. 10. Deep vein thrombosis (DVT) prophylaxis, on Xarelto. MTDD
[2018-11-01 21:05] VITALS: BP 134/62
[2018-11-01] MEDS: SIMVASTATIN 40 MG TAB PO SCH (21:07)
[2018-11-01] MEDS: LEVEMIR (INSULIN DETEMIR) 1 UNITS/0.01ML SC SCH (21:07)
[2018-11-02] MEDS: oxyCODONE 5MG TAB PO PRN ×3 (02:53→18:10)
[2018-11-02 06:33] VITALS: BP 157/74
[2018-11-02] MEDS: LEVOTHYROXINE 75MCG TABLET (0.075MG) PO SCH (06:34)
[2018-11-02 08:43] LABS: HEMATOCRIT 36.6 % (42.0-52.0); HEMOGLOBIN 11.7 g/dl (13.5-17.5); MEAN CORPUSCULAR HEMOGLOBIN 29.1 pg (27.0-33.0); PLATELET COUNT, AUTOMATED 615 10^3/uL (150-450); RED BLOOD COUNT 4.02 10^6/uL (4.30-6.10); WHITE BLOOD COUNT 6.1 10^3/uL (4.0-10.0)
[2018-11-02] MEDS: SENOKOT S TAB PO SCH ×3 (09:00→22:36)
[2018-11-02] MEDS: BOUDREAUX'S BUTT PASTE 4OZ TOP SCH ×3 (09:00→22:37)
[2018-11-02] MEDS: NYSTATIN 100,000 UNITS/GM TOPICAL PWD 15 GM TOP SCH ×2 (09:00→22:38)
[2018-11-02] MEDS: oxyCODONE 5MG TAB PO SCH ×3 (09:03→22:37)
[2018-11-02] MEDS: LACTOBACILLUS ACIDOPHILUS CAP (BACID) PO SCH ×2 (09:03→22:35)
[2018-11-02] MEDS: RIVAROXABAN 15 MG TAB (XARELTO) PO SCH ×2 (09:04→18:10)
[2018-11-02] MEDS: amLODIPine 10 MG TAB PO SCH (09:04)
[2018-11-02] MEDS: GABAPENTIN 100 MG CAP PO SCH ×3 (09:04→22:37)
[2018-11-02] MEDS: PANTOPRAZOLE 40MG TAB (PROTONIX) PO SCH (09:04)
[2018-11-02] MEDS: FERROUS GLUCONATE 324 MG TAB PO SCH ×2 (09:04→22:35)
[2018-11-02] MEDS: predniSONE 5 MG TAB PO SCH (09:04)
[2018-11-02] MEDS: FOLIC ACID 1 MG TAB PO SCH (09:04)
[2018-11-02] MEDS: HumaLOG INSULIN (NovoLOG) PER UNIT SC SCH ×6 (09:05→18:10)
[2018-11-02] MEDS: ACETAMINOPHEN 500 MG TAB PO SCH ×3 (09:09→22:36)
[2018-11-02 09:16] LABS: ALBUMIN 2.8 GM/DL (3.2-5.2); ALT/SGPT 60 U/L (12-78); BILIRUBIN,TOTAL 0.5 MG/DL (0.2-1.0); BLOOD UREA NITROGEN 14 MG/DL (7-18); CALCIUM LEVEL 9.2 MG/DL (8.8-10.2); CARBON DIOXIDE LEVEL 31 MEQ/L (21-32); CHLORIDE LEVEL 101 MEQ/L (98-107); CREATININE FOR GFR 0.78 MG/DL (0.70-1.30); GLOMERULAR FILTRATION RATE > 60.0 (>42); GLUCOSE, FASTING 209 MG/DL (70-100); MAGNESIUM LEVEL 1.6 MG/DL (1.8-2.4); POTASSIUM SERUM 4.5 MEQ/L (3.5-5.1); SODIUM LEVEL 137 MEQ/L (136-145); TOTAL PROTEIN 7.6 GM/DL (6.4-8.2)
[2018-11-02 14:00] VITALS: BP 126/60
--- NOTE | 2018-11-02 19:03 | IPNPDOC ---
Text Note Date of Service The patient was seen on 11/02/18. NOTE SUBJECTIVE: Patient is seen and examined in the room today. Denies any acute complaints. OBJECTIVE: VITAL SIGNS: Listed below. GENERAL: Patient is alert and awake, comfortable. HEENT: Normocephalic, atraumatic. Extraocular motor grossly intact. CARDIOVASCULAR: Positive S1, S2, regular rate. LUNGS: Clear to auscultation bilaterally. No wheezes or rhonchi. ABDOMEN: Soft, nontender, nondistended. Bowel sounds present. EXTREMITIES: Right above-knee amputation. No left lower extremity edema. LABORATORY DATA: Listed below. ASSESSMENT AND PLAN: #. Right above-knee amputation. - Currently patient is in acute rehabilitation unit. Physical therapy and occupational therapy per acute rehab instruction. #. Osteomyelitis, secondary to right lower extremity ischemia, status post above-knee amputation. - Patient has severe peripheral vascular disease. Patient was treated for chronic osteomyelitis. Patient also has had multiple surgeries, including right lower extremity angioplasty and thrombolysis. Later patient had a right transmetatarsal amputation in May 2018. In September 2018 patient had a right above-knee amputation. Management per vascular surgery, Dr. Cruz. Currently pain is controlled. #. Staphylococcus anginosus bacteremia secondary to osteomyelitis - status post antibiotic treatment. Patient had a repeat culture on 10/12/2018, which has remained negative. #. Normocytic anemia. - Asymptomatic at this moment. Most recently, patient had two packed red blood cells transfusion on 10/30/2018. #. Hypertension. Blood pressure in the satisfactory range, on Norvasc. #. Hypothyroidism, on Synthroid. #. Diabetes, on insulin. Continue consistent-carbohydrate diet. #. History of rheumatoid arthritis. Continue outpatient followup. #. Dyslipidemia. Continue statin. #. Deep vein thrombosis (DVT) prophylaxis, on Xarelto. VS,Fishbone, I+O VS, Fishbone, I+O Laboratory Tests 11/02/18 08:33 Red Blood Count 4.02 L, Mean Corpuscular Volume 91.0, Mean Corpuscular Hemoglobin 29.1, Mean Corpuscular Hemoglobin Concent 32.0, Red Cell Distribution Width 15.3 H, Calcium Level 9.2, Aspartate Amino Transf (AST/SGOT) 43 H, Alanine Aminotransferase (ALT/SGPT) 60, Alkaline Phosphatase 388 H, Total Bilirubin 0.5, Total Protein 7.6, Albumin 2.8 L Vital Signs Date Time Temp Pulse Resp B/P (MAP) Pulse Ox O2 Delivery O2 Flow Rate FiO2 11/02/18 18:10 14 11/02/18 14:00 97.2 77 126/60 (82) 98 10/29/18 06:00 Room Air I&O- Last 24 Hours up to 6 AM 11/02/18 06:00 Intake Total 1200 ml Output Total 700 ml Balance 500 ml HAIR HIDALGO DO Nov 02, 2018 19:03
[2018-11-02 21:00] VITALS: BP 131/66
[2018-11-02] MEDS: SIMVASTATIN 40 MG TAB PO SCH (22:35)
[2018-11-02] MEDS: LEVEMIR (INSULIN DETEMIR) 1 UNITS/0.01ML SC SCH (22:37)
[2018-11-03 06:00] VITALS: BP 161/77
[2018-11-03] MEDS: LEVOTHYROXINE 75MCG TABLET (0.075MG) PO SCH (06:24)
[2018-11-03] MEDS: oxyCODONE 5MG TAB PO PRN ×2 (07:24→17:27)
[2018-11-03 07:30] LABS: HEMATOCRIT 33.2 % (42.0-52.0); HEMOGLOBIN 10.7 g/dl (13.5-17.5); MEAN CORPUSCULAR HEMOGLOBIN 29.2 pg (27.0-33.0); MEAN CORPUSCULAR HGB CONC 32.2 g/dl (32.0-36.5); MEAN CORPUSCULAR VOLUME 90.7 fl (80.0-96.0); RED BLOOD COUNT 3.66 10^6/uL (4.30-6.10); WHITE BLOOD COUNT 5.6 10^3/uL (4.0-10.0)
[2018-11-03 07:41] LABS: PLATELET COUNT, AUTOMATED 498 10^3/uL (150-450)
[2018-11-03 07:57] LABS: ALBUMIN 2.6 GM/DL (3.2-5.2); ALT/SGPT 45 U/L (12-78); BILIRUBIN,TOTAL 0.3 MG/DL (0.2-1.0); BLOOD UREA NITROGEN 18 MG/DL (7-18); CALCIUM LEVEL 8.6 MG/DL (8.8-10.2); CARBON DIOXIDE LEVEL 32 MEQ/L (21-32); CHLORIDE LEVEL 103 MEQ/L (98-107); CREATININE FOR GFR 0.62 MG/DL (0.70-1.30); GLOMERULAR FILTRATION RATE > 60.0 (>42); GLUCOSE, FASTING 160 MG/DL (70-100); MAGNESIUM LEVEL 1.7 MG/DL (1.8-2.4); POTASSIUM SERUM 4.6 MEQ/L (3.5-5.1); SODIUM LEVEL 139 MEQ/L (136-145); TOTAL PROTEIN 6.7 GM/DL (6.4-8.2)
[2018-11-03] MEDS: RIVAROXABAN 15 MG TAB (XARELTO) PO SCH ×2 (09:00→17:27)
[2018-11-03] MEDS: SENOKOT S TAB PO SCH ×2 (09:00→20:36)
[2018-11-03] MEDS: BOUDREAUX'S BUTT PASTE 4OZ TOP SCH ×3 (09:00→20:37)
[2018-11-03] MEDS: FOLIC ACID 1 MG TAB PO SCH (09:00)
[2018-11-03] MEDS: GABAPENTIN 100 MG CAP PO SCH ×3 (09:00→20:36)
[2018-11-03] MEDS: ACETAMINOPHEN 500 MG TAB PO SCH ×3 (09:00→20:36)
[2018-11-03] MEDS: FERROUS GLUCONATE 324 MG TAB PO SCH ×2 (09:00→20:36)
[2018-11-03] MEDS: PANTOPRAZOLE 40MG TAB (PROTONIX) PO SCH (09:00)
[2018-11-03] MEDS: predniSONE 5 MG TAB PO SCH (09:01)
[2018-11-03] MEDS: HumaLOG INSULIN (NovoLOG) PER UNIT SC SCH ×6 (09:01→17:27)
[2018-11-03] MEDS: oxyCODONE 5MG TAB PO SCH ×3 (09:01→20:36)
[2018-11-03] MEDS: NYSTATIN 100,000 UNITS/GM TOPICAL PWD 15 GM TOP SCH ×2 (09:03→20:38)
[2018-11-03] MEDS: amLODIPine 10 MG TAB PO SCH (09:03)
--- NOTE | 2018-11-03 12:00 | IPNPDOC ---
Date Seen The patient was seen on 11/03/18. Progress Note HPI: 73-year-old male with past medical history of hypertension, GERD, hypothyroidism, rheumatoid arthritis, diabetes, peripheral vascular disease status post right leg from/pop bypass in October 2017, right lower extremity thrombolysis and angioplasty February 2018, and right transmetatarsal amputation in May 2018 presented to the ER with a chief complaint of fever, chills, vomiting, and generalized weakness. In the ER, the patient was noted to be tachycardic, febrile, with an elevated white blood cell count. Blood cultures were drawn, and the patient was started on empiric IV antibiotic therapy. Imaging revealed erosive changes in the absence of uncovering soft tissue consistent with osteomyelitis involving first through fourth metatarsals. The patient was admitted to the hospitalist service, and a consult was placed to vascular surgery for further evaluation. During hospitalization, the patient's blood cultures were noted to be positive for streptococcus anginosus and he comp leted a 14 day course of Rocephin. Vascular surgery was also on consult and took the patient for a right [id number] amputation on 10/19, and a subsequent [id number] amputation on the right on 10/22. The patient was transferred to the acute rehabilitation unit 10/27/18 to the care of Dr Vale. Pt states pain has been controlled. No verbalized concerns at this time. PE: GEN: 73yoM, appears stated age. Alert and oriented x 3. HEENT: Normocephalic, atraumatic. Sclera are nonicteric. Conjunctiva without injection. Moist mucous membranes. CHEST: Regular rate and rhythm, +S1, +S2 LUNGS: Clear to auscultation bilaterally. No wheezes, rales, or rhonchi. ABD: Round, soft, non-tender, non-distended. +Bowel sounds throughout. No costovertebral angle tenderness. EXT: No Left lower extremity edema appreciated. Rt AKA. SKIN: [place], dry, warm. NEURO: Alert and oriented x 3. No focal deficits appreciated. A&P: 73-year-old male with past medical history of hypertension, GERD, hypothyroidism, rheumatoid arthritis, diabetes, peripheral vascular disease s tatus post right leg from/pop bypass in October 2017, right lower extremity thrombolysis and angioplasty February 2018, and right transmetatarsal amputation in May 2018 presented to the ER with a chief complaint of fever, chills, vomiting, and generalized weakness. In the ER, the patient was noted to be tachycardic, febrile, with an elevated white blood cell count. Blood cultures were drawn, and the patient was started on empiric IV antibiotic therapy. Imaging revealed erosive changes in the absence of uncovering soft tissue consistent with osteomyelitis involving first through fourth metatarsals. The patient was admitted to the hospitalist service, and a consult was placed to vascular surgery for further evaluation. During hospitalization, the patient's blood cultures were noted to be positive for streptococcus anginosus and he completed a 14 day course of Rocephin. Vascular surgery was also on consult and took the patient for a right [id number] amputation on 10/19, and a subsequent [id number] amputation on the right on 10/22. The patient was transferred to the acute rehabilitation unit 10/27/18 to the care of Dr Vale. 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 rCuz of Vascular surgery. PT/OT as per Dr Kavin VERNON. Pain control as per Dr Kavin VERNON. Bowel care as per Dr Kavin VERNON. DVT prophylaxis, on Xarelto Streptococcus Anginosus Bacteremia/Septicemia 2/2 Above Blood culture 2 notable for Streptococcus Anginosus from 10/10 Repeat Blood culture x 2 negative from 10/12 2D ECHO with no vegetations noted Wound culture notable for Streptococcus Anginosus, Klebsiella s/p completion of IV Rocephin course Normocytic Anemia Patient noted to be anemic following procedure on 10/22, likely acute blood loss. Consent is placed on chart for blood products. S/P 6U PRBC, additional 2 u PRBC 10/30/18 Hgb 10.7, monitor. Fe studies, B12, folate noted. FOB neg. Continue iron supplementation BID Monitor CBC. Thrombocytosis. Likely reactive. trending downward. Monitor. Hypertension Cont on Norvasc GERD Protonix Hypothyroidism Continue levothyroxine Rheumatoid arthritis Follow up as outpatient Dyslipidemia Continue statin IDDM. CC diet. SSI and Levemir adjusted as per Dr Vale. Monitor. Transaminitis. resolved. Hepatitis profile negative. Monitor. VS, I&O, 24H, Fishbone Vital Signs/I&O Vital Signs Date Time Temp Pulse Resp B/P (MAP) Pulse Ox O2 Delivery O2 Flow Rate FiO2 11/03/18 09:51 18 11/03/18 09:03 70 145/89 11/03/18 06:00 97.6 99 10/29/18 06:00 Room Air I&O- Last 24 Hours up to 6 AM 11/03/18 06:00 Intake Total 960 ml Output Total 725 ml Balance 235 ml Laboratory Data 24H LABS Laboratory Tests 2 11/02/18 16:50: Bedside Glucose (Misc Panel) 292H 11/02/18 20:42: Bedside Glucose (Misc Panel) 292H 11/03/18 06:28: Bedside Glucose (Misc Panel) 177H 11/03/18 07:00: Nucleated Red Blood Cells % (auto) 0.0, Anion Gap 4L, Glomerular Filtration Rate > 60.0, Blood Urea Nitrogen 18, Creatinine 0.62L, Sodium Level 139, Potassium Level 4.6, Chloride Level 103, Carbon Dioxide Level 32, Calcium Level 8.6L, Aspartate Amino Transf (AST/SGOT) 25, Alanine Aminotransferase (ALT/SGPT) 45, Alkaline Phosphatase 282H, Total Bilirubin 0.3, Total Protein 6.7, Albumin 2.6L, Magnesium Level 1.7L, Albumin/Globulin Ratio 0.63L CBC/BMP Laboratory Tests 11/03/18 07:00 Red Blood Count 3.66 L, Mean Corpuscular Volume 90.7, Mean Corpuscular Hemoglobin 29.2, Mean Corpuscular Hemoglobin Concent 32.2, Red Cell Distribution Width 15.4 H, Calcium Level 8.6 L, Aspartate Amino Transf (AST/SGOT) 25, Alanine Aminotransferase (ALT/SGPT) 45, Alkaline Phosphatase 282 H, Total Bilirubin 0.3, Total Protein 6.7, Albumin 2.6 L Microbiology Microbiology 10/31/18 Stool Occult Blood (MOE) - Final, Complete 10/29/18 Urine Culture - Final, Complete Lucy Del Toro Nov 03, 2018 12:00
[2018-11-03] MEDS: LACTOBACILLUS ACIDOPHILUS CAP (BACID) PO SCH ×2 (12:37→20:35)
[2018-11-03 14:00] VITALS: BP 135/68
--- NOTE | 2018-11-03 18:49 | IPNPDOC ---
PM&R Progress Note DATE OF SERVICE: Nov 02, 2018 Welfare Case Worker Progress Note Subjective: Patient reports he is feeling well and has been working on self stretching while in bed. REVIEW OF SYSTEMS: The following is a completed review of systems and has been reviewed. Review of systems otherwise unremarkable. PAIN: Patient self reports right limb and sacral pain EYES: Negative for recent vision changes EARS, NOSE, & THROAT: negative for dysphagia, throat pain or rhinorrhea CARDIOVASCULAR: denies chest pain or palpitations PULMONARY: Negative. Denies shortness of breath. GASTROINTESTINAL: +nausea, no constipation or diarrhea GENITOURINARY: no dysuria or incontinence MUSCULOSKELETAL: right AKA. NEUROLOGICAL:no tremor or focal weakness HEMATOLOGICAL: +anemia SKIN: sacral ulcer and right AKA renato PSYCHIATRIC: Unremarkable All other review of systems found to be negative. PHYSICAL EXAMINATION: VITAL SIGNS: Please see below. GENERAL: Pleasant and cooperative. No acute distress. HEENT: PERRL. Extraocular movements intact. Clear conjunctiva CARDIOVASCULAR: Regular rate and rhythm. No murmurs, rubs, or gallops LUNGS: Clear to auscultation bilaterally. No wheezes. No rhonchi ABDOMEN: Soft, nontender, nondistended. Positive bowel sounds. Normal active bowel sounds NEUROLOGICAL: Alert and oriented times three. Cranial nerves II through XII grossly intact. Sensation grossly intact in bilat UE, diminished LLE EXTREMITIES: 5/5 strength bilateral upper extremities. 5\5 strength right hip flexion and abduction. 5-/5 strength in left lower extremity. SKIN: right AKA renato with mild erythema at the medial aspect, +sacral ulcer TTP lateral aspect ASSESSMENT:73-year-old M with past medical history of PVD and DM who presents status post right AKA. PLAN: 1. rehab: PT/OT, assess for DME, NWB RLE- encouraging lying prone in therapy and with nursing, ordered MF therapy to hip flexors to be done by each discipline 2. 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 Kasper and Dr. Cruz- will need outpatient f/u- -pmh diastolic CHF, continue diuretics and beta blockers -pmh HTN continue meds, adjust as needed- consult medicine, recs appreciated 3. Resp: encourage incentive spirometry and monitor for signs of respiratory infection 4. ID: s/p IV Rocephin for Strep Anginosus septicemia 5. Endo: pmh Hypothyroidism- continue Synthroid 6. Rheum: pmg RA continue prednisone 7. Heme: anemia of chronic disease with recent post-op blood loss anemia s/p rbcs, 2 units, will continue to monitor and continue Iron supplements. 8. DVT ppx: on Xarelto 9. Pain: Tylenol and oxycodone prn, continue gabapentin 10. Skin: sacral ulcer on admission, continue to offload and apply optifoam, BID residual limb dressings, consulted Dr. 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 Dispo: 11/11/18 to home, progressing towards goals Allergies Coded Allergies: No Known Allergies (Unverified , 11/14/17) Vital Signs Vital Signs Date Time Temp Pulse Resp B/P (MAP) Pulse Ox O2 Delivery O2 Flow Rate FiO2 11/03/18 18:03 19 11/03/18 14:00 97.5 83 135/68 (90) 98 10/29/18 06:00 Room Air Laboratory Data CBC/BMP Laboratory Tests 11/03/18 07:00 Red Blood Count 3.66 L, Mean Corpuscular Volume 90.7, Mean Corpuscular Hemoglobin 29.2, Mean Corpuscular Hemoglobin Concent 32.2, Red Cell Distribution Width 15.4 H, Calcium Level 8.6 L, Aspartate Amino Transf (AST/SGOT) 25, Alanine Aminotransferase (ALT/SGPT) 45, Alkaline Phosphatase 282 H, Total Bilirubin 0.3, Total Protein 6.7, Albumin 2.6 L Labs 24H Laboratory Tests 2 11/02/18 20:42: Bedside Glucose (Misc Panel) 292H 11/03/18 06:28: Bedside Glucose (Misc Panel) 177H 11/03/18 07:00: Nucleated Red Blood Cells % (auto) 0.0, Anion Gap 4L, Glomerular Filtration Rate > 60.0, Blood Urea Nitrogen 18, Creatinine 0.62L, Sodium Level 139, Potassium Level 4.6, Chloride Level 103, Carbon Dioxide Level 32, Calcium Level 8.6L, Aspartate Amino Transf (AST/SGOT) 25, Alanine Aminotransferase (ALT/SGPT) 45, Alkaline Phosphatase 282H, Total Bilirubin 0.3, Total Protein 6.7, Albumin 2.6L, Magnesium Level 1.7L, Albumin/Globulin Ratio 0.63L 11/03/18 16:51: Bedside Glucose (Misc Panel) 175H Microbiology Microbiology 10/31/18 Stool Occult Blood (MOE) - Final, Complete 10/29/18 Urine Culture - Final, Complete Current Medications Current Medications Current Medications Acetaminophen (Tylenol Tab) 1,000 mg Q6HP PRN PO MILD PAIN (PS 1-4); Start 10/27/18 at 16:15; Stop 10/28/18 at 10:47; Status DC Acetaminophen (Tylenol Tab) 1,000 mg TID PO Last administered on 11/03/18at 15:16; Start 10/28/18 at 16:00 Acetaminophen/ Hydrocodone Bitart ([place], Anexsia 5/325) 1 tab Q4HP PRN PO MODERATE PAIN (PS 5-7) Last administered on 10/28/18at 09:32; Start 10/27/18 at 16:15; Stop 10/28/18 at 10:47; Status DC Amlodipine Besylate (Norvasc) 10 mg DAILY PO Last administered on 11/03/18at 09:03; Start 10/28/18 at 09:00 Bisacodyl (Dulcolax Suppository) 10 mg DAILYPRN PRN [place] CONSTIPATION; Start 10/27/18 at 16:15 Dextrose (Dextrose 50%) 25 ml ASDIRECTED PRN IV SEE LABEL COMMENTS; Start 10/27/18 at 16:15 Ferrous Gluconate (Fergon) 324 mg BID PO Last administered on 11/03/18at 09:00; Start 10/27/18 at 21:00 Folic Acid (Folic Acid) 1 mg DAILY PO Last administered on 11/02/18at 09:04; Start 10/28/18 at 09:00 Gabapentin (Neurontin) 100 mg TID PO Last administered on 11/03/18at 15:16; Start 10/28/18 at 16:00 Glucagon (Glucagon) 1 mg ASDIRECTED PRN SC SEE LABEL COMMENTS; Start 10/27/18 at 16:15 Glucose (Glucose) 16 GM ASDIRECTED PRN PO SEE LABEL COMMENTS; Start 10/27/18 at 16:15 Home Med (Med Rec Complete!) ASDIRECTED XX ; Start 10/27/18 at 16:30; Stop 10/27/18 at 16:30; Status DC Insulin Detemir (Levemir Insulin) 5 units QHS SC Last administered on 10/28/18at 21:36; Start 10/28/18 at 21:00; Stop 10/29/18 at 11:40; Status DC Insulin Detemir (Levemir Insulin) 5 units QHS SC Last administered on 11/02/18at 22:37; Start 10/31/18 at 21:00; Stop 11/03/18 at 10:49; Status DC Insulin Detemir (Levemir Insulin) 8 units QHS SC Last administered on 10/30/18at 21:36; Start 10/29/18 at 21:00; Stop 10/31/18 at 11:54; Status DC Insulin Detemir (Levemir Insulin) 8 units QHS SC ; Start 11/03/18 at 21:00 Insulin Detemir (Levemir Insulin) 15 units QHS SC Last administered on 10/27/18at 22:07; Start 10/27/18 at 21:00; Stop 10/28/18 at 14:04; Status DC Insulin Human Lispro (HumaLOG INSULIN) 2 units AC SC Last administered on 11/03/18at 09:02; Start 10/30/18 at 07:30; Stop 11/03/18 at 10:49; Status DC Insulin Human Lispro (HumaLOG INSULIN) 4 units AC SC Last administered on 11/03/18at 17:27; Start 11/03/18 at 12:00 Insulin Human Lispro (HumaLOG INSULIN) SEE PROTOCOL TABLE AC SC Last administered on 11/03/18at 17:26; Start 10/27/18 at 17:30 Lactobacillus Acidophilus (Bacid) 2 ea BID PO Last administered on 11/03/18at 12:37; Start 10/27/18 at 21:00 Levothyroxine Sodium (Synthroid) 75 mcg DAILY@06 PO Last administered on 11/03/18at 06:24; Start 10/28/18 at 06:00 Magnesium Hydroxide (Milk Of Magnesia) 30 ml DAILYPRN PRN PO CONSTIPATION; Start 10/27/18 at 16:15 Miscellaneous (Unresolved Clarification Entry) SEE LABEL COMMENTS DAILY XX ; Start 11/02/18 at 09:00; Stop 11/03/18 at 07:12; Status DC Miscellaneous (Unresolved Clarification Entry) SEE LABEL COMMENTS DAILY XX ; Start 11/03/18 at 09:00; Stop 11/03/18 at 10:51; Status DC Nystatin (Mycostatin Powder, Nystop) groin BID TOP Last administered on 11/03/18 09:03; Start 10/27/18 at 21:00 Ondansetron HCl (Zofran) 4 mg Q6HP PRN PO NAUSEA; Start 10/27/18 at 16:15 Oxycodone HCl (Roxicodone, Oxyir) 5 mg TID PO Last administered on 11/03/18 15:16; Start 10/28/18 at 16:00 Oxycodone HCl (Roxicodone, Oxyir) 10 mg Q6HP PRN PO SEVERE PAIN (PS 8-10) Last administered on 11/03/18 17:27; Start 10/28/18 at 10:45 Pantoprazole Sodium (Protonix) 40 mg DAILY PO Last administered on 11/03/18 09:00; Start 10/28/18 at 09:00 Prednisone (Deltasone) 5 mg DAILY PO Last administered on 11/03/18 09:01; Start 10/28/18 at 09:00 Rivaroxaban (Xarelto) 15 mg BID@08,18 PO Last administered on 11/03/18 17:27; Start 10/27/18 at 18:00 Senna/Docusate Sodium (Senokot S) 1 tab BID PO Last administered on 11/03/18 09:00; Start 10/27/18 at 21:00 Simvastatin (Zocor) 40 mg QHS PO Last administered on 11/02/18 22:35; Start 10/27/18 at 21:00 Zinc Oxide (Boudreauxs Butt Paste) APPLY TO sacrum TID TOP Last administered on 11/02/18 22:37; Start 10/28/18 at 16:00 MAGDI ADAMS MD Nov 03, 2018 18:49
--- NOTE | 2018-11-03 18:50 | IPNPDOC ---
PM&R Progress Note DATE OF SERVICE: Nov 03, 2018 Paint Mixer Progress Note Subjective: Patient reports his pain is well controlled and he is working on lying prone on his own while in bed. REVIEW OF SYSTEMS: The following is a completed review of systems and has been reviewed. Review of systems otherwise unremarkable. PAIN: Patient self reports right limb and sacral pain EYES: Negative for recent vision changes EARS, NOSE, & THROAT: negative for dysphagia, throat pain or rhinorrhea CARDIOVASCULAR: denies chest pain or palpitations PULMONARY: Negative. Denies shortness of breath. GASTROINTESTINAL: +nausea, no constipation or diarrhea GENITOURINARY: no dysuria or incontinence MUSCULOSKELETAL: right AKA. NEUROLOGICAL:no tremor or focal weakness HEMATOLOGICAL: +anemia SKIN: sacral ulcer and right AKA renato PSYCHIATRIC: Unremarkable All other review of systems found to be negative. PHYSICAL EXAMINATION: VITAL SIGNS: Please see below. GENERAL: Pleasant and cooperative. No acute distress. HEENT: PERRL. Extraocular movements intact. Clear conjunctiva CARDIOVASCULAR: Regular rate and rhythm. No murmurs, rubs, or gallops LUNGS: Clear to auscultation bilaterally. No wheezes. No rhonchi ABDOMEN: Soft, nontender, nondistended. Positive bowel sounds. Normal active bowel sounds NEUROLOGICAL: Alert and oriented times three. Cranial nerves II through XII grossly intact. Sensation grossly intact in bilat UE, diminished LLE EXTREMITIES: 5/5 strength bilateral upper extremities. 5\5 strength right hip flexion and abduction. 5-/5 strength in left lower extremity. SKIN: right AKA renato with mild erythema at the medial aspect, +sacral ulcer TTP lateral aspect ASSESSMENT:73-year-old M with past medical history of PVD and DM who presents status post right AKA. PLAN: 1. rehab: PT/OT, assess for DME, NWB RLE- encouraging lying prone in therapy and with nursing, ordered MF therapy to hip flexors to be done by each discipline 2. 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 Kasper and Dr. Cruz- will need outpatient f/u- -pmh diastolic CHF, continue diuretics and beta blockers -pmh HTN continue meds, adjust as needed- consult medicine, recs appreciated 3. Resp: encourage incentive spirometry and monitor for signs of respiratory infection 4. ID: s/p IV Rocephin for Strep Anginosus septicemia 5. Endo: pmh Hypothyroidism- continue Synthroid 6. Rheum: pmg RA continue prednisone 7. Heme: anemia of chronic disease with recent post-op blood loss anemia s/p rbcs, 2 units, will continue to monitor and continue Iron supplements. 8. DVT ppx: on Xarelto 9. Pain: Tylenol and oxycodone prn, continue gabapentin 10. Skin: sacral ulcer on admission, continue to offload and apply optifoam, BID residual limb dressings, consulted Dr. 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 Dispo: 11/11/18 to home, progressing towards goals Allergies Coded Allergies: No Known Allergies (Unverified , 11/14/17) Vital Signs Vital Signs Date Time Temp Pulse Resp B/P (MAP) Pulse Ox O2 Delivery O2 Flow Rate FiO2 11/03/18 18:03 19 11/03/18 14:00 97.5 83 135/68 (90) 98 10/29/18 06:00 Room Air Laboratory Data CBC/BMP Laboratory Tests 11/03/18 07:00 Red Blood Count 3.66 L, Mean Corpuscular Volume 90.7, Mean Corpuscular Hemoglobin 29.2, Mean Corpuscular Hemoglobin Concent 32.2, Red Cell Distribution Width 15.4 H, Calcium Level 8.6 L, Aspartate Amino Transf (AST/SGOT) 25, Alanine Aminotransferase (ALT/SGPT) 45, Alkaline Phosphatase 282 H, Total Bilirubin 0.3, Total Protein 6.7, Albumin 2.6 L Labs 24H Laboratory Tests 2 11/02/18 20:42: Bedside Glucose (Misc Panel) 292H 11/03/18 06:28: Bedside Glucose (Misc Panel) 177H 11/03/18 07:00: Nucleated Red Blood Cells % (auto) 0.0, Anion Gap 4L, Glomerular Filtration Rate > 60.0, Blood Urea Nitrogen 18, Creatinine 0.62L, Sodium Level 139, Potassium Level 4.6, Chloride Level 103, Carbon Dioxide Level 32, Calcium Level 8.6L, Aspartate Amino Transf (AST/SGOT) 25, Alanine Aminotransferase (ALT/SGPT) 45, Alkaline Phosphatase 282H, Total Bilirubin 0.3, Total Protein 6.7, Albumin 2.6L, Magnesium Level 1.7L, Albumin/Globulin Ratio 0.63L 11/03/18 16:51: Bedside Glucose (Misc Panel) 175H Microbiology Microbiology 10/31/18 Stool Occult Blood (MOE) - Final, Complete 10/29/18 Urine Culture - Final, Complete Current Medications Current Medications Current Medications Acetaminophen (Tylenol Tab) 1,000 mg Q6HP PRN PO MILD PAIN (PS 1-4); Start 10/27/18 at 16:15; Stop 10/28/18 at 10:47; Status DC Acetaminophen (Tylenol Tab) 1,000 mg TID PO Last administered on 11/03/18at 15:16; Start 10/28/18 at 16:00 Acetaminophen/ Hydrocodone Bitart ([place], Anexsia 5/325) 1 tab Q4HP PRN PO MODERATE PAIN (PS 5-7) Last administered on 10/28/18at 09:32; Start 10/27/18 at 16:15; Stop 10/28/18 at 10:47; Status DC Amlodipine Besylate (Norvasc) 10 mg DAILY PO Last administered on 11/03/18at 09:03; Start 10/28/18 at 09:00 Bisacodyl (Dulcolax Suppository) 10 mg DAILYPRN PRN [place] CONSTIPATION; Start 10/27/18 at 16:15 Dextrose (Dextrose 50%) 25 ml ASDIRECTED PRN IV SEE LABEL COMMENTS; Start 10/27/18 at 16:15 Ferrous Gluconate (Fergon) 324 mg BID PO Last administered on 11/03/18at 09:00; Start 10/27/18 at 21:00 Folic Acid (Folic Acid) 1 mg DAILY PO Last administered on 11/02/18at 09:04; Start 10/28/18 at 09:00 Gabapentin (Neurontin) 100 mg TID PO Last administered on 11/03/18at 15:16; Start 10/28/18 at 16:00 Glucagon (Glucagon) 1 mg ASDIRECTED PRN SC SEE LABEL COMMENTS; Start 10/27/18 at 16:15 Glucose (Glucose) 16 GM ASDIRECTED PRN PO SEE LABEL COMMENTS; Start 10/27/18 at 16:15 Home Med (Med Rec Complete!) ASDIRECTED XX ; Start 10/27/18 at 16:30; Stop 10/27/18 at 16:30; Status DC Insulin Detemir (Levemir Insulin) 5 units QHS SC Last administered on 10/28/18at 21:36; Start 10/28/18 at 21:00; Stop 10/29/18 at 11:40; Status DC Insulin Detemir (Levemir Insulin) 5 units QHS SC Last administered on 11/02/18at 22:37; Start 10/31/18 at 21:00; Stop 11/03/18 at 10:49; Status DC Insulin Detemir (Levemir Insulin) 8 units QHS SC Last administered on 10/30/18at 21:36; Start 10/29/18 at 21:00; Stop 10/31/18 at 11:54; Status DC Insulin Detemir (Levemir Insulin) 8 units QHS SC ; Start 11/03/18 at 21:00 Insulin Detemir (Levemir Insulin) 15 units QHS SC Last administered on 10/27/18at 22:07; Start 10/27/18 at 21:00; Stop 10/28/18 at 14:04; Status DC Insulin Human Lispro (HumaLOG INSULIN) 2 units AC SC Last administered on 11/03/18at 09:02; Start 10/30/18 at 07:30; Stop 11/03/18 at 10:49; Status DC Insulin Human Lispro (HumaLOG INSULIN) 4 units AC SC Last administered on 11/03/18at 17:27; Start 11/03/18 at 12:00 Insulin Human Lispro (HumaLOG INSULIN) SEE PROTOCOL TABLE AC SC Last administered on 11/03/18at 17:26; Start 10/27/18 at 17:30 Lactobacillus Acidophilus (Bacid) 2 ea BID PO Last administered on 11/03/18at 12:37; Start 10/27/18 at 21:00 Levothyroxine Sodium (Synthroid) 75 mcg DAILY@06 PO Last administered on 11/03/18at 06:24; Start 10/28/18 at 06:00 Magnesium Hydroxide (Milk Of Magnesia) 30 ml DAILYPRN PRN PO CONSTIPATION; Start 10/27/18 at 16:15 Miscellaneous (Unresolved Clarification Entry) SEE LABEL COMMENTS DAILY XX ; Start 11/02/18 at 09:00; Stop 11/03/18 at 07:12; Status DC Miscellaneous (Unresolved Clarification Entry) SEE LABEL COMMENTS DAILY XX ; Start 11/03/18 at 09:00; Stop 11/03/18 at 10:51; Status DC Nystatin (Mycostatin Powder, Nystop) groin BID TOP Last administered on 11/03/18 09:03; Start 10/27/18 at 21:00 Ondansetron HCl (Zofran) 4 mg Q6HP PRN PO NAUSEA; Start 10/27/18 at 16:15 Oxycodone HCl (Roxicodone, Oxyir) 5 mg TID PO Last administered on 11/03/18 15:16; Start 10/28/18 at 16:00 Oxycodone HCl (Roxicodone, Oxyir) 10 mg Q6HP PRN PO SEVERE PAIN (PS 8-10) Last administered on 11/03/18 17:27; Start 10/28/18 at 10:45 Pantoprazole Sodium (Protonix) 40 mg DAILY PO Last administered on 11/03/18 09:00; Start 10/28/18 at 09:00 Prednisone (Deltasone) 5 mg DAILY PO Last administered on 11/03/18 09:01; Start 10/28/18 at 09:00 Rivaroxaban (Xarelto) 15 mg BID@08,18 PO Last administered on 11/03/18 17:27; Start 10/27/18 at 18:00 Senna/Docusate Sodium (Senokot S) 1 tab BID PO Last administered on 11/03/18 09:00; Start 10/27/18 at 21:00 Simvastatin (Zocor) 40 mg QHS PO Last administered on 11/02/18 22:35; Start 10/27/18 at 21:00 Zinc Oxide (Boudreauxs Butt Paste) APPLY TO sacrum TID TOP Last administered on 11/02/18 22:37; Start 10/28/18 at 16:00 MAGDI ADAMS MD Nov 03, 2018 18:50
[2018-11-03] MEDS: SIMVASTATIN 40 MG TAB PO SCH (20:36)
[2018-11-03] MEDS: LEVEMIR (INSULIN DETEMIR) 1 UNITS/0.01ML SC SCH (20:37)
[2018-11-03 21:15] VITALS: BP 142/64
[2018-11-04] MEDS: oxyCODONE 5MG TAB PO PRN ×2 (02:58→22:03)
[2018-11-04] MEDS: LEVOTHYROXINE 75MCG TABLET (0.075MG) PO SCH (05:49)
[2018-11-04 06:00] VITALS: BP 146/65
[2018-11-04 07:01] LABS: HEMATOCRIT 33.6 % (42.0-52.0); HEMOGLOBIN 10.7 g/dl (13.5-17.5); MEAN CORPUSCULAR HEMOGLOBIN 29.2 pg (27.0-33.0); MEAN CORPUSCULAR HGB CONC 31.8 g/dl (32.0-36.5); MEAN CORPUSCULAR VOLUME 91.6 fl (80.0-96.0); PLATELET COUNT, AUTOMATED 465 10^3/uL (150-450); RED BLOOD COUNT 3.67 10^6/uL (4.30-6.10); WHITE BLOOD COUNT 6.4 10^3/uL (4.0-10.0)
[2018-11-04 07:32] LABS: ALBUMIN 2.7 GM/DL (3.2-5.2); ALT/SGPT 46 U/L (12-78); BILIRUBIN,TOTAL 0.3 MG/DL (0.2-1.0); BLOOD UREA NITROGEN 20 MG/DL (7-18); CALCIUM LEVEL 8.7 MG/DL (8.8-10.2); CARBON DIOXIDE LEVEL 30 MEQ/L (21-32); CHLORIDE LEVEL 103 MEQ/L (98-107); GLOMERULAR FILTRATION RATE > 60.0 (>42); GLUCOSE, FASTING 189 MG/DL (70-100); MAGNESIUM LEVEL 1.7 MG/DL (1.8-2.4); POTASSIUM SERUM 5.1 MEQ/L (3.5-5.1); SODIUM LEVEL 138 MEQ/L (136-145); TOTAL PROTEIN 6.5 GM/DL (6.4-8.2)
[2018-11-04] MEDS: BOUDREAUX'S BUTT PASTE 4OZ TOP SCH ×3 (09:00→20:14)
[2018-11-04] MEDS: NYSTATIN 100,000 UNITS/GM TOPICAL PWD 15 GM TOP SCH ×2 (09:00→20:14)
[2018-11-04] MEDS: oxyCODONE 5MG TAB PO SCH ×3 (09:42→20:12)
[2018-11-04] MEDS: LACTOBACILLUS ACIDOPHILUS CAP (BACID) PO SCH ×2 (09:43→20:10)
[2018-11-04] MEDS: predniSONE 5 MG TAB PO SCH (09:43)
[2018-11-04] MEDS: HumaLOG INSULIN (NovoLOG) PER UNIT SC SCH ×6 (09:43→17:13)
[2018-11-04] MEDS: amLODIPine 10 MG TAB PO SCH (09:44)
[2018-11-04] MEDS: PANTOPRAZOLE 40MG TAB (PROTONIX) PO SCH (09:44)
[2018-11-04] MEDS: SENOKOT S TAB PO SCH ×2 (09:44→20:12)
[2018-11-04] MEDS: FOLIC ACID 1 MG TAB PO SCH (09:44)
[2018-11-04] MEDS: FERROUS GLUCONATE 324 MG TAB PO SCH ×2 (09:44→20:12)
[2018-11-04] MEDS: RIVAROXABAN 15 MG TAB (XARELTO) PO SCH ×2 (09:44→17:12)
[2018-11-04] MEDS: GABAPENTIN 100 MG CAP PO SCH ×3 (09:44→20:11)
[2018-11-04] MEDS: ACETAMINOPHEN 500 MG TAB PO SCH ×3 (09:44→20:11)
[2018-11-04 14:00] VITALS: BP 107/64
--- NOTE | 2018-11-04 14:35 | IPNPDOC ---
Date Seen The patient was seen on 11/04/18. Progress Note HPI: 73-year-old male with past medical history of hypertension, GERD, hypothyroidism, rheumatoid arthritis, diabetes, peripheral vascular disease status post right leg from/pop bypass in October 2017, right lower extremity thrombolysis and angioplasty February 2018, and right transmetatarsal amputation in May 2018 presented to the ER with a chief complaint of fever, chills, vomiting, and generalized weakness. In the ER, the patient was noted to be tachycardic, febrile, with an elevated white blood cell count. Blood cultures were drawn, and the patient was started on empiric IV antibiotic therapy. Imaging revealed erosive changes in the absence of uncovering soft tissue consistent with osteomyelitis involving first through fourth metatarsals. The patient was admitted to the hospitalist service, and a consult was placed to vascular surgery for further evaluation. During hospitalization, the patient's blood cultures were noted to be positive for streptococcus anginosus and he comp leted a 14 day course of Rocephin. Vascular surgery was also on consult and took the patient for a right [id number] amputation on 10/19, and a subsequent hyfzx-evo-weli amputation on the right on 10/22. The patient was transferred to the acute rehabilitation unit 10/27/18 to the care of Dr Vale. Pt states pain has been controlled. No verbalized concerns at this time. PE: GEN: 73yoM, appears stated age. Alert and oriented x 3. HEENT: Normocephalic, atraumatic. Sclera are nonicteric. Conjunctiva without injection. Moist mucous membranes. CHEST: Regular rate and rhythm, +S1, +S2 LUNGS: Clear to auscultation bilaterally. No wheezes, rales, or rhonchi. ABD: Round, soft, non-tender, non-distended. +Bowel sounds throughout. No costovertebral angle tenderness. EXT: No Left lower extremity edema appreciated. Rt AKA. SKIN: Strum, dry, warm. NEURO: Alert and oriented x 3. No focal deficits appreciated. A&P: 73-year-old male with past medical history of hypertension, GERD, hypothyroidism, rheumatoid arthritis, diabetes, peripheral vascular disease s tatus post right leg from/pop bypass in October 2017, right lower extremity thrombolysis and angioplasty February 2018, and right transmetatarsal amputation in May 2018 presented to the ER with a chief complaint of fever, chills, vomiting, and generalized weakness. In the ER, the patient was noted to be tachycardic, febrile, with an elevated white blood cell count. Blood cultures were drawn, and the patient was started on empiric IV antibiotic therapy. Imaging revealed erosive changes in the absence of uncovering soft tissue consistent with osteomyelitis involving first through fourth metatarsals. The patient was admitted to the hospitalist service, and a consult was placed to vascular surgery for further evaluation. During hospitalization, the patient's blood cultures were noted to be positive for streptococcus anginosus and he completed a 14 day course of Rocephin. Vascular surgery was also on consult and took the patient for a right [id number] amputation on 10/19, and a subsequent [id number] amputation on the right on 10/22. The patient was transferred to the acute rehabilitation unit 10/27/18 to the care of Dr Vale. 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 Cruz of Vascular surgery. PT/OT as per Dr Kavin VERNON. Pain control as per Dr Kavin VERNON. Bowel care as per Dr Kavin VERNON. DVT prophylaxis, on Xarelto Streptococcus Anginosus Bacteremia/Septicemia 2/2 Above Blood culture 2 notable for Streptococcus Anginosus from 10/10 Repeat Blood culture x 2 negative from 10/12 2D ECHO with no vegetations noted Wound culture notable for Streptococcus Anginosus, Klebsiella s/p completion of IV Rocephin course Normocytic Anemia Patient noted to be anemic following procedure on 10/22, likely acute blood loss. Consent is placed on chart for blood products. S/P 8U PRBC Hgb 10.7, monitor. Fe studies, B12, folate noted. FOB neg. Continue iron supplementation BID Monitor CBC. Thrombocytosis. Likely reactive. Continues trending downward. Monitor. Hypertension Cont on Norvasc GERD Protonix Hypothyroidism Continue levothyroxine Rheumatoid arthritis Follow up as outpatient Dyslipidemia Continue statin IDDM. CC diet. SSI and Levemir adjusted as per Dr Vale. Monitor. Transaminitis. resolved. Hepatitis profile negative. Monitor. VS, I&O, 24H, Fishbone Vital Signs/I&O Vital Signs Date Time Temp Pulse Resp B/P (MAP) Pulse Ox O2 Delivery O2 Flow Rate FiO2 11/04/18 10:38 18 11/04/18 09:44 75 114/60 11/04/18 06:00 98.4 97 10/29/18 06:00 Room Air I&O- Last 24 Hours up to 6 AM 11/04/18 06:00 Intake Total 960 ml Output Total 250 ml Balance 710 ml Laboratory Data 24H LABS Laboratory Tests 2 11/03/18 16:51: Bedside Glucose (Misc Panel) 175H 11/03/18 20:00: Bedside Glucose (Misc Panel) 173H 11/04/18 06:49: Nucleated Red Blood Cells % (auto) 0.0, Anion Gap 5L, Glomerular Filtration Rate > 60.0, Blood Urea Nitrogen 20H, Creatinine 0.70, Sodium Level 138, Potassium Level 5.1, Chloride Level 103, Carbon Dioxide Level 30, Calcium Level 8.7L, Aspartate Amino Transf (AST/SGOT) 40H, Alanine Aminotransferase (ALT/SGPT) 46, Alkaline Phosphatase 256H, Total Bilirubin 0.3, Total Protein 6.5, Albumin 2.7L, Magnesium Level 1.7L, Albumin/Globulin Ratio 0.71L 11/04/18 11:47: Bedside Glucose (Misc Panel) 142H CBC/BMP Laboratory Tests 11/04/18 06:49 Red Blood Count 3.67 L, Mean Corpuscular Volume 91.6, Mean Corpuscular Hemoglobin 29.2, Mean Corpuscular Hemoglobin Concent 31.8 L, Red Cell Distribution Width 15.6 H, Calcium Level 8.7 L, Aspartate Amino Transf (AST/SGOT) 40 H, Alanine Aminotransferase (ALT/SGPT) 46, Alkaline Phosphatase 256 H, Total Bilirubin 0.3, Total Protein 6.5, Albumin 2.7 L Microbiology Microbiology 10/31/18 Stool Occult Blood (MOE) - Final, Complete 10/29/18 Urine Culture - Final, Complete Lucy Del Toro Nov 04, 2018 14:35
[2018-11-04] MEDS: SIMVASTATIN 40 MG TAB PO SCH (20:11)
[2018-11-04] MEDS: LEVEMIR (INSULIN DETEMIR) 1 UNITS/0.01ML SC SCH (20:12)
[2018-11-04 22:40] VITALS: BP 148/77
[2018-11-05 05:13] VITALS: BP 136/67
[2018-11-05] MEDS: LEVOTHYROXINE 75MCG TABLET (0.075MG) PO SCH (05:54)
[2018-11-05] MEDS: oxyCODONE 5MG TAB PO PRN (05:59)
[2018-11-05 06:53] LABS: HEMATOCRIT 31.5 % (42.0-52.0); HEMOGLOBIN 10.1 g/dl (13.5-17.5); MEAN CORPUSCULAR HEMOGLOBIN 29.3 pg (27.0-33.0); MEAN CORPUSCULAR HGB CONC 32.1 g/dl (32.0-36.5); MEAN CORPUSCULAR VOLUME 91.3 fl (80.0-96.0); PLATELET COUNT, AUTOMATED 417 10^3/uL (150-450); RED BLOOD COUNT 3.45 10^6/uL (4.30-6.10); WHITE BLOOD COUNT 5.8 10^3/uL (4.0-10.0)
[2018-11-05 07:28] LABS: ALBUMIN 2.5 GM/DL (3.2-5.2); ALT/SGPT 42 U/L (12-78); BILIRUBIN,TOTAL 0.2 MG/DL (0.2-1.0); BLOOD UREA NITROGEN 17 MG/DL (7-18); CALCIUM LEVEL 8.5 MG/DL (8.8-10.2); CARBON DIOXIDE LEVEL 31 MEQ/L (21-32); CHLORIDE LEVEL 105 MEQ/L (98-107); CREATININE FOR GFR 0.61 MG/DL (0.70-1.30); GLOMERULAR FILTRATION RATE > 60.0 (>42); GLUCOSE, FASTING 111 MG/DL (70-100); MAGNESIUM LEVEL 1.7 MG/DL (1.8-2.4); POTASSIUM SERUM 4.5 MEQ/L (3.5-5.1); SODIUM LEVEL 141 MEQ/L (136-145); TOTAL PROTEIN 6.2 GM/DL (6.4-8.2)
[2018-11-05] MEDS: PANTOPRAZOLE 40MG TAB (PROTONIX) PO SCH (08:11)
[2018-11-05] MEDS: HumaLOG INSULIN (NovoLOG) PER UNIT SC SCH ×6 (08:11→18:16)
[2018-11-05] MEDS: RIVAROXABAN 15 MG TAB (XARELTO) PO SCH ×2 (08:11→18:15)
[2018-11-05] MEDS: FERROUS GLUCONATE 324 MG TAB PO SCH ×2 (08:11→20:19)
[2018-11-05] MEDS: predniSONE 5 MG TAB PO SCH (08:12)
[2018-11-05] MEDS: ACETAMINOPHEN 500 MG TAB PO SCH ×3 (08:12→20:20)
[2018-11-05] MEDS: amLODIPine 10 MG TAB PO SCH (08:12)
[2018-11-05] MEDS: LACTOBACILLUS ACIDOPHILUS CAP (BACID) PO SCH ×2 (08:12→20:19)
[2018-11-05] MEDS: GABAPENTIN 100 MG CAP PO SCH ×3 (08:12→20:19)
[2018-11-05] MEDS: FOLIC ACID 1 MG TAB PO SCH (08:12)
[2018-11-05] MEDS: oxyCODONE 5MG TAB PO SCH ×3 (08:13→20:19)
[2018-11-05] MEDS: SENOKOT S TAB PO SCH ×2 (08:13→20:19)
[2018-11-05] MEDS: BOUDREAUX'S BUTT PASTE 4OZ TOP SCH ×3 (08:14→20:20)
[2018-11-05] MEDS: NYSTATIN 100,000 UNITS/GM TOPICAL PWD 15 GM TOP SCH ×2 (08:14→20:21)
--- NOTE | 2018-11-05 10:31 | IPNPDOC ---
PM&R Progress Note DATE OF SERVICE: Nov 04, 2018 Enrollment Manager Progress Note Subjective: Patient seen in therapy walking well, able to balance on one leg and pick objects off the floor. REVIEW OF SYSTEMS: The following is a completed review of systems and has been reviewed. Review of systems otherwise unremarkable. PAIN: Patient self reports right limb and sacral pain EYES: Negative for recent vision changes EARS, NOSE, & THROAT: negative for dysphagia, throat pain or rhinorrhea CARDIOVASCULAR: denies chest pain or palpitations PULMONARY: Negative. Denies shortness of breath. GASTROINTESTINAL: +nausea, no constipation or diarrhea GENITOURINARY: no dysuria or incontinence MUSCULOSKELETAL: right AKA. NEUROLOGICAL:no tremor or focal weakness HEMATOLOGICAL: +anemia SKIN: sacral ulcer and right AKA renato PSYCHIATRIC: Unremarkable All other review of systems found to be negative. PHYSICAL EXAMINATION: VITAL SIGNS: Please see below. GENERAL: Pleasant and cooperative. No acute distress. HEENT: PERRL. Extraocular movements intact. Clear conjunctiva CARDIOVASCULAR: Regular rate and rhythm. No murmurs, rubs, or gallops LUNGS: Clear to auscultation bilaterally. No wheezes. No rhonchi ABDOMEN: Soft, nontender, nondistended. Positive bowel sounds. Normal active bowel sounds NEUROLOGICAL: Alert and oriented times three. Cranial nerves II through XII grossly intact. Sensation grossly intact in bilat UE, diminished LLE EXTREMITIES: 5/5 strength bilateral upper extremities. 5\5 strength right hip flexion and abduction. 5-/5 strength in left lower extremity. SKIN: right AKA renato with mild erythema at the medial aspect, +sacral ulcer TTP lateral aspect-improving ASSESSMENT:73-year-old M with past medical history of PVD and DM who presents status post right AKA. PLAN: 1. rehab: PT/OT, assess for DME, NWB RLE- encouraging lying prone in therapy and with nursing, ordered MF therapy to hip flexors to be done by each discipline, nearly ready for room privileges 2. 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 Kasper and Dr. Cruz- will need outpatient f/u- -pmh diastolic CHF, continue diuretics and beta blockers -pmh HTN continue meds, adjust as needed- consult medicine, recs appreciated 3. Resp: encourage incentive spirometry and monitor for signs of respiratory infection 4. ID: s/p IV Rocephin for Strep Anginosus septicemia 5. Endo: pmh Hypothyroidism- continue Synthroid 6. Rheum: pmg RA continue prednisone 7. Heme: anemia of chronic disease with recent post-op blood loss anemia s/p rbcs, 2 units, will continue to monitor and continue Iron supplements. 8. DVT ppx: on Xarelto 9. Pain: Tylenol and oxycodone prn, continue gabapentin 10. Skin: sacral ulcer on admission, continue to offload and apply optifoam, BID residual limb dressings, consulted Dr. Cruz 10/31/18 will hold off on mechanical maintenance until renato removed 11. Dispo: 11/07/18 to home, progressing quickly towards goals Allergies Coded Allergies: No Known Allergies (Unverified , 11/14/17) Vital Signs Vital Signs Date Time Temp Pulse Resp B/P (MAP) Pulse Ox O2 Delivery O2 Flow Rate FiO2 11/05/18 08:54 18 11/05/18 08:12 56 136/67 11/05/18 05:13 97.5 100 Laboratory Data CBC/BMP Laboratory Tests 11/05/18 06:20 Red Blood Count 3.45 L, Mean Corpuscular Volume 91.3, Mean Corpuscular Hemoglobin 29.3, Mean Corpuscular Hemoglobin Concent 32.1, Red Cell Distribution Width 15.6 H, Calcium Level 8.5 L, Aspartate Amino Transf (AST/SGOT) 31, Alanine Aminotransferase (ALT/SGPT) 42, Alkaline Phosphatase 217 H, Total Bilirubin 0.2, Total Protein 6.2 L, Albumin 2.5 L Labs 24H Laboratory Tests 2 11/04/18 11:47: Bedside Glucose (Misc Panel) 142H 11/04/18 16:35: Bedside Glucose (Misc Panel) 157H 11/04/18 19:56: Bedside Glucose (Misc Panel) 139H 11/05/18 06:20: Nucleated Red Blood Cells % (auto) 0.0, Anion Gap 5L, Glomerular Filtration Rate > 60.0, Blood Urea Nitrogen 17, Creatinine 0.61L, Sodium Level 141, Potassium Level 4.5, Chloride Level 105, Carbon Dioxide Level 31, Calcium Level 8.5L, Aspartate Amino Transf (AST/SGOT) 31, Alanine Aminotransferase (ALT/SGPT) 42, Alkaline Phosphatase 217H, Total Bilirubin 0.2, Total Protein 6.2L, Albumin 2.5L, Magnesium Level 1.7L, Albumin/Globulin Ratio 0.68L Microbiology Microbiology 10/31/18 Stool Occult Blood (MOE) - Final, Complete 10/29/18 Urine Culture - Final, Complete Current Medications Current Medications Current Medications Acetaminophen (Tylenol Tab) 1,000 mg Q6HP PRN PO MILD PAIN (PS 1-4); Start 10/27/18 at 16:15; Stop 10/28/18 at 10:47; Status DC Acetaminophen (Tylenol Tab) 1,000 mg TID PO Last administered on 11/05/18at 08:12; Start 10/28/18 at 16:00 Acetaminophen/ Hydrocodone Bitart ([place], Anexsia 5/325) 1 tab Q4HP PRN PO MODERATE PAIN (PS 5-7) Last administered on 10/28/18at 09:32; Start 10/27/18 at 16:15; Stop 10/28/18 at 10:47; Status DC Amlodipine Besylate (Norvasc) 10 mg DAILY PO Last administered on 11/05/18at 08:12; Start 10/28/18 at 09:00 Bisacodyl (Dulcolax Suppository) 10 mg DAILYPRN PRN MD CONSTIPATION; Start 10/27/18 at 16:15 Dextrose (Dextrose 50%) 25 ml ASDIRECTED PRN IV SEE LABEL COMMENTS; Start 10/27/18 at 16:15 Ferrous Gluconate (Fergon) 324 mg BID PO Last administered on 11/05/18at 08:11; Start 10/27/18 at 21:00 Folic Acid (Folic Acid) 1 mg DAILY PO Last administered on 11/05/18at 08:12; Start 10/28/18 at 09:00 Gabapentin (Neurontin) 100 mg TID PO Last administered on 11/05/18at 08:12; Start 10/28/18 at 16:00 Glucagon (Glucagon) 1 mg ASDIRECTED PRN SC SEE LABEL COMMENTS; Start 10/27/18 at 16:15 Glucose (Glucose) 16 GM ASDIRECTED PRN PO SEE LABEL COMMENTS; Start 10/27/18 at 16:15 Home Med (Med Rec Complete!) ASDIRECTED XX ; Start 10/27/18 at 16:30; Stop 10/27/18 at 16:30; Status DC Insulin Detemir (Levemir Insulin) 5 units QHS SC Last administered on 10/28/18at 21:36; Start 10/28/18 at 21:00; Stop 10/29/18 at 11:40; Status DC Insulin Detemir (Levemir Insulin) 5 units QHS SC Last administered on 11/02/18at 22:37; Start 10/31/18 at 21:00; Stop 11/03/18 at 10:49; Status DC Insulin Detemir (Levemir Insulin) 8 units QHS SC Last administered on 10/30/18at 21:36; Start 10/29/18 at 21:00; Stop 10/31/18 at 11:54; Status DC Insulin Detemir (Levemir Insulin) 8 units QHS SC Last administered on 11/04/18at 20:12; Start 11/03/18 at 21:00 Insulin Detemir (Levemir Insulin) 15 units QHS SC Last administered on 10/27/18at 22:07; Start 10/27/18 at 21:00; Stop 10/28/18 at 14:04; Status DC Insulin Human Lispro (HumaLOG INSULIN) 2 units AC SC Last administered on 11/03/18at 09:02; Start 10/30/18 at 07:30; Stop 11/03/18 at 10:49; Status DC Insulin Human Lispro (HumaLOG INSULIN) 4 units AC SC Last administered on 11/05/18at 08:11; Start 11/03/18 at 12:00 Insulin Human Lispro (HumaLOG INSULIN) SEE PROTOCOL TABLE AC SC Last administered on 11/05/18at 08:11; Start 10/27/18 at 17:30 Lactobacillus Acidophilus (Bacid) 2 ea BID PO Last administered on 11/05/18at 08:12; Start 10/27/18 at 21:00 Levothyroxine Sodium (Synthroid) 75 mcg DAILY@06 PO Last administered on 11/05/18at 05:54; Start 10/28/18 at 06:00 Magnesium Hydroxide (Milk Of Magnesia) 30 ml DAILYPRN PRN PO CONSTIPATION; Start 10/27/18 at 16:15 Miscellaneous (Unresolved Clarification Entry) SEE LABEL COMMENTS DAILY XX ; Start 11/02/18 at 09:00; Stop 11/03/18 at 07:12; Status DC Miscellaneous (Unresolved Clarification Entry) SEE LABEL COMMENTS DAILY XX ; Start 11/03/18 at 09:00; Stop 11/03/18 at 10:51; Status DC Nystatin (Mycostatin Powder, Nystop) groin BID TOP Last administered on 11/05/18 08:14; Start 10/27/18 at 21:00 Ondansetron HCl (Zofran) 4 mg Q6HP PRN PO NAUSEA; Start 10/27/18 at 16:15 Oxycodone HCl (Roxicodone, Oxyir) 5 mg TID PO Last administered on 11/05/18 08:13; Start 10/28/18 at 16:00 Oxycodone HCl (Roxicodone, Oxyir) 10 mg Q6HP PRN PO SEVERE PAIN (PS 8-10) Last administered on 11/05/18 05:59; Start 10/28/18 at 10:45 Pantoprazole Sodium (Protonix) 40 mg DAILY PO Last administered on 11/05/18 08:11; Start 10/28/18 at 09:00 Prednisone (Deltasone) 5 mg DAILY PO Last administered on 11/05/18 08:12; Start 10/28/18 at 09:00 Rivaroxaban (Xarelto) 15 mg BID@08,18 PO Last administered on 11/05/18 08:11; Start 10/27/18 at 18:00 Senna/Docusate Sodium (Senokot S) 1 tab BID PO Last administered on 11/05/18 08:13; Start 10/27/18 at 21:00 Simvastatin (Zocor) 40 mg QHS PO Last administered on 11/04/18 20:11; Start 10/27/18 at 21:00 Zinc Oxide (Boudreauxs Butt Paste) APPLY TO sacrum TID TOP Last administered on 11/04/18 20:14; Start 10/28/18 at 16:00 MAGDI ADAMS MD Nov 05, 2018 10:31
--- NOTE | 2018-11-05 10:32 | IPNPDOC ---
PM&R Progress Note DATE OF SERVICE: Nov 05, 2018 Chicle Grinder Feeder Progress Note Subjective: Patient reports he is ready for room privileges and feels well overall. He has been trained to do his own limb wrapping. REVIEW OF SYSTEMS: The following is a completed review of systems and has been reviewed. Review of systems otherwise unremarkable. PAIN: Patient self reports right limb and sacral pain EYES: Negative for recent vision changes EARS, NOSE, & THROAT: negative for dysphagia, throat pain or rhinorrhea CARDIOVASCULAR: denies chest pain or palpitations PULMONARY: Negative. Denies shortness of breath. GASTROINTESTINAL: no nausea, no constipation or diarrhea GENITOURINARY: no dysuria or incontinence MUSCULOSKELETAL: right AKA. NEUROLOGICAL:no tremor or focal weakness HEMATOLOGICAL: +anemia SKIN: sacral ulcer and right AKA renato PSYCHIATRIC: Unremarkable All other review of systems found to be negative. PHYSICAL EXAMINATION: VITAL SIGNS: Please see below. GENERAL: Pleasant and cooperative. No acute distress. HEENT: PERRL. Extraocular movements intact. Clear conjunctiva CARDIOVASCULAR: Regular rate and rhythm. No murmurs, rubs, or gallops LUNGS: Clear to auscultation bilaterally. No wheezes. No rhonchi ABDOMEN: Soft, nontender, nondistended. Positive bowel sounds. Normal active bowel sounds NEUROLOGICAL: Alert and oriented times three. Cranial nerves II through XII grossly intact. Sensation grossly intact in bilat UE, diminished LLE EXTREMITIES: 5/5 strength bilateral upper extremities. 5\5 strength right hip flexion and abduction. 5-/5 strength in left lower extremity. SKIN: right AKA renato with mild erythema at the medial aspect, +sacral ulcer TTP lateral aspect-improving ASSESSMENT:73-year-old M with past medical history of PVD and DM who presents status post right AKA. PLAN: 1. rehab: PT/OT, assess for DME, NWB RLE- encouraging lying prone in therapy and with nursing, ordered MF therapy to hip flexors to be done by each discipline, nearly ready for room privileges 2. 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 Kasper and Dr. Cruz- will need outpatient f/u- -pmh diastolic CHF, continue diuretics and beta blockers -pmh HTN continue meds, adjust as needed- consult medicine, recs appreciated 3. Resp: encourage incentive spirometry and monitor for signs of respiratory infection 4. ID: s/p IV Rocephin for Strep Anginosus septicemia 5. Endo: pmh Hypothyroidism- continue Synthroid 6. Rheum: pmg RA continue prednisone 7. Heme: anemia of chronic disease with recent post-op blood loss anemia s/p rbcs, 2 units, will continue to monitor and continue Iron supplements. 8. DVT ppx: on Xarelto 9. Pain: Tylenol and oxycodone prn, continue gabapentin 10. Skin: sacral ulcer on admission, continue to offload and apply optifoam, BID residual limb dressings, consulted Dr. 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 Dispo: 11/07/18 to home, progressing quickly towards goals Allergies Coded Allergies: No Known Allergies (Unverified , 11/14/17) Vital Signs Vital Signs Date Time Temp Pulse Resp B/P (MAP) Pulse Ox O2 Delivery O2 Flow Rate FiO2 11/05/18 08:54 18 11/05/18 08:12 56 136/67 11/05/18 05:13 97.5 100 Laboratory Data CBC/BMP Laboratory Tests 11/05/18 06:20 Red Blood Count 3.45 L, Mean Corpuscular Volume 91.3, Mean Corpuscular Hemoglobin 29.3, Mean Corpuscular Hemoglobin Concent 32.1, Red Cell Distribution Width 15.6 H, Calcium Level 8.5 L, Aspartate Amino Transf (AST/SGOT) 31, Alanine Aminotransferase (ALT/SGPT) 42, Alkaline Phosphatase 217 H, Total Bilirubin 0.2, Total Protein 6.2 L, Albumin 2.5 L Labs 24H Laboratory Tests 2 11/04/18 11:47: Bedside Glucose (Misc Panel) 142H 11/04/18 16:35: Bedside Glucose (Misc Panel) 157H 11/04/18 19:56: Bedside Glucose (Misc Panel) 139H 11/05/18 06:20: Nucleated Red Blood Cells % (auto) 0.0, Anion Gap 5L, Glomerular Filtration Rate > 60.0, Blood Urea Nitrogen 17, Creatinine 0.61L, Sodium Level 141, Potassium Level 4.5, Chloride Level 105, Carbon Dioxide Level 31, Calcium Level 8.5L, Aspartate Amino Transf (AST/SGOT) 31, Alanine Aminotransferase (ALT/SGPT) 42, Alkaline Phosphatase 217H, Total Bilirubin 0.2, Total Protein 6.2L, Albumin 2.5L, Magnesium Level 1.7L, Albumin/Globulin Ratio 0.68L Microbiology Microbiology 10/31/18 Stool Occult Blood (MOE) - Final, Complete 10/29/18 Urine Culture - Final, Complete Current Medications Current Medications Current Medications Acetaminophen (Tylenol Tab) 1,000 mg Q6HP PRN PO MILD PAIN (PS 1-4); Start 10/27/18 at 16:15; Stop 10/28/18 at 10:47; Status DC Acetaminophen (Tylenol Tab) 1,000 mg TID PO Last administered on 11/05/18at 08:12; Start 10/28/18 at 16:00 Acetaminophen/ Hydrocodone Bitart ([place], Anexsia 5/325) 1 tab Q4HP PRN PO MODERATE PAIN (PS 5-7) Last administered on 10/28/18at 09:32; Start 10/27/18 at 16:15; Stop 10/28/18 at 10:47; Status DC Amlodipine Besylate (Norvasc) 10 mg DAILY PO Last administered on 11/05/18at 08:12; Start 10/28/18 at 09:00 Bisacodyl (Dulcolax Suppository) 10 mg DAILYPRN PRN MS CONSTIPATION; Start 10/27/18 at 16:15 Dextrose (Dextrose 50%) 25 ml ASDIRECTED PRN IV SEE LABEL COMMENTS; Start 10/27/18 at 16:15 Ferrous Gluconate (Fergon) 324 mg BID PO Last administered on 11/05/18at 08:11; Start 10/27/18 at 21:00 Folic Acid (Folic Acid) 1 mg DAILY PO Last administered on 11/05/18at 08:12; Start 10/28/18 at 09:00 Gabapentin (Neurontin) 100 mg TID PO Last administered on 11/05/18at 08:12; Start 10/28/18 at 16:00 Glucagon (Glucagon) 1 mg ASDIRECTED PRN SC SEE LABEL COMMENTS; Start 10/27/18 at 16:15 Glucose (Glucose) 16 GM ASDIRECTED PRN PO SEE LABEL COMMENTS; Start 10/27/18 at 16:15 Home Med (Med Rec Complete!) ASDIRECTED XX ; Start 10/27/18 at 16:30; Stop 10/27/18 at 16:30; Status DC Insulin Detemir (Levemir Insulin) 5 units QHS SC Last administered on 10/28/18at 21:36; Start 10/28/18 at 21:00; Stop 10/29/18 at 11:40; Status DC Insulin Detemir (Levemir Insulin) 5 units QHS SC Last administered on 11/02/18at 22:37; Start 10/31/18 at 21:00; Stop 11/03/18 at 10:49; Status DC Insulin Detemir (Levemir Insulin) 8 units QHS SC Last administered on 10/30/18at 21:36; Start 10/29/18 at 21:00; Stop 10/31/18 at 11:54; Status DC Insulin Detemir (Levemir Insulin) 8 units QHS SC Last administered on 11/04/18at 20:12; Start 11/03/18 at 21:00 Insulin Detemir (Levemir Insulin) 15 units QHS SC Last administered on 10/27/18at 22:07; Start 10/27/18 at 21:00; Stop 10/28/18 at 14:04; Status DC Insulin Human Lispro (HumaLOG INSULIN) 2 units AC SC Last administered on 11/03/18at 09:02; Start 10/30/18 at 07:30; Stop 11/03/18 at 10:49; Status DC Insulin Human Lispro (HumaLOG INSULIN) 4 units AC SC Last administered on 11/05/18at 08:11; Start 11/03/18 at 12:00 Insulin Human Lispro (HumaLOG INSULIN) SEE PROTOCOL TABLE AC SC Last administered on 11/05/18at 08:11; Start 10/27/18 at 17:30 Lactobacillus Acidophilus (Bacid) 2 ea BID PO Last administered on 11/05/18at 08:12; Start 10/27/18 at 21:00 Levothyroxine Sodium (Synthroid) 75 mcg DAILY@06 PO Last administered on 11/05/18at 05:54; Start 10/28/18 at 06:00 Magnesium Hydroxide (Milk Of Magnesia) 30 ml DAILYPRN PRN PO CONSTIPATION; Start 10/27/18 at 16:15 Miscellaneous (Unresolved Clarification Entry) SEE LABEL COMMENTS DAILY XX ; Start 11/02/18 at 09:00; Stop 11/03/18 at 07:12; Status DC Miscellaneous (Unresolved Clarification Entry) SEE LABEL COMMENTS DAILY XX ; Start 11/03/18 at 09:00; Stop 11/03/18 at 10:51; Status DC Nystatin (Mycostatin Powder, Nystop) groin BID TOP Last administered on 11/05/18 08:14; Start 10/27/18 at 21:00 Ondansetron HCl (Zofran) 4 mg Q6HP PRN PO NAUSEA; Start 10/27/18 at 16:15 Oxycodone HCl (Roxicodone, Oxyir) 5 mg TID PO Last administered on 11/05/18 08:13; Start 10/28/18 at 16:00 Oxycodone HCl (Roxicodone, Oxyir) 10 mg Q6HP PRN PO SEVERE PAIN (PS 8-10) Last administered on 11/05/18 05:59; Start 10/28/18 at 10:45 Pantoprazole Sodium (Protonix) 40 mg DAILY PO Last administered on 11/05/18 08:11; Start 10/28/18 at 09:00 Prednisone (Deltasone) 5 mg DAILY PO Last administered on 11/05/18 08:12; Start 10/28/18 at 09:00 Rivaroxaban (Xarelto) 15 mg BID@08,18 PO Last administered on 11/05/18 08:11; Start 10/27/18 at 18:00 Senna/Docusate Sodium (Senokot S) 1 tab BID PO Last administered on 11/05/18 08:13; Start 10/27/18 at 21:00 Simvastatin (Zocor) 40 mg QHS PO Last administered on 11/04/18 20:11; Start 10/27/18 at 21:00 Zinc Oxide (Boudreauxs Butt Paste) APPLY TO sacrum TID TOP Last administered on 11/04/18 20:14; Start 10/28/18 at 16:00 MAGDI ADAMS MD Nov 05, 2018 10:32
[2018-11-05 14:00] VITALS: BP 130/65
--- NOTE | 2018-11-05 14:00 | IPNPDOC ---
Date Seen The patient was seen on 11/05/18. Progress Note HPI: 73-year-old male with past medical history of hypertension, GERD, hypothyroidism, rheumatoid arthritis, diabetes, peripheral vascular disease status post right leg from/pop bypass in October 2017, right lower extremity thrombolysis and angioplasty February 2018, and right transmetatarsal amputation in May 2018 presented to the ER with a chief complaint of fever, chills, vomiting, and generalized weakness. In the ER, the patient was noted to be tachycardic, febrile, with an elevated white blood cell count. Blood cultures were drawn, and the patient was started on empiric IV antibiotic therapy. Imaging revealed erosive changes in the absence of uncovering soft tissue consistent with osteomyelitis involving first through fourth metatarsals. The patient was admitted to the hospitalist service, and a consult was placed to vascular surgery for further evaluation. During hospitalization, the patient's blood cultures were noted to be positive for streptococcus anginosus and he comp leted a 14 day course of Rocephin. Vascular surgery was also on consult and took the patient for a right [id number] amputation on 10/19, and a subsequent [id number] amputation on the right on 10/22. The patient was transferred to the acute rehabilitation unit 10/27/18 to the care of Dr Vale. Pt states pain has been controlled, currently working with PT. No verbalized concerns at this time. PE: GEN: 73yoM, appears stated age. Alert and oriented x 3. HEENT: Normocephalic, atraumatic. Sclera are nonicteric. Conjunctiva without injection. Moist mucous membranes. CHEST: Regular rate and rhythm, +S1, +S2 LUNGS: Clear to auscultation bilaterally. No wheezes, rales, or rhonchi. ABD: Round, soft, non-tender, non-distended. +Bowel sounds throughout. No c ostovertebral angle tenderness. EXT: No Left lower extremity edema appreciated. Rt AKA. SKIN: [place], dry, warm. NEURO: Alert and oriented x 3. No focal deficits appreciated. A&P: 73-year-old male with past medical history of hypertension, GERD, hypothyroidism, rheumatoid arthritis, diabetes, peripheral vascular disease status post right leg from/pop bypass in October 2017, right lower extremity thrombolysis and angioplasty February 2018, and right transmetatarsal amputation in May 2018 presented to the ER with a chief complaint of fever, chills, vomiting, and generalized weakness. In the ER, the patient was noted to be tachycardic, febrile, with an elevated white blood cell count. Blood cultures were drawn, and the patient was started on empiric IV antibiotic therapy. Imaging revealed erosive changes in the absence of uncovering soft tissue consistent with osteomyelitis involving first through fourth metatarsals. The patient was admitted to the hospitalist service, and a consult was placed to vascular surgery for further evaluation. During hospitalization, the patient's blood cultures were noted to be positive for streptococcus anginosus and he completed a 14 day course of Rocephin. Vascular surgery was also on consult and took the patient for a right [id number] amputation on 10/19, and a subsequent [id number] amputation on the right on 10/22. The patient was transferred to the acute rehabilitation unit 10/27/18 to the care of Dr Vale. 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 Cruz of Vascular surgery. PT/OT as per Dr Kavin VERNON. Pain control as per Dr Kavin VERNON. Bowel care as per Dr Kavin VERNON. DVT prophylaxis, on Xarelto Streptococcus Anginosus Bacteremia/Septicemia 2/2 Above Blood culture 2 notable for Streptococcus Anginosus from 10/10 Repeat Blood culture x 2 negative from 10/12 2D ECHO with no vegetations noted Wound culture notable for Streptococcus Anginosus, Klebsiella s/p completion of IV Rocephin course Normocytic Anemia Patient noted to be anemic following procedure on 10/22, likely acute blood loss. Consent is placed on chart for blood products. S/P 8U PRBC Hgb 10.1, monitor. Fe studies, B12, folate noted. FOB neg. Continue iron supplementation BID Monitor CBC. Thrombocytosis. Likely reactive. Resolved. Monitor. Hypertension Cont on Norvasc GERD Protonix Hypothyroidism Continue levothyroxine Rheumatoid arthritis Follow up as outpatient Dyslipidemia Continue statin IDDM. CC diet. SSI and Levemir adjusted as per Dr Vale. Monitor. Transaminitis. resolved. Hepatitis profile negative. Monitor. VS, I&O, 24H, Fishbone Vital Signs/I&O Vital Signs Date Time Temp Pulse Resp B/P (MAP) Pulse Ox O2 Delivery O2 Flow Rate FiO2 11/05/18 08:54 18 11/05/18 08:12 56 136/67 11/05/18 05:13 97.5 100 I&O- Last 24 Hours up to 6 AM 11/05/18 06:00 Intake Total 1560 ml Output Total 0 ml Balance 1560 ml Laboratory Data 24H LABS Laboratory Tests 2 11/04/18 16:35: Bedside Glucose (Misc Panel) 157H 11/04/18 19:56: Bedside Glucose (Misc Panel) 139H 11/05/18 06:20: Nucleated Red Blood Cells % (auto) 0.0, Anion Gap 5L, Glomerular Filtration Rate > 60.0, Blood Urea Nitrogen 17, Creatinine 0.61L, Sodium Level 141, Potassium Level 4.5, Chloride Level 105, Carbon Dioxide Level 31, Calcium Level 8.5L, Aspartate Amino Transf (AST/SGOT) 31, Alanine Aminotransferase (ALT/SGPT) 42, Alkaline Phosphatase 217H, Total Bilirubin 0.2, Total Protein 6.2L, Albumin 2.5L, Magnesium Level 1.7L, Albumin/Globulin Ratio 0.68L 11/05/18 11:33: Bedside Glucose (Misc Panel) 119H CBC/BMP Laboratory Tests 11/05/18 06:20 Red Blood Count 3.45 L, Mean Corpuscular Volume 91.3, Mean Corpuscular Hemoglobin 29.3, Mean Corpuscular Hemoglobin Concent 32.1, Red Cell Distribution Width 15.6 H, Calcium Level 8.5 L, Aspartate Amino Transf (AST/SGOT) 31, Alanine Aminotransferase (ALT/SGPT) 42, Alkaline Phosphatase 217 H, Total Bilirubin 0.2, Total Protein 6.2 L, Albumin 2.5 L Microbiology Microbiology 10/31/18 Stool Occult Blood (MOE) - Final, Complete 10/29/18 Urine Culture - Final, Complete Lucy Del Toro Nov 05, 2018 14:00
[2018-11-05] MEDS: MAGNESIUM OXIDE 400 MG TAB (MAG-OX) PO SCH (15:34)
[2018-11-05 20:00] VITALS: BP 125/64
[2018-11-05] MEDS: SIMVASTATIN 40 MG TAB PO SCH (20:20)
[2018-11-05] MEDS: LEVEMIR (INSULIN DETEMIR) 1 UNITS/0.01ML SC SCH (20:20)
[2018-11-06 06:00] VITALS: BP 128/67
[2018-11-06] MEDS: LEVOTHYROXINE 75MCG TABLET (0.075MG) PO SCH (06:09)
[2018-11-06] MEDS: oxyCODONE 5MG TAB PO PRN ×2 (06:10→12:20)
[2018-11-06 06:45] LABS: HEMATOCRIT 30.7 % (42.0-52.0); HEMOGLOBIN 9.8 g/dl (13.5-17.5); MEAN CORPUSCULAR HEMOGLOBIN 29.5 pg (27.0-33.0); MEAN CORPUSCULAR HGB CONC 31.9 g/dl (32.0-36.5); MEAN CORPUSCULAR VOLUME 92.5 fl (80.0-96.0); PLATELET COUNT, AUTOMATED 382 10^3/uL (150-450); RED BLOOD COUNT 3.32 10^6/uL (4.30-6.10); WHITE BLOOD COUNT 5.7 10^3/uL (4.0-10.0)
[2018-11-06 07:09] LABS: ALBUMIN 2.5 GM/DL (3.2-5.2); ALT/SGPT 36 U/L (12-78); BILIRUBIN,TOTAL 0.3 MG/DL (0.2-1.0); BLOOD UREA NITROGEN 18 MG/DL (7-18); CALCIUM LEVEL 8.8 MG/DL (8.8-10.2); CARBON DIOXIDE LEVEL 30 MEQ/L (21-32); CHLORIDE LEVEL 105 MEQ/L (98-107); CREATININE FOR GFR 0.68 MG/DL (0.70-1.30); GLOMERULAR FILTRATION RATE > 60.0 (>42); GLUCOSE, FASTING 113 MG/DL (70-100); MAGNESIUM LEVEL 1.6 MG/DL (1.8-2.4); POTASSIUM SERUM 4.9 MEQ/L (3.5-5.1); SODIUM LEVEL 139 MEQ/L (136-145)
[2018-11-06] MEDS: HumaLOG INSULIN (NovoLOG) PER UNIT SC SCH ×6 (08:38→18:01)
[2018-11-06] MEDS: LACTOBACILLUS ACIDOPHILUS CAP (BACID) PO SCH ×2 (08:39→21:37)
[2018-11-06] MEDS: ACETAMINOPHEN 500 MG TAB PO SCH ×3 (08:39→21:37)
[2018-11-06] MEDS: MAGNESIUM OXIDE 400 MG TAB (MAG-OX) PO SCH ×2 (08:39→21:37)
[2018-11-06] MEDS: GABAPENTIN 100 MG CAP PO SCH ×3 (08:39→21:36)
[2018-11-06] MEDS: RIVAROXABAN 15 MG TAB (XARELTO) PO SCH ×2 (08:39→18:00)
[2018-11-06] MEDS: PANTOPRAZOLE 40MG TAB (PROTONIX) PO SCH (08:39)
[2018-11-06] MEDS: FERROUS GLUCONATE 324 MG TAB PO SCH ×2 (08:39→21:37)
[2018-11-06] MEDS: SENOKOT S TAB PO SCH ×2 (08:39→21:36)
[2018-11-06] MEDS: predniSONE 5 MG TAB PO SCH (08:39)
[2018-11-06] MEDS: FOLIC ACID 1 MG TAB PO SCH (08:39)
[2018-11-06] MEDS: NYSTATIN 100,000 UNITS/GM TOPICAL PWD 15 GM TOP SCH ×2 (08:40→21:00)
[2018-11-06] MEDS: oxyCODONE 5MG TAB PO SCH ×3 (08:40→21:37)
[2018-11-06] MEDS: amLODIPine 10 MG TAB PO SCH (08:40)
[2018-11-06] MEDS: BOUDREAUX'S BUTT PASTE 4OZ TOP SCH ×3 (08:41→21:00)
[2018-11-06] MEDS ORDERED: GABA-1171 PO (12:01)
[2018-11-06] MEDS ORDERED: OXYCO5TA PO (12:01)
[2018-11-06] MEDS ORDERED: INSUHUMDS SC (12:01)
[2018-11-06] MEDS ORDERED: SIMV40TA2 PO (12:01)
[2018-11-06] MEDS ORDERED: XARE15TA PO (12:01)
[2018-11-06] MEDS ORDERED: INSUDET SC (12:01)
[2018-11-06] MEDS ORDERED: PRED5TA PO (12:01)
[2018-11-06] MEDS ORDERED: PANT40TA3 PO (12:01)
[2018-11-06] MEDS ORDERED: AMLO10TA5 PO (12:01)
[2018-11-06] MEDS ORDERED: LEVO75TA4 PO (12:01)
--- NOTE | 2018-11-06 13:40 | IPNPDOC ---
Date Seen The patient was seen on 11/06/18. Progress Note HPI: 73-year-old male with past medical history of hypertension, GERD, hypothyroidism, rheumatoid arthritis, diabetes, peripheral vascular disease status post right leg from/pop bypass in October 2017, right lower extremity thrombolysis and angioplasty February 2018, and right transmetatarsal amputation in May 2018 presented to the ER with a chief complaint of fever, chills, vomiting, and generalized weakness. In the ER, the patient was noted to be tachycardic, febrile, with an elevated white blood cell count. Blood cultures were drawn, and the patient was started on empiric IV antibiotic therapy. Imaging revealed erosive changes in the absence of uncovering soft tissue consistent with osteomyelitis involving first through fourth metatarsals. The patient was admitted to the hospitalist service, and a consult was placed to vascular surgery for further evaluation. During hospitalization, the patient's blood cultures were noted to be positive for streptococcus anginosus and he comp leted a 14 day course of Rocephin. Vascular surgery was also on consult and took the patient for a right [id number]-[id number] amputation on 10/19, and a subsequent eeqdx-dwc-[id number] amputation on the right on 10/22. The patient was transferred to the acute rehabilitation unit 10/27/18 to the care of Dr Vale. Pt states pain has been controlled. He is feeling stronger. Appetite is better. No verbalized concerns at this time. PE: GEN: 73yoM, appears stated age. Alert and oriented x 3. HEENT: Normocephalic, atraumatic. Sclera are nonicteric. Conjunctiva without injection. Moist mucous membranes. CHEST: Regular rate and rhythm, +S1, +S2 LUNGS: Clear to auscultation bilaterally. No wheezes, rales, or rhonchi. ABD: Round, soft, non-tender, non-distended. +Bowel sounds throughout. No costovertebral angle tenderness. EXT: No Left lower extremity edema appreciated. Rt AKA. SKIN: Soldier, dry, warm. NEURO: Alert and oriented x 3. No focal deficits appreciated. A&P: 73-year-old male with past medical history of hypertension, GERD, hypothyroidism, rheumatoid arthritis, diabetes, peripheral vascular disease status post right leg from/pop bypass in October 2017, right lower extremity thrombolysis and angioplasty February 2018, and right transmetatarsal amputation in May 2018 presented to the ER with a chief complaint of fever, chills, vomiting, and generalized weakness. In the ER, the patient was noted to be tachycardic, febrile, with an elevated white blood cell count. Blood cultures were drawn, and the patient was started on empiric IV antibiotic therapy. Imaging revealed erosive changes in the absence of uncovering soft tissue consistent with osteomyelitis involving first through fourth metatarsals. The patient was admitted to the hospitalist service, and a consult was placed to vascular surgery for further evaluation. During hospitalization, the patient's blood cultures were noted to be positive for streptococcus anginosus and he completed a 14 day course of Rocephin. Vascular surgery was also on consult and took the patient for a right [id number]-yxo-[id number] amputation on 10/19, and a subsequent qcbtw-xps-ytah amputation on the right on 10/22. The patient was transferred to the acute rehabilitation unit 10/27/18 to the care of Dr Vale. 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 Cruz of Vascular surgery. PT/OT as per Dr Kavin VERNON. Pain control as per Dr Kavin VERNON. Bowel care as per Dr Kavin VERNON. DVT prophylaxis, on Xarelto Streptococcus Anginosus Bacteremia/Septicemia 2/2 Above Blood culture 2 notable for Streptococcus Anginosus from 10/10 Repeat Blood culture x 2 negative from 10/12 2D ECHO with no vegetations noted Wound culture notable for Streptococcus Anginosus, Klebsiella s/p completion of IV Rocephin course Normocytic Anemia Patient noted to be anemic following procedure on 10/22, likely acute blood loss. Consent is placed on chart for blood products. S/P 8U PRBC Hgb 9.8, monitor. Fe studies, B12, folate noted. FOB neg. Continue iron supplementation BID Monitor CBC. Thrombocytosis. Likely reactive. Resolved. Monitor. Hypertension Cont on Norvasc GERD Protonix Hypothyroidism Continue levothyroxine Rheumatoid arthritis Follow up as outpatient Dyslipidemia Continue statin IDDM. CC diet. SSI and Levemir adjusted as per Dr Vale. Monitor. Transaminitis. resolved. Hepatitis profile negative. Monitor. Hypomagnesemia. Increase supplement to BID. Recheck BMP/Mag in AM. VS, I&O, 24H, Fishbone Vital Signs/I&O Vital Signs Date Time Temp Pulse Resp B/P (MAP) Pulse Ox O2 Delivery O2 Flow Rate FiO2 11/06/18 12:20 18 11/06/18 08:40 56 128/67 11/06/18 06:00 97.5 97 I&O- Last 24 Hours up to 6 AM 11/06/18 06:00 Intake Total 720 ml Balance 720 ml Laboratory Data 24H LABS Laboratory Tests 2 11/05/18 17:30: Bedside Glucose (Misc Panel) 211H 11/05/18 20:05: Bedside Glucose (Misc Panel) 124H 11/06/18 06:27: Nucleated Red Blood Cells % (auto) 0.0, Anion Gap 4L, Glomerular Filtration Rate > 60.0, Blood Urea Nitrogen 18, Creatinine 0.68L, Sodium Level 139, Potassium Level 4.9, Chloride Level 105, Carbon Dioxide Level 30, Calcium Level 8.8, Aspartate Amino Transf (AST/SGOT) 27, Alanine Aminotransferase (ALT/SGPT) 36, Alkaline Phosphatase 192H, Total Bilirubin 0.3, Total Protein 6.0L, Albumin 2.5L, Magnesium Level 1.6L, Albumin/Globulin Ratio 0.71L 11/06/18 07:07: Bedside Glucose (Misc Panel) 101 11/06/18 11:34: Bedside Glucose (Misc Panel) 119H CBC/BMP Laboratory Tests 11/06/18 06:27 Red Blood Count 3.32 L, Mean Corpuscular Volume 92.5, Mean Corpuscular Hemoglob in 29.5, Mean Corpuscular Hemoglobin Concent 31.9 L, Red Cell Distribution Width 15.5 H, Calcium Level 8.8, Aspartate Amino Transf (AST/SGOT) 27, Alanine Aminotransferase (ALT/SGPT) 36, Alkaline Phosphatase 192 H, Total Bilirubin 0.3, Total Protein 6.0 L, Albumin 2.5 L Microbiology Microbiology 10/31/18 Stool Occult Blood (MOE) - Final, Complete 10/29/18 Urine Culture - Final, Complete Lucy Del Toro Nov 06, 2018 13:40
[2018-11-06 14:00] VITALS: BP 132/68
--- NOTE | 2018-11-06 14:15 | IPNPDOC ---
PM&R Progress Note DATE OF SERVICE: Nov 06, 2018 Senior Grants Officer Progress Note Subjective: Patient reports heis eager to go home tomorrow and would prefer to stay in his room rather than spend the night in the apartment. REVIEW OF SYSTEMS: The following is a completed review of systems and has been reviewed. Review of systems otherwise unremarkable. PAIN: Patient self reports right limb and sacral pain EYES: Negative for recent vision changes EARS, NOSE, & THROAT: negative for dysphagia, throat pain or rhinorrhea CARDIOVASCULAR: denies chest pain or palpitations PULMONARY: Negative. Denies shortness of breath. GASTROINTESTINAL: no nausea, no constipation or diarrhea GENITOURINARY: no dysuria or incontinence MUSCULOSKELETAL: right AKA. NEUROLOGICAL:no tremor or focal weakness HEMATOLOGICAL: +anemia SKIN: sacral ulcer and right AKA renato PSYCHIATRIC: Unremarkable All other review of systems found to be negative. PHYSICAL EXAMINATION: VITAL SIGNS: Please see below. GENERAL: Pleasant and cooperative. No acute distress. HEENT: PERRL. Extraocular movements intact. Clear conjunctiva CARDIOVASCULAR: Regular rate and rhythm. No murmurs, rubs, or gallops LUNGS: Clear to auscultation bilaterally. No wheezes. No rhonchi ABDOMEN: Soft, nontender, nondistended. Positive bowel sounds. Normal active bowel sounds NEUROLOGICAL: Alert and oriented times three. Cranial nerves II through XII grossly intact. Sensation grossly intact in bilat UE, diminished LLE EXTREMITIES: 5/5 strength bilateral upper extremities. 5\5 strength right hip f lexion and abduction. 5-/5 strength in left lower extremity. SKIN: right AKA renato with mild erythema at the medial aspect, +sacral ulcer TTP lateral aspect-improving ASSESSMENT:73-year-old M with past medical history of PVD and DM who presents status post right AKA. PLAN: 1. rehab: PT/OT, assess for DME, NWB RLE- encouraging lying prone in therapy and with nursing, ordered MF therapy to hip flexors to be done by each discipline, room privileges 2. 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 Kasper and Dr. Cruz- will need outpatient f/u- -pmh diastolic CHF, continue diuretics and beta blockers -pmh HTN continue meds, adjust as needed- consult medicine, recs appreciated 3. Resp: encourage incentive spirometry and monitor for signs of respiratory infection 4. ID: s/p IV Rocephin for Strep Anginosus septicemia-stable 5. Endo: pmh Hypothyroidism- continue Synthroid 6. Rheum: pmg RA continue prednisone 7. Heme: anemia of chronic disease with recent post-op blood loss anemia s/p rbcs, 2 units, will continue to monitor and continue Iron supplements. 8. DVT ppx: on Xarelto 9. Pain: Tylenol and oxycodone prn, continue gabapentin 10. Skin: sacral ulcer on admission, continue to offload and apply optifoam, BID residual limb dressings, consulted Dr. 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 Dispo: 11/07/18 to home, progressing quickly towards goals Allergies Coded Allergies: No Known Allergies (Unverified , 11/14/17) Vital Signs Vital Signs Date Time Temp Pulse Resp B/P (MAP) Pulse Ox O2 Delivery O2 Flow Rate FiO2 11/06/18 12:20 18 11/06/18 08:40 56 128/67 11/06/18 06:00 97.5 97 Laboratory Data CBC/BMP Laboratory Tests 11/06/18 06:27 Red Blood Count 3.32 L, Mean Corpuscular Volume 92.5, Mean Corpuscular Hemoglobin 29.5, Mean Corpuscular Hemoglobin Concent 31.9 L, Red Cell Distribution Width 15.5 H, Calcium Level 8.8, Aspartate Amino Transf (AST/SGOT) 27, Alanine Aminotransferase (ALT/SGPT) 36, Alkaline Phosphatase 192 H, Total Bilirubin 0.3, Total Protein 6.0 L, Albumin 2.5 L Labs 24H Laboratory Tests 2 11/05/18 17:30: Bedside Glucose (Misc Panel) 211H 11/05/18 20:05: Bedside Glucose (Misc Panel) 124H 11/06/18 06:27: Nucleated Red Blood Cells % (auto) 0.0, Anion Gap 4L, Glomerular Filtration Rate > 60.0, Blood Urea Nitrogen 18, Creatinine 0.68L, Sodium Level 139, Potassium Level 4.9, Chloride Level 105, Carbon Dioxide Level 30, Calcium Level 8.8, Aspartate Amino Transf (AST/SGOT) 27, Alanine Aminotransferase (ALT/SGPT) 36, Alkaline Phosphatase 192H, Total Bilirubin 0.3, Total Protein 6.0L, Albumin 2.5L, Magnesium Level 1.6L, Albumin/Globulin Ratio 0.71L 11/06/18 07:07: Bedside Glucose (Misc Panel) 101 11/06/18 11:34: Bedside Glucose (Misc Panel) 119H Microbiology Microbiology 10/31/18 Stool Occult Blood (MOE) - Final, Complete 10/29/18 Urine Culture - Final, Complete Current Medications Current Medications Current Medications Acetaminophen (Tylenol Tab) 1,000 mg Q6HP PRN PO MILD PAIN (PS 1-4); Start 10/27/18 at 16:15; Stop 10/28/18 at 10:47; Status DC Acetaminophen (Tylenol Tab) 1,000 mg TID PO Last administered on 11/06/18at 08:39; Start 10/28/18 at 16:00 Acetaminophen/ Hydrocodone Bitart ([place], Anexsia 5/325) 1 tab Q4HP PRN PO MODERATE PAIN (PS 5-7) Last administered on 10/28/18at 09:32; Start 10/27/18 at 16:15; Stop 10/28/18 at 10:47; Status DC Amlodipine Besylate (Norvasc) 10 mg DAILY PO Last administered on 11/06/18at 08:40; Start 10/28/18 at 09:00 Bisacodyl (Dulcolax Suppository) 10 mg DAILYPRN PRN [place] CONSTIPATION; Start 10/27/18 at 16:15 Dextrose (Dextrose 50%) 25 ml ASDIRECTED PRN IV SEE LABEL COMMENTS; Start 10/27/18 at 16:15 Ferrous Gluconate (Fergon) 324 mg BID PO Last administered on 11/06/18at 08:39; Start 10/27/18 at 21:00 Folic Acid (Folic Acid) 1 mg DAILY PO Last administered on 11/06/18at 08:39; Start 10/28/18 at 09:00 Gabapentin (Neurontin) 100 mg TID PO Last administered on 11/06/18at 08:39; Start 10/28/18 at 16:00 Glucagon (Glucagon) 1 mg ASDIRECTED PRN SC SEE LABEL COMMENTS; Start 10/27/18 at 16:15 Glucose (Glucose) 16 GM ASDIRECTED PRN PO SEE LABEL COMMENTS; Start 10/27/18 at 16:15 Home Med (Med Rec Complete!) ASDIRECTED XX ; Start 10/27/18 at 16:30; Stop 10/27/18 at 16:30; Status DC Insulin Detemir (Levemir Insulin) 5 units QHS SC Last administered on 10/28/18at 21:36; Start 10/28/18 at 21:00; Stop 10/29/18 at 11:40; Status DC Insulin Detemir (Levemir Insulin) 5 units QHS SC Last administered on 11/02/18at 22:37; Start 10/31/18 at 21:00; Stop 11/03/18 at 10:49; Status DC Insulin Detemir (Levemir Insulin) 8 units QHS SC Last administered on 10/30/18at 21:36; Start 10/29/18 at 21:00; Stop 10/31/18 at 11:54; Status DC Insulin Detemir (Levemir Insulin) 8 units QHS SC Last administered on 11/05/18at 20:20; Start 11/03/18 at 21:00 Insulin Detemir (Levemir Insulin) 15 units QHS SC Last administered on 10/27/18at 22:07; Start 10/27/18 at 21:00; Stop 10/28/18 at 14:04; Status DC Insulin Human Lispro (HumaLOG INSULIN) 2 units AC SC Last administered on 11/03/18at 09:02; Start 10/30/18 at 07:30; Stop 11/03/18 at 10:49; Status DC Insulin Human Lispro (HumaLOG INSULIN) 4 units AC SC Last administered on 11/06/18at 12:19; Start 11/03/18 at 12:00 Insulin Human Lispro (HumaLOG INSULIN) SEE PROTOCOL TABLE AC SC Last administered on 11/06/18at 12:18; Start 10/27/18 at 17:30 Lactobacillus Acidophilus (Bacid) 2 ea BID PO Last administered on 11/06/18at 08:39; Start 10/27/18 at 21:00 Levothyroxine Sodium (Synthroid) 75 mcg DAILY@06 PO Last administered on 11/06/18 06:09; Start 10/28/18 at 06:00 Magnesium Hydroxide (Milk Of Magnesia) 30 ml DAILYPRN PRN PO CONSTIPATION; St art 10/27/18 at 16:15 Magnesium Oxide (Mag-Ox) 400 mg BID PO ; Start 11/06/18 at 21:00 Magnesium Oxide (Mag-Ox) 400 mg DAILY PO Last administered on 11/06/18 08:39; Start 11/05/18 at 09:00; Stop 11/06/18 at 13:41; Status DC Miscellaneous (Unresolved Clarification Entry) SEE LABEL COMMENTS DAILY XX ; Start 11/02/18 at 09:00; Stop 11/03/18 at 07:12; Status DC Miscellaneous (Unresolved Clarification Entry) SEE LABEL COMMENTS DAILY XX ; Start 11/03/18 at 09:00; Stop 11/03/18 at 10:51; Status DC Nystatin (Mycostatin Powder, Nystop) groin BID TOP Last administered on 11/06/18 08:40; Start 10/27/18 at 21:00 Ondansetron HCl (Zofran) 4 mg Q6HP PRN PO NAUSEA; Start 10/27/18 at 16:15 Oxycodone HCl (Roxicodone, Oxyir) 5 mg TID PO Last administered on 11/06/18 08:40; Start 10/28/18 at 16:00 Oxycodone HCl (Roxicodone, Oxyir) 10 mg Q6HP PRN PO SEVERE PAIN (PS 8-10) Last administered on 11/06/18 12:20; Start 10/28/18 at 10:45 Pantoprazole Sodium (Protonix) 40 mg DAILY PO Last administered on 11/06/18 08:39; Start 10/28/18 at 09:00 Prednisone (Deltasone) 5 mg DAILY PO Last administered on 11/06/18 08:39; Start 10/28/18 at 09:00 Rivaroxaban (Xarelto) 15 mg BID@08,18 PO Last administered on 11/06/18 08:39; Start 10/27/18 at 18:00 Senna/Docusate Sodium (Senokot S) 1 tab BID PO Last administered on 11/06/18 08:39; Start 1/28/19 at 21:00 Simvastatin (Zocor) 40 mg QHS PO Last administered on 11/05/18at 20:20; Start 10/27/18 at 21:00 Zinc Oxide (Boudreauxs Butt Paste) APPLY TO sacrum TID TOP Last administered on 11/04/18at 20:14; Start 10/28/18 at 16:00 MAGDI ADAMS MD Nov 06, 2018 14:15
[2018-11-06 21:34] VITALS: BP 127/70
[2018-11-06] MEDS: SIMVASTATIN 40 MG TAB PO SCH (21:37)
[2018-11-06] MEDS: LEVEMIR (INSULIN DETEMIR) 1 UNITS/0.01ML SC SCH (21:38)
[2018-11-07] MEDS: LEVOTHYROXINE 75MCG TABLET (0.075MG) PO SCH (06:26)
[2018-11-07] MEDS: oxyCODONE 5MG TAB PO PRN (06:27)
[2018-11-07 06:36] VITALS: BP 143/67
[2018-11-07] MEDS: HumaLOG INSULIN (NovoLOG) PER UNIT SC SCH ×2 (07:30)
[2018-11-07 07:59] LABS: BLOOD UREA NITROGEN 18 MG/DL (7-18); CALCIUM LEVEL 8.6 MG/DL (8.8-10.2); CARBON DIOXIDE LEVEL 31 MEQ/L (21-32); CHLORIDE LEVEL 105 MEQ/L (98-107); CREATININE FOR GFR 0.64 MG/DL (0.70-1.30); GLOMERULAR FILTRATION RATE > 60.0 (>42); GLUCOSE, FASTING 98 MG/DL (70-100); MAGNESIUM LEVEL 1.7 MG/DL (1.8-2.4); POTASSIUM SERUM 4.2 MEQ/L (3.5-5.1); SODIUM LEVEL 140 MEQ/L (136-145)
[2018-11-07] MEDS: NYSTATIN 100,000 UNITS/GM TOPICAL PWD 15 GM TOP SCH (09:00)
[2018-11-07] MEDS: BOUDREAUX'S BUTT PASTE 4OZ TOP SCH (09:00)
[2018-11-07] MEDS: RIVAROXABAN 15 MG TAB (XARELTO) PO SCH (09:04)
[2018-11-07] MEDS: LACTOBACILLUS ACIDOPHILUS CAP (BACID) PO SCH (09:04)
[2018-11-07] MEDS: FERROUS GLUCONATE 324 MG TAB PO SCH (09:04)
[2018-11-07] MEDS: SENOKOT S TAB PO SCH (09:04)
[2018-11-07 09:05] VITALS: BP 143/67
[2018-11-07] MEDS: predniSONE 5 MG TAB PO SCH (09:05)
[2018-11-07] MEDS: oxyCODONE 5MG TAB PO SCH (09:05)
[2018-11-07] MEDS: FOLIC ACID 1 MG TAB PO SCH (09:05)
[2018-11-07] MEDS: PANTOPRAZOLE 40MG TAB (PROTONIX) PO SCH (09:05)
[2018-11-07] MEDS: amLODIPine 10 MG TAB PO SCH (09:05)
[2018-11-07] MEDS: GABAPENTIN 100 MG CAP PO SCH (09:05)
[2018-11-07] MEDS: MAGNESIUM OXIDE 400 MG TAB (MAG-OX) PO SCH (09:05)
[2018-11-07] MEDS: ACETAMINOPHEN 500 MG TAB PO SCH (09:06)
--- NOTE | 2018-11-11 16:34 | PMRDS ---
DATE OF ADMISSION: 10/27/2018 DATE OF DISCHARGE: 11/07/2018 CHIEF COMPLAINT/DISCHARGE DIAGNOSIS: Right above-knee amputation. HISTORY OF PRESENT ILLNESS: This is a 73-year-old male with a past medical history of diabetes, type 2 with neuropathy, rheumatoid arthritis, hypothyroidism, hypertension, peripheral vascular disease (PVD), status post right leg femoral popliteal artery bypass in October 2017 with a right toe amputation and nonhealing foot wound followed by Dr. Kasper and was admitted to [facility] ([facility] on 10/10/2018 for fevers and chills. He was found to have leukocytosis and anemia with foot x-ray showing, "vascular calcification, transmetatarsal osteotomies, erosive changes and absence of uncovering soft tissue consistent with osteomyelitis at least involving first through fourth metatarsals." Blood cultures from 10/10/2018 grew Streptococcus anginosus times two and his wound culture grew Streptococcus anginosis and Klebsiella for which he was placed on IV Rocephin. 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 After which, he received two units of packed red blood cells (PRBCs) for his anemia. He was evaluated by therapy and noted to have significant impairments in activities of daily living (ADLs) and gait and deemed medically appropriate for discharge to acute rehabilitation unit (ARU) on 10/27/2018. PAST MEDICAL HISTORY: 1. Diabetes, type 2 with neuropathy. 2. Rheumatoid arthritis. 3. Hypothyroidism. 4. Hypertension. 5. Peripheral vascular disease. HOSPITAL COURSE: The patient was admitted and enrolled in a comprehensive physical therapy (PT)/occupational therapy (OT) program. He received 24-hour nursing supervision and weekly team meetings were held to discuss his progress. For his history of diastolic congestive heart failure (CHF), he was continued on diuretics and beta blockers. His blood pressure was well controlled and medicine was following for co-management. He finished his course of IV Rocephin and remained stable during his hospital course on acute rehabilitation unit (ARU). He received two units of red blood cells (RBCs) for his recent postoperative blood loss in the setting of chronic anemia and continued iron supplements. His pain was controlled with oxycodone, Tylenol and gabapentin. He arrived with a sacral ulcer on admission and offloaded it using Optifoam and he received twice a day residual limb dressings which eventually he was trained to self wrap. His blood sugars were maintained with sliding scale coverage. He was maintained on Xarelto twice a day for deep vein thrombosis (DVT) prophylaxis and overall he performed quite well in therapy and was deemed functionally and medically stable to return to home. DISCHARGE MEDICATIONS: Amlodipine, gabapentin, insulin detemir, Synthroid, oxycodone, pantoprazole, prednisone, Xarelto, simvastatin, folic acid. FUNCTIONAL HISTORY: Upon discharge, the patient was modified independent with ambulation using a rolling walker with all functional transfers, able to ambulate 300 feet. He was also modified independent for bed mobility, grooming, upper and lower body dressing, and limb wrapping. He was provided with a prescription for outpatient physical therapy and home services were to be provided.
== END 2018-11-07 13:00 | disposition home or self-care (01) | DRG 560 ==
LOC: M PM&R 15:23
PROVIDERS: ADMIT Physical Medicine & Rehabilitation; ATTEND Physical Medicine & Rehabilitation
PROC: 30233N1 Transfusion of Nonautologous Red Blood Cells into Peripheral Vein, Percutaneous Approach (ICD-10-PCS; principal; 2018-10-30)
DX: Z47.81 Encounter for orthopedic aftercare following surgical amputation (principal); I50.32 Chronic diastolic (congestive) heart failure; E11.51 Type 2 diabetes mellitus with diabetic peripheral angiopathy without gangrene; M06.9 Rheumatoid arthritis, unspecified; E03.9 Hypothyroidism, unspecified; I11.0 Hypertensive heart disease with heart failure; D63.8 Anemia in other chronic diseases classified elsewhere; K21.9 Gastro-esophageal reflux disease without esophagitis; E78.5 Hyperlipidemia, unspecified; L98.499 Non-pressure chronic ulcer of skin of other sites with unspecified severity

== ENCOUNTER → 2018-11-25 | Outpatient (REF) | payer MEDICARE ==
[~2018-11-25] MED LIST changes: +AMLO10TA5 PO; +GABA-1171 PO; +INSUDET SC; +INSUHUMDS SC; +OXYCO5TA PO; +PANT40TA3 PO
[2018-11-25 13:56] LABS: C REACTIVE PROTEIN QUANTITATIV < 0.30 MG/DL (0.00-0.30); TOTAL PROTEIN 6.8 GM/DL (6.4-8.2)
[2018-11-27 14:57] LABS: ALBUMIN 3.88 GM/DL (3.29-5.55); ALBUMIN % 57.1 % (55.8-66.1); ALPHA-1-GLOBULIN % 4.8 % (2.9-4.9); ALPHA-1-GLOBULINS 0.33 GM/DL (0.17-0.41); ALPHA-2-GLOBULINS 0.78 GM/DL (0.42-0.99); ALPHA-2-GLOBULINS % 11.4 % (7.1-11.8); BETA-1-GLOBULINS 0.42 GM/DL (0.28-0.60); BETA-1-GLOBULINS % 6.2 % (4.7-7.2); BETA-2-GLOBULINS 0.29 GM/DL (0.19-0.55); BETA-2-GLOBULINS % 4.3 % (3.2-6.5); GAMMA GLOBULIN % 16.2 % (11.1-18.8)
== END ==
LOC: M LAB REF 12:41
PROVIDERS: ATTEND Family Medicine
DX: D47.2 Monoclonal gammopathy (principal)

== ENCOUNTER 2018-11-26 11:30 | Outpatient (RCR) | payer MEDICARE | END 2018-11-27 | LOC: M PT 11:30 | PROVIDERS: ATTEND Family Medicine | DX: Z51.89 Encounter for other specified aftercare (principal); Z89.611 Acquired absence of right leg above knee ==

== ENCOUNTER 2018-12-24 11:30 | Outpatient (RCR) | payer MEDICARE | END 2018-12-28 | LOC: M PT 11:30 | PROVIDERS: ATTEND Family Medicine | DX: Z51.89 Encounter for other specified aftercare (principal); Z89.611 Acquired absence of right leg above knee ==

== ENCOUNTER 2018-12-29 09:21 | Emergency (ER) | payer MEDICARE ==
[~2018-12-29] VITALS: Ht 172.7 cm; Wt 56.8 kg
[~2018-12-29 09:21] MED LIST changes: +HYDR-3715 PO; -NORC1TAB4 PO; +NORC1TAB7 PO; -NORCOTAB PO; -SENN1TAB2 PO; +SENN1TAB40 PO; +SENN1TAB41 PO; -SENN8.6T7 PO
--- NOTE | 2018-12-29 11:14 | REP ---
Right rib series: Five views including PA chest. History: Right anterior rib pain. Question fracture. Comparison chest x-ray: October 10, 2018. Findings: Frontal chest x-ray shows relatively low level of inspiration similar to the prior study. There is discoid atelectasis in each lung base mild in degree. There is no evidence of pneumothorax or hydrothorax. The aorta is calcific and a little tortuous. No traumatic mediastinal widening is seen. Heart size is normal. Pulmonary vasculature is not increased. Lung falcon are clear. Multiple views of the right ribcage show no evidence of rib fracture or bony destructive rib lesion. Impression: Negative right rib radiographic series. Electronically Signed by Link Pineda MD 12/29/2018 11:42 A
[2018-12-29 11:20] VITALS: BP 156/83
== END 2018-12-29 11:21 | disposition home or self-care (01) ==
LOC: M ED 09:21
DX: R07.89 Other chest pain (principal); E11.9 Type 2 diabetes mellitus without complications; I10 Essential (primary) hypertension; Z87.442 Personal history of urinary calculi; Z79.4 Long term (current) use of insulin; Z79.899 Other long term (current) drug therapy

== ENCOUNTER 2019-01-26 12:43 | Outpatient (RCR) | payer MEDICARE | END 2019-01-27 | LOC: M PT 12:43 | PROVIDERS: ATTEND Family Medicine | DX: Z89.511 Acquired absence of right leg below knee (principal) ==

== ENCOUNTER 2019-02-24 10:35 | Outpatient (RCR) | payer MEDICARE | END 2019-02-27 | LOC: M PT 10:35 | PROVIDERS: ATTEND Family Medicine | DX: Z89.611 Acquired absence of right leg above knee (principal); R26.89 Other abnormalities of gait and mobility ==

== ENCOUNTER 2019-03-26 10:47 | Outpatient (RCR) | payer MEDICARE | END 2019-03-29 | LOC: M PT 10:47 | PROVIDERS: ATTEND Family Medicine | DX: Z89.611 Acquired absence of right leg above knee (principal) ==

== ENCOUNTER 2019-04-28 10:13 | Outpatient (RCR) | payer MEDICARE | END 2019-04-29 | LOC: M PT 10:13 | PROVIDERS: ATTEND Family Medicine | DX: Z51.89 Encounter for other specified aftercare (principal); Z89.611 Acquired absence of right leg above knee ==

== ENCOUNTER 2019-05-18 11:00 | Outpatient (RCR) | payer MEDICARE | END 2019-05-30 | LOC: M PT 11:00 | PROVIDERS: ATTEND Family Medicine | DX: Z51.89 Encounter for other specified aftercare (principal); Z89.611 Acquired absence of right leg above knee ==

== ENCOUNTER → 2019-09-01 | Outpatient (REF) | payer MEDICARE ==
[~2019-09-01] MED LIST changes: +SENN-53 PO; -SENN1TAB40 PO; -SIMV40TA2 PO; +SIMV40TA20 PO
[2019-09-03 00:06] LABS: LDL DIRECT 62 mg/dL (0-99)
== END ==
LOC: M LAB REF 13:38
PROVIDERS: ATTEND Family Medicine
DX: E11.65 Type 2 diabetes mellitus with hyperglycemia (principal); Z79.4 Long term (current) use of insulin

== ENCOUNTER → 2021-02-08 | Outpatient (REF) | payer MEDICARE ==
[~2021-02-08] MED LIST changes: -AMLO10TA5 PO; +AMLO1TAB24 PO; +AMLO1TAB25 PO; -AMLO5TAB6 PO; +LISI10TA22 PO; -LISI10TA4 PO; +PANT40TA29 PO; -PANT40TA3 PO
== END ==
LOC: M LAB REF 16:08
PROVIDERS: ATTEND Physician Assistant Medical
DX: S91.202A Unspecified open wound of left great toe with damage to nail, initial encounter (principal); X58.XXXA Exposure to other specified factors, initial encounter; Y92.9 Unspecified place or not applicable

== ENCOUNTER → 2021-03-03 | Outpatient (REF) | payer MEDICARE | LOC: M LAB REF 10:53 | PROVIDERS: ATTEND Family Medicine | DX: Z79.899 Other long term (current) drug therapy (principal) ==

== ENCOUNTER → 2021-03-29 | Outpatient (REF) | payer MEDICARE | LOC: M LAB REF 11:38 | PROVIDERS: ATTEND Surgery | DX: L97.522 Non-pressure chronic ulcer of other part of left foot with fat layer exposed (principal); M86.172 Other acute osteomyelitis, left ankle and foot; M86.672 Other chronic osteomyelitis, left ankle and foot ==

== ENCOUNTER → 2021-04-05 | Outpatient (REF) | payer MEDICARE | LOC: M LAB REF 11:17 | PROVIDERS: ATTEND Surgery | DX: L97.522 Non-pressure chronic ulcer of other part of left foot with fat layer exposed (principal) ==

== ENCOUNTER → 2021-04-13 | Outpatient (CLI) | payer MEDICARE ==
--- NOTE | 2021-04-13 10:43 | REP ---
INDICATION: PVD LT FOOT ULCER. TECHNIQUE: Real time coello scale and color Doppler evaluation of the left lower extremity arterial vasculature using linear high frequency transducer. FINDINGS: The ankle to brachial index of the left lower extremity could not be obtained due to noncompressibility. Marked atheromatous plaquing noted involving the entire left lower extremity without areas of narrowing and decreased flow primarily involving the superficial femoral artery. Increased diastolic flow is noted and consistent with hyperemia related to lower extremity wound. Biphasic wave patterns noted from the common femoral artery through the proximal superficial femoral artery followed by monophasic wave patterns to the ankle. The distal anterior tibial artery was not identifiable which may be related to some element of occlusion. PSV(cm/sec) Common femoral artery: 74 cm/s Profunda femoris artery: 116 cm/s Proximal superficial femoral artery: 36 cm/s Mid superficial femoral artery: 50 cm/s Distal superficial femoral artery: 65 cm/s Popliteal artery: 84-105 cm/s Proximal ANDI: 31 cm/s Tibioperoneal trunk: 32 cm/s Proximal TECHNICAL SERVICES CONSULTANT: 39 cm/s Distal TECHNICAL SERVICES CONSULTANT: 55 cm/s Distal ANDI: -- cm/s IMPRESSION: Significant atherosclerotic changes as described above with areas of narrowing and mild stenosis. No obvious occlusion other than possible occlusion involving the distal anterior tibial artery which was not identifiable. <Electronically signed by Atilio Cruz > 04/13/21 [id number]
== END ==
LOC: M RAD 09:34
PROVIDERS: ATTEND Surgery
DX: I73.9 Peripheral vascular disease, unspecified (principal); L97.522 Non-pressure chronic ulcer of other part of left foot with fat layer exposed

== ENCOUNTER → 2021-04-25 | Outpatient (POV) | payer MEDICARE ==
[~2021-04-25] VITALS: Ht 172.7 cm; Wt 65.9 kg
[~2021-04-25] MED LIST changes: +FAMO20TA PO; +PROM25TA12 PO; +TRAM50TA2
[2021-04-25 13:50] VITALS: BP 160/90
== END ==
LOC: M IRPOV 13:46
PROVIDERS: ATTEND Radiology Diagnostic Radiology
DX: L97.529 Non-pressure chronic ulcer of other part of left foot with unspecified severity (principal); E11.621 Type 2 diabetes mellitus with foot ulcer; E03.9 Hypothyroidism, unspecified; E78.5 Hyperlipidemia, unspecified; I10 Essential (primary) hypertension; M06.9 Rheumatoid arthritis, unspecified; Z79.4 Long term (current) use of insulin; Z79.899 Other long term (current) drug therapy; Z89.611 Acquired absence of right leg above knee

== ENCOUNTER → 2021-05-10 | Outpatient (CLI) | payer MEDICARE ==
[~2021-05-10] MED LIST changes: +DEXTROSE 50% 50 ML SYRINGE As Ordered ONE; -FAMO20TA PO; +ISOVUE-300 61% 50ML VIAL As Ordered ONE; +LIDOCAINE 1% MDV 20ML VIAL As Ordered ONE; +MIDAZOLAM INJ 2MG/2ML VIAL (J2250 PER 1MG) As Ordered ONE; +NS 1,000 ML IV SCH; +ONDANSETRON 4MG/2ML VIAL IV PRN; +PERCOCET 5MG/325MG TAB PO PRN; -PROM25TA12 PO; -TRAM50TA2; +diphenhydrAMINE 50MG/ML VIAL (J1200) As Ordered ONE; +fentaNYL 100 MCG/2 ML INJECTION (J3010) As Ordered ONE
[2021-05-10 08:16] LABS: HEMATOCRIT 38.4 % (42.0-52.0); HEMOGLOBIN 12.5 g/dl (13.5-17.5); MEAN CORPUSCULAR HEMOGLOBIN 30.3 pg (27.0-33.0); MEAN CORPUSCULAR HGB CONC 32.6 g/dl (32.0-36.5); PLATELET COUNT, AUTOMATED 312 10^3/uL (150-450); RED BLOOD COUNT 4.13 10^6/uL (4.30-6.10); WHITE BLOOD COUNT 8.8 10^3/uL (4.0-10.0)
--- NOTE | 2021-05-10 08:23 | IRHP ---
[facility] IR Pre-Procedure H & P General Date of Service: May 10, 2021 Procedure: Same Day Surgery Interval History and Physical I have seen the patient and reviewed last H & P performed within 30 days. There is no significant interval change. History of Present Illness Chief Complaint The patient is a 75-year-old male admitted with a reason for visit of PAD. PRE-PROCEDURE DIAGNOSIS: PAD HEART: Normal rate. LUNGS: Normal breathing at rest. ASA Classification ASA Classification: III-Severe systemic dis. Mallampati Score: II NPO: Yes Problems with prior sedation: No Obstructive Sleep Apnea: No Plan moderate sedation Allergies Coded Allergies: No Known Allergies (Unverified , 11/14/17) Home Medications Scheduled Amlodipine Besylate (Amlodipine Besylate), 10 MG PO DAILY Ferrous Sulfate (Ferrous Sulfate), 325 MG PO BID, (Reported) Hydroxychloroquine Sulfate (Hydroxychloroquine Sulfate), 200 MG PO BID, (Reported) Insulin Human Lispro (Humalog), 4 UNITS SC AC Levothyroxine Sodium (Levothyroxine Sodium), 75 MCG PO DAILY@06 Pantoprazole Sodium (Pantoprazole Sodium), 40 MG PO DAILY Prednisone (Prednisone), 5 MG PO DAILY Rivaroxaban (Xarelto), 15 MG PO BID, (Reported) Simvastatin (Simvastatin), 40 MG PO QHS, (Reported) Scheduled PRN Acetaminophen (Acetaminophen), 1,000 MG PO ASDIRECTED PRN for PAIN, (Reported) Folic Acid (Folic Acid), 1 MG PO DAILY PRN for MOUTH SORES, (Reported) VS, I&O, 24H, Fishbone Vital Signs/I&O Vital Signs Date Time Temp Pulse Resp B/P (MAP) Pulse Ox O2 Delivery O2 Flow Rate FiO2 05/10/21 07:59 96.0 93 18 96 Room Air Laboratory Data 24H LABS Laboratory Tests 2 05/10/21 07:54: Nucleated Red Blood Cells % (auto) 0.0 CBC/BMP Laboratory Tests 05/10/21 07:54 BRENDA SCHAFER MD May 10, 2021 08:23
[2021-05-10 08:30] LABS: BLOOD UREA NITROGEN 20 MG/DL (7-18); CALCIUM LEVEL 9.3 MG/DL (8.8-10.2); CARBON DIOXIDE LEVEL 28 MEQ/L (21-32); CHLORIDE LEVEL 107 MEQ/L (98-107); CREATININE FOR GFR 0.98 MG/DL (0.70-1.30); GLOMERULAR FILTRATION RATE > 60.0 (>42); GLUCOSE, FASTING 74 MG/DL (70-100); POTASSIUM SERUM 4.1 MEQ/L (3.5-5.1); SODIUM LEVEL 141 MEQ/L (136-145)
[2021-05-10 13:12] VITALS: BP 185/84
--- NOTE | 2021-05-15 13:33 | IRPON ---
IR Postoperative Note Date Of Procedure: May 10, 2021 Time Of Procedure: 16:00 IR Postoperative Note IR Left leg angiogram IR Left below-knee runoff arteriogram. IR Ultrasound-guided right common femoral artery access. IR Moderate sedation. Clinical Information:Left lower extremity nonhealing ulcer. Physician: Dr. Gongora. Procedure: The patient was advised of the benefits, risks, and alternatives of the procedure and informed consent was obtained. A time out was performed with verification of the patient's name, MRN, site of procedure, and type of procedure to be performed. The patient was positioned in the supine position on the angiographic table. The site was prepped and draped in the usual sterile fashion. Moderate sedation was performed by the physician including the presence of an independent trained RN, who assisted in monitoring the patient's level of consciousness and physiological status. Following the administration of fentanyl and Versed, the physician spent 60 minutes of continuous [id number] time with the patient. A foreign food specialty cook radiograph reveals calcified vasculature. Ultrasound of the right groin demonstrates patent right common femoral artery. Lidocaine was used for local anesthesia. The right common femoral artery was accessed, under ultrasound guidance, with a microintroducer set. A short 0.018" [place] wire was inserted, under fluoroscopy guidance and the needle was exchanged for a 4 Fr microintroducer sheath. The guidewire and dilator were removed, and a 0.035" [place] wire was advanced under fluoroscopy guidance and placed into the abdominal aorta. A 6 Fr sheath was placed over the wire. An Omni flush catheter was advanced over the wire, under fluoroscopy guidance and used to catheterize the infrarenal abdominal aorta. A pelvic arteriogram was performed and this demonstrates, unremarkable infrarenal abdominal aorta, patent aortic bifurcation, patent bilateral common iliac, internal iliac and external iliac arteries. Patient bilateral common femoral arteries. A wire was advanced through the flush catheter and used under fluoroscopy guidance, to get up and over access, into the left common femoral artery. The catheter was removed over the wire. A glide cath was advanced over the wire, under fluoroscopy guidance and used to catheterize the left common femoral artery. A left leg angiogram was performed. This demonstrates patent proximal and mid left superficial femoral artery. Patent profunda femoris. Angiography further down the left leg was performed. This demonstrates irregularity and atherosclerotic disease in the distal superficial femoral artery with less than 50% stenosis. Atherosclerotic disease in the proximal popliteal artery P1 segment with focal 60% stenosis. Patent P2 and P3 segment of the popliteal artery. A below knee runoff arteriogram was performed and this demonstrates, patent posterior tibial artery with multifocal greater than 90% stenosis in the proximal left posterior tibial artery. 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 The left posterior tibial artery remains patent to the ankle however, the posterior tibial artery does not runoff into the left foot. The posterior tibial artery terminates at the ankle, at which point it crosses laterally at the ankle to retrograde fill the peroneal artery. The anterior tibial artery is completely occluded with no contribution to the left foot. From the retrograde flow in the peroneal artery, there is collateral filling of a discontinuous and small length dorsalis pedis. 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 Calcaneal, plantar branches and dorsalis pedis all supplied by reconstitution from hair like collateral vessels. The Catheter, wire and sheath were removed, pressure held and hemostasis achieved. A sterile dressing was applied to the site. The patient tolerated the procedure well and was returned to the PRU in stable condition. EBL: < 5 mL. Complications:None. Impression: 1. Left leg angiogram demonstrates patent in flow to the left lower extremity. 2. Atherosclerotic disease in the distal left superficial femoral artery. Patent popliteal artery with focal stenosis in the P1 segment. 3. Below-knee runoff arteriogram demonstrates multifocal severe stenosis in the proximal posterior tibial artery. The posterior tibial artery is patent to the ankle. Here, it terminates, to cross laterally and retrograde fill the peroneal artery. 4. There is no dedicated runoff vessel into the left foot. The anterior and posterior circulation of the left foot fill from hair like collaterals arising off the posterior tibial artery. Thank you for this referral. Cc BRENDA Foster MD May 15, 2021 13:33
== END ==
LOC: M IRPRO 07:22
PROVIDERS: ATTEND Radiology Diagnostic Radiology
DX: I70.249 Atherosclerosis of native arteries of left leg with ulceration of unspecified site (principal); L97.929 Non-pressure chronic ulcer of unspecified part of left lower leg with unspecified severity; Z79.4 Long term (current) use of insulin; Z79.890 Hormone replacement therapy; Z79.899 Other long term (current) drug therapy
CPT/HCPCS: 36246; 75630; 75774; 80048; 85027; 99152; 99153; C1760; C1769; C1887; C1894; J1200; J1644; J2250; J3010; Q9967

== ENCOUNTER → 2021-06-06 | Outpatient (POV) | payer MEDICARE ==
[~2021-06-06] VITALS: Ht 172.7 cm; Wt 63.6 kg
[~2021-06-06] MED LIST changes: -DEXTROSE 50% 50 ML SYRINGE As Ordered ONE; -ISOVUE-300 61% 50ML VIAL As Ordered ONE; -LIDOCAINE 1% MDV 20ML VIAL As Ordered ONE; -MIDAZOLAM INJ 2MG/2ML VIAL (J2250 PER 1MG) As Ordered ONE; -NS 1,000 ML IV SCH; -ONDANSETRON 4MG/2ML VIAL IV PRN; -PERCOCET 5MG/325MG TAB PO PRN; -diphenhydrAMINE 50MG/ML VIAL (J1200) As Ordered ONE; -fentaNYL 100 MCG/2 ML INJECTION (J3010) As Ordered ONE
[2021-06-06 13:10] VITALS: BP 160/90
--- NOTE | 2021-06-09 11:48 | IRPN ---
[facility] IR Progress Note IR Progress Note DATE: Jun 06, 2021 FOLLOW-UP: Patient is status post left lower extremity angiography via right groin access for PAD and nonhealing ulcer. This demonstrated patent inflow to the left leg with no dedicated runoff into the left foot. Severely diseased posterior tibial artery which terminates at the ankle and retrograde fills the peroneal artery. Complete occlusion of the anterior tibial artery. 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 Patient has been referred for vascular surgery consult. ON EXAMINATION: Right groin access site healed. No bruising, hematoma or pulsatile mass. IMPRESSION: Doing well status post left lower extremity angiography. Patient has no dedicated runoff vessel into the left foot and severe microvascular disease within the left foot. Patient has been referred for vascular consult. Thank you for this referral. Cc Dr. Kasper Allergies Coded Allergies: No Known Allergies (Unverified , 11/14/17) VS,Fishbone, I+O VS, Fishbone, I+O Vital Signs Date Time Temp Pulse Resp B/P (MAP) Pulse Ox O2 Delivery O2 Flow Rate FiO2 06/06/21 13:10 97.8 89 20 160/90 (113) 98 BRENDA SCHAFER MD Jun 09, 2021 11:48
== END ==
LOC: M IRPOV 12:11
PROVIDERS: ATTEND Radiology Diagnostic Radiology
DX: Z48.812 Encounter for surgical aftercare following surgery on the circulatory system (principal); I70.249 Atherosclerosis of native arteries of left leg with ulceration of unspecified site; I70.92 Chronic total occlusion of artery of the extremities; L97.929 Non-pressure chronic ulcer of unspecified part of left lower leg with unspecified severity

== ENCOUNTER → 2021-06-22 | Outpatient (REF) | payer MEDICARE | LOC: M LAB REF 16:12 | PROVIDERS: ATTEND Family Medicine | DX: M05.9 Rheumatoid arthritis with rheumatoid factor, unspecified (principal) ==

== ENCOUNTER → 2021-08-03 | Outpatient (REF) | payer MEDICARE | LOC: M LAB REF 15:47 | PROVIDERS: ATTEND Physician Assistant | DX: E11.621 Type 2 diabetes mellitus with foot ulcer (principal); M86.68 Other chronic osteomyelitis, other site; M79.89 Other specified soft tissue disorders | CPT/HCPCS: 15275; 87070; 87077; 87186; 88304; Q4121 ==

== ENCOUNTER → 2021-09-07 | Outpatient (REF) | payer MEDICARE ==
[~2021-09-07] MED LIST changes: +FAMO20TA PO; +PROM25TA12 PO; +TRAM50TA2
[2021-09-08 17:31] LABS: PERCENT SATURATION 8.8 % (19.7-50.0)
[2021-09-08 17:47] LABS: FOLATE 22.7 NG/ML
== END ==
LOC: M LAB REF 16:25
PROVIDERS: ATTEND Family Medicine
DX: D64.9 Anemia, unspecified (principal)

== ENCOUNTER 2021-10-31 12:23 | Emergency (ER) | payer MEDICARE ==
[~2021-10-31] VITALS: Ht 172.7 cm; Wt 64.1 kg
[~2021-10-31 12:23] MED LIST changes: -FAMO20TA PO; -PROM25TA12 PO; -TRAM50TA2
[2021-10-31] MEDS ORDERED: TRAM50TA2 (12:41)
[2021-10-31] MEDS ORDERED: NS 1,000 ML IV ONE (14:10)
[2021-10-31] MEDS ORDERED: PROMETHAZINE INJ 25 MG/ML VIAL (J2550) IV ONE (14:10)
[2021-10-31] MEDS ORDERED: GI COCKTAIL 50ML BTL(HYOSCYAMINE/MAALOX/LIDOCAINE VISCOUS)(1:3:1) PO ONE (14:10)
[2021-10-31 15:13] LABS: BASO % 0.5 % (0.0-1.0); EOS % 0.4 % (0.0-3.0); HEMATOCRIT 32.1 % (42.0-52.0); HEMOGLOBIN 10.4 g/dl (13.5-17.5); LYMPH # 0.7 10^3/uL (1.5-5.0); LYMPH % 8.6 % (24.0-44.0); MEAN CORPUSCULAR HEMOGLOBIN 27.5 pg (27.0-33.0); MEAN CORPUSCULAR HGB CONC 32.4 g/dl (32.0-36.5); MEAN CORPUSCULAR VOLUME 84.9 fl (80.0-96.0); MONO # 0.2 10^3/uL (0.0-0.8); MONO % 2.2 % (2.0-8.0); NEUTROPHILS # 7.1 10^3/uL (1.5-8.5); NEUTROPHILS % 88.1 % (36.0-66.0); PLATELET COUNT, AUTOMATED 294 10^3/uL (150-450); RED BLOOD COUNT 3.78 10^6/uL (4.30-6.10); WHITE BLOOD COUNT 8.1 10^3/uL (4.0-10.0)
[2021-10-31 15:33] LABS: ALBUMIN 3.1 GM/DL (3.2-5.2); ALT/SGPT 37 U/L (12-78); BILIRUBIN,DIRECT 0.2 MG/DL (0.0-0.2); BILIRUBIN,TOTAL 0.4 MG/DL (0.2-1.0); BLOOD UREA NITROGEN 25 MG/DL (7-18); CALCIUM LEVEL 8.8 MG/DL (8.8-10.2); CARBON DIOXIDE LEVEL 26 MEQ/L (21-32); CHLORIDE LEVEL 100 MEQ/L (98-107); CREATININE FOR GFR 0.95 MG/DL (0.70-1.30); GLOMERULAR FILTRATION RATE > 60.0 (>42); GLUCOSE, FASTING 44 MG/DL (70-100); LIPASE 195 U/L (73-393); SODIUM LEVEL 136 MEQ/L (136-145); TOTAL PROTEIN 6.7 GM/DL (6.4-8.2)
[2021-10-31] MEDS ORDERED: ISOVUE-370 76% 100ML VIAL As Ordered ONE (16:08)
[2021-10-31] MEDS ORDERED: FAMO20TA PO (17:45)
[2021-10-31] MEDS ORDERED: PROM25TA12 PO (17:45)
[2021-10-31 18:06] VITALS: BP 177/79
== END 2021-10-31 19:21 | disposition home or self-care (01) ==
LOC: M ED 12:23 → EDBD 12:23 → M ED 19:21
DX: R11.2 Nausea with vomiting, unspecified (principal); K76.9 Liver disease, unspecified; E11.9 Type 2 diabetes mellitus without complications; I10 Essential (primary) hypertension; E78.5 Hyperlipidemia, unspecified; Z87.442 Personal history of urinary calculi; Z79.4 Long term (current) use of insulin
CPT/HCPCS: 74177; 80048; 80076; 83690; 85025; 96361; 96374; 99284; Q9967